=== PATIENT | male | born 1945 | race Caucasian/White ===

== ENCOUNTER 2024-01-26 21:40 | Emergency (ER) | payer MEDICARE, SELFPAY ==
[2024-01-26 22:19] VITALS: BP 151/75; PULSE 53; RESP 16; TEMP 37.1; O2SAT 96; BMI 35.0
--- NOTE | 2024-01-26 22:48 | ED_ITS ---
HPI - General Adult General Time Seen by Provider: 22:48 Date Seen: 01/26/24 Chief complaint: Skin/Abscess/Foreign Body Stated complaint: part of hearing aid stuck in ear Time Seen by Provider: 01/26/24 22:45 Source: patient Mode of arrival: ambulatory Limitations: no limitations History of Present Illness HPI narrative: Sky is a very pleasant 78-year-old [employer] [place] who comes to the emergency room for evaluation of foreign body in his left ear. States he removed his hearing aids tonight and part of the hearing aid remained in his left ear. His significant other tried to use a tweezers to pull it out but only pushed it further in. He has no pain at this time. This is to happen this evening. Related Data Home Medications ?Medication ?Instructions ?Recorded ?Confirmed atorvastatin 20 mg tablet 20 mg PO QDAY 12/04/22 12/04/22 dabigatran etexilate 110 mg 110 mg PO BID 12/04/22 12/04/22 capsule (Pradaxa) levothyroxine 75 mcg capsule 75 mcg PO QDAY 12/04/22 12/04/22 Previous Rx's ?Medication ?Instructions ?Recorded amoxicillin 875 mg-potassium 1 tab PO BID #20 tabs 12/04/22 clavulanate 125 mg tablet Allergies Allergy/AdvReac Type Severity Reaction Status Date / Time No Known Drug Allergies Allergy Verified 12/04/22 13:46 [facility] Medical History Need for prophylactic measure ?Z29.9 - Encounter for prophylactic measures, unspecified (ICD-10) Cat bite ?W55.01XA - Bitten by cat, initial encounter (ICD-10) Social History Smoking Status: Former smoker Non-prescribed substance use: denies use service: Yes Exam Narrative: Exam Narrative: Alert and oriented. Very pleasant gentleman in no acute distress. Examination of the left ear shows obvious metallic and plastic foreign body within the ear canal. A mini alligator forceps is used and foreign body is removed. Examination of the ear canal shows no trauma bleeding or evidence of infection. Const: Vital Signs, click to edit/add: Vital Signs - 24 hr 01/26/24 22:19 Temperature 98.7 F Pulse Rate [Left P ulse Oximeter] 53 L Respiratory Rate 16 Blood Pressure [Ri ght Upper Arm] 151/75 H Pulse Oximetry 96 Oxygen Delivery Me thod Room Air Documenting provider has reviewed patient's vital signs: yes Course Vital Signs Vital signs: Initial Vital Signs Temperature 98.7 F 01/26/24 22:19 Temperature Source Temporal Artery Scan 01/26/24 22:19 Pulse Rate 53 L 01/26/24 22:19 Pulse Rhythm Regular 01/26/24 22:19 Respiratory Rate 16 01/26/24 22:19 Blood Pressure 151/75 H 01/26/24 22:19 Blood Pressure Mean 100 01/26/24 22:19 Blood Pressure Position Sitting 01/26/24 22:19 Pulse Oximetry 96 01/26/24 22:19 Oxygen Delivery Method Room Air 01/26/24 22:19 Vital Signs Temperature 98.7 F 01/26/24 22:19 Pulse Rate 53 L 01/26/24 22:19 Respiratory Rate 16 01/26/24 22:19 Blood Pressure 151/75 H 01/26/24 22:19 Pulse Oximetry 96 01/26/24 22:19 Oxygen Delivery Method Room Air 01/26/24 22:19 Temperature 98.7 F 01/26/24 22:19 Pulse Rate 53 L 01/26/24 22:19 Respiratory Rate 16 01/26/24 22:19 Blood Pressure 151/75 H 01/26/24 22:19 Pulse Oximetry 96 01/26/24 22:19 Oxygen Delivery Method Room Air 01/26/24 22:19 Medical Decision Making MDM Narrative Medical decision making narrative: 1. Foreign body removal-part of the hearing a removed from the left ear. No ev idence of infection or trauma. 2. Disposition-home at this time. Return as needed. Discharge Plan Discharge Clinical Impression: Foreign body in left ear Qualifiers: Encounter type: initial encounter Qualified Code(s): T16.2XXA - Foreign body in left ear, initial encounter Patient Disposition: Home, Self-Care Condition: Improved Additional Instructions: Return as needed Prescriptions: No Action atorvastatin 20 mg tablet 20 mg PO QDAY levothyroxine 75 mcg capsule 75 mcg PO QDAY Pradaxa 110 mg capsule 110 mg PO BID amoxicillin-pot clavulanate 875-125 mg tablet 1 tab PO BID Qty: 20 0RF Stand Alone Forms: [employer] Info Instructions
--- OUTSIDE RECORDS SUMMARY | 2024-01-26 23:09 | XMS_ITS | Continuity of Care Document ---
Author Name [facility] Organization [facility] Care Team Providers Care Workers Compensation Adjuster Name Role Phone [facility] Unavailable Unavailable Problems Combined list of problems from Department of Defense and Veterans Affairs facilities. It does not include entries that were removed or entered in error. Problem Status Onset Date Problem Type Date of Resolution Comments Source Anticoagulation Active Condition [facility] CAD - Coronary Artery Disease (SCT 56922020) Active Condition Aug 16, 2023 Entered By: ELIZ MUNOZ Comment: Mild, nonobstructive CAD on coronary CTA 06/2022 [facility] Cervical Radiculopathy (SCT 12894731) Active Condition Aug 16, 2023 Entered By: ELIZ MUNOZ Comment: S/p JOSH 09/2022 [facility] colonoscopy screening Active Condition Sep 28, 2018 Entered By: DANIKA DE ANDA Comment: normal colonoscopy 09/2018, next 09/2028 [facility] Exposure to potentially hazardous substance Active Condition [facility] Glaucoma Active Condition [facility] Hypothyroid Active Condition [facility] Obstructive sleep apnea of adult (SNOMED CT 2665888247084) Active Condition December 09, 2010 Entered By: VIKTORIYA OCONNOR Comment: ON CPAP [facility] Paroxysmal atrial fibrillation Active Condition Aug 16, 2023 Entered By: ELIZ MUNOZ Comment: s/p PVI x2, most recently 06/2019 [facility] Actinic keratosis Inactive Condition 08/16/2023 [facility] Arthritis of right hip Inactive Condition 08/16/2023 [facility] Basal cell carcinoma of back Inactive Condition 08/16/2023 [facility] Cervical radiculitis Inactive Condition 08/16/2023 [facility] Chronic low back pain Inactive Condition 08/16/2023 [facility] Essential hypertension Inactive Condition 08/17/2023 [facility] Gastroesophageal reflux disease Inactive Condition 08/17/2023 [facility] Hyperlipidemia Inactive Condition 08/16/2023 [facility] Personal History of Colonic Polyps Inactive Condition 08/16/2023 Oct 21 13 Entered By: SALMA MORAN Comment: adenomatous and hyperplastic 08/10/07 [facility] Diagnosis: ICD-10-CM L57.0 Actinic keratosis Active [facility] Diagnosis: ICD-10-CM D48.5 Neoplasm of uncertain behavior of skin Active Diagnosis [facility] Diagnosis: ICD-10-CM M54.12 Radiculopathy, cervical region Active Diagnosis MODESTO FULLER [facility] Diagnosis: ICD-10-CM Z79.01 USP (current) use of anticoagulants [facility] Diagnosis: ICD-10-CM R07.9 Chest pain, unspecified Active Diagnosis [facility] Diagnosis: ICD-10-CM E03.9 Hypothyroidism, unspecified Active Diagnosis [facility] Diagnosis: ICD-10-CM Z77.29 Contact with and exposure to other hazardous substances Active Diagnosis [facility] Diagnosis: ICD-10-CM Z48.89 Encounter for other specified surgical aftercare Active Diagnosis [facility] Diagnosis: ICD-10-CM Z71.89 Other specified counseling Active Diagnosis [facility] Diagnosis: ICD-10-CM Z71.81 Spiritual or caodaism counseling Active Diagnosis [facility] Diagnosis: ICD-10-CM K40.91 Unilateral inguinal hernia, w/o obst or gangrene, recurrent Active Diagnosis [facility] Diagnosis: ICD-10-CM K40.90 Unil inguinal hernia, w/o obst or gangr, not spcf as recur Active Diagnosis [facility] Diagnosis: ICD-10-CM K40.21 Bilateral inguinal hernia, w/o obst or gangrene, recurrent Active Diagnosis [facility] Diagnosis: ICD-10-CM G47.33 Obstructive sleep apnea (adult) (pediatric) Active Diagnosis [facility] Diagnosis: ICD-10-CM Z01.818 Encounter for other preprocedural examination Active Diagnosis [facility] Diagnosis: ICD-10-CM Z13.6 Encounter for screening for cardiovascular disorders Active Diagnosis [facility] Diagnosis: ICD-10-CM Z71.9 Counseling, unspecified Active Diagnosis [facility] Diagnosis: ICD-10-CM K40.31 Unilateral inguinal hernia, w obst, w/o gangrene, recurrent Active Diagnosis [facility] Diagnosis: ICD-10-CM J01.90 Acute sinusitis, unspecified Active Diagnosis [facility] Diagnosis: ICD-10-CM M47.22 Other spondylosis with radiculopathy, cervical region Active Diagnosis MODESTO FULLER [facility] Diagnosis: ICD-10-CM Z51.81 Encounter for therapeutic drug level monitoring Active Diagnosis JACKELIN GIPSON [facility] Medications Combined list of outpatient medications from Department of Defense and Veterans Affairs facilities.Medications provided include 1) outpatient medications from the last 15 months, and 2) patient-reported medications. Medication Details Route Status Patient Instructions Prescription Expires Prescription Number Last Dispense Date Ordering Provider Order Date Order Qty Source ACETAMINOPH EN 325MG TAB TAKE TWO TABLETS BY MOUTH EVERY 4 HOURS NEEDED FOR PAIN ORAL 05/30/2023 [id number] Pham SANTIAGO 2022 100 [facility] ACETAMINOPH EN 500MG TAB TAKE TWO TABLETS BY MOUTH EVERY 8 HOURS NEEDED FOR PAIN ORAL 11/18/2023 [id number] 4 ROBERT BERRY 2023 42 [facility] CHOLECALCIF NII 25MCG (1,000UNIT) TAB TAKE TWO TABLETS BY MOUTH TWICE A DAY ORAL ACTIVE ANDREA COHEN 2018 [facility] DABIGATRAN ETEXILATE 150MG CAP,ORAL,UD TAKE ONE CAPSULE BY MOUTH EVERY 12 HOURS TO PREVENT STROKE DUE TO ATRIAL FIBRILLA TION ORAL ACTIVE 09/29/2024 [id number] ALLYSON ESTRADA 2023 180 [facility] DABIGATRAN ETEXILATE 150MG CAP,ORAL,UD TAKE ONE CAPSULE BY MOUTH EVERY 12 HOURS TO PREVENT STROKE DUE TO ATRIAL FIBRILLA TION ORAL DISCONT INUED 08/19/2023 [id number] JORGITO HENNING 2022 180 [facility] DICLOFENAC NA 1% GEL,TOP APPLY 4 GRAMS TOPICALL Y FOUR TIMES A DAY NEEDED TO AFFECTED AREA FOR PAIN TOPICA L 11/18/2023 [id number] ROBERT BERRY 2023 100 [facility] DOCUSATE NA 50MG/SENNOS IDES 8.6MG TAB TAKE 1 TABLET BY MOUTH TWICE A DAY NEEDED FOR CONSTIPA TION ORAL 05/30/2023 [id number] Pham SANTIAGO 2022 30 [facility] DORZOLAMIDE HCL 2% SOLN,OPH INSTILL 1 DROP IN BOTH EYES TWICE A DAY OPHTHA LMIC ACTIVE 11/17/2024 [id number] JU DURAN 2023 20 [facility] DORZOLAMIDE HCL 2% SOLN,OPH INSTILL 1 DROP IN OPTHALMI FAVIAN THREE TIMES A DAY FOR AFFECTED EYE(S) OPHTHA LMIC DISCONT INUED 09/20/2024 [id number] JU DURAN 2023 10 [facility] DORZOLAMIDE HCL 2% SOLN,OPH INSTILL 1 DROP THREE TIMES A DAY TO AFFECTED EYE(S) DISCONT INUED 01/14/2024 [id number] LINDSAY GAMING OD 2022 10 [facility] FLUOROURACI L 5% CREAM,TOP APPLY DIRECTED TO FACE TOPICALL Y TWICE A DAY FOR PRECANCE RS FOR TWO WEEKS TO SUN DAMAGED AREAS OF FACE TOPICA L ACTIVE 11/17/2024 [id number] GIULIANA HUGO 2023 40 [facility] LATANOPROST 0.005% SOLN,OPH INSTILL 1 DROP IN BOTH EYES AT BEDTIME OPHTHA LMIC ACTIVE 11/17/2024 [id number] 4 JU DURAN 2023 7.5 [facility] LATANOPROST 0.005% SOLN,OPH INSTILL 1 DROP EVERY DAY AT BEDTIME IN AFFECTED EYE(S) DISCONT INUED 07/20/2024 [id number] LINDSAY GAMING OD 2022 7.5 [facility] LATANOPROST 0.005% SOLN,OPH INSTILL 1 DROP IN BOTH EYES AT BEDTIME OPHTHA LMIC 05/13/2023 [id number] MANJEET SMITH JAZMYNE E 2021 7.5 [facility] LEVOTHYROXI NE NA 137MCG TAB (SYNTHROID) TAKE ONE TABLET BY MOUTH EVERY DAY ON AN EMPTY STOMACH ORAL ACTIVE 08/17/2024 [id number] TAMMY,ELIZ B 2023 90 [facility] LEVOTHYROXI NE NA 137MCG TAB (SYNTHROID) TAKE ONE TABLET BY MOUTH EVERY DAY ON AN EMPTY STOMACH ORAL DISCONT INUED 07/02/2023 [id number] 3 TAMMY,ELIZ B 2022 90 [facility] LIDOCAINE 5% PATCH APPLY 1 PATCH TOPICALL Y EVERY DAY NEEDED FOR UP TO 12 HOURS FOR PAIN TOPICA L 11/18/2023 [id number] ROBERT BERRY MY A 2023 30 [facility] OXYCODONE HCL 5MG TAB TAKE ONE TABLET BY MOUTH EVERY 6 HOURS NEEDED FOR PAIN ORAL DISCONT INUED 05/30/2023 [id number] 3 Katherine LOU 2022 10 [facility] ROSUVASTATI N CA 20MG TAB TAKE ONE TABLET BY MOUTH AT BEDTIME FOR CHOLESTE ROL ORAL ACTIVE 08/17/2024 [id number] 4 TAMMY,ELIZ B 2023 90 [facility] ROSUVASTATI N CA 40MG TAB TAKE ONE-HALF TABLET BY MOUTH AT BEDTIME ORAL DISCONT INUED (EDIT) 05/31/2024 [id number] 3 REBECA TAYLOR 2022 45 [facility] ROSUVASTATI N CA 40MG TAB TAKE ONE-HALF TABLET BY MOUTH AT BEDTIME ORAL DISCONT INUED 05/30/2023 [id number] REBECA TAYLOR 2021 45 [facility] ZINC (FROM SULFATE) CAP,ORAL TAKE ACTIVE SRINIVASA LIN 2022 [facility] Immunizations Combined list of available immunizations from the Department of Defense and Veterans Affairs facilities. Immunization Series Date Given Administered By Site Reaction Lot Number CVX Code Drug Ophthalmic Technician Status Comments Source INFLUENZA, HIGH-DOSE, QUADRIVALENT 2022 197 complet ed [facility] TDAP 2022 115 complet ed [facility] INFLUENZA VACCINE, QUADRIVALENT, ADJUVANTED 2021 205 complet ed [facility] TDAP 2021 115 complet ed [id number] 11/01/23 [facility] COVID-19 (Axilica), MRNA, LNP-S, PF, 30 MCG/0.3 ML DOSE 3 2020 208 complet ed PFR; [id number]; 1 [facility] INFLUENZA, INJECTABLE, QUADRIVALENT, PRESERVATIVE FREE 2020 150 complet ed [facility] COVID-19 (PFIZER), MRNA, LNP-S, PF, 30 MCG/0.3 ML DOSE 2 2020 208 complet ed PFR; [id number]; 1 [facility] COVID-19 (Axilica), MRNA, LNP-S, PF, 30 MCG/0.3 ML DOSE 1 2020 208 complet ed PFR; [id number]; 1 [facility] INFLUENZA, INJECTABLE, QUADRIVALENT, PRESERVATIVE FREE 2019 150 complet ed [facility] ZOSTER RECOMBINANT 2 2019 187 complet ed [facility] ZOSTER RECOMBINANT 1 2018 187 complet ed [facility] INFLUENZA, HIGH DOSE SEASONAL 2018 135 complet ed [facility] INFLUENZA, HIGH DOSE SEASONAL 2018 135 complet ed [facility] INFLUENZA, SEASONAL, INJECTABLE, PRESERVATIVE FREE 2017 140 complet ed [facility] INFLUENZA, HIGH DOSE SEASONAL 2016 135 complet ed [facility] TD (ADULT), 2 LF TETANUS TOXOID, PRESERVATIVE FREE, ADSORBED 2016 09 complet ed [facility]; [id number]; 8 [facility] INFLUENZA, HIGH DOSE SEASONAL 2015 135 complet ed [facility] INFLUENZA, HIGH DOSE SEASONAL 2014 135 complet ed per chart [facility] INFLUENZA, HIGH DOSE SEASONAL 2014 135 complet ed [facility] PNEUMOCOCCAL CONJUGATE PCV 13 2014 133 complet ed wyeth [id number] 09/2016 [facility] INFLUENZA, UNSPECIFIED FORMULATION 2013 88 complet ed [facility] INFLUENZA, SEASONAL, INJECTABLE 2012 141 complet ed [facility] INFLUENZA, LIVE, INTRANASAL 2012 111 complet ed [facility] INFLUENZA, HIGH DOSE SEASONAL 2011 135 complet ed [facility] INFLUENZA, UNSPECIFIED FORMULATION 2011 88 complet ed [facility] PNEUMOCOCCAL, UNSPECIFIED FORMULATION 2011 109 complet ed [employer] [id number], 04/09/13 [facility] INFLUENZA, UNSPECIFIED FORMULATION 2010 88 complet ed [facility] INFLUENZA, UNSPECIFIED FORMULATION 2009 88 complet ed [facility] INFLUENZA, SEASONAL, INJECTABLE 2009 141 complet ed [facility] ZOSTER LIVE 2009 121 complet ed [facility] NOVEL INFLUENZA-H1N 1-09, ALL FORMULATIONS 2009 128 complet ed [facility] ZOSTER LIVE 2008 121 complet ed [facility] INFLUENZA, SEASONAL, INJECTABLE, PRESERVATIVE FREE 2008 140 complet ed [facility] INFLUENZA, UNSPECIFIED FORMULATION 2007 88 complet ed [facility] TDAP 2007 115 complet ed [facility] TDAP 2007 115 complet ed [facility] INFLUENZA, UNSPECIFIED FORMULATION 2006 88 complet ed [facility] INFLUENZA, UNSPECIFIED FORMULATION 2005 88 complet ed [facility] TD (ADULT), 2 LF TETANUS TOXOID, PRESERVATIVE FREE, ADSORBED 1997 09 complet ed [facility] Results Combined list of recent chemistry, hematology and other laboratory results from Department of Defense and Veterans Affairs, ranging from 15 months to all on record, depending upon the facility. Order Name Results Value Reference Range Date Interpretation Specimen Comments Source TROPONIN I, HS TROPONIN I.CARDIAC [MASS/VOLU ME] IN SERUM OR PLASMA <3 <35 - 35 10/18 Specimen Type: PLASMA No comment entered. Ordering Provider: FIGUEROA BERRY Report Released Date/Time: Oct 19, 2023 03:51 PM Reporting Lab: [facility] [address] Performing Lab: [facility] [address] [place] [facility] TROPONIN I, HS TROPONIN I.CARDIAC [MASS/VOLU ME] IN SERUM OR PLASMA <3 <35 - 35 10/18 Specimen Type: PLASMA No comment entered. Ordering Provider: FIGUEROA BERRY Report Released Date/Time: Oct 19, 2023 01:29 PM Reporting Lab: [facility] [address] Performing Lab: [facility] [address] [place] [facility] BNP NATRIURETI C PEPTIDE B [MASS/VOLU ME] IN SERUM OR PLASMA 30 pg/mL <99 - 99 10/18 Specimen Type: PLASMA No comment entered. Ordering Provider: FIGUEROA BERRY Report Released Date/Time: Oct 19, 2023 01:29 PM Reporting Lab: [facility] [address] Performing Lab: [facility] [address] [place] [facility] ACT PART THROMBO TIME APTT IN PLATELET POOR PLASMA BY COAGULATIO N ASSAY 35.2 s 25.1 - 36.5 10/18 Specimen Type: PLASMA No comment entered. Ordering Provider: FIGUEROA BERRY Report Released Date/Time: Oct 19, 2023 01:29 PM Reporting Lab: [facility] [address] Performing Lab: [facility] [address] [place] [facility] EXTRA GOLD GEL TUBE EXTRA GOLD GEL TUBE RECEIVED 10/18 Specimen Type: SERUM No comment entered. Ordering Provider: FIGUEROA BERRY Report Released Date/Time: Oct 19, 2023 01:35 PM Reporting Lab: [facility] [address] Performing Lab: [facility] [address] [place] [facility] BASIC METABOLI C PANEL+MG CREATININE [MASS/VOLU ME] IN SERUM OR PLASMA 0.8 mg/dL 0.7 - 1.2 10/18 Specimen Type: PLASMA No comment entered. Ordering Provider: FIGUEROA BERRY Report Released Date/Time: Oct 19, 2023 01:29 PM Reporting Lab: [facility] [address] Performing Lab: [facility] [address] [place] [facility] BASIC METABOLI C PANEL+MG UREA NITROGEN [MASS/VOLU ME] IN SERUM OR PLASMA 18 mg/dL 8 - 26 10/18 Specimen Type: PLASMA No comment entered. Ordering Provider: FIGUEROA BERRY Report Released Date/Time: Oct 19, 2023 01:29 PM Reporting Lab: [facility] [address] Performing Lab: [facility] [address] [place] [facility] BASIC METABOLI C PANEL+MG GLUCOSE [MASS/VOLU ME] IN SERUM OR PLASMA 98 mg/dL 70 - 100 10/18 Specimen Type: PLASMA No comment entered. Ordering Provider: FIGUEROA BERRY Report Released Date/Time: Oct 19, 2023 01:29 PM Reporting Lab: [facility] [address] Performing Lab: [facility] [address] [place] [facility] BASIC METABOLI C PANEL+MG SODIUM [MOLES/VOL UME] IN SERUM OR PLASMA 142 mmol/L 136 - 145 10/18 Specimen Type: PLASMA No comment entered. Ordering Provider: FIGUEROA BERRY Report Released Date/Time: Oct 19, 2023 01:29 PM Reporting Lab: [facility] [address] Performing Lab: [facility] [address] [place] [facility] BASIC METABOLI C PANEL+MG POTASSIUM [MOLES/VOL UME] IN SERUM OR PLASMA 4.2 mmol/L 3.5 - 5.1 10/18 Specimen Type: PLASMA No comment entered. Ordering Provider: FIGUEROA BERRY Report Released Date/Time: Oct 19, 2023 01:29 PM Reporting Lab: [facility] [address] Performing Lab: [facility] [address] [place] [facility] BASIC METABOLI C PANEL+MG CHLORIDE [MOLES/VOL UME] IN SERUM OR PLASMA 107 mmol/L 98 - 107 10/18 Specimen Type: PLASMA No comment entered. Ordering Provider: FIGUEROA BERRY Report Released Date/Time: Oct 19, 2023 01:29 PM Reporting Lab: [facility] [address] Performing Lab: [facility] [address] [place] [facility] BASIC METABOLI C PANEL+MG CARBON DIOXIDE, TOTAL [MOLES/VOL UME] IN SERUM OR PLASMA 25 mmol/L 22 - 29 10/18 Specimen Type: PLASMA No comment entered. Ordering Provider: FIGUEROA BERRY Report Released Date/Time: Oct 19, 2023 01:29 PM Reporting Lab: [facility] [address] Performing Lab: [facility] [address] [place] [facility] BASIC METABOLI C PANEL+MG CALCIUM [MASS/VOLU ME] IN SERUM OR PLASMA 9.5 mg/dL 8.4 - 10.2 10/18 Specimen Type: PLASMA No comment entered. Ordering Provider: FIGUEROA BERRY Report Released Date/Time: Oct 19, 2023 01:29 PM Reporting Lab: [facility] [address] Performing Lab: [facility] [address] [place] [facility] BASIC METABOLI C PANEL+MG MAGNESIUM [MASS/VOLU ME] IN SERUM OR PLASMA 1.9 mg/dL 1.6 - 2.6 10/18 Specimen Type: PLASMA No comment entered. Ordering Provider: FIGUEROA BERRY Report Released Date/Time: Oct 19, 2023 01:29 PM Reporting Lab: [facility] [address] Performing Lab: [facility] [address] [place] [facility] BASIC METABOLI C PANEL+MG ANION GAP IN SERUM OR PLASMA 10 mmol/L 5 - 15 10/18 Specimen Type: PLASMA No comment entered. Ordering Provider: FIGUEROA BERRY Report Released Date/Time: Oct 19, 2023 01:29 PM Reporting Lab: [facility] [address] Performing Lab: [facility] [address] [place] [facility] BASIC METABOLI C PANEL+MG GLOMERULAR FILTRATION RATE/1.73 SQ M.PREDICTE D [VOLUME RATE/AREA] IN SERUM, PLASMA OR BLOOD BY CREATININE -BASED FORMULA (CKD-EPI 2020) >90 60 10/18 Specimen Type: PLASMA No comment entered. Ordering Provider: FIGUEROA BERRY Report Released Date/Time: Oct 19, 2023 01:29 PM Reporting Lab: [facility] [address] Performing Lab: [facility] [address] [place] [facility] CBC & DIFF LEUKOCYTES [#/VOLUME] IN BLOOD BY AUTOMATED COUNT 7.22 10*3/uL 4.0 - 11.0 10/18 Specimen Type: BLOOD Comment: Automated Differentia l Performed Ordering Provider: FIGUEROA BERRY Report Released Date/Time: Oct 19, 2023 01:29 PM Reporting Lab: [facility] [address] Performing Lab: [facility] [address] [place] [facility] CBC & DIFF ERYTHROCYT ES [#/VOLUME] IN BLOOD BY AUTOMATED COUNT 5.12 10*6/uL 4.6 - 6.2 10/18 Specimen Type: BLOOD Comment: Automated Differentia l Performed Ordering Provider: FIGUEROA BERRY Report Released Date/Time: Oct 19, 2023 01:29 PM Reporting Lab: [facility] [address] Performing Lab: [facility] [address] [place] [facility] CBC & DIFF HEMOGLOBIN [MASS/VOLU ME] IN BLOOD 15.4 g/dL 13.5 - 17.9 10/18 Specimen Type: BLOOD Comment: Automated Differentia l Performed Ordering Provider: FIGUEROA BERRY Report Released Date/Time: Oct 19, 2023 01:29 PM Reporting Lab: [facility] [address] Performing Lab: [facility] [address] [place] [facility] CBC & DIFF HEMATOCRIT [VOLUME FRACTION] OF BLOOD BY AUTOMATED COUNT 46.9 41 - 54 10/18 Specimen Type: BLOOD Comment: Automated Differentia l Performed Ordering Provider: FIGUEROA BERRY Report Released Date/Time: Oct 19, 2023 01:29 PM Reporting Lab: [facility] [address] Performing Lab: [facility] [address] [place] [facility] CBC & DIFF MCV [ENTITIC VOLUME] BY AUTOMATED COUNT 91.6 fL 80 - 100 10/18 Specimen Type: BLOOD Comment: Automated Differentia l Performed Ordering Provider: FIGUEROA BERRY Report Released Date/Time: Oct 19, 2023 01:29 PM Reporting Lab: [facility] [address] Performing Lab: [facility] [address] [place] [facility] CBC & DIFF MCH [ENTITIC MASS] BY AUTOMATED COUNT 30.1 pg 27 - 33 10/18 Specimen Type: BLOOD Comment: Automated Differentia l Performed Ordering Provider: FIGUEROA BERRY Report Released Date/Time: Oct 19, 2023 01:29 PM Reporting Lab: [facility] [address] Performing Lab: [facility] [address] [place] [facility] CBC & DIFF MCHC [MASS/VOLU ME] BY AUTOMATED COUNT 32.8 g/dL 32.0 - 37.5 10/18 Specimen Type: BLOOD Comment: Automated Differentia l Performed Ordering Provider: FIGUEROA BERRY Report Released Date/Time: Oct 19, 2023 01:29 PM Reporting Lab: [facility] [address] Performing Lab: [facility] [address] [place] [facility] CBC & DIFF PLATELETS [#/VOLUME] IN BLOOD BY AUTOMATED COUNT 215 10*3/uL 150 - 400 10/18 Specimen Type: BLOOD Comment: Automated Differentia l Performed Ordering Provider: FIGUEROA BERRY Report Released Date/Time: Oct 19, 2023 01:29 PM Reporting Lab: [facility] [address] Performing Lab: [facility] [address] [place] [facility] CBC & DIFF PLATELET MEAN VOLUME [ENTITIC VOLUME] IN BLOOD BY AUTOMATED COUNT 10.2 fL 7.4 - 10.4 10/18 Specimen Type: BLOOD Comment: Automated Differentia l Performed Ordering Provider: FIGUEROA BERRY Report Released Date/Time: Oct 19, 2023 01:29 PM Reporting Lab: [facility] [address] Performing Lab: [facility] [address] [place] [facility] CBC & DIFF NEUTROPHIL S/100 LEUKOCYTES IN BLOOD BY MANUAL COUNT 67.4 40.0 - 80.0 10/18 Specimen Type: BLOOD Comment: Automated Differentia l Performed Ordering Provider: FIGUEROA BERRY Report Released Date/Time: Oct 19, 2023 01:29 PM Reporting Lab: [facility] [address] Performing Lab: [facility] [address] [place] [facility] CBC & DIFF LYMPHOCYTE S/100 LEUKOCYTES IN BLOOD BY MANUAL COUNT 17.0 15.0 - 45.0 10/18 Specimen Type: BLOOD Comment: Automated Differentia l Performed Ordering Provider: FIGUEROA BERRY Report Released Date/Time: Oct 19, 2023 01:29 PM Reporting Lab: [facility] [address] Performing Lab: [facility] [address] [place] [facility] CBC & DIFF MONOCYTES/ 100 LEUKOCYTES IN BLOOD BY AUTOMATED COUNT 11.2 2.0 - 12.0 10/18 Specimen Type: BLOOD Comment: Automated Differentia l Performed Ordering Provider: FIGUEROA BERRY Report Released Date/Time: Oct 19, 2023 01:29 PM Reporting Lab: [facility] [address] Performing Lab: [facility] [address] [place] [facility] CBC & DIFF EOSINOPHIL S/100 LEUKOCYTES IN BLOOD BY AUTOMATED COUNT 3.3 0.0 - 6.0 10/18 Specimen Type: BLOOD Comment: Automated Differentia l Performed Ordering Provider: FIGUEROA BERRY Report Released Date/Time: Oct 19, 2023 01:29 PM Reporting Lab: [facility] [id number] Performing Lab: [facility] [id number] [place] [facility] CBC & DIFF BASOPHILS/ 100 LEUKOCYTES IN BLOOD BY MANUAL COUNT 0.8 0.0 - 2.0 10/18 Specimen Type: BLOOD Comment: Automated Differentia l Performed Ordering Provider: FIGUEROA BERRY Report Released Date/Time: Oct 19, 2023 01:29 PM Reporting Lab: [facility] [id number] Performing Lab: [facility] [id number] [place] [facility] CBC & DIFF ERYTHROCYT E DISTRIBUTI ON WIDTH [RATIO] BY AUTOMATED COUNT 13.0 11.5 - 14.5 10/18 Specimen Type: BLOOD Comment: Automated Differentia l Performed Ordering Provider: FIGUEROA BERRY Report Released Date/Time: Oct 19, 2023 01:29 PM Reporting Lab: [facility] [address] Performing Lab: [facility] [address] [place] [facility] CBC & DIFF LYMPHOCYTE S [#/VOLUME] IN BLOOD BY AUTOMATED COUNT 1.23 10*3/uL 1.0 - 4.0 10/18 Specimen Type: BLOOD Comment: Automated Differentia l Performed Ordering Provider: FIGUEROA BERRY Report Released Date/Time: Oct 19, 2023 01:29 PM Reporting Lab: [facility] [address] Performing Lab: [facility] [address] [place] [facility] CBC & DIFF MONOCYTES [#/VOLUME] IN BLOOD BY AUTOMATED COUNT 0.81 10*3/uL 0.1 - 1.0 10/18 Specimen Type: BLOOD Comment: Automated Differentia l Performed Ordering Provider: FIGUEROA BERRY Report Released Date/Time: Oct 19, 2023 01:29 PM Reporting Lab: [facility] [address] Performing Lab: [facility] [address] [place] [facility] CBC & DIFF NEUTROPHIL S [#/VOLUME] IN BLOOD BY AUTOMATED COUNT 4.86 10*3/uL 2.0 - 7.7 10/18 Specimen Type: BLOOD Comment: Automated Differentia l Performed Ordering Provider: FIGUEROA BERRY Report Released Date/Time: Oct 19, 2023 01:29 PM Reporting Lab: [facility] [address] Performing Lab: [facility] [address] [place] [facility] CBC & DIFF EOSINOPHIL S [#/VOLUME] IN BLOOD BY AUTOMATED COUNT 0.24 10*3/uL 0 - 0.5 10/18 Specimen Type: BLOOD Comment: Automated Differentia l Performed Ordering Provider: FIGUEROA BERRY Report Released Date/Time: Oct 19, 2023 01:29 PM Reporting Lab: [facility] [address] Performing Lab: [facility] [address] [place] [facility] CBC & DIFF BASOPHILS [#/VOLUME] IN BLOOD BY AUTOMATED COUNT 0.06 10*3/uL 0 - 0.2 10/18 Specimen Type: BLOOD Comment: Automated Differentia l Performed Ordering Provider: FIGUEROA BERRY Report Released Date/Time: Oct 19, 2023 01:29 PM Reporting Lab: [facility] [address] Performing Lab: [facility] [address] [place] [facility] CBC & DIFF IG(META,MY SIMI,PRO) 0.3 10/18 Specimen Type: BLOOD Comment: Automated Differentia l Performed Ordering Provider: FIGUEROA BERRY Report Released Date/Time: Oct 19, 2023 01:29 PM Reporting Lab: [facility] [address] Performing Lab: [facility] [address] [place] [facility] CBC & DIFF IMMATURE GRANULOCYT ES [PRESENCE] IN BLOOD BY AUTOMATED COUNT 0.02 10*3/uL 0 - 0.1 10/18 Specimen Type: BLOOD Comment: Automated Differentia l Performed Ordering Provider: FIGUEROA BERRY Report Released Date/Time: Oct 19, 2023 01:29 PM Reporting Lab: [facility] [address] Performing Lab: [facility] [address] [place] [facility] AST/SGOT ASPARTATE AMINOTRANS FERASE [ENZYMATIC ACTIVITY/V OLUME] IN SERUM OR PLASMA 28 U/L <34 - 34 08/17 Specimen Type: PLASMA No comment entered. Ordering Provider: ELIZ MUNOZ Report Released Date/Time: Jul 01, 2022 10:12 AM Reporting Lab: [facility] [address] Performing Lab: [facility] [address] [place] [facility] ALT/SGPT ALANINE AMINOTRANS FERASE [ENZYMATIC ACTIVITY/V OLUME] IN SERUM OR PLASMA 22 U/L <55 - 55 08/17 Specimen Type: PLASMA No comment entered. Ordering Provider: ELIZ MUNOZ Report Released Date/Time: Jul 01, 2022 10:12 AM Reporting Lab: [facility] [address] Performing Lab: [facility] [address] [facility] Vital Signs Combined list of inpatient and outpatient Vital Signs from Department of [facility] and [facility], ranging from 12 months to all on record, depending upon the facility. Vital Sign Value Date Comments Source Encounters Combined list of: 1) Encounters from Department [facility] facilities going back up to thelast 18 months. 2) Encounters from the Department of [facility] facilities going back up to 280 months. Location Location Details Encounter Type Encounter Number Reason For Visit Attending Provider ADM Date DC Date Status Disposition Source [facility] Outpatient Encounter [id number] 08/26 [facility] QNHP OL DIG ASSMT&MGMT 11-20 [id number] Diagnos is: ICD-10- CM Z51.81 Encount er for therape utic drug level monitor ing<br/ > СВЕТЛАНА PHILLIPS 08/27 [facility] Outpatient Encounter [id number] 09/08 [facility] NJX INTERLAMIN AR CRV/THRC [id number] Diagnos is: ICD-10- CM 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
GARCÍA COX SA 09/25 [facility] [place] [facility] Outpatient Encounter [id number] 09/25 [facility] [place] [facility] Outpatient Encounter [id number] 09/30 [facility] [place] [facility] Outpatient Encounter [id number] 10/06 [facility] [place] [facility] Outpatient Encounter [id number] 10/12 [facility] [place] [facility] Outpatient Encounter [id number] 12/04 [facility] [place] [facility] Outpatient Encounter [id number] MAURO ALVAREZ ONDA A 12/04 [facility] Outpatient Encounter [id number] SERINA WATSON 01/07 [facility] OFFICE O/P EST MOD 30-39 MIN [id number] Diagnos is: ICD-10- CM K40.91 Unilate ral inguina l hernia, w/o obst or gangren e, recurre nt
Mary Kate TAI 01/11 [facility] [place] [facility] Outpatient Encounter [id number] ELVIRA CASTELLANOS SA 01/17 [facility] [place] [facility] Outpatient Encounter [id number] 01/29 [facility] PATIENT EDUCATION MATERIALS [id number] Diagnos is: ICD-10- CM Z71.9 [employer] Professional ing, unspeci fied
DORIS RICE 02/18 [facility] OFF/OP CONSLTJ NEW/EST HI 55 [id number] Diagnos is: ICD-10- CM K40.31 Unilate ral inguina l hernia, w obst, w/o gangren e, recurre nt
Katherine FERRER 02/18 [facility] QNHP OL DIG ASSMT&MGMT 06-21 [id number] Diagnos is: ICD-10- CM Z79.01 USP (curren t) use of anticoa gulants
DELON MARTINEZ 02/22 [facility] ELECTROCAR DIOGRAM COMPLETE [id number] Diagnos is: ICD-10- CM Z13.6 Encount er for screeni ng for cardiov ascular disorde rs
Lissett ROACH 04/09 [facility] OFFICE O/P EST MOD 30-39 MIN [id number] Diagnos is: ICD-10- CM Z01.818 Encount er for other preproc edural examina tion
BERNIE LIN 04/09 [facility] OFFICE O/P EST HI 40-54 MIN [id number] Diagnos is: ICD-10- CM G47.33 Obstruc tive sleep apnea (adult) (pediat gerry)
YULIANA BRIGHT 04/09 [facility] Outpatient Encounter [id number] Diagnos is: ICD-10- CM K40.21 Bilater al inguina l hernia, w/o obst or gangren e, recurre nt
SKYLER PATEL RA 04/21 [place] [facility] [place] [facility] Outpatient Encounter [id number] SYSTEM,CIS -ARK 04/30 [place] [facility] [place] [facility] Outpatient Encounter [id number] SYSTEM,CIS -ARK 04/30 [place] [facility] [place] [facility] Outpatient Encounter [id number] MARNI MYERS 04/30 [place] [facility] Outpatient Encounter [id number] 04/30 [facility] OFFICE O/P EST MOD 30-39 MIN [id number] Diagnos is: ICD-10- CM K40.90 Unil inguina l hernia, w/o obst or gangr, not spcf as recur<b r/> GARCÍA MARQUEZ 04/30 [facility] Outpatient Encounter [id number] GARCÍA MARQUEZ FRAN 04/30 [facility] Outpatient Encounter [id number] Diagnos is: ICD-10- CM K40.91 Unilate ral inguina l hernia, w/o obst or gangren e, recurre nt
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 [id number] Diagnos is: ICD-10- CM Z71.81 Spiritu al or religio us patent counsel ing<br/ > Meme LOMAS P 04/30 [facility] Outpatient Encounter [id number] 04/30 [facility] HC PRO PHONE CALL 5-10 MIN [id number] Diagnos is: ICD-10- CM Z71.89 Other specifi ed patent counsel ing<br/ > YANG FITZGERALD 05/03 [facility] Outpatient Encounter [id number] 05/07 [facility] Outpatient Encounter [id number] 05/19 [facility] POSTOP FOLLOW-UP VISIT [id number] Diagnos is: ICD-10- CM Z48.89 Encount er for other specifi ed surgica l afterca re
Katherine FERRER 05/25 [facility] Outpatient Encounter [id number] 05/28 [facility] Outpatient Encounter [id number] Diagnos is: ICD-10- CM Z77.29 Contact with and exposur e to other hazardo us substan marlene<br/ > SENTHIL ROCHE 06/09 [facility] OFFICE O/P EST LOW 20 MIN [id number] Diagnos is: ICD-10- CM E03.9 Hypothy roidism , unspeci fied
ELIZ MUNOZ B 08/17 [facility] Outpatient Encounter [id number] SYSTEM,CIS -ARK 10/18 [facility] EMERGENCY DEPT VISIT MOD MDM [id number] Diagnos is: ICD-10- CM R07.9 Chest pain, unspeci fied
JEFFERSON BERRY A 10/18 [facility] Outpatient Encounter [id number] 10/19 [facility] HC PRO PHONE CALL 5-10 MIN [id number] Diagnos is: ICD-10- CM M54.12 Radicul opathy, cervica l region< br/> Mario ABELOLE M 10/21 [facility] Outpatient Encounter [id number] 10/26 [facility] EMERGENCY DEPT VISIT MOD MDM [id number] Diagnos is: ICD-10- CM R07.9 Chest pain, unspeci fied
MELLY RODRIGUEZ 10/26 [facility] HC PRO PHONE CALL 5-10 MIN [id number] Diagnos is: ICD-10- CM M54.12 Radicul opathy, cervica l region< br/> WILLIAM SOLIZ 10/27 [facility] MTMS BY PHARM EST 15 MIN [id number] Diagnos is: ICD-10- CM Z79.01 USP (curren t) use of anticoa gulants
JOSE JUAN GOTTI 11/02 [facility] Outpatient Encounter [id number] 11/07 [facility] [place] [facility] Outpatient Encounter [id number] 11/14 [facility] NJX INTERLAMIN AR CRV/THRC [id number] Diagnos is: ICD-10- CM M54.12 Radicul opathy, cervica l region< br/> JOSE ARMENTA 11/14 [facility] [place] [facility] UNLISTED SPEC DERM SVC/PX [id number] Diagnos is: ICD-10- CM D48.5 Neoplas m of uncerta in behavio r of skin
KATIUSKA ROSARIO Lilly 11/15 [facility] [place] [facility] Outpatient Encounter [id number] Diagnos is: ICD-10- CM L57.0 Actinic keratos is
FABRICE HUGO 11/16 [facility] Procedures Combined list of: 1) Procedures from [facility] facilities going back up to thelast 18 months, not all [place] non-surgical procedures are included; 2) All procedures from the Department of Defense facilities. Procedure Procedure Type Code Date Perfomer Comments Sourc e Laparoscopic recurrent Left inguinal hernia repair LAP ING HERNIA REPAIR RECUR [id number] 3 CAROLA FERRER LT-LEFT SIDE [facility] Social History Combined list of available smoking, tobacco, and other social history from Department of Defense and Veterans Affairs facilities. Social History Type Response Date Comment Sourc e Tobacco smoking status NHIS NC-TOBACCO QUIT 15 YRS OR MORE 08/17/2023 [facility] History of tobacco use NC-TOBACCO FORMER USER 08/17/2023 [facility] History of tobacco use [facility] CAMPUST[facility]CO QUIT 1 5 YRS OR MORE 07/01/2022 [facility] History of tobacco use [facility] CAMPUSTOB[facility]CO QUIT 1 5 YRS OR MORE 05/22/2021 [facility] History of tobacco use NC-TOBACCO QUIT 1 5 YRS OR MORE 03/29/2020 [facility] History of tobacco use NC-TOBACCO QUIT 1 5 YRS OR MORE 03/06/2019 [facility] History of tobacco use INPT NO TOBACCO U SE IN LAST 30 DAYS 10/23/2018 [facility] History of tobacco use NC-TOBACCO FORMER USER 06/15/2018 [facility] History of tobacco use INPT NO TOBACCO U SE IN LAST 30 DAYS 06/25/2017 [facility] History of tobacco use FORMER TOBACCO US ER 7Y OR GREATER 04/26/2017 [facility] History of tobacco use INPT NO TOBACCO U SE IN LAST 30 DAYS 01/04/2017 [facility] 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 An actual copy of the Directive is not included. Date Advance Directive Provider Source 06/25/2017 CLINICAL WARNING MADHAVI CASTILLO [facility] 01/04/2017 CLINICAL WARNING DIGNA CASTELLANOS [facility] 09/26/2014 CLINICAL WARNING SHEREEN LAUREANO [facility]
--- OUTSIDE RECORDS SUMMARY | 2024-01-26 23:10 | XMS_ITS | Encounter Summary ---
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 of [facility] Organization Department of [facility] Address [address] [place] [id number] Care Team Providers Care Store Standards Associate Name Role Phone ELIZ MUNOZ Primary Care Provider [facility] Insurance Providers: All historical and current Section Date Range: From patient's date of to the date document was created. This section includes the names of all active insurance providers for the patient. Insurance Provider Type of Coverage Plan Name Start of Policy Coverage End of Policy Coverage Group Number Member ID Insurance Provider's Telephone Number Policy Cevallos's Name Patient's Relationship to Policy Cevallos MEDICARE (WNR) MEDICARE (M) PART A Nov 01, 2011 PART A [id number] [phone] ANANTH HUANG PATIENT MEDICARE (WNR) MEDICARE (M) PART B Nov 01, 2011 PART B [id number] [phone] ANANTH HUANG PATIENT Selected Encounter This section includes the information on record at [place] for the Encounter. Date/Time Encounter Type Encounter Description Reason Provider Source Oct 28, 2023 02:51 PM HC PRO PHONE CALL 5-10 MIN TELEPHONE/REHAB AND SUPPORT ICD-10-CM M54.12 Radiculopathy, cervical region DEYSI SOLIZ Kris Encounter Template Text not used by [place] Assessments - Encounter Diagnoses This section includes the primary and secondary diagnoses documented for the Encounter. Date/Time Primary/Secondary Diagnosis Diagnosis Name Provider Source Oct 28, 2023 02:51 PM PRIMARY Radiculopathy, cervical region DEYSI SOLIZ [facility] Plan of Treatment: Future Appointments (+ 6 months) and Future Tests (+/- 45 days) The Plan of Treatment section includes future care activities for the patient from all [facility] treatmentfacilities. This section includes future appointments and future orders which are active, pending or scheduled. Future Appointments This section includes appointments that were scheduled to occur 6 months from the date of the Encounter, up to a maximum of 20 appointments. The data comes from all [facility]. Appointment Date/Time Appointment Type Appointme nt Facility Name Nov 15, 2023 01:40 PM AMBULATORY - REHAB MEDICIN E [facility] Nov 16, 2023 10:30 AM AMBULATORY - MEDICINE [facility] Active, Pending, and Scheduled Orders This section includes a listing of several types of active, pending, and scheduled orders, including clinic medications orders, diagnostic test orders, procedure orders and consult orders; where the start date of the order is 45 days before the date of the Encounter or 45 days after the date of theEncounter. The data comes from all [facility]. Test Date/Time Test Type Test Details Facility Name Oct 19, 2023 03:51 PM Laboratory - Chemi stry Order TROPONIN I, HS PLASMA STAT WC ONCE [facility] Lab Results: +/- 30 days of the encounter This section includes the Chemistry and Hematology Lab Results on record with [facility] for the patient. Radiology Reports and Pathology Reports are provided separately, in subsequent sections. Lab Results This section contains the Chemistry/Hematology Results that were resulted 30 days before or 30 daysafter the date of the Encounter. Date/Time Source Result Type Result - Unit Interpretation Reference Range Comment Oct 19, 2023 04:08 PM [facility] TROPONIN I, HS Specimen Type: PLASMA No comment entered. Ordering Provider: FIGUEROA BERRY Report Released Date/Time: Oct 19, 2023 03:51 PM Reporting Lab: [facility] [id number] Performing Lab: [facility] [phone] TROPONIN I, HS <3 <35 Oct 19, 2023 01:00 PM [facility] TROPONIN I, HS Specimen Type: PLASMA No comment entered. Ordering Provider: FIGUEROA BERRY Report Released Date/Time: Oct 19, 2023 01:29 PM Reporting Lab: [facility] [address] Performing Lab: [facility] [id number] TROPONIN I, HS <3 <35 Oct 19, 2023 01:00 PM [facility] PROTHROMBIN TIME/INR Specimen Type: PLASMA No comment entered. Ordering Provider: FIGUEROA BERRY Report Released Date/Time: Oct 19, 2023 01:29 PM Reporting Lab: [facility] [phone] Performing Lab: [facility] Oct 19, 2023 01:00 PM [facility] BNP Specimen Type: PLASMA No comment entered. Ordering Provider: FIGUEROA BERRY Report Released Date/Time: Oct 19, 2023 01:29 PM Reporting Lab: [facility] [address] Performing Lab: [facility] [phone] BNP 30 pg/mL <99 Oct 19, 2023 01:00 PM [facility] ACT PART THROMBO TIME Specimen Type: PLASMA No comment entered. Ordering Provider: FIGUEROA BERRY Report Released Date/Time: Oct 19, 2023 01:29 PM Reporting Lab: [facility] [address] Performing Lab: [facility] [address] APTT 35.2 s 25.1-36.5 Oct 19, 2023 01:00 PM [facility] EXTRA GOLD GEL TUBE Specimen Type: SERUM No comment entered. Ordering Provider: FIGUEROA BERRY Report Released Date/Time: Oct 19, 2023 01:35 PM Reporting Lab: [facility] [address] Performing Lab: [facility] [address] EXTRA GOLD GEL TUBE RECEIVED Oct 19, 2023 01:00 PM [facility] BASIC METABOLIC PANEL+MG Specimen Type: PLASMA No comment entered. Ordering Provider: FIGUEROA BERRY Report Released Date/Time: Oct 19, 2023 01:29 PM Reporting Lab: [facility] [address] Performing Lab: [facility] [address] CREATININE 0.8 mg/dL 0.7-1.2 UREA NITROGEN 18 mg/dL 8-26 GLUCOSE 98 mg/dL 70-100 SODIUM 142 mmol/L 136-145 POTASSIUM 4.2 mmol/L 3.5-5.1 CHLORIDE 107 mmol/L 98-107 CO2 25 mmol/L 22-29 CALCIUM 9.5 mg/dL 8.4-10.2 MAGNESIUM 1.9 mg/dL 1.6-2.6 ANION GAP 10 mmol/L 5-15 .CREAT EGFR(CKD-EPI) >90 >60 Oct 19, 2023 01:00 PM [facility] CBC & DIFF Specimen Type: BLOOD Comment: Automated Differential Performed Ordering Provider: FIGUEROA BERRY Report Released Date/Time: Oct 19, 2023 01:29 PM Reporting Lab: [facility] [address] Performing Lab: [facility] [address] WBC 7.22 10*3/uL 4.0-11.0 RBC 5.12 10*6/uL 4.6-6.2 HGB 15.4 g/dL 13.5-17.9 HCT 46.9 41-54 MCV 91.6 fL 80-100 MCH 30.1 pg 27-33 MCHC 32.8 g/dL 32.0-37.5 PLT 215 10*3/uL 150-400 MPV 10.2 fL 7.4-10.4 NEUT 67.4 40.0-80.0 LYMPHS 17.0 15.0-45.0 MONO 11.2 2.0-12.0 EOSINO 3.3 0.0-6.0 BASO 0.8 0.0-2.0 RDW 13.0 11.5-14.5 ABS LYMPH 1.23 10*3/uL 1.0-4.0 ABS MONO 0.81 10*3/uL 0.1-1.0 ABS NEUT 4.86 10*3/uL 2.0-7.7 ABS EOS 0.24 10*3/uL 0-0.5 ABS BASO 0.06 10*3/uL 0-0.2 IG(META,MYELO ,PRO) 0.3 ABS IMMATURE GRAN 0.02 10*3/uL 0-0.1 Social History: Smoking Status (Most current) and Tobacco Use (All prior to encounter date) This section includes the most current, and the historical, smoking and tobacco- related health factors from the [place] facility where the Encounter took place. Current Smoking Status This section includes the most current smoking, or tobacco-related health factor, from the [facility] facility where the Encounter took place. Date/Time Current Smoking Status Comment Priya bowers Aug 17, 2023 09:45 AM VA-TOBACCO FORMER USER [facility] Tobacco Use History This section includes a history of the smoking, or tobacco-related health factors, that were collected on or before the date of the Encounter. The data comes from the [place] facility where the Encounter took place. Date/Time Smoking Status/Tobacco Use Comment F acility Aug 17, 2023 09:45 AM VA-TOBACCO QUIT 15 YRS OR MORE [facility] Jul 01, 2022 08:45 AM VA-TOBACCO FORMER USER [facility] Jul 01, 2022 08:45 AM VA-TOBACCO QUIT 15 YRS OR MORE [facility] May 22, 2021 09:00 AM VA-TOBACCO FORMER USER [facility] May 22, 2021 09:00 AM VA-TOBACCO QUIT 15 YRS OR MORE [facility] Mar 29, 2020 07:42 AM VA-TOBACCO FORMER USER [facility] Mar 29, 2020 07:42 AM VA-TOBACCO QUIT 15 YRS OR MORE [facility] Mar 06, 2019 12:00 PM VA-TOBACCO FORMER USER [facility] Mar 06, 2019 12:00 PM VA-TOBACCO QUIT 15 YRS OR MORE [facility] Oct 23, 2018 11:20 AM INPT NO TOBACCO USE IN LAST 30 D [facility] Jun 15, 2018 09:25 AM VA-TOBACCO FORMER USER [facility] Jun 15, 2018 09:25 AM VA-TOBACCO QUIT 15 YRS OR MORE [facility] Jun 25, 2017 04:05 PM INPT NO TOBACCO USE IN LAST 30 D [facility] Apr 26, 2017 08:03 AM FORMER TOBACCO USER 7Y OR GREATE R [facility] Jan 04, 2017 11:27 AM INPT NO TOBACCO USE IN LAST 30 D [facility] May 13, 2016 10:42 AM LIFETIME NON-TOBACCO USER [facility] Jun 04, 2015 06:17 AM INPT NO TOBACCO USE IN LAST 30 D [facility] Apr 23, 2015 09:14 AM FORMER TOBACCO USER 7Y OR GREATE R [facility] Jan 19, 2014 09:40 AM FORMER TOBACCO USER 7Y OR GREATE R [facility] December 09, 2010 12:08 PM FORMER TOBACCO USER 7Y OR GREATE R [facility] Advance Directives: All historical and current Section Date Range: From patient's date of to the date document was created. This section includes ALL of a patient's completed or amended [place] Advance and Rescinded Directives. The entries below indicate that a directive exists for the patient, but an actual copy is not included with this document. The data comes from all [place] facilities. Date Advance Directives Provider Source Jun 25, 2017 CLINICAL WARNING MADHAVI CASTILLOCarolyn BRANDAN [facility] Jan 04, 2017 CLINICAL WARNING DIGNA CASTELLANOS [facility] Sep 26, 2014 CLINICAL WARNING SHEREEN LAUREANO [facility] Radiology Reports: +/- 30 days of the encounter Radiology Reports For cases when an order for radiology services may have been completed prior to the date of the Encounter, the report list includes the Radiology Reports that were completed up to 30 days before dateof the Encounter. For cases when an order for radiology services may have been completed after the date of the Encounter, the report list also includes the Radiology Reports that were completed up to30 days after date of the Encounter. The data comes from all [place] treatment facilities. Date/Time Radiology Report Provider Source Oct 27, 2023 08:10 AM CHEST PAIN PATHWAY (ED ONLY) (P): ANANTH HUANG [id number] -1945 M Ex Date: OCT 27, 2023@08:10 Req Phys: FIGUEROA BERRY Loc: [facility] EMERGENCY DEPT WALK-IN ([facility] Loc: NUC MED Service: Unknown (Case 1049 COMPLETE) MYOCARDIAL PERFUSION (SPECT)-MULT(NM Detailed) CPT:10217 Reason for Study: Chest Pain Pathway (Case 1050 COMPLETE) TC-99M SESTAMIBI (CARDIOLITE), PE(NM Detailed) CPT:A9500 (Case 1051 COMPLETE) CARDIOVASCULAR STRESS TEST (NM Detailed) CPT:50584 Clinical History: Myocardial perfusion stress test for chest pain IS NOT under investigation for COVID-19 or is COVID-19 negative chest pain Responsible provider name and phone number to notify for critical findings if other than user placing the order and pager listed below: User placing orders pager: [phone] ER LAST CREATININE 0.8 (10/19/23) Report Status: Verified Date Reported: OCT 27, 2023 Date Verified: OCT 27, 2023 Signal Helper E-Sig:/ES/GOLD VEGA MD Report: Regadenoson myocardial perfusion study History: Chest pain pathway Dose: 0.4 mg of Regadenoson IV followed by 16.2 mCi Tc-99 m Sestamibi. 5.0 mCi Tc-99 m Sestamibi IV for the resting study. No adverse effects. No diagnostic EKG changes. SPECT images demonstrate no diagnostic abnormality. No significant change compared to prior exam dated 04/15/2021. Impression: 1. No ischemia demonstrated. 2. Left ventricular ejection fraction is 58 %. No focal wall motion abnormality. Primary Diagnostic Code: NO ALERT REQUIRED Primary Interpreting Staff: GOLD VEGA MD, RADIOLOGY STAFF PHYSICIAN (Signal Helper) /GOLD RUIZ [facility] Oct 19, 2023 02:14 PM CTA (CAP) DISSECTI ON (P): ANANTH HUANG [id number] -1945 M Exm Date: OCT 19, 2023@14:14 Req Phys: FIGUEROA BERRY Loc: [facility] EMERGENCY DEPT WALK-IN (Re Img Loc: CT IMAGING Service: Unknown (Case 1149 COMPLETE) CTA (CAP) CHEST W/ & W/O CONTRAST(CT Detailed) CPT:43270 Reason for Study: sharp chest pain (Case 1150 COMPLETE) CTA (CAP) ABDOMEN/PELVIS W/ & W/O(CT Detailed) CPT:51294 Clinical History: sharp chest pain, sudden onset, sharp, radiating to left shoulder and neck LAST 3: Collection DT Specimen Test Name Result Units Ref Range 08/17/2023 08:24 PLASMA CREATININE 0.8 mg/dL 0.7 - 1.2 04/30/2023 07:14 PLASMA CREATININE 0.7 mg/dL 0.7 - 1.2 04/09/2023 11:19 PLASMA CREATININE 0.8 mg/dL 0.7 - 1.2 08/17/2023 08:24 PLASMA .CREAT EGFR(CKD-E >90 Ref: >=60 04/30/2023 07:14 PLASMA .CREAT EGFR(CKD-E >90 Ref: >=60 04/09/2023 11:19 PLASMA .CREAT EGFR(CKD-E >90 Ref: >=60 Allergies: (Lane only) Patient has answered NKA Defer to radiologist for final CT protocol. Contact number for responsible provider who can be reached for any questions or notifications of critical findings: ER Eriberto Per Joint Commission Standards, by signing this diagnostic imaging request the ordering provider confirms they have considered patients age and recent imaging history. Report Status: Verified Date Reported: OCT 19, 2023 Date Verified: OCT 19, 2023 Signal Helper E-Sig:/ES/GURDEEP COBOS MD Report: CHEST/ABDOMEN/PELVIS CTA AND 3-D RECONSTRUCTIONS HISTORY: sharp chest pain Comparisons: CT chest 08/22/2015, cardiac CTA 06/16/2022 TECHNIQUE: Axial images through the chest were obtained prior to and following the injection of IV contrast media in the arterial phase. Multiplanar images were reformatted. Cardiac gating was not used. DLP: 1460.02 mGy*cm Contrast: 120 ml Omnipaque 350 FINDINGS: VASCULAR: Aortic dimensions: Level of the sinuses of Valsalva: 3.5 cm Sinotubular ridge: 2.5 cm Ascending aorta: 3.6 cm Maximum descending thoracic aorta (mid): 3.1 cm There is common origin of the brachiocephalic and left common carotid arteries. The origins of the brachiocephalic artery, left common carotid artery and left subclavian artery show no focal abnormality. The proximal right common carotid artery is patent. The right subclavian artery is patent. The proximal right vertebral artery is patent. The proximal left vertebral artery is patent. The proximal pulmonary vasculature appears normal. VASCULAR: Celiac artery: Patent. SMA: Patent. PRAVEEN: Patent. Right renal artery: Patent. Left renal artery: Patent main renal artery and small accessory renal artery. RCIA: Patent RIIA: Patent REIA: Patent Right proximal femoral arteries: patent LCIA: Patent LIIA: Patent DANI: Patent Left proximal femoral arteries: patent. ABDOMEN/PELVIS: Evaluation of the solid organs is suboptimal because of the arterial phase of contrast enhancement. Hepatobiliary: No intrahepatic biliary dilation. No focal hepatic masses. Subcentimeter hypodensities in the left lobe of the liver are too small to characterize and likely represent hepatic cysts. Gallbladder: Unremarkable. Spleen: The spleen is not enlarged. Pancreas: Moderate fatty atrophy. Adrenal glands: Unremarkable. Kidneys/ureters: There is no hydronephrosis. Several fluid attenuation cystic lesions in both kidneys, largest on the right measuring up to 6.6 cm. Within the lingula with no Bladder/pelvic organs: Unremarkable. GI Tract: No dilated loops of small bowel or colon. The appendix is unremarkable. Peritoneum/retroperitoneum : No extraluminal bowel gas. No free fluid in the abdomen or pelvis. Lymph nodes: No enlarged retroperitoneal or pelvic lymph nodes by short axis criteria. Chest: The thyroid gland is unremarkable. No abnormal hilar, mediastinal or axillary lymphadenopathy is seen. Several sub-6 mm pulmonary nodules bilaterally, for example a 3 mm subpleural nodule in the left lower lobe (series 12 image 228). No suspicious pulmonary nodules. Scattered atherosclerotic plaque in the aortic arch and coronary arteries. The main pulmonary artery measures 3.5 cm. Musculoskeletal: Multilevel degenerative changes in the thoracic spine. Several chronic right-sided rib fractures. Impression: 1. Evaluation is negative for aortic dissection. 2. Atherosclerotic calcification in the LAD. 3. Dilated main pulmonary artery can be seen in pulmonary hypertension. 4. Additional chronic and incidental findings noted in the body of the report. I, Woodrow Cobos, have reviewed the images and report. Primary Interpreting Staff: GURDEEP COBOS MD, RADIOLOGIST (Signal Helper) Primary Interpreting Resident: SULMA BRADY MD, GOVERNMENT AFFAIRS FELLOW /GURDEEP DRAPER [facility] Oct 19, 2023 01:36 PM CHEST 1 VIEW: ANANTH HUANG [id number] -1945 M Exm Date: OCT 19, 2023@13:36 Req Phys: FIGUEROA BERRY Loc: [facility] EMERGENCY DEPT WALK-IN (Re Img Loc: MAIN X-RAY Service: Unknown (Case 1020 COMPLETE) CHEST 1 VIEW (RAD Detailed) CPT:75806 Proc Modifiers : PORTABLE EXAM Reason for Study: chest pain Clinical History: [place] IS NOT under investigation for COVID-19 or is COVID-19 negative chest pain Responsible provider name and phone number to notify for critical findings if other than user placing the order and pager listed below: User placing orders pager: [phone] [facility] LAST CREATININE 0.8 (08/17/23) Report Status: Verified Date Reported: OCT 19, 2023 Date Verified: OCT 19, 2023 Signal Helper E-Sig:/ES/MIRIAM CAIN MD Report: EXAMINATION: CHEST 1 VIEW 10/19/2023 1:36 PM INDICATION: chest pain Impression: Heart size is enlarged or at the upper limits of normal. Pulmonary vascularity within normal limits. No pulmonary infiltrate or pleural effusion. Calcification aorta. Old healed right rib fractures. Old healed clavicular fractures. Degenerative changes thoracic spine. Primary Interpreting Staff: MIRIAM CAIN MD, RADIOLOGIST (Signal Helper) /RTS MIRIAM CAIN [facility] Encounter Notes: All associated encounter notes This section contains the clinical notes associated to the Encounter. Date/Time Encounter Note(s) Provider Source Oct 28, 2023 02:51 PM REPORT OF CONTACT: LOCAL TITLE: PATIENT CONTACT NOTE STANDARD TITLE: REPORT OF CONTACT DATE OF NOTE: OCT 28, 2023@14:51 ENTRY DATE: OCT 28, 2023@14:51:51 AUTHOR: DEYSI SOLIZ COSIGNER: URGENCY: STATUS: COMPLETED Patient contact Name of [place]: ANANTH HUANG Date & Time of Contact: Sep@14:51 Type of Contact: Telephone Reason for Contact: Pre-Procedure Phone Call Contact: [place] PROCEDURE: /surrogate contacted via telephone regarding a scheduled interventional pain procedure appointment. Date & Time: Oct@13:40 Planned Procedure: Cervical interlaminar JOSH Career Counselor: [place]/surrogate informed cannot drive for 12 hours following procedure and they will need a furniture delivery driver for procedure. is aware the procedure will be cancelled if a furniture delivery driver is unavailable. [place] Verbalizes Understanding: Yes MEDICAL STATUS: Past Medical History reviewed for medical contraindications [place] had surgical procedure(s)(including dental) within the last three months: Denies has upcoming planned surgery: Denies [place] had fracture(s) within the last three months: Denies has history of nausea, lightheadedness, excessive sweating, feeling warm, and /or blood pressure/heart rate drop during a procedure or blood draw: Denies has a rash or any open wounds: Denies is /possibly : Not applicable has plans to travel outside of the country or to a place in the [place] where there is not access to medical care within 4 days following the procedure: Denies [place] is currently taking antibiotics: Denies CBC Collection DT Spec WBC HGB HCT PLT MCV NEUT LYMPHS 10/19/2023 13:00 BLOOD 7.22 15.4 46.9 215 91.6 67.4 17.0 08/17/2023 08:24 BLOOD 5.26 15.2 45.1 194 90.2 04/30/2023 07:14 BLOOD 6.08 14.6 43.8 189 91.1 61.1 17.9 Educated [place]/surrogate to call diamond finishing supervisor Phone Line if needing to take antibiotics before having the procedure. Yes Educated /surrogate on need to be free of active infections and off antibiotics that were prescribed for infection for 7 days prior to having the procedure done. Yes Educated [place]/surrogate on prophylactic antibiotics(not being taken for an active infection): Okay to proceed with having planned procedures. Yes [place] is Diabetic: Denies has a pacemaker, defibrillator, nerve stimulator or any implanted electronic device: Not applicable has had steroid injections within the last calendar year within or outside of the [facility]: Denies Allergies reviewed: [place] has allergy concerns related to pain procedure: Denies EDUCATION/INSTRUCTIONS /surrogate indicates readiness to learn. Instructed on the following and verbalized understanding of instructions. NPO status (no food 4 hours prior to procedure, no liquids 2 hours prior to procedure.) Notified to arrive 30 minutes prior to scheduled appointment time for check-in at [facility]. To take medications as prescribed, with the exception of any contraindicated medications as instructed by pain clinic staff and/or anticoagulation clinic (if applicable). To call if any medical changes prior to procedure. Recommended no vaccines within 2 weeks of steroid injection. [place]/surrogate states understanding Yes MEDICATIONS [place] takes blood thinning medications: Yes: takes Dabigatran and will need to stop taking 4 days prior to procedure, per protocol or provider instruction. takes ASA/ASA containing products: Denies instructed to hold ASA/ASA containing products for 6 days prior to procedure. takes Fish Oil or Vitamin E: Denies [place] instructed to hold Fish Oil & Vitamin E for 6 days prior to procedure. [place] takes NSAIDs: Denies [place] instructed to hold NSAIDs for 7 days prior to procedure. takes Phosphodiesterase inhibitors (e.g. Sildenafil, Vardenafil, Tadalafil, Cilostazol): Denies instructed to hold Phosphodiesterase inhibitors for 48 hours prior to procedure. is followed by the [facility] Anticoagulation Clinic. Yes Consult made to Anticoagulation Clinic provided with direct Pain Procedure Nurse Line phone number [phone] and encouraged to call if needs to reschedule appointment or if any questions arise. /phoebe/ DEYSI L WIPPLER, RN REGISTERED NURSE Signed: 10/28/2023 14:56 DEYSI SOLIZ [facility]
--- OUTSIDE RECORDS SUMMARY | 2024-01-26 23:11 | XMS_ITS | Encounter Summary ---
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 Organization [facility] Address [address] [place] [id number] Care Team Providers Care Depilatory Painter Name Role Phone ELIZ MUNOZ Primary Care Provider [facility] Insurance Providers: All historical and current Section [...] PART A Nov 01, 2011 PART A [id number] ANANTH HUANG PATIENT MEDICARE (WNR) MEDICARE (M) PART B Nov 01, 2011 PART B [id number] [phone] ANANTH HUANG PATIENT Selected Encounter This section includes the information on record at [place] for the Encounter. Date/Time Encounter Type Encounter Description Reason Provider Source Nov 15, 2023 01:40 PM [facility]IN [facility] ICD-10-CM M54.12 Radiculopathy, cervical region BRAYAN ARMENTA [facility] Encounter Template Text not used by [place] Assessments - Encounter Diagnoses This section includes the primary and secondary diagnoses documented for the Encounter. Date/Time Primary/Secondary Diagnosis Diagnosis Name Provider Source Nov 15, 2023 08:02 PM PRIMARY Radiculopathy, cervical region JUAN DANIELSON [facility] Plan of Treatment: Future Appointments (+ 6 months) and Future Tests (+/- 45 days) The Plan of Treatment section includes future care activities for the patient from all [place] treatmentfacilities. This section includes future appointments and future orders which are active, pending or scheduled. Future Appointments This section includes appointments that were scheduled to occur 6 months from the date of the Encounter, up to a maximum of 20 appointments. The data comes from all [facility]. Appointment Date/Time Appointment Type Appointme nt Facility Name Nov 16, 2023 10:30 AM AMBULATORY - MEDICINE [facility] Active, Pending, and Scheduled Orders This section includes a listing of several types of active, pending, and scheduled orders, including clinic medications orders, diagnostic test orders, procedure orders and consult orders; where the start date of the order is 45 days before the date of the Encounter or 45 days after the date of theEncounter. The data comes from all [facility]. Test Date/Time Test Type Test Details Facility Name Oct 19, 2023 03:51 PM Laboratory - Chemi stry Order TROPONIN I, HS PLASMA STAT WC ONCE [facility] Lab Results: +/- 30 days of the encounter This section includes the Chemistry and Hematology Lab Results on record with [place] for the patient. Radiology Reports and Pathology Reports are provided separately, in subsequent sections. Lab Results This section contains the Chemistry/Hematology Results that were resulted 30 days before or 30 daysafter the date of the Encounter. Date/Time Source Result Type Result - Unit Interpretation Reference Range Comment Oct 19, 2023 04:08 PM [facility] TROPONIN I, HS Specimen Type: PLASMA No comment entered. Ordering Provider: FIGUEROA RUFF Report Released Date/Time: Oct 19, 2023 03:51 PM Reporting Lab: [facility] [id number] Performing Lab: [facility] [phone] TROPONIN I, HS <3 <35 Oct 19, 2023 01:00 PM [facility] PROTHROMBIN TIME/INR Specimen Type: PLASMA No comment entered. Ordering Provider: FIGUEROA RUFF Report Released Date/Time: Oct 19, 2023 01:29 PM Reporting Lab: [facility] [phone] Performing Lab: [facility] Oct 19, 2023 01:00 PM [facility] TROPONIN I, HS Specimen Type: PLASMA No comment entered. Ordering Provider: FIGUEROA RUFF Report Released Date/Time: Oct 19, 2023 01:29 PM Reporting Lab: [facility] [address] Performing Lab: [facility] [phone] TROPONIN I, HS <3 <35 Oct 19, 2023 01:00 PM [facility] BNP Specimen Type: PLASMA No comment entered. Ordering Provider: FIGUEROA RUFF Report Released Date/Time: Oct 19, 2023 01:29 PM Reporting Lab: [facility] [address] Performing Lab: [facility] [phone] BNP 30 pg/mL <99 Oct 19, 2023 01:00 PM [facility] ACT PART THROMBO TIME Specimen Type: PLASMA No comment entered. Ordering Provider: FIGUEROA RUFF Report Released Date/Time: Oct 19, 2023 01:29 PM Reporting Lab: [facility] [id number] Performing Lab: [facility] [address] APTT 35.2 s 25.1-36.5 Oct 19, 2023 01:00 PM [facility] EXTRA GOLD GEL TUBE Specimen Type: SERUM No comment entered. Ordering Provider: FIGUEROA RUFF Report Released Date/Time: Oct 19, 2023 01:35 PM Reporting Lab: [facility] [phone] Performing Lab: [facility] [address] EXTRA GOLD GEL TUBE RECEIVED Oct 19, 2023 01:00 PM [facility] BASIC METABOLIC PANEL+MG Specimen Type: PLASMA No comment entered. Ordering Provider: FIGUEROA RUFF Report Released Date/Time: Oct 19, 2023 01:29 PM Reporting Lab: [facility] [phone] Performing Lab: [facility] [address] CREATININE 0.8 mg/dL 0.7-1.2 UREA NITROGEN 18 mg/dL 8-26 GLUCOSE 98 mg/dL 70-100 SODIUM 142 mmol/L 136-145 POTASSIUM 4.2 mmol/L 3.5-5.1 CHLORIDE 107 mmol/L 98-107 CO2 25 mmol/L 22-29 CALCIUM 9.5 mg/dL 8.4-10.2 MAGNESIUM 1.9 mg/dL 1.6-2.6 ANION GAP 10 mmol/L 5-15 .CREAT EGFR(CKD-EPI) >90 >60 Oct 19, 2023 01:00 PM [facility] CBC & DIFF Specimen Type: BLOOD Comment: Automated Differential Performed Ordering Provider: FIGUEROA RUFF Report Released Date/Time: Oct 19, 2023 01:29 PM Reporting Lab: [facility] [phone] Performing Lab: [facility] [address] WBC 7.22 10*3/uL 4.0-11.0 RBC 5.12 10*6/uL [...] 0.3 ABS IMMATURE GRAN 0.02 10*3/uL 0-0.1 Vital Signs: All taken on the encounter date This section contains inpatient and outpatient Vital Signs collected on the date of the Encounter. Date/Time Temperature Pulse Blood Pressure Respiratory Rate SP02 Pain Height Weight Body Mass Index Source Nov 15, 2023 01:52 PM 51 152/[address] [facility] Nov 15, 2023 01:17 PM 98.1 48 150/[address] [facility] Social History: Smoking Status (Most current) and Tobacco Use (All prior to encounter date) This section includes the most current, and the historical, smoking and tobacco- related health factors from the [place] facility where the Encounter took place. Current Smoking Status This section includes the most current smoking, or tobacco-related health factor, from the [place] facility where the Encounter took place. Date/Time Current Smoking Status Comment Facil ity Aug 17, 2023 09:45 AM VA-TOBACCO FORMER USER [facility] Tobacco Use History This section includes a history of the smoking, or tobacco-related health factors, that were collected on or before the date of the Encounter. The data comes from the [place] facility where the Encounter took place. Date/Time Smoking Status/Tobacco Use Comment F acility Aug 17, 2023 09:45 AM VA-TOBACCO QUIT 15 YRS OR MORE [facility] Jul 01, 2022 08:45 AM VA-TOBACCO FORMER USER [facility] Jul 01, 2022 08:45 AM VA-TOBACCO QUIT 15 YRS OR MORE [facility] May 22, 2021 09:00 AM VA-TOBACCO FORMER USER [facility] May 22, 2021 09:00 AM VA-TOBACCO QUIT 15 YRS OR MORE [facility] Mar 29, 2020 07:42 AM VA-TOBACCO FORMER USER [facility] Mar 29, 2020 07:42 AM VA-TOBACCO QUIT 15 YRS OR MORE [facility] Mar 06, 2019 12:00 PM VA-TOBACCO FORMER USER [facility] Mar 06, 2019 12:00 PM VA-TOBACCO QUIT 15 YRS OR MORE [facility] Oct 23, 2018 11:20 AM INPT NO TOBACCO USE IN LAST 30 D [facility] Jun 15, 2018 09:25 AM VA-TOBACCO FORMER USER [facility] Jun 15, 2018 09:25 AM VA-TOBACCO QUIT 15 YRS OR MORE [facility] Jun 25, 2017 04:05 PM INPT NO TOBACCO USE IN LAST 30 D [facility] Apr 26, 2017 08:03 AM FORMER TOBACCO USER 7Y OR GREATE R [facility] Jan 04, 2017 11:27 AM INPT NO TOBACCO USE IN LAST 30 D [facility] May 13, 2016 10:42 AM LIFETIME NON-TOBACCO USER [facility] Jun 04, 2015 06:17 AM INPT NO TOBACCO USE IN LAST 30 D [facility] Apr 23, 2015 09:14 AM FORMER TOBACCO USER 7Y OR GREATE R [facility] Jan 19, 2014 09:40 AM FORMER TOBACCO USER 7Y OR GREATE R [facility] December 09, 2010 12:08 PM FORMER TOBACCO USER 7Y OR GREATE R [facility] Advance Directives: All historical and current Section Date Range: From patient's date of to the date document was created. This section includes ALL of a patient's completed or amended [place] Advance and Rescinded Directives. The entries below indicate that a directive exists for the patient, but an actual copy is not included with this document. The data comes from all [place] facilities. Date Advance Directives Provider Source Jun 25, 2017 CLINICAL WARNING MADHAVI CASTILLO JACKELIN GIPSON [facility] Jan 04, 2017 CLINICAL WARNING DIGNA CASTELLANOS Nelson SHANIQUE JORDANJONNY [facility] Sep 26, 2014 CLINICAL WARNING ELLA SHEREEN MILLAN [facility] Radiology Reports: +/- 30 days of the [...] the Encounter. The data comes from all [place] treatment facilities. Date/Time Radiology Report Provider Source Oct 27, 2023 08:10 AM CHEST PAIN PATHWAY (ED ONLY) (P): ANANTH HUANG [id number] -1945 M Ex Date: OCT 27, 2023@08:10 Req Phys: FIGUEROA RUFF Loc: [facility] EMERGENCY DEPT WALK-IN (Re Img Loc: [facility] Service: Unknown (Case [id number] COMPLETE) MYOCARDIAL PERFUSION (SPECT)-MULT(NM Detailed) CPT:05202 Reason for Study: Chest Pain Pathway (Case 1050 COMPLETE) TC-99M SESTAMIBI (CARDIOLITE), PE(NM Detailed) CPT:A9500 (Case 1051 COMPLETE) CARDIOVASCULAR STRESS TEST (NM Detailed) CPT:52407 Clinical History: Myocardial perfusion stress test for chest pain [place] IS NOT under investigation for COVID-19 or is COVID-19 negative chest pain Responsible provider name and phone number to notify for critical findings if other than user placing the order and pager listed below: User placing orders pager: [phone] ER LAST CREATININE 0.8 (10/19/23) Report Status: Verified Date Reported: OCT 27, 2023 Date Verified: OCT 27, 2023 Professor Of Education E-Sig:/ES/GOLD VEGA MD Report: Regadenoson myocardial perfusion [...] Staff: GOLD VEGA MD, RADIOLOGY STAFF PHYSICIAN (Professor Of Education) /GOLD RUIZ [facility] Oct 19, 2023 02:14 PM CTA (CAP) DISSECTI ON (P): ANANTH HUANG [id number] -1945 M Exm Date: OCT 19, 2023@14:14 Req Phys: FIGUEROA RUFF Loc: [facility] EMERGENCY DEPT WALK-IN (Re g Loc: CT IMAGING Service: Unknown (Case [id number] COMPLETE) CTA (CAP) CHEST W/ & W/O CONTRAST(CT Detailed) CPT:11136 Reason for Study: sharp chest pain (Case 1150 COMPLETE) CTA (CAP) ABDOMEN/PELVIS W/ & W/O(CT Detailed) CPT:42261 Clinical History: sharp chest pain, sudden onset, [...] PLASMA .CREAT EGFR(CKD-E >90 Ref: >=60 Allergies: ([place] only) Patient has answered NKA Defer to radiologist for final CT protocol. Contact number for responsible provider who can be reached for any questions or notifications of critical findings: SINDI Ruff Per Joint Commission Standards, by signing this diagnostic imaging request the ordering provider confirms they have considered patients age and recent imaging history. Report Status: Verified Date Reported: OCT 19, 2023 Date Verified: OCT 19, 2023 Professor Of Education E-Sig:/ES/GURDEEP MORFIN MD Report: CHEST/ABDOMEN/PELVIS CTA AND 3-D RECONSTRUCTIONS [...] the body of the report. I, Woodrow Morfin, have reviewed the images and report. Primary Interpreting Staff: GURDEEP MORFIN MD, RADIOLOGIST (Professor Of Education) Primary Interpreting Resident: SULMA BRADY MD, IN HOME NANNY /GURDEEP DRAPER [facility] Oct 19, 2023 01:36 PM CHEST 1 VIEW: ANANTH HUANG [id number] -1945 M Exm Date: OCT 19, 2023@13:36 Req Phys: FIGUEROA RUFF Loc: [facility] EMERGENCY DEPT WALK-IN (Re Img Loc: MAIN X-RAY Service: Unknown (Case 1020 COMPLETE) CHEST 1 VIEW (RAD Detailed) CPT:59776 Proc Modifiers : PORTABLE EXAM Reason for Study: chest pain Clinical History: IS NOT under investigation for COVID-19 or is COVID-19 negative chest pain Responsible provider name and phone number to notify for critical findings if other than user placing the order and pager listed below: User placing orders pager: [phone] sindi ruff LAST CREATININE 0.8 (08/17/23) Report Status: Verified Date Reported: OCT 19, 2023 Date Verified: OCT 19, 2023 Professor Of Education E-Sig:/ES/MIRIAM CAIN MD Report: EXAMINATION: CHEST 1 VIEW 10/19/2023 1:36 PM INDICATION: chest pain Impression: Heart size is enlarged or at the upper limits of normal. Pulmonary vascularity within normal limits. No pulmonary infiltrate or pleural effusion. Calcification aorta. Old healed right rib fractures. Old healed clavicular fractures. Degenerative changes thoracic spine. Primary Interpreting Staff: MIRIAM CAIN MD, RADIOLOGIST (Professor Of Education) /MIRIAM YATES [facility] Encounter Notes: All associated encounter notes This section contains the clinical notes associated to the Encounter. Date/Time Encounter Note(s) Provider Source Nov 15, 2023 01:43 PM PAIN CONSULT: LOCAL TITLE: IMAGING REQUEST CONSULT STANDARD TITLE: PAIN CONSULT DATE OF NOTE: NOV 15, 2023@13:43 ENTRY DATE: NOV 15, 2023@13:43:15 AUTHOR: BRITTA RODRIGUEZ EXP COSIGNER: URGENCY: STATUS: COMPLETED Images were taken to facilitate procedure carried out by medical provider. <5mL of Omnipaque 180 was used for this procedure. /phoebe/ BRITTA RODRIGUEZ HADOOP ANALYST Signed: 11/15/2023 13:46 BRITTA RODRIGUEZ [facility] Nov 15, 2023 01:40 PM PAIN PROCEDURE NOT E: LOCAL TITLE: PAIN INTERVENTIONAL PROCEDURE NOTE STANDARD TITLE: PAIN PROCEDURE NOTE DATE OF NOTE: NOV 15, 2023@13:40 ENTRY DATE: NOV 15, 2023@20:01:03 AUTHOR: JEYSON DANIELSON EXP COSIGNER: URGENCY: STATUS: COMPLETED PAIN INTERVENTIONAL PROCEDURE NOTE Has ADDENDA PM&R PAIN INTERVENTIONAL PROCEDURE NOTE Level: C7-T1 Procedure: Interlaminar Epidural Steroid Injection Procedural diagnosis: Cervical Radiculopathy Needle Type: Tuohy 22g 9cm Contrast Dye: Omni 180 1.5mL Injected Solution: Dexamethasone PF 10 mg Preservative Free Normal Saline 1 mL Complications: None Outcome: Good Preprocedure pain level 5/10 Postprocedure pain level 5/10 The heart rate and pulse oximetry were continuously monitored throughout the procedure. Time Out: A procedural pause verifying correct patient, medical record number, allergies, and surgical site was performed immediately prior to beginning the procedure. The skin and subcutaneous tissue overlying the target site of injection was anesthetized using 2mL of 1% lidocaine MPF with a 25-gauge, 1.5 -inch needle. The above noted Tuohy needle was advanced under fluoroscopic guidance towards the epidural space. Lateral fluoroscopic imaging (and/or Contralateral Oblique imaging in the Cervico-thoracic spine) was used to confirm depth. The epidural space was identified using a loss of resistance to AIR technique. (See above for loss of resistance depth). After negative aspiration for heme or CSF, the above noted contrast dye was injected to verify spread within the dorsal epidural space without vascular uptake. After repeat negative aspiration for heme or CSF, the above noted steroid solution was slowly injected in increments. The needle was then retracted approximately usp and the needle track was flushed with 0.5 ml of PF Normal Saline to clear the needle prior to removal. The Tuohy needle was then removed. A sterile bandage was placed over the injection site. The patient tolerated the procedure well. The patient was carefully escorted to the recovery room in stable condition. After meeting discharge criteria, the patient was discharged home. Discussion: Conditions of the spine that result in spinal nerve root irritation such as disc protrusions, spinal stenosis, or post surgical radiculitis often respond favorably to epidural steroid injections. The goal in performing epidural steroid injections is to provide relief from pain and permit greater function. The patient was advised to relax and avoid any heavy lifting or excessive bending for the rest of the day. The patient was advised that they may return to their usual activities tomorrow if otherwise feeling well. The patient was advised not to bathe or soak in water for 24 hours but that showering would be acceptable. The patient was instructed that if they experienced fever or chills, new weakness, new sensory changes, any changes in bowel or bladder habits, worsening back pain, new headache, neck stiffness, or other new symptoms, that they should contact the pain clinic immediately or dial 911 if unable to reach the pain clinic. The patient has agreed not to travel out of the area for the next 4 days following the procedure in order to be reevaluated if necessary. Recommendations: 1. Patient is instructed to follow up with PCP. Patient may contact the [facility] palletiser operator call line to schedule a repeat injection in 3+ months should today's procedure provide prolonged benefit/improvement in function 2. The patient has agreed not to travel out of the area for the next 4 days following the procedure so that they can be reevaluated if necessary. 3. No medications were prescribed at today's visit. 4. Additional recommendations: None Patient was seen with Dr. Armenta who was present for the ruggiero portions of the procedure. /phoebe/ JONNATHAN DANIELSON MD PAIN FELLOW Signed: 11/15/2023 20:02 Receipt Acknowledged By: 11/17/2023 08:23 /allen ARMENTA MD STAFF PHYSICIAN 11/17/2023 ADDENDUM STATUS: COMPLETED The procedure was performed with Dr. Danielson (Pain Medicine Fellow). I was present for all critical portions of the procedure including the time out, site marking, final needle positioning, image interpretation, and injection. Note, loss of resistance was to SALINE AND AIR technique /allen ARMENTA MD STAFF PHYSICIAN Signed: 11/17/2023 08:24 JEYSON DANIELSON [facility] Nov 15, 2023 01:19 PM PHYSICAL MEDICINE REHAB NURSING NOTE: LOCAL TITLE: REHAB MEDICINE CLINIC NURSING NOTE STANDARD TITLE: PHYSICAL MEDICINE REHAB NURSING NOTE DATE OF NOTE: NOV 15, 2023@13:19 ENTRY DATE: NOV 15, 2023@13:19:20 AUTHOR: WILLARD PENN EXP COSIGNER: URGENCY: STATUS: COMPLETED PM&R Interventional Pain Procedure Pre-procedure Patient escorted to clinic via Ambulatory Patient is scheduled for: Cervicothoracic spine Patient was identified by using full name and social security number and/or date of : Yes Procedure(s) to be performed was(were) discussed with patient and verified to be correct: Yes Patient/Family/Caregiver indicated readiness to learn Yes Barriers to learning: hearing aids Patient and/or family provided with appropriate education and patient and/or family acknowledged understanding: Yes 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 is: Jane Medications reviewed: Yes Active Outpatient Medications (including Supplies): Outpatient Medications Status 1) ACETAMINOPHEN 500MG TAB TAKE TWO TABLETS BY MOUTH ACTIVE EVERY 8 HOURS NEEDED FOR PAIN 2) DABIGATRAN ETEXILATE 150MG ORAL CAP UD TAKE ONE ACTIVE CAPSULE BY MOUTH EVERY 12 HOURS TO PREVENT STROKE DUE TO ATRIAL FIBRILLATION 3) DICLOFENAC NA 1% TOP GEL APPLY 4 GRAMS TOPICALLY FOUR ACTIVE TIMES A DAY NEEDED TO AFFECTED AREA FOR PAIN 4) DORZOLAMIDE HCL 2% OPH SOLN INSTILL 1 DROP IN ACTIVE OPTHALMICALLY THREE TIMES A DAY FOR AFFECTED EYE(S) 5) LATANOPROST 0.005% OPH SOLN INSTILL 1 DROP EVERY DAY ACTIVE AT BEDTIME IN AFFECTED EYE(S) 6) LEVOTHYROXINE NA (SYNTHROID) 137MCG TAB TAKE ONE ACTIVE TABLET BY MOUTH EVERY DAY ON AN EMPTY STOMACH 7) LIDOCAINE 5% PATCH APPLY 1 PATCH TOPICALLY EVERY DAY ACTIVE NEEDED FOR UP TO 12 HOURS FOR PAIN 8) ROSUVASTATIN CA 20MG TAB TAKE ONE TABLET BY MOUTH AT ACTIVE BEDTIME FOR CHOLESTEROL Non-VA Medications Status 1) Non-VA CHOLECALCIF 25MCG (D3-1,000UNIT) TAB 2000UNIT ACTIVE MOUTH TWICE A DAY 2) Non-VA ZINC (FROM SULFATE) CAP,ORAL ACTIVE 10 Total Medications Above medication list reviewed by patient and no additional medications noted; Medications held per protocol Allergies: has allergy concerns related to pain procedure: No Allergy to: Temperature: 98.1 F [36.7 C] (11/15/2023 13:17) Pulse: 48 (11/15/2023 13:17) Pulse Oximetry: 95% (11/15/2023 13:17) Respirations: 17 (11/15/2023 13:17) Blood Pressure: 150/77 (11/15/2023 13:17) Pain: 5 (11/15/2023 13:17) PT 11.6 (10/19/23) INR 1.0 PLASMA (10/19/23 13:00) No data available No data available [place] takes blood thinning medications: yes, and held medication per protocol ASA/ASA containing products have been held per protocol: Denies Fish Oil or Vitamin E in the last 6 days: Denies NSAIDS in the last 7 days: Denies Phosphodiesterase Inhibitors (e.g. Sildenafil, Vardenafil, Tadalafil, Cilostazol) in the last 48 hours: Denies Diabetic: Denies HEMOGLOBIN A1C____ Antibiotics in the last week: Denies Sick or had any fever/chills in the last week: Denies Fractures in the past 12 weeks: Denies Surgical procedures (including dental) within the last 3 months: Denies Upcoming planned surgeries: Denies Rash or any open wounds: Denies Steroid injections within the last 3 months: Denies Recent or scheduled vaccines within 2 weeks of this procedure: Denies Plans to travel outside of the country or to a place in the [place] where there is not access to medical care within 4 days following the procedure: Denies Patient is : Not applicable Patient ate solid food, broth, Jell-O or candy in the last 4 hours: Denies Patient had clear liquids in the last 2 hours: Denies Patient has pacemaker, defibrillator, nerve stimulator or any implantable devices: Not applicable Patient has a history of dizziness/balance problems: Denies Patient has a history of nausea, lightheadedness, excessive sweating, feeling warm, blood pressure/heart rate drop during a procedure or blood draw: Denies If patient answered YES to any of the above questions: MD/DO WAS verbally informed of the patient's above answers PRIOR to having patient consent to procedure. Provider notified of LST orders: Not applicable Patient was offered a unsigned copy of the informed consent to preview prior to procedure. Procedure explained by: Erum Written informed consent obtained by Erum, using IMed consent. Informed Consent Progress Note containing risks, benefits and alternatives documented. Correct site marked by attending physician. Peripheral IV Placed: 24 gauge Site: L AC Site clean, dry and intact. Flushed with Normal Saline, positive blood return. PM&R Interventional Pain Procedure Procedure: Site Marking: Site marked, then verified by attending physician. ---Time out checklist---- Confirm correct patient identity: Yes Confirm Procedure To Be Performed: Yes Confirm Site of the Procedure, Including Laterality: Yes Confirm Valid i-MED Consent: Yes Confirm Patient Position: Yes Confirm Procedure Site has been Marked Appropriately and that the Site of the Sixt[place] is Visible After Prep and Draping: Yes Pertinent Medical Images Have Been Confirmed, if applicable: Yes Confirm allergies: Yes Fire risk assessment completed: Not Applicable Checklist Comment: Procedure started: 1342 Procedure ended: 1349 Staff Physician: Jarett Medical Fellow: Erum RN: Raj Precipitator Operator: Aleksey Nursing observations: Patient assisted to position Prone to facilitate procedure. Patient is prepped and draped in sterile fashion, per Erum. Patient is continually assessed for comfort and safety (See MD procedure note for procedure and medication specifics) pulse oximeter and heart rate continually monitored throughout procedure. Post injection, puncture wound was cleaned and dressed with tegaderm. Patient assisted into a sitting position and assessed for dizziness, nausea, weakness or any additional complaints. Dressing clean, dry and intact; site free of hematoma/swelling. Complications noted: None Post-procedure: Patient transferred via Stretcher to post procedure area. Pulse: 51 Pulse Oximetry: 95 Blood Pressure: 152/83 Pain: 5 No Procedure-related weakness, balance or gait alteration noted. Observed by RN for 10 minutes. Peripheral IV discontinued. Site: clean, dry and intact. The patient was instructed to follow up with: PCP for any new concerns Post procedure instructions were reviewed with patient including: activity restrictions, safety precautions, post procedure pain management, dressing instructions, infection signs/symptoms, and medication side effects. Patient also educated about the expected onset and duration of this procedure. A copy of the instructions was given to the patient, including the contact phone numbers for the [facility] and the [facility] Procedure Nurse Coordinator for questions and concerns was provided. [place] advised to resume anticoagulation medications as directed by anticoagulation consult. Patient verbalized understanding. Patient discharged via Ambulatory at 1359. Wristband Removal: Patient wristband was removed and destroyed by being placed in the shred bin. /phoebe/ WILLARD PENN STAFF NURSE Signed: 11/15/2023 13:57 WILLARD PENN [facility]
--- OUTSIDE RECORDS SUMMARY | 2024-01-26 23:11 | XMS_ITS | Encounter Summary ---
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 of [facility] Organization Department of [facility] Address [address] [place] [address] Care Team Providers Care Teacher Drama Name Role Phone ELIZ MUNOZ Primary Care Provider [facility] jef Insurance Providers: All historical and current Section [...] PART A Nov 01, 2011 PART A [id number] [id number] [phone] ANANTH HUANG PATIENT MEDICARE (WNR) MEDICARE (M) PART B Nov 01, 2011 PART B [id number] [id number] [phone] ANANTH HUANG PATIENT Selected Encounter This section includes the information on record at [place] for the Encounter. Date/Time Encounter Type Encounter Description Reason Pro vider Source IHE Encounter Template Text not used by ME Advance Directives: All historical and current Section Date Range: From patient's date of to the date document was created. This section includes ALL of a patient's completed or amended [place] Advance and Rescinded Directives. The entries below indicate that a directive exists for the patient, but an actual copy is not included with this document. The data comes from all [place] facilities. Date Advance Directives Provider Source Jun 25, 2017 CLINICAL WARNING MADHAVI CASTILLO [facility] Jan 04, 2017 CLINICAL WARNING DIGNA CASTELLANOS [facility] Sep 26, 2014 CLINICAL WARNING SHEREEN LAUREANO [facility]
--- OUTSIDE RECORDS SUMMARY | 2024-01-26 23:11 | XMS_ITS | Encounter Summary ---
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 of [facility] Organization Department of [facility] Address [address] [place] [id number] Care Team Providers Care Diesel Dragline Operator Name Role Phone ELIZ MUNOZ Primary Care Provider [facility] e Insurance Providers: All historical and current [...] PART A Nov 01, 2011 PART A [id number] [phone] ANANTH HUANG PATIENT MEDICARE (WNR) MEDICARE (M) PART B Nov 01, 2011 PART B [id number] [id number] [phone] ANANTH HUANG PATIENT Selected Encounter This section includes the information on record at [place] for the Encounter. Date/Time Encounter Type Encounter Description Reason Pro vider Source Nov 08, 2023 11:46 AM Outpatient Encounter TELEPHONE TRIAGE IHE Encounter Template Text not used by [place] Plan of Treatment: Future Appointments (+ 6 months) and Future Tests (+/- 45 days) The Plan of Treatment section includes future care activities for the patient from all [place] treatmentfacilities. This section includes future appointments and future orders which are active, pending or scheduled. Future Appointments This section includes appointments that were scheduled to occur 6 months from the date of the Encounter, up to a maximum of 20 appointments. The data comes from all [place] treatment facilities. Appointment Date/Time Appointment Type Appointme nt Facility Name Nov 15, 2023 01:40 PM AMBULATORY - REHAB MEDICIN E [facility] Nov 16, 2023 10:30 AM [facility]ATORY - MEDICINE [facility] Active, Pending, and Scheduled Orders This section includes a listing of several types of active, pending, and scheduled orders, including clinic medications orders, diagnostic test orders, procedure orders and consult orders; where the start date of the order is 45 days before the date of the Encounter or 45 days after the date of theEncounter. The data comes from all [place] treatment facilities. Test Date/Time Test Type Test Details Facility Name Oct 19, 2023 03:51 PM Laboratory - Chemi stry Order TROPONIN I, HS PLASMA STAT WC ONCE [facility] Lab Results: +/- 30 days of the encounter This section includes the Chemistry and Hematology Lab Results on record with [place] for the patient. Radiology Reports and Pathology Reports are provided separately, in subsequent sections. Lab Results This section contains the Chemistry/Hematology Results that were resulted 30 days before or 30 daysafter the date of the Encounter. Date/Time Source Result Type Result - Unit Interpretation Reference Range Comment Oct 19, 2023 04:08 PM [facility] TROPONIN I, HS Specimen Type: PLASMA No comment entered. Ordering Provider: FIGUEROA BERRY Report Released Date/Time: Oct 19, 2023 03:51 PM Reporting Lab: [facility] [place] [address] Performing Lab: [facility] [place] [address] TROPONIN I, HS <3 <35 Oct 19, 2023 01:00 PM [facility] PROTHROMBIN TIME/INR Specimen Type: PLASMA No comment entered. Ordering Provider: FIGUEROA BERRY Report Released Date/Time: Oct 19, 2023 01:29 PM Reporting Lab: [facility] [place] [address] Performing Lab: [facility] Oct 19, 2023 01:00 PM [facility] TROPONIN I, HS Specimen Type: PLASMA No comment entered. Ordering Provider: FIGUEROA BERRY Report Released Date/Time: Oct 19, 2023 01:29 PM Reporting Lab: [facility] [place] [address] Performing Lab: [facility] [place] [address] TROPONIN I, HS <3 <35 Oct 19, 2023 01:00 PM [facility] BNP Specimen Type: PLASMA No comment entered. Ordering Provider: FIGUEROA BERRY Report Released Date/Time: Oct 19, 2023 01:29 PM Reporting Lab: [facility] [place] [address] Performing Lab: [facility] [place] [address] BNP 30 pg/mL <99 Oct 19, 2023 01:00 PM [facility] ACT PART THROMBO TIME Specimen Type: PLASMA No comment entered. Ordering Provider: FIGUEROA BERRY Report Released Date/Time: Oct 19, 2023 01:29 PM Reporting Lab: [facility] [place] [address] Performing Lab: [facility] [place] [address] APTT 35.2 s 25.1-36.5 Oct 19, 2023 01:00 PM [facility] EXTRA GOLD GEL TUBE Specimen Type: SERUM No comment entered. Ordering Provider: FIGUEROA BERRY Report Released Date/Time: Oct 19, 2023 01:35 PM Reporting Lab: [facility] [place] [address] Performing Lab: [facility] [place] [address] EXTRA GOLD GEL TUBE RECEIVED Oct 19, 2023 01:00 PM [facility] BASIC METABOLIC PANEL+MG Specimen Type: PLASMA No comment entered. Ordering Provider: FIGUEROA BERRY Report Released Date/Time: Oct 19, 2023 01:29 PM Reporting Lab: [facility] [place] [address] Performing Lab: [facility] [place] [address] CREATININE 0.8 mg/dL 0.7-1.2 UREA NITROGEN 18 mg/dL 8-26 GLUCOSE 98 mg/dL 70-100 SODIUM 142 mmol/L 136-145 POTASSIUM 4.2 mmol/L 3.5-5.1 CHLORIDE 107 mmol/L 98-107 CO2 25 mmol/L 22-29 CALCIUM 9.5 mg/dL 8.4-10.2 MAGNESIUM 1.9 mg/dL 1.6-2.6 ANION GAP 10 mmol/L 5-15 .CREAT EGFR(CKD-EPI) >90 >60 Oct 19, 2023 01:00 PM [facility] CBC & DIFF Specimen Type: BLOOD Comment: Automated Differential Performed Ordering Provider: FIGUEROA BERRY Report Released Date/Time: Oct 19, 2023 01:29 PM Reporting Lab: [facility] [place] [address] Performing Lab: [facility] [place] [address] WBC 7.22 10*3/uL 4.0-11.0 RBC 5.12 10*6/uL [...] and tobacco- related health factors from the [place] facility where the Encounter took place. Current Smoking Status This section includes the most current smoking, or tobacco-related health factor, from the [place] facility where the Encounter took place. Date/Time Current Smoking Status Comment Priya bowers Aug 17, 2023 09:45 AM VA-TOBACCO FORMER USER [facility] Tobacco Use History This section includes a history of the smoking, or tobacco-related health factors, that were collected on or before the date of the Encounter. The data comes from the [place] facility where the Encounter took place. Date/Time Smoking Status/Tobacco Use Comment Angelito florian Aug 17, 2023 09:45 AM VA-TOBACCO QUIT 15 YRS OR MORE [facility] Jul 01, 2022 08:45 AM VA-TOBACCO FORMER USER [facility] Jul 01, 2022 08:45 AM VA-TOBACCO QUIT 15 YRS OR MORE [facility] May 22, 2021 09:00 AM VA-TOBACCO FORMER USER [facility] May 22, 2021 09:00 AM VA-TOBACCO QUIT 15 YRS OR MORE [facility] Mar 29, 2020 07:42 AM VA-TOBACCO FORMER USER [facility] Mar 29, 2020 07:42 AM VA-TOBACCO QUIT 15 YRS OR MORE [facility] Mar 06, 2019 12:00 PM VA-TOBACCO FORMER USER [facility] Mar 06, 2019 12:00 PM VA-TOBACCO QUIT 15 YRS OR MORE [facility] Oct 23, 2018 11:20 AM INPT NO TOBACCO USE IN LAST 30 D [facility] Jun 15, 2018 09:25 AM VA-TOBACCO FORMER USER [facility] Jun 15, 2018 09:25 AM VA-TOBACCO QUIT 15 YRS OR MORE [facility] Jun 25, 2017 04:05 PM INPT NO TOBACCO USE IN LAST 30 D [facility] Apr 26, 2017 08:03 AM FORMER TOBACCO USER 7Y OR GREATE R [facility] Jan 04, 2017 11:27 AM INPT NO TOBACCO USE IN LAST 30 D [facility] May 13, 2016 10:42 AM LIFETIME NON-TOBACCO USER [facility] Jun 04, 2015 06:17 AM INPT NO TOBACCO USE IN LAST 30 D [facility] Apr 23, 2015 09:14 AM FORMER TOBACCO USER 7Y OR GREATE R [facility] Jan 19, 2014 09:40 AM FORMER TOBACCO USER 7Y OR GREATE R [facility] December 09, 2010 12:08 PM FORMER TOBACCO USER 7Y OR GREATE R [facility] Advance Directives: All historical and current Section Date Range: From patient's date of to the date document was created. This section includes ALL of a patient's completed or amended [place] Advance and Rescinded Directives. The entries below indicate that a directive exists for the patient, but an actual copy is not included with this document. The data comes from all [place] facilities. Date Advance Directives Provider Source Jun 25, 2017 CLINICAL WARNING MADHAVI CASTILLO [facility] Jan 04, 2017 CLINICAL WARNING DIGNA CASTELLANOS [facility] Sep 26, 2014 CLINICAL WARNING SHEREEN LAUREANO [facility] Radiology Reports: +/- 30 days of the [...] the Encounter. The data comes from all [place] treatment facilities. Date/Time Radiology Report Provider Source Oct 27, 2023 08:10 AM CHEST PAIN PATHWAY (ED ONLY) (P): ANANTH HUANG [id number] -1945 M Ex Date: OCT 27, 2023@08:10 Req Phys: FIGUEROA BERRY Loc: [facility] EMERGENCY DEPT WALK-IN (Re Img Loc: [facility] Service: Unknown (Case [id number] COMPLETE) MYOCARDIAL PERFUSION (SPECT)-MULT(NM Detailed) CPT:87897 Reason for Study: Chest Pain Pathway (Case 1050 COMPLETE) TC-99M SESTAMIBI (CARDIOLITE), PE(NM Detailed) CPT:A9500 (Case 1051 COMPLETE) CARDIOVASCULAR STRESS TEST (NM Detailed) CPT:28656 Clinical History: Myocardial perfusion stress test for chest pain IS NOT under investigation for COVID-19 or is COVID-19 negative chest pain Responsible provider name and phone number to notify for critical findings if other than user placing the order and pager listed below: User placing orders pager: [phone] ER LAST CREATININE 0.8 (10/19/23) Report Status: Verified Date Reported: OCT 27, 2023 Date Verified: OCT 27, 2023 Filter Helper E-Sig:/ES/GOLD VEGA MD Report: Regadenoson myocardial [...] Staff: GOLD VEGA MD, RADIOLOGY STAFF PHYSICIAN (Filter Helper) /LAMAR VEGATAMARALEFTY [facility] Oct 19, 2023 02:14 PM CTA (CAP) DISSECTI ON (P): ANANTH HUANG [id number] -1945 M Exm Date: OCT 19, 2023@14:14 Req Phys: JEFFERSON BERRYY Harish [place] Loc: [facility] EMERGENCY DEPT WALK-IN ([facility] Loc: CT IMAGING Service: Unknown (Case [id number] COMPLETE) CTA (CAP) CHEST W/ & W/O CONTRAST(CT Detailed) CPT:42245 Reason for Study: sharp chest pain (Case 1150 COMPLETE) CTA (CAP) ABDOMEN/PELVIS W/ & W/O(CT Detailed) CPT:62766 Clinical History: sharp chest pain, sudden onset, [...] PLASMA .CREAT EGFR(CKD-E >90 Ref: >=60 Allergies: (Bluejacket only) Patient has answered NKA Defer to [...] 19, 2023 Date Verified: OCT 19, 2023 Filter Helper E-Sig:/ES/GURDEEP MORFIN MD Report: CHEST/ABDOMEN/PELVIS CTA AND [...] Primary Interpreting Staff: GURDEEP MORFIN MD, RADIOLOGIST (Filter Helper) Primary Interpreting Resident: SULMA BRADY MD, DANCE HALL HOSTESS /GURDEEP DRAPER [facility] Oct 19, 2023 01:36 PM CHEST 1 VIEW: ANANTH HUANG [id number] -1945 M Exm Date: OCT 19, 2023@13:36 Req Phys: FIGUEROA BERRY Loc: [facility] EMERGENCY DEPT WALK-IN (Re Img Loc: MAIN X-RAY Service: Unknown (Case [id number] COMPLETE) CHEST 1 VIEW (RAD Detailed) CPT:72433 Proc Modifiers : PORTABLE EXAM Reason for Study: chest pain Clinical History: [place] IS NOT under investigation for COVID-19 or is COVID-19 negative chest pain Responsible provider name and phone number to notify for critical findings if other than user placing the order and pager listed below: User placing orders pager: [phone] [facility] LAST CREATININE 0.8 (08/17/23) Report Status: Verified Date Reported: OCT 19, 2023 Date Verified: OCT 19, 2023 Filter Helper E-Sig:/ES/MIRIAM CAIN MD Report: EXAMINATION: CHEST 1 VIEW 10/19/2023 1:36 PM INDICATION: chest pain Impression: Heart size is enlarged or at the upper limits of normal. Pulmonary vascularity within normal limits. No pulmonary infiltrate or pleural effusion. Calcification aorta. Old healed right rib fractures. Old healed clavicular fractures. Degenerative changes thoracic spine. Primary Interpreting Staff: MIRIAM CAIN MD, RADIOLOGIST (Filter Helper) /MIRIAM YATES [facility] Encounter Notes: All associated encounter notes This section contains the clinical notes associated to the Encounter. Date/Time Encounter Note(s) Provider Source Nov 08, 2023 11:46 AM ADMINISTRATIVE NOT E: LOCAL TITLE: CCC: SCHEDULING ADMINISTRATION STANDARD TITLE: ADMINISTRATIVE NOTE DATE OF NOTE: NOV 08, 2023@11:46 ENTRY DATE: NOV 08, 2023@11:46:25 AUTHOR: ZEESHAN SIMENTAL COSIGNER: URGENCY: STATUS: COMPLETED CCC: SCHEDULING ADMINISTRATION Has ADDENDA Primary Care Call Center Primary Care Provider Call. This note was created by a V23 [facility] RAY/RIVERA. Please do not alert this pattern chart writer by adding as a signer for future communications. Alerts are not monitored by this user, please reach out to [facility] instead if indicated. Phone number verified as correct. [phone] [place] is calling to ask if he can either have a teledermatology imaging consult placed or dermatology consult placed. He has a few dark spots that need to be looked at on the face and a fewon his leg. PCP does not have any openings until December 22. Please call and advise. Thank you /phoebe/ [facility] Signed: 11/08/2023 11:49 Receipt Acknowledged By: 11/09/2023 13:32 /phoebe/ DIGNA DAVIDSON RN REGISTERED NURSE 11/09/2023 ADDENDUM STATUS: COMPLETED Spoke with patient about details of the skin complaint. Telederm consult placed. Informed patient that he will be contacted for scheduling of photos. He is agreeable. /phoebe/ DIGNA DAVIDSON RN REGISTERED NURSE Signed: 11/09/2023 13:33 ZEESHAN SIMENTAL [facility]
--- OUTSIDE RECORDS SUMMARY | 2024-01-26 23:11 | XMS_ITS | Encounter Summary ---
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 of [facility] Organization [facility] Address [address] [place] [id number] Care Team Providers Care A R Specialist Name Role Phone ELIZ MUNOZ Primary Care Provider [facility] Insurance Providers: All historical and current Section [...] PART A Nov 01, 2011 PART A [id number] ANANTH HUANG PATIENT MEDICARE (WNR) MEDICARE (M) PART B Nov 01, 2011 PART B [id number] ANANTH HUANG PATIENT Selected Encounter This section includes the information on record at AL for the Encounter. Date/Time Encounter Type Encounter Description Reason Provider Source Nov 03, 2023 10:52 AM MTMS BY CHUCK PARMAR 15 MIN TELEPHONE/CHAO ROSARIO ICD-10-CM Z79.01 jail (current) use of anticoagulants RANDOLPH GOTTI IN [facility] Encounter Template Text not used by AL Assessments - Encounter Diagnoses This section includes the primary and secondary diagnoses documented for the Encounter. Date/Time Primary/Secondary Diagnosis Diagnosis Name Provider Source Nov 03, 2023 10:52 AM PRIMARY termination clerk (current) use of anticoagulants RANDOLPH GOTTI IN [facility] Nov 03, 2023 10:52 AM SECONDARY Encounter for therapeutic drug level monitoring RANDOLPH GOTTI IN [facility] Nov 03, 2023 10:52 AM SECONDARY Unspecified atrial fibrillation RANDOLPH GOTTI IN [facility] Plan of Treatment: Future Appointments (+ 6 months) and Future Tests (+/- 45 days) The Plan of Treatment section includes future care activities [facility] the [facility] This section includes future appointments and future orders which are active, pending or scheduled. Future Appointments This section includes appointments that were scheduled to occur 6 months from the date of the Encounter, up to a maximum of 20 appointments. The data comes from all [facility]. Appointment Date/Time Appointment Type Appointme nt Facility Name Nov 15, 2023 01:40 PM AMBULATORY - REHAB MEDICIN E [facility] Nov 16, 2023 10:30 AM AMBULATORY - MEDICINE [facility] Active, Pending, and Scheduled Orders This section includes a listing of several types of active, pending, and scheduled orders, including clinic medications orders, diagnostic test orders, procedure orders and consult orders; where the start date of the order is 45 days before the date of the Encounter or 45 days after the date of theEncounter. The data comes from all [facility]. Test Date/Time Test Type Test Details Facility Name Oct 19, 2023 03:51 PM Laboratory - Chemi stry Order TROPONIN I, HS PLASMA STAT WC ONCE [facility] Lab Results: +/- 30 days of the encounter This section includes the Chemistry and Hematology Lab Results on record with AL for the patient. Radiology Reports and Pathology Reports are provided separately, in subsequent sections. Lab Results This section contains the Chemistry/Hematology Results that were resulted 30 days before or 30 daysafter the date of the Encounter. Date/Time Source Result Type Result - Unit Interpretation Reference Range Comment Oct 19, 2023 04:08 PM [facility] TROPONIN I, HS Specimen Type: PLASMA No comment entered. Ordering Provider: FIGUEROA RUFF Report Released Date/Time: Oct 19, 2023 03:51 PM Reporting Lab: [facility] [id number] Performing Lab: [facility] [address] TROPONIN I, HS <3 <35 Oct 19, 2023 01:00 PM [facility] TROPONIN I, HS Specimen Type: PLASMA No comment entered. Ordering Provider: FIGUEROA RUFF Report Released Date/Time: Oct 19, 2023 01:29 PM Reporting Lab: [facility] [id number] Performing Lab: [facility] [address] TROPONIN I, HS <3 <35 Oct 19, 2023 01:00 PM [facility] PROTHROMBIN TIME/INR Specimen Type: PLASMA No comment entered. Ordering Provider: FIGUEROA RUFF Report Released Date/Time: Oct 19, 2023 01:29 PM Reporting Lab: [facility] [address] Performing Lab: [facility] Oct 19, 2023 01:00 PM [facility] BNP Specimen Type: PLASMA No comment entered. Ordering Provider: FIGUEROA RUFF Report Released Date/Time: Oct 19, 2023 01:29 PM Reporting Lab: [facility] [address] Performing Lab: [facility] [address] BNP 30 pg/mL <99 Oct 19, 2023 01:00 PM [facility] EXTRA GOLD GEL TUBE Specimen Type: SERUM No comment entered. Ordering Provider: FIGUEROA RUFF Report Released Date/Time: Oct 19, 2023 01:35 PM Reporting Lab: [facility] [address] Performing Lab: [facility] [address] EXTRA GOLD GEL TUBE RECEIVED Oct 19, 2023 01:00 PM [facility] ACT PART THROMBO TIME Specimen Type: PLASMA No comment entered. Ordering Provider: FIGUEROA RUFF Report Released Date/Time: Oct 19, 2023 01:29 PM Reporting Lab: [facility] [id number] Performing Lab: [facility] [address] APTT 35.2 s 25.1-36.5 Oct 19, 2023 01:00 PM [facility] BASIC METABOLIC PANEL+MG Specimen Type: PLASMA No comment entered. Ordering Provider: FIGUEROA RUFF Report Released Date/Time: Oct 19, 2023 01:29 PM Reporting Lab: [facility] [id number] Performing Lab: [facility] [address] CREATININE 0.8 mg/dL 0.7-1.2 UREA NITROGEN 18 mg/dL 8-26 GLUCOSE 98 mg/dL 70-100 SODIUM 142 mmol/L 136-145 POTASSIUM 4.2 mmol/L 3.5-5.1 CHLORIDE 107 mmol/L 98-107 CO2 25 mmol/L 22-29 CALCIUM 9.5 mg/dL 8.4-10.2 MAGNESIUM 1.9 mg/dL 1.6-2.6 ANION GAP 10 mmol/L 5-15 .CREAT EGFR(CKD-EPI) >90 >60 Oct 19, 2023 01:00 PM [facility] CBC & DIFF Specimen Type: BLOOD Comment: Automated Differential Performed Ordering Provider: FIGUEROA RUFF Report Released Date/Time: Oct 19, 2023 01:29 PM Reporting Lab: [facility] [phone] Performing Lab: [facility] [address] WBC 7.22 10*3/uL 4.0-11.0 RBC 5.12 10*6/uL [...] and tobacco- related health factors from the [facility] where the Encounter took place. Current Smoking Status This section includes the most current smoking, or tobacco-related health factor, from the AL facility where the Encounter took place. Date/Time Current Smoking Status Comment Priya ity Aug 17, 2023 09:45 AM VA-TOBACCO FORMER USER [facility] Tobacco Use History This section includes a history of the smoking, or tobacco-related health factors, that were collected on or before the date of the Encounter. The data comes from the AL facility where the Encounter took place. Date/Time Smoking Status/Tobacco Use Comment F acility Aug 17, 2023 09:45 AM VA-TOBACCO QUIT 15 YRS OR MORE [facility] Jul 01, 2022 08:45 AM VA-TOBACCO FORMER USER [facility] Jul 01, 2022 08:45 AM VA-TOBACCO QUIT 15 YRS OR MORE [facility] May 22, 2021 09:00 AM VA-TOBACCO FORMER USER [facility] May 22, 2021 09:00 AM VA-TOBACCO QUIT 15 YRS OR MORE [facility] Mar 29, 2020 07:42 AM VA-TOBACCO FORMER USER [facility] Mar 29, 2020 07:42 AM VA-TOBACCO QUIT 15 YRS OR MORE [facility] Mar 06, 2019 12:00 PM VA-TOBACCO FORMER USER [facility] Mar 06, 2019 12:00 PM VA-TOBACCO QUIT 15 YRS OR MORE [facility] Oct 23, 2018 11:20 AM INPT NO TOBACCO USE IN LAST 30 D [facility] Jun 15, 2018 09:25 AM VA-TOBACCO FORMER USER [facility] Jun 15, 2018 09:25 AM VA-TOBACCO QUIT 15 YRS OR MORE [facility] Jun 25, 2017 04:05 PM INPT NO TOBACCO USE IN LAST 30 D [facility] Apr 26, 2017 08:03 AM FORMER TOBACCO USER 7Y OR GREATE R [facility] Jan 04, 2017 11:27 AM INPT NO TOBACCO USE IN LAST 30 D [facility] May 13, 2016 10:42 AM LIFETIME NON-TOBACCO USER [facility] Jun 04, 2015 06:17 AM INPT NO TOBACCO USE IN LAST 30 D [facility] Apr 23, 2015 09:14 AM FORMER TOBACCO USER 7Y OR GREATE R [facility] Jan 19, 2014 09:40 AM FORMER TOBACCO USER 7Y OR GREATE R [facility] December 09, 2010 12:08 PM FORMER TOBACCO USER 7Y OR GREATE R [facility] Advance Directives: All historical and current Section Date Range: From patient's date of to the date document was created. This section includes ALL of a patient's completed or amended [place] Advance and Rescinded Directives. The entries below indicate that a directive exists for the patient, but an actual copy is not included with this document. The data comes from all [place] facilities. Date Advance Directives Provider Source Jun 25, 2017 CLINICAL WARNING MADHAVI CASTILLO [facility] Jan 04, 2017 CLINICAL WARNING DIGNA CASTELLANOS [facility] Sep 26, 2014 CLINICAL WARNING JARAMILLO SHEREEN MILLAN [facility] Radiology Reports: +/- 30 days of [...] the Encounter. The data comes from all [place] treatment facilities. Date/Time Radiology Report Provider Source Oct 27, 2023 08:10 AM CHEST PAIN PATHWAY (ED ONLY) (P): ANANTH HUANG [id number] -1945 M Ex Date: OCT 27, 2023@08:10 Req Phys: FIGUEROA RUFF Loc: [facility] EMERGENCY DEPT WALK-IN (Re Img Loc: [facility] Service: Unknown (Case [id number] COMPLETE) MYOCARDIAL PERFUSION (SPECT)-MULT(NM Detailed) CPT:77248 Reason for Study: Chest Pain Pathway (Case 1050 COMPLETE) TC-99M SESTAMIBI (CARDIOLITE), PE(NM Detailed) CPT:A9500 (Case 1051 COMPLETE) CARDIOVASCULAR STRESS TEST (NM Detailed) CPT:42768 Clinical History: Myocardial perfusion stress test for chest pain IS NOT under investigation for COVID-19 or is COVID-19 negative chest pain Responsible provider name and phone number to notify for critical findings if other than user placing the order and pager listed below: User placing orders pager: [phone] ER LAST CREATININE 0.8 (10/19/23) Report Status: Verified Date Reported: OCT 27, 2023 Date Verified: OCT 27, 2023 Cut Out And Marking Machine Operator E-Sig:/ES/GOLD VEGA MD Report: Regadenoson myocardial perfusion [...] Staff: GOLD VEGA MD, RADIOLOGY STAFF PHYSICIAN (Cut Out And Marking Machine Operator) /GOLD RUIZ [facility] Oct 19, 2023 02:14 PM CTA (CAP) DISSECTI ON (P): ANANTH HUANG [id number] -1945 M Exm Date: OCT 19, 2023@14:14 Req Phys: FIGUEROA RUFF Loc: [facility] EMERGENCY DEPT WALK-IN (Re [facility] Loc: CT IMAGING Service: Unknown (Case [id number] COMPLETE) CTA (CAP) CHEST W/ & W/O CONTRAST(CT Detailed) CPT:25015 Reason for Study: sharp chest pain (Case 1150 COMPLETE) CTA (CAP) ABDOMEN/PELVIS W/ & W/O(CT Detailed) CPT:47451 Clinical History: sharp chest pain, sudden onset, [...] PLASMA .CREAT EGFR(CKD-E >90 Ref: >=60 Allergies: ([place] only) Patient has answered NKA Defer to [...] 19, 2023 Date Verified: OCT 19, 2023 Cut Out And Marking Machine Operator E-Sig:/ES/GURDEEP COBOS MD Report: CHEST/ABDOMEN/PELVIS CTA AND [...] noted in the body of the report. IWoodrow, have reviewed the images and report. Primary Interpreting Staff: GURDEEP COBOS MD, RADIOLOGIST (Cut Out And Marking Machine Operator) Primary Interpreting Resident: SULMA BRADY MD, MEDICAL BILLER CODER /GURDEEP DRAPER [facility] Oct 19, 2023 01:36 PM CHEST 1 VIEW: ANANTH HUANG [id number] -1945 M Exm Date: OCT 19, 2023@13:36 Req Phys: FIGUEROA RUFF Loc: [facility] EMERGENCY DEPT WALK-IN (Re Img Loc: MAIN X-RAY Service: Unknown (Case [id number] COMPLETE) CHEST 1 VIEW (RAD Detailed) CPT:69965 Proc Modifiers : PORTABLE EXAM Reason for Study: chest pain Clinical History: [place] IS NOT under investigation for COVID-19 or is COVID-19 negative chest pain Responsible provider name and phone number to notify for critical findings if other than user placing the order and pager listed below: User placing orders pager: [phone] sindi ruff LAST CREATININE 0.8 (08/17/23) Report Status: Verified Date Reported: OCT 19, 2023 Date Verified: OCT 19, 2023 Cut Out And Marking Machine Operator E-Sig:/ES/MIRIAM CAIN MD Report: EXAMINATION: CHEST 1 VIEW 10/19/2023 1:36 PM INDICATION: chest pain Impression: Heart size is enlarged or at the upper limits of normal. Pulmonary vascularity within normal limits. No pulmonary infiltrate or pleural effusion. Calcification aorta. Old healed right rib fractures. Old healed clavicular fractures. Degenerative changes thoracic spine. Primary Interpreting Staff: MIRIAM CAIN MD, RADIOLOGIST (Cut Out And Marking Machine Operator) /RTS MIRIAM CAIN [facility] Encounter Notes: All associated encounter notes This section contains the clinical notes associated to the Encounter. Date/Time Encounter Note(s) Provider Source Nov 03, 2023 10:54 AM LETTERS: LOCAL TITLE: FOLLOW UP RESULTS LETTER STANDARD TITLE: LETTERS DATE OF NOTE: NOV 03, 2023@10:54 ENTRY DATE: NOV 03, 2023@10:54:56 AUTHOR: BRITTA GOTTI COSIGNER: URGENCY: STATUS: COMPLETED SUBJECT: anticoag [facility] [address] [place] [address] Oct ANANTH HUANG [address] [facility] [id number] Dear [place]: We are following up on your anticoagulant (blood thinner) medication, Dabigatran (Pradaxa). We are sending you written instructions for interruption of your blood thinner for an upcoming procedure on Oct: - Do not take dabigatran for 4 days before procedure OR the day of procedure. The last dose taken preoperatively is 5 days before the procedure. - If there are no major bleeding complications, resume 24 hours later (the day after the procedure) at the usual dose unless otherwise instructed by the surgeon/proceduralist. - No dabigatran 11/11/23 - 11/15/23. Resume 11/16/23 unless otherwise directed. If this procedure is rescheduled and new instructions are needed OR changes in your health (ie: clotting complications, stroke) occur between now and the time of the procedure, please contact us at [phone], option 3. Your anticoagulant should not be held if the procedure is cancelled. As a reminder, you may be at a slightly higher clotting risk any time your blood thinner is stopped. However, the surgeon has determined it is unsafe to perform this surgery without stopping your blood thinner due to bleeding concerns. Although unlikely, monitor for any signs or symptoms of clotting and get checked out right away if you experience any of these. We hope you are doing well. Thank you for your service. Sincerely, [place] [facility] Team --- Phone number: [phone] -option 1 to schedule or reschedule an appointment -option 2 to refill medications or call the phone number on the bottle -option 3 for all other communication Fax number: [phone] Clinic Hours: Wednesday-Wednesday, 8:00am to 4:00pm (excluding Federal holidays) BRITTA GOTTI PHARMACIST BRITTA GOTTI [facility] Nov 03, 2023 10:52 AM MEDICATION MGT CON SULT: LOCAL TITLE: ANTICOAGULATION CLINIC CONSULT STANDARD TITLE: MEDICATION MGT CONSULT DATE OF NOTE: NOV 03, 2023@10:52 ENTRY DATE: NOV 03, 2023@10:52:30 AUTHOR: BRITTA GOTTI EXP COSIGNER: URGENCY: STATUS: COMPLETED DOAC PERIOP Anticoag regimen: dabigatran 150mg every 12 hours Anticoag indication: paroxysmal atrial fibrillation - Relevant PMH: Pt is on dabigatran rather than other DOACs as he engages in horseback riding, mountain biking and other high impact activities and desires availability of a reversal agent. Update: has tolerated, so will continue dabigatran (other DOACs now have reversal agents too) - Date started: 11/2016 - Prior bleeding complications: none mentioned - Prior anticoagulant trials: none mentioned - Anticipated duration of therapy: long-term --- CHADSVASCC = 3-4 (age x2, htn, +/- CAD)= LOW HAS-BLED = 1 (age)= MODERATE -------- S/O: ---- Obtained by chart review. Procedure: Cervical ILESI Date: 11/15/23 Surgical bleed risk: Special Precautions (interventional radiology, interventional pain, neuraxial anesthesia) Thromboembolic/Bleed Risk: see above Dashboard flags: none LABS ---- Age: 77 Weight: 240.5 lb [109.09 kg] (08/17/2023 09:38) Height: 68 in [172.7 cm] (08/17/2023 09:38) CREATININE 0.8 PLASMA (10/19/23 13:00) 0.8 PLASMA (08/17/23 08:24) 0.7 PLASMA (04/30/23 07:14) Cockcroft & Gault (Actual body weight) = 121 mL/min Collection DT Spec WBC HGB HCT PLT MCV NEUT LYMPHS 10/19/2023 13:00 BLOOD 7.22 15.4 46.9 215 91.6 67.4 17.0 08/17/2023 08:24 BLOOD 5.26 15.2 45.1 194 90.2 04/30/2023 07:14 BLOOD 6.08 14.6 43.8 189 91.1 61.1 17.9 Collection DT Specimen Test Name Result Units Ref Range 08/06/2020 14:11 PLASMA BILIRUBIN, TOTAL 0.4 mg/dL 0.2 - 1.2 08/06/2020 14:11 PLASMA ALKALINE PHOSPHAT 76 U/L 40 - 150 08/17/2023 08:24 PLASMA AST/SGOT 28 U/L Ref: <=34 08/17/2023 08:24 PLASMA ALT/SGPT 22 U/L Ref: <=55 A/P: ---- No enoxaparin bridging warranted with DOACs. If this procedure is rescheduled and new instructions are needed OR changes in health (ie: clotting complications, stroke) occur between now and the time of the procedure, anticoagulation clinic should be contacted. If procedure is rescheduled, these recommendations can be applied to new procedure date ONLY IF there are no changes to renal function or health (new thromboembolic event/CVA, recent clotting complications) since consult completion. A new consult should be submitted for reschedules if recent thromboembolic event/CVA occurred or there are renal function changes. Dabigatran should not be held if procedure is cancelled. INTERVENTIONAL PAIN - LIZETH - No renal disease: Date of procedure: 11/15/23 - Do not take dabigatran for 4 days before procedure OR the day of procedure. The last dose taken preoperatively is 5 days before the procedure. - If there are no major bleeding complications, resume 24 hours later (the day after the procedure) at the usual dose unless otherwise instructed by the surgeon/proceduralist. - No dabigatran 11/11/23 - 11/15/23. Resume 11/16/23 unless otherwise directed. -Educated pt on plan. -Letter sent and pt wrote down plan Time:15min Patient education of treatment plan: Patient indicates readiness to learn, verbalizes understanding, agreement and satisfaction with the treatment plan. Denies further questions. /phoebe/ BRITTA GOTTI PHARMACIST Signed: 11/03/2023 10:54 RBITTA GOTTI [facility]
--- OUTSIDE RECORDS SUMMARY | 2024-01-26 23:12 | XMS_ITS | Encounter Summary ---
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 Organization Department of [facility] Address [address] [place] [id number] Care Team Providers Care Lube Attendant Name Role Phone ELIZ MUNOZ Primary Care Provider [facility] e Insurance Providers: All historical and current [...] PART A Nov 01, 2011 PART A [id number] [id number] [phone] ANANTH HUANG PATIENT MEDICARE (WNR) MEDICARE (M) PART B Nov 01, 2011 PART B [id number] [id number] [phone] ANANTH HUANG PATIENT Selected Encounter This section includes the information on record at [place] for the Encounter. Date/Time Encounter Type Encounter Description Reason Pro vider Source Nov 15, 2023 01:35 PM Outpatient Encounter EVENT (HISTORICAL) IHE Encounter Template Text not used by [place] Plan of Treatment: Future Appointments (+ 6 months) and Future Tests (+/- 45 days) The Plan of Treatment section includes future care activities for the patient from all [place] treatmentfacilities. This section includes future appointments and future orders which are active, pending or scheduled. Future Appointments This section includes appointments that were scheduled to occur 6 months from the date of the Encounter, up to a maximum of 20 appointments. The data comes from all [place] treatment facilities. Appointment Date/Time Appointment Type Appointme nt Facility Name Nov 16, 2023 10:30 AM [facility] Active, Pending, and Scheduled Orders This section includes a listing of several types of active, pending, and scheduled orders, including clinic medications orders, diagnostic test orders, procedure orders and consult orders; where the start date of the order is 45 days before the date of the Encounter or 45 days after the date of theEncounter. The data comes from all [place] treatment facilities. Test Date/Time Test Type Test Details Facility Name Oct 19, 2023 03:51 PM Laboratory - Chemi stry Order TROPONIN I, HS PLASMA STAT WC ONCE [facility] Lab Results: +/- 30 days of the encounter This section includes the Chemistry and Hematology Lab Results on record with [place] for the patient. Radiology Reports and Pathology [...] PLASMA No comment entered. Ordering Provider: FIGUEROA WEI Report Released Date/Time: Oct 19, 2023 03:51 PM Reporting Lab: [facility] [address] Performing Lab: [facility] [phone] TROPONIN I, HS <3 <35 Oct 19, 2023 01:00 PM [facility] TROPONIN I, HS Specimen Type: PLASMA No comment entered. Ordering Provider: FIGUEROA WEI Report Released Date/Time: Oct 19, 2023 01:29 PM Reporting Lab: [facility] [phone] Performing Lab: [facility] [address] TROPONIN I, HS <3 <35 Oct 19, 2023 01:00 PM [facility] BNP Specimen Type: PLASMA No comment entered. Ordering Provider: FIGUEROA WEI Report Released Date/Time: Oct 19, 2023 01:29 PM Reporting Lab: [facility] [address] Performing Lab: [facility] [address] BNP 30 pg/mL <99 Oct 19, 2023 01:00 PM [facility] ACT PART THROMBO TIME Specimen Type: PLASMA No comment entered. Ordering Provider: FIGUEROA WEI Report Released Date/Time: Oct 19, 2023 01:29 PM Reporting Lab: [facility] [address] Performing Lab: [facility] [address] APTT 35.2 s 25.1-36.5 Oct 19, 2023 01:00 PM [facility] PROTHROMBIN TIME/INR Specimen Type: PLASMA No comment entered. Ordering Provider: FIGUEROA WEI Report Released Date/Time: Oct 19, 2023 01:29 PM Reporting Lab: [facility] [address] Performing Lab: [facility] Oct 19, 2023 01:00 PM [facility] EXTRA GOLD GEL TUBE Specimen Type: SERUM No comment entered. Ordering Provider: FIGUEROA WEI Report Released Date/Time: Oct 19, 2023 01:35 PM Reporting Lab: [facility] [address] Performing Lab: [facility] [address] EXTRA GOLD GEL TUBE RECEIVED Oct 19, 2023 01:00 PM [facility] CBC & DIFF Specimen Type: BLOOD Comment: Automated Differential Performed Ordering Provider: FIGUEROA WEI Report Released Date/Time: Oct 19, 2023 01:29 PM Reporting Lab: [facility] [phone] Performing Lab: [facility] [address] WBC 7.22 10*3/uL 4.0-11.0 RBC 5.12 10*6/uL [...] 0.3 ABS IMMATURE GRAN 0.02 10*3/uL 0-0.1 Oct 19, 2023 01:00 PM [facility] BASIC METABOLIC PANEL+MG Specimen Type: PLASMA No comment entered. Ordering Provider: FIGUEROA WEI Report Released Date/Time: Oct 19, 2023 01:29 PM Reporting Lab: [facility] [address] Performing Lab: [facility] [address] CREATININE 0.8 mg/dL 0.7-1.2 UREA NITROGEN 18 mg/dL 8-26 GLUCOSE 98 mg/dL 70-100 SODIUM 142 mmol/L 136-145 POTASSIUM 4.2 mmol/L 3.5-5.1 CHLORIDE 107 mmol/L 98-107 CO2 25 mmol/L 22-29 CALCIUM 9.5 mg/dL 8.4-10.2 MAGNESIUM 1.9 mg/dL 1.6-2.6 ANION GAP 10 mmol/L 5-15 .CREAT EGFR(CKD-EPI) >90 >60 Vital Signs: All taken on the encounter date This section contains inpatient and outpatient Vital Signs collected on the date of the Encounter. Date/Time Temperature Pulse Blood Pressure Respiratory Rate SP02 Pain Height Weight Body Mass Index Source Nov 15, 2023 01:52 PM 51 152/83 95 5 [facility] Nov 15, 2023 01:17 PM 98.1 48 150/77 17 95 5 [facility] Social History: Smoking Status (Most current) and Tobacco Use (All prior to encounter date) This section includes the most current, and the historical, smoking and tobacco- related health factors from the [place] facility where the Encounter took place. Current Smoking Status This section includes the most current smoking, or tobacco-related health factor, from the [place] facility where the Encounter took place. Date/Time Current Smoking Status Comment Priya bowers Aug 17, 2023 09:45 AM VA-TOBACCO QUIT 15 YRS OR MORE [facility] Tobacco Use History This section includes a history of the smoking, or tobacco-related health factors, that were collected on or before the date of the Encounter. The data comes from the [place] facility where the Encounter took place. Date/Time [...] ALL of a patient's completed or amended [place] Advance and Rescinded Directives. The entries below indicate that a directive exists for the patient, but an actual copy is not included with this document. The data comes from all [place] facilities. Date Advance Directives Provider Source Jun 25, 2017 CLINICAL WARNING MADHAVI [facility] Jan 04, [...] the Encounter. The data comes from all [place] treatment facilities. Date/Time Radiology Report Provider Source Oct 27, 2023 08:10 AM CHEST PAIN PATHWAY (ED ONLY) (P): HUANGANANTH COLTON [id number] -1945 M Ex Date: OCT 27, 2023@08:10 Req Phys: FIGUEROA WEI Loc: [facility] EMERGENCY DEPT WALK-IN (Re Img Loc: [facility] Service: Unknown (Case 1049 COMPLETE) MYOCARDIAL PERFUSION (SPECT)-MULT(NM Detailed) CPT:68306 Reason for Study: Chest Pain Pathway (Case 1050 COMPLETE) TC-99M SESTAMIBI (CARDIOLITE), PE(NM Detailed) CPT:A9500 (Case 1051 COMPLETE) CARDIOVASCULAR STRESS TEST (NM Detailed) CPT:44866 Clinical History: Myocardial perfusion stress test for chest pain IS NOT under investigation for COVID-19 or is COVID-19 negative chest pain Responsible provider name and phone number to notify for critical findings if other than user placing the order and pager listed below: User placing orders pager: [phone] ER LAST CREATININE 0.8 (10/19/23) Report Status: Verified Date Reported: OCT 27, 2023 Date Verified: OCT 27, 2023 Procedures Analyst E-Sig:/ES/GOLD VEGA MD Report: Regadenoson myocardial perfusion [...] Staff: GOLD VEGA MD, RADIOLOGY STAFF PHYSICIAN (Procedures Analyst) /GOLD RUIZ [facility] Oct 19, 2023 02:14 PM CTA (CAP) DISSECTI ON (P): ANANTH HUANG [id number] -1945 M Exm Date: OCT 19, 2023@14:14 Req Phys: FIGUEROA WEI Loc: [facility] EMERGENCY DEPT WALK-IN (Re Im Loc: CT IMAGING Service: Unknown (Case 1149 COMPLETE) CTA (CAP) CHEST W/ & W/O CONTRAST(CT Detailed) CPT:75863 Reason for Study: sharp chest pain (Case 1150 COMPLETE) CTA (CAP) ABDOMEN/PELVIS W/ & W/O(CT Detailed) CPT:05289 Clinical History: sharp chest pain, sudden onset, [...] PLASMA .CREAT EGFR(CKD-E >90 Ref: >=60 Allergies: ([place] only) Patient has answered NKA Defer to radiologist for final CT protocol. Contact number for responsible provider who can be reached for any questions or notifications of critical findings: SINDI Wei Per Joint Commission Standards, by signing this diagnostic imaging request the ordering provider confirms they have considered patients age and recent imaging history. Report Status: Verified Date Reported: OCT 19, 2023 Date Verified: OCT 19, 2023 Procedures Analyst E-Sig:/ES/GURDEEP MORFIN MD Report: CHEST/ABDOMEN/PELVIS CTA AND [...] Primary Interpreting Staff: GURDEEP MORFIN MD, RADIOLOGIST (Procedures Analyst) Primary Interpreting Resident: SULMA BRADY MD, MATERIAL CARRIER /GURDEEP DRAPER [facility] Oct 19, 2023 01:36 PM CHEST 1 VIEW: ANANTH HUANG [id number] -1945 M Ex Date: OCT 19, 2023@13:36 Req Phys: FIGUEROA WEI Loc: [facility] EMERGENCY DEPT WALK-IN (Re Img Loc: MAIN X-RAY Service: Unknown (Case 1020 COMPLETE) CHEST 1 VIEW (RAD Detailed) CPT:31860 Proc Modifiers : PORTABLE EXAM Reason for Study: chest pain Clinical History: Damar IS NOT under investigation for COVID-19 or is COVID-19 negative chest pain Responsible provider name and phone number to notify for critical findings if other than user placing the order and pager listed below: User placing orders pager: [phone] speedy LAST CREATININE 0.8 (08/17/23) Report Status: Verified Date Reported: OCT 19, 2023 Date Verified: OCT 19, 2023 Procedures Analyst E-Sig:/ES/MIRIAM CAIN MD Report: EXAMINATION: CHEST 1 VIEW 10/19/2023 1:36 PM INDICATION: chest pain Impression: Heart size is enlarged or at the upper limits of normal. Pulmonary vascularity within normal limits. No pulmonary infiltrate or pleural effusion. Calcification aorta. Old healed right rib fractures. Old healed clavicular fractures. Degenerative changes thoracic spine. Primary Interpreting Staff: MIRIAM CAIN MD, RADIOLOGIST (Procedures Analyst) /MIRIAM YATES [facility]
--- OUTSIDE RECORDS SUMMARY | 2024-01-26 23:12 | XMS_ITS | Encounter Summary ---
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 of [facility] Organization [facility] of [facility] Address [address] [place] [address] Care Team Providers Care News Correspondent Name Role Phone ELIZ MUNOZ Primary Care Provider [facility] e Insurance Providers: All historical and [...] PART A Nov 01, 2011 PART A [id number] [phone] ANANTH HUANG PATIENT MEDICARE (WNR) MEDICARE (M) PART B Nov 01, 2011 PART B [id number] [id number] [phone] ANANTH HUANG PATIENT Selected Encounter This section includes the information on record at [place] for the Encounter. Date/Time Encounter Type Encounter Description Reason Provider Source Nov 16, 2023 10:30 AM UNLISTED SPEC DERM SVC/PX DERMATOLOGY ICD-10-CM D48.5 Neoplasm of uncertain behavior of skin KENN ROSARIO [facility] Encounter Template Text not used by [place] Assessments - Encounter Diagnoses This section includes the primary and secondary diagnoses documented for the Encounter. Date/Time Primary/Secondary Diagnosis Diagnosis Name Provider Source Nov 16, 2023 11:36 AM PRIMARY Neoplasm of uncertain behavior of skin KENN ROSARIO [facility] Plan of Treatment: Future Appointments (+ 6 months) and Future Tests (+/- 45 days) The Plan of Treatment section includes future care activities for the patient from all [place] treatmentfacilities. This section includes future appointments and future orders which are active, pending or scheduled. Active, Pending, and Scheduled Orders This section includes a listing of several types of active, pending, and scheduled orders, including clinic medications orders, diagnostic test orders, procedure orders and consult orders; where the start date of the order is 45 days before the date of the Encounter or 45 days after the date of theEncounter. The data comes from all [place] treatment facilities. Test Date/Time Test Type Test Details Facility Name Oct 19, 2023 03:51 PM Laboratory - Chemi stry Order TROPONIN I, HS PLASMA STAT WC ONCE [facility] Lab Results: +/- 30 days of the encounter This section includes the Chemistry and Hematology Lab Results on record with [place] for the patient. Radiology Reports and Pathology Reports are provided separately, in subsequent sections. Lab Results This section contains the Chemistry/Hematology Results that were resulted 30 days before or 30 daysafter the date of the Encounter. Date/Time Source Result Type Result - Unit Interpretation Reference Range Comment Oct 19, 2023 04:08 PM [facility] TROPONIN I, HS Specimen Type: PLASMA No comment entered. Ordering Provider: FIGUEROA RUFF Report Released Date/Time: Oct 19, 2023 03:51 PM Reporting Lab: [facility] [address] Performing Lab: [facility] [address] TROPONIN I, HS <3 <35 Oct 19, 2023 01:00 PM [facility] TROPONIN I, HS Specimen Type: PLASMA No comment entered. Ordering Provider: FIGUEROA RUFF Report Released Date/Time: Oct 19, 2023 01:29 PM Reporting Lab: [facility] [address] Performing Lab: [facility] [address] TROPONIN I, HS <3 <35 Oct 19, 2023 01:00 PM [facility] PROTHROMBIN TIME/INR Specimen Type: PLASMA No comment entered. Ordering Provider: FIGUEROA RUFF Report Released Date/Time: Oct 19, 2023 01:29 PM Reporting Lab: [facility] [address] Performing Lab: [facility] Oct 19, 2023 01:00 PM [facility] BNP Specimen Type: PLASMA No comment entered. Ordering Provider: FIGUEROA RUFF Report Released Date/Time: Oct 19, 2023 01:29 PM Reporting Lab: [facility] [address] Performing Lab: [facility] [address] BNP 30 pg/mL <99 Oct 19, 2023 01:00 PM [facility] ACT PART THROMBO TIME Specimen Type: PLASMA No comment entered. Ordering Provider: FIGUEROA RUFF Report Released Date/Time: Oct 19, 2023 01:29 PM Reporting Lab: [facility] [address] Performing Lab: [facility] [address] APTT 35.2 s 25.1-36.5 Oct 19, 2023 01:00 PM [facility] EXTRA GOLD GEL TUBE Specimen Type: SERUM No comment entered. Ordering Provider: FIGUEROA RUFF Report Released Date/Time: Oct 19, 2023 01:35 PM Reporting Lab: [facility] [address] Performing Lab: [facility] [address] EXTRA GOLD GEL TUBE RECEIVED Oct 19, 2023 01:00 PM [facility] BASIC METABOLIC PANEL+MG Specimen Type: PLASMA No comment entered. Ordering Provider: FIGUEROA RUFF Report Released Date/Time: Oct 19, 2023 01:29 PM Reporting Lab: [facility] [address] Performing Lab: [facility] [address] CREATININE 0.8 mg/dL 0.7-1.2 UREA NITROGEN 18 mg/dL 8-26 GLUCOSE 98 mg/dL 70-100 SODIUM 142 mmol/L 136-145 POTASSIUM 4.2 mmol/L 3.5-5.1 CHLORIDE 107 mmol/L 98-107 CO2 25 mmol/L 22-29 CALCIUM 9.5 mg/dL 8.4-10.2 MAGNESIUM 1.9 mg/dL 1.6-2.6 ANION GAP 10 mmol/L 5-15 .CREAT EGFR(CKD-EPI) >90 >60 Oct 19, 2023 01:00 PM [facility] CBC & DIFF Specimen Type: BLOOD Comment: Automated Differential Performed Ordering Provider: FIGUEROA RUFF Report Released Date/Time: Oct 19, 2023 01:29 PM Reporting Lab: [facility] [phone] Performing Lab: [facility] [address] WBC 7.22 10*3/uL 4.0-11.0 RBC 5.12 10*6/uL [...] and tobacco- related health factors from the [place] facility where the Encounter took place. Current Smoking Status This section includes the most current smoking, or tobacco-related health factor, from the [place] facility where the Encounter took place. Date/Time Current Smoking Status Comment Priya bowers Aug 17, 2023 09:45 AM VA-TOBACCO FORMER USER [facility] Tobacco Use History This section includes a history of the smoking, or tobacco-related health factors, that were collected on or before the date of the Encounter. The data comes from the [place] facility where the Encounter took place. Date/Time Smoking Status/Tobacco Use Comment Angelito florian Aug 17, 2023 09:45 AM VA-TOBACCO QUIT 15 YRS OR MORE [facility] Jul 01, 2022 08:45 AM VA-TOBACCO FORMER USER [facility] Jul 01, 2022 08:45 AM VA-TOBACCO QUIT 15 YRS OR MORE [facility] May 22, 2021 09:00 AM VA-TOBACCO FORMER USER [facility] May 22, 2021 09:00 AM VA-TOBACCO QUIT 15 YRS OR MORE [facility] Mar 29, 2020 07:42 AM VA-TOBACCO FORMER USER [facility] Mar 29, 2020 07:42 AM VA-TOBACCO QUIT 15 YRS OR MORE [facility] Mar 06, 2019 12:00 PM VA-TOBACCO FORMER USER [facility] Mar 06, 2019 12:00 PM VA-TOBACCO QUIT 15 YRS OR MORE [facility] Oct 23, 2018 11:20 AM INPT NO TOBACCO USE IN LAST [address] [facility] Jun 15, 2018 09:25 AM VA-TOBACCO FORMER USER [facility] Jun 15, 2018 09:25 AM VA-TOBACCO QUIT 15 YRS OR MORE [facility] Jun 25, 2017 04:05 PM INPT NO TOBACCO USE IN LAST [address] [facility] Apr 26, 2017 08:03 AM FORMER TOBACCO USER 7Y OR GREATE R [facility] Jan 04, 2017 11:27 AM INPT NO TOBACCO USE IN LAST [address] [facility] May 13, 2016 10:42 AM LIFETIME NON-TOBACCO USER [facility] Jun 04, 2015 06:17 AM INPT NO TOBACCO USE IN LAST [address] [facility] Apr 23, 2015 09:14 AM FORMER TOBACCO USER 7Y OR GREATE R [facility] Jan 19, 2014 09:40 AM FORMER TOBACCO USER 7Y OR GREATE R [facility] December 09, 2010 12:08 PM FORMER TOBACCO USER 7Y OR GREATE R [facility] Advance Directives: All historical and current Section Date Range: From patient's date of to the date document was created. This section includes ALL of a patient's completed or amended [place] Advance and Rescinded Directives. The entries below indicate that a directive exists for the patient, but an actual copy is not included with this document. The data comes from all [place] facilities. Date Advance Directives Provider Source Jun 25, 2017 CLINICAL WARNING AMDHAVI CASTILLO [facility] Jan 04, 2017 CLINICAL WARNING DIGNA CASTELLANOS [facility] Sep 26, 2014 CLINICAL WARNING SHEREEN LAUREANO [facility] Radiology Reports: +/- 30 days of the [...] the Encounter. The data comes from all [place] treatment facilities. Date/Time Radiology Report Provider Source Oct 27, 2023 08:10 AM CHEST PAIN PATHWAY (ED ONLY) (P): ANANTH HUANG [id number] -1945 M Exm Date: OCT 27, 2023@08:10 Req Phys: FIGUEROA RUFF Loc: [facility] EMERGENCY DEPT WALK-IN (Re Img Loc: [facility] Service: Unknown (Case 1049 COMPLETE) MYOCARDIAL PERFUSION (SPECT)-MULT(NM Detailed) CPT:30540 Reason for Study: Chest Pain Pathway (Case 1050 COMPLETE) TC-99M SESTAMIBI (CARDIOLITE), PE(NM Detailed) CPT:A9500 (Case 1051 COMPLETE) CARDIOVASCULAR STRESS TEST (NM Detailed) CPT:00172 Clinical History: Myocardial perfusion stress test for chest pain [place] IS NOT under investigation for COVID-19 or is COVID-19 negative chest pain Responsible provider name and phone number to notify for critical findings if other than user placing the order and pager listed below: User placing orders pager: [phone] ER LAST CREATININE 0.8 (10/19/23) Report Status: Verified Date Reported: OCT 27, 2023 Date Verified: OCT 27, 2023 Mold Sheet Cleaner E-Sig:/PHOEBE/GOLD VEGA MD Report: Regadenoson myocardial perfusion study [...] Staff: GOLD VEGA MD, RADIOLOGY STAFF PHYSICIAN (Mold Sheet Cleaner) /GOLD RUIZ [facility] Oct 19, 2023 02:14 PM CTA (CAP) DISSECTI ON (P): ANANTH HUANG [id number] -1945 M Exm Date: OCT 19, 2023@14:14 Req Phys: JEFFERSON RUFFLissett Tran Loc: [facility] EMERGENCY DEPT WALK-IN (Re Im Loc: CT IMAGING Service: Unknown (Case 1149 COMPLETE) CTA (CAP) CHEST W/ & W/O CONTRAST(CT Detailed) CPT:01524 Reason for Study: sharp chest pain (Case 1150 COMPLETE) CTA (CAP) ABDOMEN/PELVIS W/ & W/O(CT Detailed) CPT:30236 Clinical History: sharp chest pain, sudden onset, [...] PLASMA .CREAT EGFR(CKD-E >90 Ref: >=60 Allergies: ([place] only) Patient has answered NKA Defer to [...] 19, 2023 Date Verified: OCT 19, 2023 Mold Sheet Cleaner E-Sig:/ES/GURDEEP MORFIN MD Report: CHEST/ABDOMEN/PELVIS CTA AND [...] Primary Interpreting Staff: GURDEEP MORFIN MD, RADIOLOGIST (Mold Sheet Cleaner) Primary Interpreting Resident: SULMA BRADY MD, BREAKER TABLE WORKER /GURDEEP DRAPER [facility] Oct 19, 2023 01:36 PM CHEST 1 VIEW: ANANTH HUANG [id number] -1945 M Exm Date: OCT 19, 2023@13:36 Req Phys: FIGUEROA RUFF Loc: [facility] EMERGENCY DEPT WALK-IN (Re Img Loc: MAIN X-RAY Service: Unknown (Case 1020 COMPLETE) CHEST 1 VIEW (RAD Detailed) CPT:97512 Proc Modifiers : PORTABLE EXAM Reason for Study: chest pain Clinical History: [place] IS NOT under investigation for COVID-19 or is COVID-19 negative chest pain Responsible provider name and phone number to notify for critical findings if other than user placing the order and pager listed below: User placing orders pager: [phone] sindi ruff LAST CREATININE 0.8 (08/17/23) Report Status: Verified Date Reported: OCT 19, 2023 Date Verified: OCT 19, 2023 Mold Sheet Cleaner E-Sig:/ES/MIRIAM CAIN MD Report: EXAMINATION: CHEST 1 VIEW 10/19/2023 1:36 PM INDICATION: chest pain Impression: Heart size is enlarged or at the upper limits of normal. Pulmonary vascularity within normal limits. No pulmonary infiltrate or pleural effusion. Calcification aorta. Old healed right rib fractures. Old healed clavicular fractures. Degenerative changes thoracic spine. Primary Interpreting Staff: MIRIAM CAIN MD, RADIOLOGIST (Mold Sheet Cleaner) /MIRIAM YATES [facility] Encounter Notes: All associated encounter notes This section contains the clinical notes associated to the Encounter. Date/Time Encounter Note(s) Provider Source Nov 16, 2023 11:30 AM TELEIMAGING NOTE: LOCAL TITLE: TELEDERMATOLOGY IMAGING REQUEST CONSULT STANDARD TITLE: TELEIMAGING NOTE DATE OF NOTE: NOV 16, 2023@11:30 ENTRY DATE: NOV 16, 2023@11:31:01 AUTHOR: YULIET ROSARIO EXP COSIGNER: URGENCY: STATUS: COMPLETED Teledermatology Consult Request The patient was educated regarding the Teledermatology process at this encounter. Patient DOES consent to have images taken, viewed, and interpreted using the Teledermatology process. This consult addresses: A new condition Images were acquired: In clinic HISTORY: Prior skin history: Yes Have you had a skin cancer before? Basal Cell Carcinoma (BCC) Patient reports no family history of melanoma. Taking new med/supplements: None reported Immunosuppression history: None reported Other significant history: None reported Chief Complaint: left side of nose 1 area and then another area below left eye, left legabove ankle PROBLEM A LOCATION(S): Corner of R eye/nose-difficult to get good dermoscopy photo d/t location DURATION: a few months SYMPTOMS: No Symptoms CHANGES: None TREATMENT: No BIOPSY: No PROBLEM B: LOCATION(S): L cheek DURATION: a few weeks SYMPTOMS: No Symptoms CHANGES: None TREATMENT: No BIOPSY: No PROBLEM C: LOCATION(S): L calf DURATION: 6 months SYMPTOMS: Pain, Redness CHANGES: has lightened in color and is not as irritated as it once was TREATMENT: No BIOPSY: No Drier Take Off Tender's comments: /phoebe/ YULIET ROSARIO RN REGISTERED NURSE Signed: 11/16/2023 11:36 YULIET ROSARIO [facility]
--- OUTSIDE RECORDS SUMMARY | 2024-01-26 23:13 | XMS_ITS | Encounter Summary ---
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 Organization [facility] of [facility] Address [address] [place] [id number] Care Team Providers Care Fire Support Specialist Name Role Phone ELIZ MUNOZ Primary Care Provider [facility] Insurance Providers: All historical and current Section [...] PART A Nov 01, 2011 PART A [id number] [phone] ANANTH HUANG PATIENT MEDICARE (WNR) MEDICARE (M) PART B Nov 01, 2011 PART B [id number] 33a [phone] ANANTH HUANG PATIENT Selected Encounter This section includes the information on record at [place] for the Encounter. Date/Time Encounter Type Encounter Description Reason Provider Source Nov 17, 2023 09:24 AM Outpatient Encounter DERMATOLOGY ICD-10-CM L57.0 Actinic keratosis SAURAV ARECHIGA [facility] Encounter Template Text not used by [place] Assessments - Encounter Diagnoses This section includes the primary and secondary diagnoses documented for the Encounter. Date/Time Primary/Secondary Diagnosis Diagnosis Name Provider Source Nov 17, 2023 09:44 AM PRIMARY Actinic keratosis SAURAV ARECHIGA [facility] Nov 17, 2023 09:44 AM SECONDARY Other benign neoplasm of skin, unspecified SAURAV ARECHIGA [facility] Plan of Treatment: Future Appointments (+ 6 months) and Future Tests (+/- 45 days) The Plan of Treatment section includes future care activities for the patient from all [place] treatmentfacilities. This section includes future appointments and [...] of theEncounter. The data comes from all [place] treatment facilities. Test Date/Time Test Type Test Details Facility Name Oct 19, 2023 03:51 PM Laboratory - Chemi stry Order TROPONIN I, HS PLASMA STAT WC ONCE [facility] Lab Results: +/- 30 days of the encounter This section includes the Chemistry and Hematology Lab Results on record with [place] for the patient. Radiology Reports and Pathology Reports are provided separately, in subsequent sections. Lab Results This section contains the Chemistry/Hematology Results that were resulted 30 days before or 30 daysafter the date of the Encounter. Date/Time Source Result Type Result - Unit Interpretation Reference Range Comment Oct 19, 2023 04:08 PM [facility] TROPONIN I, HS Specimen Type: PLASMA No comment entered. Ordering Provider: FIGUEROA BERRY Report Released Date/Time: Oct 19, 2023 03:51 PM Reporting Lab: [facility] [id number] Performing Lab: [facility] [id number] TROPONIN I, HS <3 <35 Oct 19, 2023 01:00 PM [facility] PROTHROMBIN TIME/INR Specimen Type: PLASMA No comment entered. Ordering Provider: FIGUEROA BERRY Report Released Date/Time: Oct 19, 2023 01:29 PM Reporting Lab: [facility] [address] Performing Lab: [facility] Oct 19, 2023 01:00 PM [facility] TROPONIN I, HS Specimen Type: PLASMA No comment entered. Ordering Provider: FIGUEROA BERRY Report Released Date/Time: Oct 19, 2023 01:29 PM Reporting Lab: [facility] [address] Performing Lab: [facility] [address] TROPONIN I, HS <3 <35 Oct 19, 2023 01:00 PM [facility] BNP Specimen Type: PLASMA No comment entered. Ordering Provider: FIGUEROA BERRY Report Released Date/Time: Oct 19, 2023 01:29 PM Reporting Lab: [facility] [id number] Performing Lab: [facility] [id number] BNP 30 pg/mL <99 Oct 19, 2023 01:00 PM [facility] ACT PART THROMBO TIME Specimen Type: PLASMA No comment entered. Ordering Provider: FIGUEROA BERRY Report Released Date/Time: Oct 19, 2023 01:29 PM Reporting Lab: [facility] [address] Performing Lab: [facility] [address] APTT 35.2 s 25.1-36.5 Oct 19, 2023 01:00 PM [facility] EXTRA GOLD GEL TUBE Specimen Type: SERUM No comment entered. Ordering Provider: FIGUEROA BERRY Report Released Date/Time: Oct 19, 2023 01:35 PM Reporting Lab: [facility] [id number] Performing Lab: [facility] [address] EXTRA GOLD GEL TUBE RECEIVED Oct 19, 2023 01:00 PM [facility] BASIC METABOLIC PANEL+MG Specimen Type: PLASMA No comment entered. Ordering Provider: FIGUEROA BERRY Report Released Date/Time: Oct 19, 2023 01:29 PM Reporting Lab: [facility] [address] Performing Lab: [facility] [address] CREATININE 0.8 mg/dL 0.7-1.2 UREA NITROGEN 18 mg/dL 8-26 GLUCOSE 98 mg/dL 70-100 SODIUM 142 mmol/L 136-145 POTASSIUM 4.2 mmol/L 3.5-5.1 CHLORIDE 107 mmol/L 98-107 CO2 25 mmol/L 22-29 CALCIUM 9.5 mg/dL 8.4-10.2 MAGNESIUM 1.9 mg/dL 1.6-2.6 ANION GAP 10 mmol/L 5-15 .CREAT EGFR(CKD-EPI) >90 >60 Oct 19, 2023 01:00 PM [facility] CBC & DIFF Specimen Type: BLOOD Comment: Automated Differential Performed Ordering Provider: FIGUEROA BERRY Report Released Date/Time: Oct 19, 2023 01:29 PM Reporting Lab: [facility] [address] Performing Lab: [facility] [address] [place] [address] WBC 7.22 10*3/uL 4.0-11.0 RBC 5.12 10*6/uL [...] and tobacco- related health factors from the [place] facility where the Encounter took place. Current Smoking Status This section includes the most current smoking, or tobacco-related health factor, from the [place] facility where the Encounter took place. Date/Time Current Smoking Status Comment Priya bowers Aug 17, 2023 09:45 AM VA-TOBACCO FORMER USER [facility] Tobacco Use History This section includes a history of the smoking, or tobacco-related health factors, that were collected on or before the date of the Encounter. The data comes from the [place] facility where the Encounter took place. Date/Time Smoking Status/Tobacco Use Comment Angelito florian Aug 17, 2023 09:45 AM VA-TOBACCO QUIT 15 YRS OR MORE [facility] Jul 01, 2022 08:45 AM VA-TOBACCO FORMER USER [facility] Jul 01, 2022 08:45 AM VA-TOBACCO QUIT 15 YRS OR MORE [facility] May 22, 2021 09:00 AM VA-TOBACCO FORMER USER [facility] May 22, 2021 09:00 AM VA-TOBACCO QUIT 15 YRS OR MORE [facility] Mar 29, 2020 07:42 AM VA-TOBACCO FORMER USER [facility] Mar 29, 2020 07:42 AM VA-TOBACCO QUIT 15 YRS OR MORE [facility] Mar 06, 2019 12:00 PM VA-TOBACCO FORMER USER [facility] Mar 06, 2019 12:00 PM VA-TOBACCO QUIT 15 YRS OR MORE [facility] Oct 23, 2018 11:20 AM INPT NO TOBACCO USE IN LAST 30 D [facility] Jun 15, 2018 09:25 AM VA-TOBACCO FORMER USER [facility] Jun 15, 2018 09:25 AM VA-TOBACCO QUIT 15 YRS OR MORE [facility] Jun 25, 2017 04:05 PM INPT NO TOBACCO USE IN LAST 30 D [facility] Apr 26, 2017 08:03 AM FORMER TOBACCO USER 7Y OR GREATE R [facility] Jan 04, 2017 11:27 AM INPT NO TOBACCO USE IN LAST 30 D [facility] May 13, 2016 10:42 AM LIFETIME NON-TOBACCO USER [facility] Jun 04, 2015 06:17 AM INPT NO TOBACCO USE IN LAST 30 D [facility] Apr 23, 2015 09:14 AM FORMER TOBACCO USER 7Y OR GREATE R [facility] Jan 19, 2014 09:40 AM FORMER TOBACCO USER 7Y OR GREATE R [facility] December 09, 2010 12:08 PM FORMER TOBACCO USER 7Y OR GREATE R [facility] Advance Directives: All historical and current Section Date Range: From patient's date of to the date document was created. This section includes ALL of a patient's completed or amended [place] Advance and Rescinded Directives. The entries below indicate that a directive exists for the patient, but an actual copy is not included with this document. The data comes from all [place] facilities. Date Advance Directives Provider Source Jun 25, 2017 CLINICAL WARNING MADHAVI CASTILLO [facility] Jan 04, 2017 CLINICAL WARNING DIGNA CASTELLANOS [facility] Sep 26, 2014 CLINICAL WARNING SHEREEN LAUREANO [facility] Radiology Reports: +/- 30 days of [...] the Encounter. The data comes from all [place] treatment facilities. Date/Time Radiology Report Provider Source Oct 27, 2023 08:10 AM CHEST PAIN PATHWAY (ED ONLY) (P): ANANTH HUANG [id number] -1945 M Ex Date: OCT 27, 2023@08:10 Req Phys: FIGUEROA BERRY Loc: [facility] EMERGENCY DEPT WALK-IN (Re Img Loc: [facility] [place] Service: Unknown (Case [id number] COMPLETE) MYOCARDIAL PERFUSION (SPECT)-MULT(NM Detailed) CPT:44263 Reason for Study: Chest Pain Pathway (Case 1050 COMPLETE) TC-99M SESTAMIBI (CARDIOLITE), PE(NM Detailed) CPT:A9500 (Case 1051 COMPLETE) CARDIOVASCULAR STRESS TEST (NM Detailed) CPT:99003 Clinical History: Myocardial perfusion stress test for chest pain IS NOT under investigation for COVID-19 or is COVID-19 negative chest pain Responsible provider name and phone number to notify for critical findings if other than user placing the order and pager listed below: User placing orders pager: [phone] ER LAST CREATININE 0.8 (10/19/23) Report Status: Verified Date Reported: OCT 27, 2023 Date Verified: OCT 27, 2023 Swedish Masseuse E-Sig:/ES/GOLD VEGA MD Report: Regadenoson myocardial perfusion [...] Staff: GOLD VEGA MD, RADIOLOGY STAFF PHYSICIAN (Swedish Masseuse) /GOLD RUIZ [facility] Oct 19, 2023 02:14 PM CTA (CAP) DISSECTI ON (P): ANANTH HUANG [id number] -1945 M Exm Date: OCT 19, 2023@14:14 Req Phys: BERRYFIGUEROALissett Tran Loc: [facility] EMERGENCY DEPT WALK-IN ([facility] Loc: CT IMAGING Service: Unknown (Case [id number] COMPLETE) CTA (CAP) CHEST W/ & W/O CONTRAST(CT Detailed) CPT:98779 Reason for Study: sharp chest pain (Case 1150 COMPLETE) CTA (CAP) ABDOMEN/PELVIS W/ & W/O(CT Detailed) CPT:09788 Clinical History: sharp chest pain, sudden onset, [...] PLASMA .CREAT EGFR(CKD-E >90 Ref: >=60 Allergies: ([place] only) Patient has answered NKA Defer to [...] 19, 2023 Date Verified: OCT 19, 2023 Swedish Masseuse E-Sig:/ES/GURDEEP COBOS MD Report: CHEST/ABDOMEN/PELVIS CTA AND [...] the body of the report. I, Woodrow Shelbie, have reviewed the images and report. Primary Interpreting Staff: GURDEEP COBOS MD, RADIOLOGIST (Swedish Masseuse) Primary Interpreting Resident: SULMA BRADY MD, OPERATIONAL RISK ANALYST /GURDEEP DRAPER [facility] Oct 19, 2023 01:36 PM CHEST 1 VIEW: ANANTH HUANG [id number] -1945 M Exm Date: OCT 19, 2023@13:36 Req Phys: FIGUEROA BERRY Loc: [facility] EMERGENCY DEPT WALK-IN (Re Img Loc: MAIN X-RAY Service: Unknown (Case [id number] COMPLETE) CHEST 1 VIEW (RAD Detailed) CPT:08464 Proc Modifiers : PORTABLE EXAM Reason for Study: chest pain Clinical History: [place] IS NOT under investigation for COVID-19 or is COVID-19 negative chest pain Responsible provider name and phone number to notify for critical findings if other than user placing the order and pager listed below: User placing orders pager: [phone] [facility] LAST CREATININE 0.8 (08/17/23) Report Status: Verified Date Reported: OCT 19, 2023 Date Verified: OCT 19, 2023 Swedish Masseuse E-Sig:/ES/MIRIAM CAIN MD Report: EXAMINATION: CHEST 1 VIEW 10/19/2023 1:36 PM INDICATION: chest pain Impression: Heart size is enlarged or at the upper limits of normal. Pulmonary vascularity within normal limits. No pulmonary infiltrate or pleural effusion. Calcification aorta. Old healed right rib fractures. Old healed clavicular fractures. Degenerative changes thoracic spine. Primary Interpreting Staff: MIRIAM CAIN MD, RADIOLOGIST (Swedish Masseuse) /MIRIAM YATES [facility] Encounter Notes: All associated encounter notes This section contains the clinical notes associated to the Encounter. Date/Time Encounter Note(s) Provider Source Nov 17, 2023 09:25 AM TELEIMAGING REPORT : LOCAL TITLE: TELEDERMATOLOGY IMAGING REPORT CONSULT STANDARD TITLE: TELEIMAGING REPORT DATE OF NOTE: NOV 17, 2023@09:25 ENTRY DATE: NOV 17, 2023@09:29:34 AUTHOR: SAURAV ARECHIGA COSIGNER: URGENCY: STATUS: COMPLETED TELEDERMATOLOGY IMAGING REPORT CONSULT Has ADDENDA HISTORY: patietn c/o scaley growths on face and on leg x months OVERALL CONSULT/IMAGE QUALITY: Fully satisfactory EXAM: on the lateral aspect of the nose as well as on the left cheek , there is actinic damage with focal erytmatous papules with scale c/w AKs. 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 Can also use 5FU to lesion on leg BID x 3 weeks RECOMMENDED FOLLOW-UP: Primary Care follow up Nature/Type of Follow-up: routine NAKUL: Cumulative time of review and management: 5 minutes or more # # # # # # # # # # # # # # # # # # # # # # # # # # # # # # # # # # # # Diagnosis: actinic keratoses on face (precancerous sun damage) and a porokeratosis on the leg Treatment: fluorouracil cream as directed by the dermatology nurse Follow up: routine with primary care /phoebe/ Saurav Arechiga MD, PhD [address] Heavy Media Operator Signed: 11/17/2023 09:44 Receipt Acknowledged By: 11/17/2023 15:35 /phoebe/ SAMREEN HUBBARDRN REGISTERED NURSE 11/17/2023 ADDENDUM STATUS: COMPLETED Per Dr. Arechiga real estate underwriter informed patient teledermatology imaging showed: PROBLEM A: Diagnosis: Actinic Keratosis on face, and porokeratosis on leg Recommendation is to apply topical fluorouracil twice daily to the rough areas on face for 2 weeks, and twice daily for 3 weeks for the spot on the leg. Radio Broadcaster discussed application, side effects, including irritation, gentle skin care, and sun protection. Patient reports understanding and denies additional questions at this time. Radio Broadcaster provided phone extension if questions do arise. /phoebe/ SAMREEN HUBBARD RN REGISTERED NURSE Signed: 11/17/2023 15:34 12/07/2023 ADDENDUM STATUS: COMPLETED Radio Broadcaster contacted patient to discuss use of topical Fluorouracil cream. He states, I have been using the cream for roughly 2 weeks now. Everything is red and my face looks like it is on fire, but I am using the cream as directed. Patient reports no concerns regarding treatment and denies additional questions at this time. /phoebe/ SAMREEN HUBBARD RN REGISTERED NURSE Signed: 12/07/2023 12:27 SAURAV ARECHIGA [facility]
--- OUTSIDE RECORDS SUMMARY | 2024-01-26 23:14 | XMS_ITS | Encounter Summary ---
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 Organization Department of [facility] Address [address] [place] [address] Care Team Providers Care Keg Raiser Name Role Phone ELIZ MUNOZ Primary Care Provider [facility] Insurance Providers: All historical and current [...] PART A Nov 01, 2011 PART A [id number] [id number] [phone] ANANTH HUANG PATIENT MEDICARE (WNR) MEDICARE (M) PART B Nov 01, 2011 PART B [id number] 33a [phone] REINAANANTH PATIENT Selected Encounter This section includes the information on record at [place] for the Encounter. Date/Time Encounter Type Encounter Description Reason Provider Source Apr 30, 2023 05:02 AM Outpatient Encounter ADMIN [employer] [facility] E Encounter Template Text not used by [place] Plan of Treatment: Future Appointments (+ 6 months) and Future Tests (+/- 45 days) The Plan of Treatment section includes future care activities for the patient from all [place] treatmentfacilities. This section includes future appointments and future orders which are active, pending or scheduled. Future Appointments This section includes appointments that were scheduled to occur 6 months from the date of the Encounter, up to a maximum of 20 appointments. The data comes from all [place] treatment facilities. Appointment Date/Time Appointment Type Appointme nt Facility Name May 19, 2023 03:15 PM AMBULATORY - NONE [facility] May 25, 2023 01:00 PM AMBULATORY - SURGERY [facility] Aug 17, 2023 08:45 AM AMBULATORY - NONE [place] [facility] Aug 17, 2023 09:45 AM AMBULATORY - MEDICINE [facility] Oct 19, 2023 12:23 PM AMBULATORY - MEDICINE [facility] Oct 19, 2023 02:18 PM AMBULATORY - NONE [place] [facility] Oct 27, 2023 08:30 AM AMBULATORY - NONE [place] [facility] Oct 27, 2023 11:29 AM AMBULATORY - MEDICINE [facility] Lab Results: +/- 30 days of the encounter This section includes the Chemistry and Hematology Lab Results on record with [place] for the patient. Radiology Reports and Pathology Reports are provided separately, in subsequent sections. Lab Results This section contains the Chemistry/Hematology Results that were resulted 30 days before or 30 daysafter the date of the Encounter. Date/Time Source Result Type Result - Unit Interpretation Reference Range Comment Apr 30, 2023 07:14 AM [facility] CREATININE(INCLUDES EGFR) Specimen Type: PLASMA No comment entered. Ordering Provider: KAMLA FERRER Report Released Date/Time: Apr 30, 2023 07:19 AM Reporting Lab: [facility] [address] Performing Lab: [facility] [address] CREATININE 0.7 mg/dL 0.7-1.2 .CREAT EGFR(CKD-EPI ) >90 >60 Apr 30, 2023 07:14 AM [facility] UREA NITROGEN Specimen Type: PLASMA No comment entered. Ordering Provider: KAMLA FERRER Report Released Date/Time: Apr 30, 2023 07:19 AM Reporting Lab: [facility] [address] Performing Lab: [facility] [address] UREA NITROGEN 15 mg/dL 8-Apr 30, 2023 07:14 AM [facility] ELECTROLYTES/ANION GAP Specimen Type: PLASMA No comment entered. Ordering Provider: KAMLA FERRER Report Released Date/Time: Apr 30, 2023 07:19 AM Reporting Lab: [facility] [address] Performing Lab: [facility] [address] SODIUM 140 mmol/L 136-145 POTASSIUM 4.1 mmol/L 3.5-5.1 CHLORIDE 107 mmol/L 98-107 CO2 25 mmol/L 22-29 ANION GAP 8 mmol/L 5-15 Apr 30, 2023 07:14 AM [facility] CBC & DIFF Specimen Type: BLOOD Comment: Automated Differential Performed Ordering Provider: KAMLA FERRER Report Released Date/Time: Apr 30, 2023 07:19 AM Reporting Lab: [facility] [address] Performing Lab: [facility] [address] WBC 6.08 10*3/uL 4.0-11.0 RBC 4.81 10*6/uL 4.6-6.2 HGB 14.6 g/dL 13.5-17.9 HCT 43.8 41-54 MCV 91.1 fL 80-100 MCH 30.4 pg 27-33 MCHC 33.3 g/dL 32.0-37.5 PLT 189 10*3/uL 150-400 MPV 10.0 fL 7.4-10.4 NEUT 61.1 40.0-80.0 LYMPHS 17.9 15.0-45.0 MONO 13.2 H 2.0-12.0 EOSINO 6.1 H 0.0-6.0 BASO 1.5 0.0-2.0 RDW 13.5 11.5-14.5 ABS LYMPH 1.09 10*3/uL 1.0-4.0 ABS MONO 0.80 10*3/uL 0.1-1.0 ABS NEUT 3.72 10*3/uL 2.0-7.7 ABS EOS 0.37 10*3/uL 0-0.5 ABS BASO 0.09 10*3/uL 0-0.2 IG(META,MYEL O,PRO) 0.2 ABS IMMATURE GRAN 0.01 10*3/uL 0-0.1 Apr 09, 2023 11:19 AM [facility] BASIC METABOLIC PANEL+MG Specimen Type: PLASMA No comment entered. Ordering Provider: BERNIE LIN Report Released Date/Time: Apr 09, 2023 11:00 AM Reporting Lab: [facility] [phone] Performing Lab: [facility] [address] CREATININE 0.8 mg/dL 0.7-1.2 UREA NITROGEN 14 mg/dL 8-26 GLUCOSE 96 mg/dL 70-100 SODIUM 140 mmol/L 136-145 POTASSIUM 4.3 mmol/L 3.5-5.1 CHLORIDE 109 mmol/L H 98-107 CO2 27 mmol/L 22-29 CALCIUM 9.0 mg/dL 8.4-10.2 MAGNESIUM 2.0 mg/dL 1.6-2.6 ANION GAP 4 mmol/L L 5-15 .CREAT EGFR(CKD-EPI ) >90 >60 Apr 09, 2023 11:19 AM [facility] CBC Specimen Type: BLOOD No comment entered. Ordering Provider: BERNIE LIN Report Released Date/Time: Apr 09, 2023 11:00 AM Reporting Lab: [facility] [address] Performing Lab: [facility] [address] WBC 6.71 10*3/uL 4.0-11.0 RBC 4.82 10*6/uL 4.6-6.2 HGB 14.7 g/dL 13.5-17.9 HCT 43.4 41-54 MCV 90.0 fL 80-100 MCH 30.5 pg 27-33 MCHC 33.9 g/dL 32.0-37.5 PLT 219 10*3/uL 150-400 MPV 9.5 fL 7.4-10.4 RDW 13.4 11.5-14.5 Social History: Smoking Status (Most current) and Tobacco Use (All prior to encounter date) This section includes the most current, and the historical, smoking and tobacco- related health factors from the [place] facility where the Encounter took place. Current Smoking Status This section includes the most current smoking, or tobacco-related health factor, from the [place] facility where the Encounter took place. Date/Time Current Smoking Status Comment Priya ity Jul 01, 2022 08:45 AM VA-TOBACCO FORMER USER [facility] Tobacco Use History This section includes a history of the smoking, or tobacco-related health factors, that were collected on or before the date of the Encounter. The data comes from the [place] facility where the Encounter took place. Date/Time Smoking Status/Tobacco Use Comment F acility Jul 01, 2022 08:45 AM VA-TOBACCO QUIT 15 YRS OR MORE [facility] May 22, 2021 09:00 AM VA-TOBACCO FORMER USER [facility] May 22, 2021 09:00 AM VA-TOBACCO QUIT 15 YRS OR MORE [facility] Mar 29, 2020 07:42 AM VA-TOBACCO FORMER USER [facility] Mar 29, 2020 07:42 AM VA-TOBACCO QUIT 15 YRS OR MORE [facility] Mar 06, 2019 12:00 PM VA-TOBACCO FORMER USER [facility] Mar 06, 2019 12:00 PM VA-TOBACCO QUIT 15 YRS OR MORE [facility] Oct 23, 2018 11:20 AM INPT NO TOBACCO USE IN LAST 30 D [facility] Jun 15, 2018 09:25 AM VA-TOBACCO FORMER USER [facility] Jun 15, 2018 09:25 AM VA-TOBACCO QUIT 15 YRS OR MORE [facility] Jun 25, 2017 04:05 PM INPT NO TOBACCO USE IN LAST 30 D [facility] Apr 26, 2017 08:03 AM FORMER TOBACCO USER 7Y OR GREATE R [facility] Jan 04, 2017 11:27 AM INPT NO TOBACCO USE IN LAST 30 D [facility] May 13, 2016 10:42 AM LIFETIME NON-TOBACCO USER [facility] Jun 04, 2015 06:17 AM INPT NO TOBACCO USE IN LAST 30 D [facility] Apr 23, 2015 09:14 AM FORMER TOBACCO USER 7Y OR GREATE R [facility] Jan 19, 2014 09:40 AM FORMER TOBACCO USER 7Y OR GREATE R [facility] December 09, 2010 12:08 PM FORMER TOBACCO USER 7Y OR GREATE R [facility] Advance Directives: All historical and current [...] Jun 25, 2017 CLINICAL WARNING MADHAVI CASTILLO [facility] Jan 04, 2017 CLINICAL WARNING DIGNA CASTELLANOS [facility] Sep 26, 2014 CLINICAL WARNING SHEREEN LAUREANO [facility] Encounter Notes: All associated encounter notes This section contains the clinical notes associated to the Encounter. Date/Time Encounter Note(s) Provider Source Apr 30, 2023 05:02 AM CRITICAL CARE UNIT NOTE: LOCAL TITLE: ICCA PACU FLOWSHEET STANDARD TITLE: CRITICAL CARE UNIT NOTE DATE OF NOTE: APR 30, 2023@05:02 ENTRY DATE: APR 30, 2023@11:01:33 AUTHOR: ZACHARIAH MASON EXP COSIGNER: URGENCY: STATUS: COMPLETED This is a place cevallos only. Please see [facility] to view document. /es/ ZACHARIAH SYSTEM ICU DOCUMENT IMPORT Signed: 04/30/2023 11:01 ZACHARIAH MASON [facility]
--- OUTSIDE RECORDS SUMMARY | 2024-01-26 23:14 | XMS_ITS | Encounter Summary ---
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 Organization [facility] Address [address] [place] [address] Care Team Providers Care Keno Writer Name Role Phone ELIZ MUNOZ [facility] Insurance Providers: All historical and [...] PART A Nov 01, 2011 PART A [id number] ANANTH HUANG PATIENT MEDICARE (WNR) MEDICARE (M) PART B Nov 01, 2011 PART B [id number] [phone] REINAANANTH PATIENT Selected Encounter This section includes the information on record at NH for the Encounter. Date/Time Encounter Type Encounter Description Reason Provider Source Feb 18, 2023 12:30 PM OFF/OP CONSLTJ NEW/EST RI 55 GENERAL SURGERY ICD-10-CM K40.31 Unilateral inguinal hernia, w obst, w/o gangrene, recurrent KAMLA HART Encounter Template Text not used by NH Assessments - Encounter Diagnoses This section includes the primary and secondary diagnoses documented for the Encounter. Date/Time Primary/Secondary Diagnosis Diagnosis Name Provider Source Feb 18, 2023 12:55 PM PRIMARY Unilateral inguinal hernia, w obst, w/o gangrene, recurrent [facility] Feb 18, 2023 12:55 PM SECONDARY Unspecified atrial fibrillation [facility] Plan of Treatment: Future Appointments (+ 6 months) and Future Tests (+/- 45 days) The Plan of Treatment section includes future care activities for the patient [facility] This section includes future appointments and future orders which are active, pending or scheduled. Future Appointments This section includes appointments that were scheduled to occur 6 months from the date of the Encounter, up to a maximum of 20 appointments. The data comes from all [facility] facilities. Appointment Date/Time Appointment Type Appointme nt Facility Name Apr 09, 2023 10:30 AM AMBULATORY - MEDICINE [facility] Apr 09, 2023 11:00 AM AMBULATORY - MEDICINE [facility] Apr 09, 2023 11:15 AM AMBULATORY - MEDICINE [facility] Apr 09, 2023 11:45 AM AMBULATORY - SURGERY [facility] Apr 30, 2023 06:00 AM AMBULATORY - SURGERY [facility] May 19, 2023 03:15 PM AMBULATORY - NONE [facility] May 25, 2023 01:00 PM AMBULATORY - SURGERY [facility] Aug 17, 2023 08:45 AM [facility] Aug 17, 2023 09:45 AM AMBULATORY - MEDICINE [facility] Lab Results: +/- 30 days of the encounter This section includes the Chemistry and Hematology Lab Results on record with NH for the patient. Radiology Reports and Pathology Reports are provided separately, in subsequent sections. Lab Results This section contains the Chemistry/Hematology Results that were resulted 30 days before or 30 daysafter the date of the Encounter. Date/Time Source Result Type Result - Unit Interpretation Reference Range Comment Feb 11, 2023 10:53 AM [facility] CREATININE(INCLUDES EGFR) Specimen Type: PLASMA No comment entered. Ordering Provider: JOVON YE Report Released Date/Time: Jan 29, 2023 09:57 AM Reporting Lab: [facility] [id number] Performing Lab: [facility] [id number] CREATININE 0.8 mg/dL 0.7-1.2 .CREAT EGFR(CKD-EPI ) >90 See_Comment Feb 11, 2023 10:53 AM [facility] AST/SGOT Specimen Type: PLASMA No comment entered. Ordering Provider: JOVON YE Report Released Date/Time: Jan 29, 2023 09:57 AM Reporting Lab: [facility] [id number] Performing Lab: [facility] [phone] AST/SGOT 30 U/L See_Comment Feb 11, 2023 10:53 AM [facility] CBC Specimen Type: BLOOD No comment entered. Ordering Provider: JOVON YE S Report Released Date/Time: Jan 29, 2023 09:57 AM Reporting Lab: [facility] [id number] Performing Lab: [facility] [id number] WBC 6.51 10*3/uL 4.0-11.0 RBC 4.93 10*6/uL 4.6-6.2 HGB 14.7 g/dL 13.5-17.9 HCT 45.2 41-54 MCV 91.7 fL 80-100 MCH 29.8 pg 27-33 MCHC 32.5 g/dL 32.0-37.5 PLT 210 10*3/uL 150-400 MPV 10.1 fL 7.4-10.4 RDW 13.6 11.5-14.5 Feb 11, 2023 10:53 AM [facility] ALT/SGPT Specimen Type: PLASMA No comment entered. Ordering Provider: JOVON YE S Report Released Date/Time: Jan 29, 2023 09:57 AM Reporting Lab: [facility] [phone] Performing Lab: [facility] [phone] ALT/SGPT 22 U/L See_Comment Vital Signs: All taken on the encounter date This section contains inpatient and outpatient Vital Signs collected on the date of the Encounter. Date/Time Temperature Pulse Blood Pressure Respiratory Rate SP02 Pain Height Weight Body Mass Index Source Feb 18, 2023 12:37 PM 98 F 47 /min 136/76 mm[Hg] 97 % 6 68 in 229.2 lb 35 [facility] Social History: Smoking Status (Most current) and Tobacco Use (All prior to encounter date) This section includes the most current, and the historical, smoking and tobacco- related health factors from the NH facility where the Encounter took place. Current Smoking Status This section includes the most current smoking, or tobacco-related health factor, from the NH facility where the Encounter took place. Date/Time Current Smoking Status Comment Priya ity Jul 01, 2022 08:45 AM VA-TOBACCO FORMER USER [facility] Tobacco Use History This section includes a history of the smoking, or tobacco-related health factors, that were collected on or before the date of the Encounter. The data comes from the NH facility where the Encounter took place. Date/Time Smoking Status/Tobacco Use Comment F acility Jul 01, 2022 08:45 AM VA-TOBACCO QUIT 15 YRS OR MORE [facility] May 22, 2021 09:00 AM VA-TOBACCO FORMER USER [facility] May 22, 2021 09:00 AM VA-TOBACCO QUIT 15 YRS OR MORE [facility] Mar 29, 2020 07:42 AM VA-TOBACCO FORMER USER [facility] Mar 29, 2020 07:42 AM VA-TOBACCO QUIT 15 YRS OR MORE [facility] Mar 06, 2019 12:00 PM VA-TOBACCO FORMER USER [facility] Mar 06, 2019 12:00 PM VA-TOBACCO QUIT 15 YRS OR MORE [facility] Oct 23, 2018 11:20 AM INPT NO TOBACCO USE IN LAST 30 D [facility] Jun 15, 2018 09:25 AM VA-TOBACCO FORMER USER [facility] Jun 15, 2018 09:25 AM VA-TOBACCO QUIT 15 YRS OR MORE [facility] Jun 25, 2017 04:05 PM INPT NO TOBACCO USE IN LAST 30 D [facility] Apr 26, 2017 08:03 AM FORMER TOBACCO USER 7Y OR GREATE R [facility] Jan 04, 2017 11:27 AM INPT NO TOBACCO USE IN LAST 30 D [facility] May 13, 2016 10:42 AM LIFETIME NON-TOBACCO USER [facility] Jun 04, 2015 06:17 AM INPT NO TOBACCO USE IN LAST 30 D [facility] Apr 23, 2015 09:14 AM FORMER TOBACCO USER 7Y OR GREATE R [facility] Jan 19, 2014 09:40 AM FORMER TOBACCO USER 7Y OR GREATE R [facility] December 09, 2010 12:08 PM FORMER TOBACCO USER 7Y OR GREATE R [facility] Advance Directives: All historical and current Section Date Range: From patient's date of to the date document was created. This section includes ALL of a patient's completed or amended NH Advance and Rescinded Directives. The entries below indicate that a directive exists for the patient, but an actual copy is not included with this document. The data comes from all NH facilities. Date Advance Directives Provider Source Jun 25, 2017 CLINICAL WARNING MADHAVI CASTILLO [facility] Jan 04, 2017 CLINICAL WARNING DIGNA CASTELLANOS [facility] Sep 26, 2014 CLINICAL WARNING SHEREEN LAUREANO [facility] Radiology Reports: +/- 30 days of [...] the Encounter. The data comes from all NH treatment facilities. Date/Time Radiology Report Provider Source Jan 22, 2023 08:57 AM US INGUINAL HERNIA (P): ANANTH HUANG [id number] -[id number] M Exm Date: JAN 22, 2023@08:57 Req Phys: YURY FERRER Loc: [facility] PACT CACHORRO MUNIZ 4E (Req'g Img Loc: Ultrasound Imaging Service: Unknown (Case [id number] COMPLETE) US PELVIC (NON OB) LIMITED (US Detailed) CPT:03916 Proc Modifiers : LEFT Reason for Study: left groin pain Clinical History: [facility] IS NOT under investigation for COVID-19 or is COVID-19 negative S: Ananth is a 77 year-old MALE who presents to [facility] for an acute evaluation of left groin pain. Confirms above history. Additionally, has had 2 left inguinal hernia surgeries. Pain not restricting his activity. Is very active. Rides bike and rides horses. Describes as constant dull ache that sometimes becomes sharp, specifically sneezing, cough, or lifting something. Appetite intact, N/V, BMs regular, urinating okay. Responsible provider name and phone number to notify for critical findings if other than user placing the order and pager listed below: User placing orders pager: LAST CREATININE [phone] (07/01/22) Report Status: Verified Date Reported: JAN 22, 2023 Date Verified: JAN 22, 2023 Senior Abap Developer E-Sig:/ES/GURDEEP MONTGOMERY MD Report: EXAM: Ultrasound pelvic limited HISTORY: 68-year-old male who presents for acute evaluation of left groin pain. Has had two left inguinal hernia surgeries. TECHNIQUE: Focused sonographic evaluation of the left inguinal canal with and without Valsalva. COMPARISON: None FINDINGS: There is herniation of pelvic fat into the left inguinal canal with Valsalva. This does not reduce spontaneously after Valsalva. There is no herniation of bowel. Impression: Nonreducible fat-containing left inguinal hernia. I, Gurdeep Montgomery, have reviewed the images and report. Primary Interpreting Staff: GURDEEP MONTGOMERY MD, NEURORADIOLOGIST (Senior Abap Developer) Primary Interpreting Resident: JESUS WELLINGTON MD, CHOPPER GUN OPERATOR /[facility] Encounter Notes: All associated encounter notes This section contains the clinical notes associated to the Encounter. Date/Time Encounter Note(s) Provider Source Feb 18, 2023 12:21 PM SURGERY CONSULT: [facility] TITLE: GENERAL SURGERY CONSULT STANDARD TITLE: SURGERY CONSULT DATE OF NOTE: FEB 18, 2023@12:21 ENTRY DATE: FEB 18, 2023@12:21:56 AUTHOR: MATT HART EXP COSIGNER: URGENCY: STATUS: COMPLETED GENERAL SURGERY CONSULT Has ADDENDA Surgery Consultation Patient is a 77 MALE who I was asked to see in consultation by [facility] ([id number]) PACT: [facility] PACT YUMI (Focus: Primary Care Only) Primary Care Provider: ELIZ MUNOZ PHONE:[phone] PAGER:[phone] Schedule Hanger: DIGNA DAVIDSON PHONE:[phone] Clinical Associate: CHEYANNE PISANO PHONE:[phone] Mat Maker: NEERU BOWDEN PHONE:[phone] PACT Clinical Pharmacist: GAMALIEL SOLER PHONE:[phone] Clinical POC: Administrative POC: for evaluation of Please see this 77 year old MALE for: recurrent left inguinal hernia. Thank you!. Hx was obtained from the patient, and reviewing the medical record. The patient is a good medical device. The patient first had an open left inguinal hernia repair at an outside hospital with mesh aboiut 25 years. The patient reports he has had this hernia for about a month. . He says it causes more discomfort/pain when he lifts, coughs or sneezes. He does not feel a bulge. He denies any signs or symptoms of bowel obstruction. He has been eating well with normal bowel movements. He had an ultrasound: Report Status: Verified Date Reported: JAN 22, 2023 Date Verified: JAN 22, 2023 Senior Abap Developer E-Sig:/ES/GURDEEP MONTGOMERY MD Report: EXAM: Ultrasound pelvic limited HISTORY: 68-year-old male who presents for acute evaluation of left groin pain. Has had two left inguinal hernia surgeries. TECHNIQUE: Focused sonographic evaluation of the left inguinal canal with and without Valsalva. COMPARISON: None FINDINGS: There is herniation of pelvic fat into the left inguinal canal with Valsalva. This does not reduce spontaneously after Valsalva. There is no herniation of bowel. Impression: Nonreducible fat-containing left inguinal hernia. I, Gurdeep Montgomery, have reviewed the images and report. Primary Interpreting Staff: GURDEEP MONTGOMERY MD, NEURORADIOLOGIST (Senior Abap Developer) Primary Interpreting Resident: JESUS WELLINGTON MD, CHOPPER GUN OPERATOR /AOO Because of the slowly steadily worsening symptoms, surgical evaluation was requested. Computerized Problem List is the source for the followin. Obstructive sleep apnea of adult (SNOMED CT 855113 ACTIVE ON CPAP 2. Personal History of Colonic Polyps ACTIVE adenomatous and hyperplastic 08/10/07 3. Basal Cell Carcinoma of Skin, site unspecified (IC ACTIVE 4. Sensorneural Asymetrical ACTIVE 5. Anticoagulation ACTIVE 6. Cervical radiculitis ACTIVE 7. Hyperlipidemia ACTIVE 8. Gastroesophageal reflux disease ACTIVE 9. Essential hypertension ACTIVE 10. Hypothyroid ACTIVE 11. Arthritis of right hip ACTIVE 12. Chronic low back pain ACTIVE 13. Actinic keratosis ACTIVE 14. Basal cell carcinoma of back ACTIVE 15. Paroxysmal atrial fibrillation ACTIVE 16. colonoscopy screening ACTIVE normal colonoscopy 09/2018, next 09/2028 17. 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 The patient denies, latex allergies or MRSA The patient notes the ability to walk many blocks and over two flights of stairs. uses cpap, rides bike 50 miles Active Outpatient Medications (including Supplies): Active Outpatient Medications Status 1) DABIGATRAN ETEXILATE 150MG ORAL CAP UD TAKE ONE ACTIVE CAPSULE BY MOUTH EVERY 12 HOURS TO PREVENT STROKE DUE TO ATRIAL FIBRILLATION 2) DORZOLAMIDE HCL 2% OPH SOLN INSTILL 1 DROP THREE ACTIVE TIMES A DAY TO AFFECTED EYE(S) 3) LATANOPROST 0.005% OPH SOLN INSTILL 1 DROP IN BOTH ACTIVE EYES AT BEDTIME 4) LEVOTHYROXINE NA (SYNTHROID) 137MCG TAB TAKE ONE ACTIVE TABLET BY MOUTH EVERY DAY ON AN EMPTY STOMACH 5) ROSUVASTATIN CA 40MG TAB TAKE ONE-HALF TABLET BY ACTIVE MOUTH AT BEDTIME Active Non-VA Medications Status 1) Non-VA CHOLECALCIF 25MCG (D3-1,000UNIT) TAB 2000UNIT ACTIVE MOUTH TWICE A DAY 2) Non-VA NON VA MED NOT LISTED MISCELLANEOUS APPLE ACTIVE CIDERR VINGAR 1 CAPSULE TWICE A DAY 7 Total Medications OUTPT MEDICATIONS: DRUG STATUS SIG LATANOPROST 0.005% OPH SOLN ACTIVE SIG: INSTILL 1 DROP IN BOTH EYES AT BEDTIME ROSUVASTATIN CA 40MG TAB ACTIVE SIG: TAKE ONE-HALF TABLET BY MOUTH AT BEDTIME LEVOTHYROXINE NA (SYNTHROID) 137MCG TAB ACTIVE SIG: TAKE ONE TABLET BY MOUTH EVERY DAY ON AN EMPTY STOMACH DABIGATRAN ETEXILATE 150MG ORAL CAP UD ACTIVE SIG: TAKE ONE CAPSULE BY MOUTH EVERY 12 HOURS TO PREVENT STROKE DUE TO ATRIAL FIBRILLATION DORZOLAMIDE HCL 2% OPH SOLN ACTIVE SIG: INSTILL 1 DROP THREE TIMES A DAY TO AFFECTED EYE(S) Allergies: Patient has answered NKA OBJECTIVE: VS - Vital Signs No data available Height: 68 in [172.7 cm] (07/01/2022 08:35) Weight: 228 lb [103.42 kg] (01/11/2023 10:50) GENERAL: Generally appears well. Eyes: sclera clear, PERRLA ENT, MOUTH: Throat non injected, no cervical, supra/infraclavciular lymphadenopathy, no thyroid masses Respiratory: Lungs clear to ausculation bilaterally with good air excursion Cardiovascular: Regular Rate and Rhythm with no murmurs Normal peripheral pulses, no carotid bruits GI: abdomen non distended, soft, no masses, no tenderness, no tympany, negative hager's sign. he has a fairly large pannus I examined the patient in both the standing and supine positions examining for hernias: Right Inguinal area: No henria palpated Left Inguinal area: No hernia palpated. i did not see the scar from the prev ious surgery. recutus diastasis. Umbilical Area: No henria palpated Testes: Descended and normal Lymphatic/Hematologic/Immun : No femoral or cervical lyphadenopathy. Integumentary: No rashes MusculoSkeletal: no perispinous tenderness Neurological: grossly intact Psych: Alert and Pleasant. Normal affect I reviewed the most recent labs from : No significant abnormalities. IMPRESSION: The patient has a small recurrent left inguinal hernia . Ican't feel it on exam but it showed up on imaging. It is is reducible. He does not have evidence of bowel obstruction. It is causing significant symptoms, however. I agree with his primary care team that this should be repaired. We did discuss watchful waiting vs repair he would much prefer to have it fixed. He is not at particjularly low risk becuase of his afib, but his exercise tolerance is excellent. He has had an intentional weight loss of 20 lbs. he does have a fairly large pannus making the surgery a bit more challenging. He does not appear to be in afib ast this time. It does appear to be amenable to laparosocpic rather than open repair. This should lead to a faster recovery and will particulalry helpful because this is a recurrence. The risks of the procedure including persistence of pain, recurrence, bleeding, infection, scarring, and the possible need for further surgery were discussed. General and specific risks were discussed. Prep, recovery and anesthesia were discussed. The patient asked appropriate questions and provided consent. The patient has my contact information. PLAN: 1) Medical Clearance 2) Surgery Type: laparosocpic repair of recurrent left inguinal hernia 3) Surgeon: Matt Hart M.D., Ph.D. 4) Laterality: left 5) Position in OR: Supine 6) Anesthesia Type: General 7) Post op: OPS 8) Surgery Consent: Completed today 9) Desired Pre-op labs, EKG and radiographs (if any) have been ordered by me 10) Palliative: NO 11) Blood needed in OR: NO 12) Other tests needed: NO 13) Equipment/Reps Needed: None 14) OR Priority Level: 3 15) We discussed the code status. The patient is a full code. 16) I spoke with the patient: The mutually agreed upon clinically indicated date for the operation is Wednesdayapr 30 . 17) anticoagulation clinic consult The patient has my contact number to call for any questions or concerns. The patient will have the preop teaching by our nurse coordinators. We will need to obtain consent on the day of surgery Matt Hart M.D., Ph.D. Staff Surgeon Direct Office In Lieu of pager: NH Cell email: [email or web address] MATT HART MD, PHD STAFF SURGEON, GENERAL SURGERY Signed: 02/18/2023 12:57 04/29/2023 ADDENDUM STATUS: COMPLETED I reviewed the patient's chart again today. The ultrasound shows the hernia to be incarcerated. I, however, was unable to even feel the hernia. This was probably due to his fairly large pannus. We will still approach this laparoscoically. I do feel this will be safe because there is only fat in the hernia sac, as seen on the ultrasound. However, if I am unable to reduce the hernia using the minimally invasive techniques, we will need to convert to open. /phoebe/ MATT HART MD, PHD STAFF SURGEON, GENERAL SURGERY Signed: 04/29/2023 11:00 MATT HART [facility]
--- OUTSIDE RECORDS SUMMARY | 2024-01-26 23:14 | XMS_ITS | Encounter Summary ---
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 of [facility] Organization Department of [facility] Address [address] [place] [id number] Care Team Providers Care Planning Intern Name Role Phone ELIZ MUNOZ [facility] Insurance Providers: All historical and [...] PART A Nov 01, 2011 PART A [id number] ANANTH HUANG PATIENT MEDICARE (WNR) MEDICARE (M) PART B Nov 01, 2011 PART B [id number] [phone] REINAANANTH PATIENT Selected Encounter This section includes the information on record at [place] for the Encounter. Date/Time Encounter Type Encounter Description Reason Provider Source Apr 09, 2023 11:45 AM OFFICE O/P EST HI 40-54 MIN ANESTHESIA PRE/POST-OP CONSULT ICD-10-CM G47.33 Obstructive sleep apnea (adult) (pediatric) TREVA HARRISON Kris Encounter Template Text not used by [place] Assessments - Encounter Diagnoses This section includes the primary and secondary diagnoses documented for the Encounter. Date/Time Primary/Secondary Diagnosis Diagnosis Name Provider Source Apr 09, 2023 12:03 PM PRIMARY Obstructive sleep apnea (adult) (pediatric) Mary Kate HARRISON [facility] Apr 09, 2023 12:03 PM SECONDARY Actinic keratosis Mary Kate HARRISON [facility] Apr 09, 2023 12:03 PM SECONDARY Basal cell carcinoma of skin of other part of trunk EDDIEEVANMary Kate [facility] Apr 09, 2023 12:03 PM SECONDARY Essential (primary) hypertension ANDRIYMary Kate [facility] Apr 09, 2023 12:03 PM SECONDARY Hyperlipidemia, unspecified ANDRIYMARILEEMary Kate [facility] Apr 09, 2023 12:03 PM SECONDARY Hypothyroidism, unspecified EDDIEDORAMary Kate [facility] Apr 09, 2023 12:03 PM SECONDARY Osteoarthritis of hip, unspecified ANDRIYMary Kate [facility] Apr 09, 2023 12:03 PM SECONDARY Radiculopathy, cervicothoracic region ANDRIYMary Kate [facility] Apr 09, 2023 12:03 PM SECONDARY Unspecified atrial fibrillation ANDRIYMary Kate [facility] Apr 09, 2023 12:03 PM SECONDARY Unspecified glaucoma ANDRIYMary Kate [facility] Plan of Treatment: Future Appointments (+ 6 months) and Future Tests (+/- 45 days) The Plan of Treatment section includes future care activities for the patient from all [place] [facility]. This section includes future appointments and future orders which are active, pending or scheduled. Future Appointments This section includes appointments that were scheduled to occur 6 months from the date of the Encounter, up to a maximum of 20 appointments. The data comes from all [place] treatment facilities. Appointment Date/Time Appointment Type Appointme nt Facility Name Apr 30, 2023 06:00 AM AMBULATORY - SURGERY [facility] May 19, 2023 03:15 PM AMBULATORY - NONE [facility] May 25, 2023 01:00 PM AMBULATORY - SURGERY [facility] Aug 17, 2023 08:45 AM AMBULATORY - NONE [facility] Aug 17, 2023 09:45 AM AMBULATORY - MEDICINE [facility] Lab Results: +/- 30 days of the encounter This section includes the Chemistry and Hematology Lab Results on record with [facility] for the patient. Radiology Reports and Pathology Reports are provided separately, in subsequent sections. Lab Results This section contains the Chemistry/Hematology Results that were resulted 30 days before or 30 daysafter the date of the Encounter. Date/Time Source Result Type Result - Unit Interpretation Reference Range Comment Apr 30, 2023 07:[address] [facility] CREATININE(INCLUDES EGFR) Specimen Type: PLASMA No comment entered. Ordering Provider: KAMLA FERRER Report Released Date/Time: Apr 30, 2023 07:19 AM Reporting Lab: [facility] [id number] Performing Lab: [facility] [id number] CREATININE 0.7 mg/dL 0.7-1.2 .CREAT EGFR(CKD-EPI ) >90 >60 Apr 30, 2023 07:[address] [facility] UREA NITROGEN Specimen Type: PLASMA No comment entered. Ordering Provider: KAMLA FERRER Report Released Date/Time: Apr 30, 2023 07:19 AM Reporting Lab: [facility] [id number] Performing Lab: [facility] [id number] UREA NITROGEN 15 mg/dL 8-26 Apr 30, 2023 07:[address] [facility] ELECTROLYTES/ANION GAP Specimen Type: PLASMA No comment entered. Ordering Provider: KAMLA FERRER Report Released Date/Time: Apr 30, 2023 07:19 AM Reporting Lab: [facility] [id number] Performing Lab: [facility] [phone] SODIUM 140 mmol/L 136-145 POTASSIUM 4.1 mmol/L 3.5-5.1 CHLORIDE 107 mmol/L 98-107 CO2 25 mmol/L 22-29 ANION GAP 8 mmol/L 5-15 Apr 30, 2023 07:[address] [facility] CBC & DIFF Specimen Type: BLOOD Comment: Automated Differential Performed Ordering Provider: KAMLA FERRER Report Released Date/Time: Apr 30, 2023 07:19 AM Reporting Lab: [facility] [id number] Performing Lab: [facility] [id number] WBC 6.08 10*3/uL 4.0-11.0 RBC 4.81 10*6/uL [...] 10*3/uL 0-0.1 Apr 09, 2023 11:[address] [facility] BASIC METABOLIC PANEL+MG Specimen Type: PLASMA No comment entered. Ordering Provider: BERNIE LIN Report Released Date/Time: Apr 09, 2023 11:00 AM Reporting Lab: [facility] [id number] Performing Lab: [facility] [phone] CREATININE 0.8 mg/dL 0.7-1.2 UREA NITROGEN 14 mg/dL 8-26 GLUCOSE 96 mg/dL 70-100 SODIUM 140 mmol/L 136-145 POTASSIUM 4.3 mmol/L 3.5-5.1 CHLORIDE 109 mmol/L H 98-107 CO2 27 mmol/L 22-29 CALCIUM 9.0 mg/dL 8.4-10.2 MAGNESIUM 2.0 mg/dL 1.6-2.6 ANION GAP 4 mmol/L L 5-15 .CREAT EGFR(CKD-EPI ) >90 >60 Apr 09, 2023 11:[address] [facility] CBC Specimen Type: BLOOD No comment entered. Ordering Provider: BERNIE LIN Report Released Date/Time: Apr 09, 2023 11:00 AM Reporting Lab: [facility] [id number] Performing Lab: [facility] [phone] WBC 6.71 10*3/uL 4.0-11.0 RBC 4.82 10*6/uL 4.6-6.2 HGB 14.7 g/dL 13.5-17.9 HCT 43.4 41-54 MCV 90.0 fL 80-100 MCH 30.5 pg 27-33 MCHC 33.9 g/dL 32.0-37.5 PLT 219 10*3/uL 150-400 MPV 9.5 fL 7.4-10.4 RDW 13.4 11.5-14.5 Vital Signs: All taken on the encounter date This section contains inpatient and outpatient Vital Signs collected on the date of the Encounter. Date/Time Temperature Pulse Blood Pressure Respiratory Rate SP02 Pain Height Weight Body Mass Index Source Apr 09, 2023 10:30 AM 97.3 F 48 /min 135/71 mm[Hg] 16 /min 94 % 68 in 232.3 lb 35 [facility] Social History: Smoking Status (Most current) and Tobacco Use (All prior to encounter date) This section includes the most current, and the historical, smoking and tobacco- related health factors from the [place] facility where the Encounter took place. Current Smoking Status This section includes the most current smoking, or tobacco-related health factor, from the [place] facility where the Encounter took place. Date/Time Current Smoking Status Comment Facil ity Jul 01, 2022 08:45 AM [facility]-TOBACCO QUIT [address] [facility] Tobacco Use History This section includes a history of the smoking, or tobacco-related health factors, that were collected on or before the date of the Encounter. The data comes from the [place] facility where the Encounter took place. Date/Time Smoking Status/Tobacco Use Comment F acility Jul 01, 2022 08:45 AM VA-TOBACCO QUIT [address] [facility] May 22, 2021 09:00 AM VA-TOBACCO FORMER USER [facility] May 22, 2021 09:00 AM VA-TOBACCO QUIT [address] [facility] Mar 29, 2020 07:42 AM VA-TOBACCO FORMER USER [facility] Mar 29, 2020 07:42 AM VA-TOBACCO QUIT [address] [facility] Mar 06, 2019 12:00 PM VA-TOBACCO FORMER USER [facility] Mar 06, 2019 12:00 PM VA-TOBACCO QUIT [address] [facility] Oct 23, 2018 11:20 AM INPT NO TOBACCO USE IN LAST 30 D [facility] Jun 15, 2018 09:25 AM VA-TOBACCO FORMER USER [facility] Jun 15, 2018 09:25 AM [place]-TO[place] [address] [facility] Jun 25, 2017 04:05 PM INPT NO TOBACCO USE IN LAST 30 D [facility] Apr 26, 2017 08:03 AM FORMER TOBACCO USER 7Y OR GREATE R [facility] Jan 04, 2017 11:27 AM INPT NO TOBACCO USE IN LAST 30 D [facility] May 13, 2016 10:42 AM LIFETIME NON-TOBACCO USER [facility] Jun 04, 2015 06:17 AM INPT NO TOBACCO USE IN LAST 30 D [facility] Apr 23, 2015 09:14 AM FORMER TOBACCO USER 7Y OR GREATE R [facility] Jan 19, 2014 09:40 AM FORMER TOBACCO USER 7Y OR GREATE R [facility] December 09, 2010 12:08 PM FORMER TOBACCO USER 7Y OR GRE[facility] R [facility] Advance Directives: All historical and current Section Date Range: From patient's date of to the date document was created. This section includes ALL of a patient's completed or amended [place] Advance and Rescinded Directives. The entries below indicate that a directive exists for the patient, but an actual copy is not included with this document. The data comes from all [place] facilities. Date Advance Directives Provider Source Jun 25, 2017 CLINICAL WARNING MADHAVI CASTILLO [facility] Jan 04, 2017 CLINICAL WARNING DIGNA CASTELLANOS [facility] Sep 26, 2014 CLINICAL WARNING SHEREEN LAUREANO [facility] Encounter Notes: All associated encounter notes This section contains the clinical notes associated to the Encounter. Date/Time Encounter Note(s) Provider Source Apr 09, 2023 11:35 AM ANESTHESIOLOGY CONSULT: LOCAL TITLE: ANESTHESIA PREOPERATIVE ASSESSMENT CONSULT STANDARD TITLE: ANESTHESIOLOGY CONSULT DATE OF NOTE: APR 09, 2023@11:35 ENTRY DATE: APR 09, 2023@11:35:34 AUTHOR: YULIANA HARRISON COSIGNER: URGENCY: STATUS: COMPLETED Preoperative Anesthesia Assessment Chief Complaint: 77 year old with BMI 35.4 for preoperative anesthesia visit. This is a face to face visit. ----History of present illness Mr Huang is a pleasant 77 y.o. undergoing LEFT LIHR (Recurrent). ----Allergies Patient has answered NKA ----VITAL SIGNS ------- HR: 48 (04/09/2023 10:30) BP: 135/71 (04/09/2023 10:30) RR: 16 (04/09/2023 10:30) O2: 94% (04/09/2023 10:30) Temp: 97.3 F [36.3 C] (04/09/2023 10:30) HT: 68 in [172.7 cm] (04/09/2023 10:30) WT: 232.3 lb [105.37 kg] (04/09/2023 10:30) BMI: 35.4 ----Past Surgical History Remote hx of waking during surgery (2nd IHR), easily resedated 04/30/2023 Laparoscopic recurrent Left REQUESTED inguinal hernia repair 06/14/2019 PVI UNKNOWN Easy mask w/ aid Dl by VALARIE Urbina 2 Grade 2 06/25/2017 PVI ablation UNKNOWN DL by RAYO Urbina 2 Grade 2 06/04/2015 right tka (COMPLETED) Other: LIHR repeat LIHR Appendectomy Left Shoulder Right elbow tendon 2003 ----SOCIAL HISTORY ------ Tobacco: No Quit 1968 Alcohol: Occasional Substance use: No ----PAST MEDICAL HISTORY - Active problems - Computerized Problem List is the source for the followin. Obstructive sleep apnea of adult - ON CPAP 2. Personal History of Colonic Polyps - adenomatous and hyperplastic 08/10/07 3. Basal Cell Carcinoma of Skin, site unspecified 4. Sensorneural Asymetrical 5. Anticoagulation 6. Cervical radiculitis 7. Hyperlipidemia 8. Gastroesophageal reflux disease 9. Essential Hypertension: 130-170s/60-90s 10. Hypothyroid 11. Arthritis of right hip 12. Chronic low back pain 13. Actinic keratosis 14. Basal cell carcinoma of back 15. Paroxysmal atrial fibrillation Anticoag regimen: dabigatran 150 mg every 12 hours Anticoag indication: paroxysmal atrial fibrillation - Relevant PMH: Pt is on dabigatran rather than other DOACs as he engages in horseback riding, mountain biking and other high impact activities and desires availability of a reversal agent. Update: has tolerated, so will continue dabigatran (other DOACs now have reversal agents too) - Date started: 11/2016 - Anticipated duration of therapy: long-term - Prior bleeding complications: none mentioned - Prior anticoagulant trials: none mentioned 16. colonoscopy screening - normal colonoscopy 09/2018, next 09/2028 17. Glaucoma Other: Amenable to blood transfusions as required Denies recent cold/cough/fever/flu Denies COVID+ test last 90 days 15-point review of systems completed and negative other than stated above. ----FUNCTIONAL CAPACITY IN MEASURE OF EXERCISE TOLERANCE BEFORE SURGERY (METS) METS: >4 biking 50 miles tomorrow. Has biked 1,200 miles since November 2022. ----MEDICATIONS Active/Pending/ Outpatient Medications Active and Recently Outpatient Medications (excluding Supplies): Active Outpatient Medications Status 1) DABIGATRAN [...] 2) Non-VA ZINC (FROM SULFATE) CAP,ORAL ACTIVE 7 Total Medications Naltrexone: No Buprenorphine: No ---LABORATORY STUDIES -- HGB- HGB 14.7 (04/09/23) HCT- HCT 43.4 (04/09/23) WBC- WBC 6.71 (04/09/23) PLT- PLT 219 (04/09/23) INR- INR 1.1 PLASMA (04/27/22 18:29) APTT- APTT 49.6 H (04/27/22) GLUCOSE- GLUCOSE 86 (07/01/22) NA- SODIUM 142 (07/01/22) K- POTASSIUM 4.2 (07/01/22) CL- CHLORIDE 110 H (07/01/22) CREATINE- CREATININE 0.8 (02/11/23) 02/11/2023 10:53 PLASMA AST/SGOT 30 U/L Ref: <=34 02/11/2023 10:53 PLASMA ALT/SGPT 22 U/L Ref: <=55 EGFR (03/05) 05/22/21 @ 0733 94 CREATININE EGFR (CKD-EPI) 02/11/23 @ 1053 >90 A1C- HEMOGLOBIN A1C 5.6 (07/01/22) ----DIAGNOSTIC STUDIES -- EK04/09/2023 Sinus Bradycardia 47 BPM (Unchanged, prior EKG 2021 50 BPM) PFT 04/28/2022 Ref LLN Pre % Ref FVC L 3.30 2.45 3.22 97.7 FEV 1 L 2.52 1.77 2.13 84.6 FEV1/FVC % 77 63 66 PEF L/s 7.30 5.31 6.41 87.8 Parameter FVC FEV1 FEV1/FVC TLC RV DLCO_SB 11/09/2017 3.60 2.41 67 27.52 04/28/2022 3.22 2.13 66 CARDIAC MRI 07/30/2022 1. No abnormal delayed gadolinium enhancement within either the right or the left ventricle. 2. Moderate right ventricular and right atrial enlargement. 3. Normal rest perfusion. 4. T1 and T2 mapping values within normal limits. 5. Ejection fraction of 67 percent, with uniform concentric contraction. 6. Enlarged pulmonary arteries, which can be seen in elevated pulmonary arterial pressures. 7. Asymmetric LVH. 8. Probable hepatic cysts. CT HEART 06/16/2022 1. Enlarged pulmonary artery, consistent with pulmonary arterial hypertension. 2. Enlarged right ventricle, which may also be related to elevated pulmonary arterial pressures. 3. Asymmetric LVH. 4. Small hiatal hernia with mild circumferential thickening of distal esophagus, which may reflect esophagitis. 5. A few very small (less than 4 mm) solid pulmonary nodules. If desired, options include follow-up per 2017 Fleischner Society criteria. 6. No left atrial appendage thrombus. Please see Cardiology report in [facility] for cardiac findings of this examination. ECHO TTE 01/21/2022 Left Ventricle The left ventricle is normal in size. Mild concentric left ventricular hypertrophy. The left ventricular systolic function is normal. The visually estimated ejection fraction is 60-65%. No regional wall motion abnormalities were noted. Right Ventricle The right ventricle size is moderately enlarged. The right ventricular systolic function is normal. Left Atrium/Right Atrium/Atrial Septum The left atrium is mildly dilated. Right atrial size is normal. Tricuspid Valve There is trivial tricuspid regurgitation. Aortic Valve No aortic valvular regurgitation. Inferior Vena Cava/Hepatic Veins Severely dilated inferior vena cava. STRESS 04/15/2021 1. No ischemia demonstrated. 2. Left ventricular ejection fraction is 51 %. No focal wall motion abnormality. ECHO FRITZ 06/13/2019 1. No diagnostic evidence for left atrial (LA) or LA appendage thrombus. Velocities within the appendage are normal at 80cm/s. Prominent pectinate muscles are seen. 2. Normal left ventricular size and systolic function with an estimated ejection fraction between 55%-65% and no regional wall motion abnormalities. 3. Normal right ventricular size and systolic function. 4. Saline contrast bubble study was negative, with no evidence of any intracardiac shunt. 5. Compared to the previous study dated 06/25/2017, there has been no significant change. 6. FRITZ was performed and interpreted with Jose Luis Subramanian MD (Junior Underwriter). ----Risk Stratification -------- (RCRI): CAPRINI score: CHADSVASCC = 3 (age x2, htn)= LOW HAS-BLED = 1 (age)= MODERATE ---Physical Exam ------ Airway Exam: Mallampati Class: II Mouth opening: full Neck: full range of motion Thyromental distance: >6cm Dentition: normal Cardiac System: Cardiovascular exam normal: regular rhythm and rate, no murmur Respiratory: Clear to auscultation, normal respiratory rate and effort Mental/Neuro exam: Alert, oriented, calm, cooperative ---EDUCATION Additional anesthetic preparation and risk discussed: Discussed NPO, Med Mgmt, Transportation, Flash Drier Operator Guidelines, anesthesia team, IV Access, monitoring, pre/post op expectations & GETA vs MAC ----ASSESSMENT/PLAN-------- This is a 77Y.O. undergoing evaluation for LIHR. The final anesthesia plan will be determined by the providers on the day of surgery. [facility] 02/23/2023 - Do not take for 1 day before procedure OR the day of procedure (04/29 and 04/30).The last dose taken preoperatively is 2 days before the procedure. - If there are no major bleeding complications, resume 24 hours later (the day after the procedure on 05/01) at the usual dose unless otherwise instructed by the surgeon/proceduralist. HEME: K 4.2 HGB 14.7 PLT 219 PT 12.6 INR 1.1 /phoebe/ YULIANA HARRISON DNP, [employer]PER[employer]-C NURSE PRACTITIONER Signed: 04/09/2023 12:[address] [facility]
--- OUTSIDE RECORDS SUMMARY | 2024-01-26 23:14 | XMS_ITS | Encounter Summary ---
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 Date/Time Encounter Type Encounter Description Reason Provider Source Feb 22, 2023 07:37 PM QNHP OL DIG ASSMT&MGMT [facility] ICD-10-CM Z79.01 intermediate manager (current) use of anticoagulants JESS MARTINEZ Kris Encounter Template Text not used by [facility] Assessments - Encounter Diagnoses This section includes the primary and secondary diagnoses documented for the Encounter. Date/Time Primary/Secondary Diagnosis Diagnosis Name Provider Source Feb 23, 2023 10:06 AM PRIMARY intermediate manager (current) use of anticoagulants JESS MARTINEZ [facility] Feb 23, 2023 10:06 AM SECONDARY Encounter for therapeutic drug level monitoring JESS MARTINEZ [facility] Feb 23, 2023 10:06 AM SECONDARY Unspecified atrial fibrillation JESS MARTINEZ [facility] Plan of Treatment: Future Appointments (+ 6 months) and Future Tests (+/- 45 days) The Plan of Treatment section includes future care activities for the patient from all [facility]. This section includes future appointments and future orders which are active, pending or scheduled. Future Appointments This section includes appointments that were scheduled to occur 6 months from the date of the Encounter, up to a maximum of 20 appointments. The data comes from all [facility] facilities. Appointment Date/Time Appointment Type Appointme nt Facility Name Apr 09, 2023 10:30 AM AMBULATORY - MEDICINE [facility] Apr 09, 2023 11:00 AM AMBULATORY - MEDICINE [facility] Apr 09, 2023 11:15 AM AMBULATORY MEDICINE [facility] Apr 09, 2023 11:45 AM AMBULATORY - SURGERY [facility] Apr 30, 2023 06:00 AM AMBULATORY - SURGERY [facility] May 19, 2023 03:15 PM AMBULATORY - NONE [facility] May 25, 2023 01:00 PM AMBULATORY - SURGERY [facility] Aug 17, 2023 08:45 AM [facility] Aug 17, 2023 09:45 AM AMBULATORY - MEDICINE [facility] Lab Results: +/- 30 days of [...] Range Comment Feb 11, 2023 10:53 AM [facility] CREATININE(INCLUDES EGFR) Specimen Type: PLASMA No comment entered. Ordering Provider: JOVON YE Report Released Date/Time: Jan 29, 2023 09:57 AM Reporting Lab: [facility] [id number] Performing Lab: [facility] [id number] CREATININE 0.8 mg/dL 0.7-1.2 .CREAT EGFR(CKD-EPI ) >90 See_Comment Feb 11, 2023 10:53 AM [facility] AST/SGOT Specimen Type: PLASMA No comment entered. Ordering Provider: WIEMANN,MATTH EW S Report Released Date/Time: Jan 29, 2023 09:57 AM Reporting Lab: [facility] [id number] Performing Lab: [facility] [id number] AST/SGOT 30 U/L See_Comment Feb 11, 2023 10:53 AM [facility] CBC Specimen Type: BLOOD No comment entered. Ordering Provider: JOVON YE S Report Released Date/Time: Jan 29, 2023 09:57 AM Reporting Lab: [facility] [id number] Performing Lab: [facility] [id number] WBC 6.51 10*3/uL 4.0-11.0 RBC 4.93 10*6/uL 4.6-6.2 HGB 14.7 g/dL 13.5-17.9 HCT 45.2 41-54 MCV 91.7 fL 80-100 MCH 29.8 pg 27-33 MCHC 32.5 g/dL 32.0-37.5 PLT 210 10*3/uL 150-400 MPV 10.1 fL 7.4-10.4 RDW 13.6 11.5-14.5 Feb 11, 2023 10:53 AM [facility] ALT/SGPT Specimen Type: PLASMA No comment entered. Ordering Provider: JOVON YE Report Released Date/Time: Jan 29, 2023 09:57 AM Reporting Lab: [facility] [id number] Performing Lab: [facility] [id number] ALT/SGPT 22 U/L See_Comment Social History: Smoking Status (Most current) and Tobacco Use (All prior to encounter date) This section includes the most current, and the historical, smoking and tobacco- related health factors from the [facility] where the Encounter took place. Current Smoking Status This section includes the most current smoking, or tobacco-related health factor, from the [place] facility where the Encounter took place. Date/Time Current Smoking Status Comment Priya bowers Jul 01, 2022 08:45 AM VA-TOBACCO FORMER USER [facility] Tobacco Use History This section includes a history of the smoking, or tobacco-related health factors, that were collected on or before the date of the Encounter. The data comes from the [place] facility where the Encounter took place. Date/Time Smoking Status/Tobacco Use Comment F acility Jul 01, 2022 08:45 AM VA-TOBACCO QUIT 15 YRS OR MORE [facility] May 22, 2021 09:00 AM VA-TOBACCO FORMER USER [facility] May 22, 2021 09:00 AM VA-TOBACCO QUIT 15 YRS OR MORE [facility] Mar 29, 2020 07:42 AM VA-TOBACCO FORMER USER [facility] Mar 29, 2020 07:42 AM VA-TOBACCO QUIT 15 YRS OR MORE [facility] Mar 06, 2019 12:00 PM VA-TOBACCO FORMER USER [facility] Mar 06, 2019 12:00 PM VA-TOBACCO QUIT 15 YRS OR MORE [facility] Oct 23, 2018 11:20 AM INPT NO TOBACCO USE IN LAST 30 D [facility] Jun 15, 2018 09:25 AM VA-TOBACCO FORMER USER [facility] Jun 15, 2018 09:25 AM VA-TOBACCO QUIT 15 YRS OR MORE [facility] Jun 25, 2017 04:05 PM INPT NO TOBACCO USE IN LAST 30 D [facility] Apr 26, 2017 08:03 AM FORMER TOBACCO USER 7Y OR GREATE R [facility] Jan 04, 2017 11:27 AM INPT NO TOBACCO USE IN LAST 30 D [facility] May 13, 2016 10:42 AM LIFETIME NON-TOBACCO USER [facility] Jun 04, 2015 06:17 AM INPT NO TOBACCO USE IN LAST 30 D [facility] Apr 23, 2015 09:14 AM FORMER TOBACCO USER 7Y OR GREATE R [facility] Jan 19, 2014 09:40 AM FORMER TOBACCO USER 7Y OR GREATE R [facility] December 09, 2010 12:08 PM FORMER TOBACCO USER 7Y OR GREATE R [facility] Advance Directives: All historical and current Section [...] Jun 25, 2017 CLINICAL WARNING MADHAVI CASTILLO [facility] Jan 04, 2017 CLINICAL WARNING DIGNA CASTELLANOS [facility] Sep 26, 2014 CLINICAL WARNING SHEREEN LAUREANO [facility] Encounter Notes: All associated encounter notes This section contains the clinical notes associated to the Encounter. Date/Time Encounter Note(s) Provider Source Feb 23, 2023 10:07 AM LETTERS: LOCAL TITLE: FOLLOW UP RESULTS LETTER STANDARD TITLE: LETTERS DATE OF NOTE: FEB 23, 2023@10:07 ENTRY DATE: FEB 23, 2023@10:07:30 AUTHOR: KRYSTINA MARTINEZ COSIGNER: URGENCY: STATUS: COMPLETED SUBJECT: anticoag [facility] [address] [place] [address] Jan ANANTH HUANG [address] [facility] [id number] Dear [place]: We are following up on your anticoagulant (blood thinner) medication, Dabigatran. We are sending you written instructions for interruption of your blood thinner for an upcoming procedure on Apr: - Do not take for 1 day before procedure OR the day of procedure (04/29 and 04/30).The last dose taken preoperatively is 2 days before the procedure. - If there are no major bleeding complications, resume 24 hours later (the day after the procedure on 05/01) at the usual dose unless otherwise instructed by the surgeon/proceduralist. If this procedure is rescheduled and new instructions are needed OR changes in your health (ie: clotting complications, stroke) occur between now and the time of the procedure, please contact us at [phone], option 3. Your anticoagulant should not be [...] well. Thank you for your service. Sincerely, [facility] Team ----- Phone number: [phone] -option 1 to schedule or reschedule an appointment -option 2 to refill medications or call the phone number on the bottle -option 3 for all other communication Fax number: [phone] Clinic Hours: Wednesday-Wednesday, 8:00am to 4:00pm (excluding Federal holidays) DELON MARTINEZ Pharmacist KRYSTINA MARTINEZ [facility] Feb 23, 2023 10:05 AM MEDICATION MGT CON SULT: LOCAL TITLE: ANTICOAGULATION CLINIC CONSULT STANDARD TITLE: MEDICATION MGT CONSULT DATE OF NOTE: FEB 23, 2023@10:05 ENTRY DATE: FEB 22, 2023@19:37:48 AUTHOR: KRYSTINA MARTINEZ EXP COSIGNER: URGENCY: STATUS: COMPLETED DOAC PERIOP DOAC PERIOP Anticoag regimen: dabigatran 150 mg every 12 [...] mentioned - Prior anticoagulant trials: none mentioned ----- CHADSVASCC = 3 (age x2, htn)= LOW HAS-BLED = 1 (age)= MODERATE S/O: ---- Obtained by chart review. Type of procedure: lap hernia repair Date of procedure: Apr@06:00 Bleed risk for procedure: Standard/Low (requires interruption) Thromboembolic/Bleed Risk: see above Dashboard flags: none LABS ---- Age: 77 Weight: 229.2 lb [103.96 kg] (02/18/2023 12:37) Height: 68 in [172.7 cm] (02/18/2023 12:37) CREATININE 0.8 PLASMA (02/11/23 10:53) 0.8 PLASMA (07/01/22 08:00) 0.8 PLASMA (07/01/22 07:59) Cockcroft & Gault (Actual body weight) = 115.5 mL/min Collection DT Spec WBC HGB HCT PLT MCV NEUT LYMPHS 02/11/2023 10:53 BLOOD 6.51 14.7 45.2 210 91.7 07/01/2022 07:59 BLOOD 6.44 15.6 45.3 200 91.9 04/27/2022 18:29 BLOOD 6.82 15.5 47.0 214 92.0 58.3 21.1 Collection DT Specimen Test Name Result Units Ref Range 08/06/2020 14:11 PLASMA BILIRUBIN, TOTAL 0.4 mg/dL 0.2 - 1.2 08/06/2020 14:11 PLASMA ALKALINE PHOSPHAT 76 U/L 40 - 150 02/11/2023 10:53 PLASMA AST/SGOT 30 U/L Ref: <=34 02/11/2023 10:53 PLASMA ALT/SGPT 22 U/L Ref: <=55 A/P: [...] occurred or there are renal function changes. DOAC should not be held if procedure is cancelled. - Do not take for 1 day before procedure OR the day of procedure (04/29 and 04/30).The last dose taken preoperatively is 2 days before the procedure. - If there are no major bleeding complications, resume 24 hours later (the day after the procedure on 05/01) at the usual dose unless otherwise instructed by the surgeon/proceduralist. -Educated pt on plan. -Letter requested -Pt also wrote it on the calendar Time: 15min Patient education of treatment plan: Patient indicates readiness to learn, verbalizes understanding, agreement and satisfaction with the treatment plan. Denies further questions. /phoebe/ DELON MARTINEZ Pharmacist Signed: 02/23/2023 10:06 KRYSTINA MARTINEZ [facility]
--- OUTSIDE RECORDS SUMMARY | 2024-01-26 23:14 | XMS_ITS | Encounter Summary ---
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 Date/Time Encounter Type Encounter Description Reason Provider Source Apr 09, 2023 11:00 AM OFFICE O/P EST MOD 30-39 MIN GENERAL INTERNAL MEDICINE ICD-10-CM Z01.818 Encounter for other preprocedural examination BERNIE LIN [facility] Encounter Template Text not used by CT Assessments - Encounter Diagnoses This section includes the primary and secondary diagnoses documented for the Encounter. Date/Time Primary/Secondary Diagnosis Diagnosis Name Provider Source Apr 09, 2023 12:05 PM PRIMARY Encounter for other preprocedural examination BERNIE LIN [facility] Apr 09, 2023 12:05 PM SECONDARY Obstructive sleep apnea (adult) (pediatric) BERNIE LIN [facility] Apr 09, 2023 12:05 PM SECONDARY Unil inguinal hernia, w/o obst or gangr, not spcf as recur BERNIE LIN [facility] Apr 09, 2023 12:05 PM SECONDARY Unspecified atrial fibrillation BERNIE LIN [facility] Plan of Treatment: Future Appointments (+ 6 months) and Future Tests (+/- 45 days) The Plan of Treatment section includes future care activities for the patient from all CT treatmentfacilities. This section includes future appointments and future orders which are active, pending or scheduled. Future Appointments This section includes appointments that were scheduled to occur 6 months from the date of the Encounter, up to a maximum of 20 appointments. The data comes from all CT treatment facilities. Appointment Date/Time Appointment Type Appointme nt Facility Name Apr 30, 2023 06:00 AM AMBULATORY - SURGERY [facility] May 19, 2023 03:15 PM AMBULATORY - NONE [facility] May 25, 2023 01:00 PM AMBULATORY - SURGERY [facility] Aug 17, 2023 08:45 AM AMBULATORY - NONE [facility] Aug 17, 2023 09:45 AM AMBULATORY - MEDICINE [facility] Lab Results: +/- 30 days of the encounter This section includes the Chemistry and Hematology Lab Results on record with CT for the patient. Radiology Reports and Pathology Reports are provided separately, in subsequent sections. Lab Results This section contains the Chemistry/Hematology Results that were resulted 30 days before or 30 daysafter the date of the Encounter. Date/Time Source Result Type Result - Unit Interpretation Reference Range Comment Apr 30, 2023 07:14 AM [facility] CREATININE(INCLUDES EGFR) Specimen Type: PLASMA No comment entered. Ordering Provider: KAMLA FERRER Report Released Date/Time: Apr 30, 2023 07:19 AM Reporting Lab: [facility] [id number] Performing Lab: [facility] [id number] CREATININE 0.7 mg/dL 0.7-1.2 .CREAT EGFR(CKD-EPI ) >90 >60 Apr 30, 2023 07:14 AM [facility] UREA NITROGEN Specimen Type: PLASMA No comment entered. Ordering Provider: KAMLA FERRER Report Released Date/Time: Apr 30, 2023 07:19 AM Reporting Lab: [facility] [id number] Performing Lab: [facility] [phone] UREA NITROGEN 15 mg/dL 8-26 Apr 30, 2023 07:14 AM [facility] ELECTROLYTES/ANION GAP Specimen Type: PLASMA No comment entered. Ordering Provider: KAMLA FERRER Report Released Date/Time: Apr 30, 2023 07:19 AM Reporting Lab: [facility] [id number] Performing Lab: [facility] [phone] SODIUM 140 mmol/L 136-145 POTASSIUM 4.1 mmol/L 3.5-5.1 CHLORIDE 107 mmol/L 98-107 CO2 25 mmol/L 22-29 ANION GAP 8 mmol/L 5-15 Apr 30, 2023 07:14 AM [facility] CBC & DIFF Specimen Type: BLOOD Comment: Automated Differential Performed Ordering Provider: KAMLA FERRER Report Released Date/Time: Apr 30, 2023 07:19 AM Reporting Lab: [facility] [id number] Performing Lab: [facility] [id number] WBC 6.08 10*3/uL 4.0-11.0 RBC 4.81 10*6/uL [...] 10*3/uL 0-0.1 Apr 09, 2023 11:19 AM [facility] CBC Specimen Type: BLOOD No comment entered. Ordering Provider: BERNIE LIN Report Released Date/Time: Apr 09, 2023 11:00 AM Reporting Lab: [facility] [id number] Performing Lab: [facility] [id number] WBC 6.71 10*3/uL 4.0-11.0 RBC 4.82 10*6/uL 4.6-6.2 HGB 14.7 g/dL 13.5-17.9 HCT 43.4 41-54 MCV 90.0 fL 80-100 MCH 30.5 pg 27-33 MCHC 33.9 g/dL 32.0-37.5 PLT 219 10*3/uL 150-400 MPV 9.5 fL 7.4-10.4 RDW 13.4 11.5-14.5 Apr 09, 2023 11:19 AM [facility] BASIC METABOLIC PANEL+MG Specimen Type: PLASMA No comment entered. Ordering Provider: BERNIE LIN Report Released Date/Time: Apr 09, 2023 11:00 AM Reporting Lab: [facility] [phone] Performing Lab: [facility] [phone] CREATININE 0.8 mg/dL 0.7-1.2 UREA NITROGEN 14 mg/dL 8-26 GLUCOSE 96 mg/dL 70-100 SODIUM 140 mmol/L 136-145 POTASSIUM 4.3 mmol/L 3.5-5.1 CHLORIDE 109 mmol/L H 98-107 CO2 27 mmol/L 22-29 CALCIUM 9.0 mg/dL 8.4-10.2 MAGNESIUM 2.0 mg/dL 1.6-2.6 ANION GAP 4 mmol/L L 5-15 .CREAT EGFR(CKD-EPI ) >90 >60 Vital Signs: All taken on the encounter date This section contains inpatient and outpatient Vital Signs collected on the date of the Encounter. Date/Time Temperature Pulse Blood Pressure Respiratory Rate SP02 Pain Height Weight Body Mass Index Source Apr 09, 2023 10:30 AM 97.3 F 48 /min 135/71 mm[Hg] 16 /min 94 % 68 in 232.3 lb 35 [place] [facility] Social History: Smoking Status (Most current) and Tobacco Use (All prior to encounter date) This section includes the most current, and the historical, smoking and tobacco- related health factors from the CT facility where the Encounter took place. Current Smoking Status This section includes the most current smoking, or tobacco-related health factor, from the CT facility where the Encounter took place. Date/Time Current Smoking Status Comment Facil ity Jul 01, 2022 08:45 AM VA-TOBACCO QUIT 15 YRS OR MORE [facility] Tobacco Use History This section includes a history of the smoking, or tobacco-related health factors, that were collected on or before the date of the Encounter. The data comes from the CT facility where the Encounter took place. Date/Time Smoking Status/Tobacco Use Comment F acility Jul 01, 2022 08:45 AM VA-TOBACCO QUIT 15 YRS OR MORE [facility] May 22, 2021 09:00 AM VA-TOBACCO FORMER USER [facility] May 22, 2021 09:00 AM VA-TOBACCO QUIT 15 YRS OR MORE [facility] Mar 29, 2020 07:42 AM VA-TOBACCO FORMER USER [facility] Mar 29, 2020 07:42 AM VA-TOBACCO QUIT 15 YRS OR MORE [facility] Mar 06, 2019 12:00 PM VA-TOBACCO FORMER USER [facility] Mar 06, 2019 12:00 PM VA-TOBACCO QUIT 15 YRS OR MORE [facility] Oct 23, 2018 11:20 AM INPT NO TOBACCO USE IN LAST 30 D [facility] Jun 15, 2018 09:25 AM VA-TOBACCO FORMER USER [facility] Jun 15, 2018 09:25 AM VA-TOBACCO QUIT 15 YRS OR MORE [facility] Jun 25, 2017 04:05 PM INPT NO TOBACCO USE IN LAST 30 D [facility] Apr 26, 2017 08:03 AM FORMER TOBACCO USER 7Y OR GREATE R [facility] Jan 04, 2017 11:27 AM INPT NO TOBACCO USE IN LAST 30 D [facility] May 13, 2016 10:42 AM LIFETIME NON-TOBACCO USER [facility] Jun 04, 2015 06:17 AM INPT NO TOBACCO USE IN LAST 30 D [facility] Apr 23, 2015 09:14 AM FORMER TOBACCO USER 7Y OR GREATE R [facility] Jan 19, 2014 09:40 AM FORMER TOBACCO USER 7Y OR GREATE R [facility] December 09, 2010 12:08 PM FORMER TOBACCO USER 7Y OR GREATE R [facility] Advance Directives: All historical and current Section Date Range: From patient's date of to the date document was created. This section includes ALL of a patient's completed or amended CT Advance and Rescinded Directives. The entries below indicate that a directive exists for the patient, but an actual copy is not included with this document. The data comes from all CT facilities. Date Advance Directives Provider Source Jun 25, 2017 CLINICAL WARNING MADHAVI CASTILLO [facility] Jan 04, 2017 CLINICAL WARNING DIGNA CASTELLANOS [facility] Sep 26, 2014 CLINICAL WARNING SHEREEN LAUREANO [facility] Encounter Notes: All associated encounter notes This section contains the clinical notes associated to the Encounter. Date/Time Encounter Note(s) Provider Source Apr 09, 2023 08:06 AM PRE OPERATIVE E & M NOTE: LOCAL TITLE: MEDICINE PRE-OP EVALUATION NOTE STANDARD TITLE: PRE OPERATIVE E & M NOTE DATE OF NOTE: APR 09, 2023@08:06 ENTRY DATE: APR 08, 2023@15:01:57 AUTHOR: BERNIE LIN EXP COSIGNER: URGENCY: STATUS: COMPLETED PRE-OP MEDICAL EVALUATION Name: HUANGANANTH SEGURA Age: 77 PLANNED SURGERY: Laparoscopic recurrent left inguinal hernia repair, 04/30/23 ALLERGY: NKDA C-MEDS: DRUG RECONCILIATION Active Medications, as listed below, has been reviewed & Discussed with Pt and discrepancies has been reconciled & resolved today. 1) * DABIGATRAN ETEXILATE 150MG ORAL CAP UD TAKE ONE CAP BID 2) DORZOLAMIDE HCL 2% OPH SOLN INSTILL 1 DROP TTID 3) LATANOPROST 0.005% OPH SOLN INSTILL 1 DROP IN BOTH EYES AT BEDTIME 4) LEVOTHYROXINE NA (SYNTHROID) 137MCG TAB TAKE ONE TAB DAILY 5) ROSUVASTATIN CA 40MG TAB TAKE ONE-HALF TAB AT BEDTIME 1) Non-VA CHOLECALCIF 25MCG (D3-1,000UNIT) TAB 2000UNITS BID 2) Non-VA ZINC (FROM SULFATE) CAP Active problems: A-fib -CHADS2: 2 -on AC -PVR x2, 2016 and 2018 HTN HLP EDGAR -CPAP wears nightly GERD -Resolved/not on medication Obesity Glaucoma Hypothyroid -07/01/22, TSH 1.6 BCC of BACK Cervical radiculitis Chronic low back pain Personal History of Colonic Polyps PAST SURGICAL HISTORY 06/14/2019 PVI 06/25/2017 PVI ablation 06/04/2015 right tka ROS: Relevant Details In Active Med. List Above Functional Status: Best in last 6 months: Bikes frequently, has gone on 30-60 mile rides over the summer, active on [place] farm, no chest pain/pressure, SOB, dizziness/syncope WC/Bed:[No] METs:[8] Frail-BMI:34.9[No] Falls:[No] CVD : [place]:[No] CABG:[No] PTCA/Stent:[No] Angina/Unstable:[No] CHF:[No] LYNCH:[No] Orthopnea/PND:[No] :[No] Sxs:[No] A-F/SVT/VT:[YES], DCCV/Ablation:[YES] AICD Or PM:[No] ABx Prophylaxis Need: SBE:[No] Cardiac Devices:[No] PAD:[No] CVD:[No] DVT/PE):[No] unprovoked:[No] HEM: Bleeding Diathesis:[No] ASA/PLAVIX/NSAID:[No] AC:[YES] GI: [id number]:[No] Agree to blood products:[Yes] Hepatitis:[No] Cirrhosis/Stage:[No] PULM: COPD/Asthma:[No] Home O2:[No] Oral Steroid<12ths:[No] EDGAR:[YES} C-PAP Compliant:[YES] Aspiration Risk: Dysphagia[no] Hiatal Hernia[no] GERD[YES] RENAL: CKD/Stage:[No] BITA:[No] HD-Schedule:[No] BPH/SANTILLAN[No] ENDOC: Adreno-Suppression:[No] DM[No] Obesity:34.9:[YES] NEURO: Seizure:[No] Neuropathy:[YES] Myopathy:[No] GADGET: Brain/Spinal/Vagal stimulators, Pumps, Prosthesis:[R TKA] ANESTH: FHx/Personal Complic.:[No] Post-Op Delirium/Confusion:[No] CHEM.DEP: ETOH:[Rare, 1 drink week or less] Smoking:[No] Illicit Subs:[No] Naltrexone (PO/IM):[No] Buprenorphine:[No] Opioid:[No] BRAIN HEALTH: Dementia/Delirium:[No] PTSD:[No] TBI:[No] CAPRINI: VTE RISK ASSESSMENT SCORE -- VTE RISK [%] SCORE -- VTE RISK [%] (0-2) -- Low -- 0.5-1.5% (5-8) -- High -- 6.0% (3-4) -- Moderate-- 3.0% (> 8) -- Highest -- 6-18% Age: 77 (41-60= 1) (61-74= 2) (>75= 3) (3) BMI:34.9 BMI>25= 1 (1) Surgery: Minor=1, Major=2. Major (within a month) Major:1 (2) Mobility: Central-line, Bed-Rest+/- Cast<72H=1 Confined +/- Cast>72H=2 (0) Women: Estrogen//Postpart um/Spontaneous /Still =1 (0) PMHx:UT/CHF/IBD/Malignancy/ (COPD/Asthma/Abnl PFT), LE edema/Varicosity=1(0) Recent Med Hx (< month): Sepsis, Pneumonia/Serious lung disease = 1 (0) CVA, Elective TKA/SILVERIO/Spinal injury/Bone Fx(Hip/pelvis/Leg) =5 (0) VTE: VTE Hx, FHx of VTE, Congenital or Acquired thrombophilia =3 (0) TOTAL SCORE ==>[6] EXAM: General: NAD, ambulates to room w/out assistance Ht:68 in [172.7 cm], BMI/Wt:35.4/232.3 lb [105.37 kg], RR:16, Temp:97.3 F [36.3 C], HR:48, BP:135/71 (04/09/2023 10:30) Mental Status: Normal: [Yes] Neck ROM: Normal:[Yes] Limited:[No] Trachea Midline:[Yes] Mouth Opening(Fingers): 3 Mallampati: 3 Teeth: WNL:[Yes] Loose:[No] Edentulous:[No] Lungs: CTA Heart: Rhythm: RRR. No Murmur. Extremity: LE edema: No LABS: SODIUM 140 (04/09/23) POTASSIUM 4.3 (04/09/23) UREA NITROGEN 14 (04/09/23) CREATININE 0.8 (04/09/23) GLUCOSE 96 (04/09/23) ALBUMIN____ WBC 6.71 (04/09/23) HGB 14.7 (04/09/23) PLT 219 (04/09/23) INR 1.1 (04/27/22) 04/27/2022 BNP 31 pg/mL Ref: <=99 07/01/2022 HEMOGLOBIN A1C 5.6 % 4.0 - 6.0 HR: 47 Rhythm: Sinus Bradycardia, Date: 04/09/23 Impression for CHEST 1 VIEW, 04/27/22, case [id number] No significant change. Specifically, negative for pleural effusion. 04/15/2021 CARDIOVASCULAR STRESS TEST 1. No ischemia demonstrated. 2. Left ventricular ejection fraction is 51 %. No focal wall motion abnormality. RISK ASSESSMENT: ANANTH HUANG is a 77 Y-O, Vet, With Med Hx as outlined above. Has known hx of A-fib. Denies Cardio-Pulmonary disease symptoms despite been relatively active as noted above, METS (8). Labs, EKG, and Exam are as outlined & sign. for: N/A. Risk for the planned surgery relate to: Age, A. fib, anticoagulation use, obesity, and EDGAR. RCRI SCORE/RISK: Zero LOW RISK FOR THE PLANNED SURGERY FOR CARDIO-PULMONARY COMPLICATION I HAVE DISCUSSED WITH PATENT TODAY ALL THE ABOVE LISTED LABS:(CBC, SMA-7, INR)& EKG DONE TODAY. ALSO DISCUSSED ARE OTHER PERTINENT TESTS OUTLINED ABOVE. RECOMMENDATIONS: OPTIMIZATION FOR SURGERY ========= CARDIAC: Known A-fib At risk for RVR Hold DABIGATRAN 1 day Pre-OP, per AC consult, restart when safe to do so per-surgery Stop Vitamins/Minerals/Supplemen ts 7 days Pre-op Monitor Vitals & for Angina & Arrhythmia suad-op PULMONARY: Known Obesity and EDGAR. Non Smoker. Albuterol nebs PRN suad-OP Incentive spirometry -Encourage use post-OP Keep head of bed elevated suad-OP when possible C-PAP to use PRN Suad-OP DVT PROPHYLAXIS: No Hx of DVT or Hypercoagulable state. CAPRINI SCORE:[6] == DVT/PE RISK: HIGH [6%] DVT PROPHYLAXIS RECOMMENDATION: Per surgical service ANESTHESIA: Oral Opening Fingers: 3 Mallampati: 3. GERD. At risk for aspiration BRAIN HEALTH: No Dementia/Delirium Thanks, call Q's. /phoebe/ BERNIE LIN APRN NURSE PRACTITIONER Signed: 04/09/2023 12:05 BERNIE LIN [facility]
--- OUTSIDE RECORDS SUMMARY | 2024-01-26 23:15 | XMS_ITS | Encounter Summary ---
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 of [facility] Organization Department of [facility] Address [address] [place] [id number] Care Team Providers Care Recruiting Associate Name Role Phone SILVESTRE MUNOZ Primary Care Provider [facility] e [...] PART A Nov 01, 2011 PART A [id number] [phone] ANANTH HUANG PATIENT MEDICARE (WNR) MEDICARE (M) PART B Nov 01, 2011 PART B [id number] [phone] ANANTH HUANG PATIENT Selected Encounter This section includes the information on record at [place] for the Encounter. Date/Time Encounter Type Encounter Description Reason Provider Source Aug 17, 2023 09:45 AM OFFICE O/P EST LOW 20 MIN PRIMARY CARE/MEDICINE ICD-10-CM E03.9 Hypothyroidism, unspecified TAMMY,SILVESTRE B IHE Encounter Template Text not used by [place] Assessments - Encounter Diagnoses This section includes the primary and secondary diagnoses documented for the Encounter. Date/Time Primary/Secondary Diagnosis Diagnosis Name Provider Source Aug 17, 2023 01:01 PM PRIMARY Hypothyroidism, unspecified TAMMY,SILVESTRE B [facility] Aug 17, 2023 01:01 PM SECONDARY Athscl heart disease of [place] coronary artery w/o ang pctrs TAMMY,SILVESTRE B [facility] Aug 17, 2023 01:01 PM SECONDARY Radiculopathy, cervical region TAMMY,SILVESTRE B [facility] Aug 17, 2023 01:01 PM SECONDARY Unspecified atrial fibrillation SILVESTRE MUNOZ [facility] Plan of Treatment: Future Appointments (+ 6 months) and Future Tests (+/- 45 days) The Plan of Treatment section includes future care activities for the patient from all [facility]. This section includes future appointments and future orders which are active, pending or scheduled. Future Appointments This section includes appointments that were scheduled to occur 6 months from the date of the Encounter, up to a maximum of 20 appointments. The data comes from all [facility]. Appointment Date/Time Appointment Type Appointme nt Facility Name Oct 19, 2023 12:23 PM AMBULATORY - MEDICINE [facility] Oct 19, 2023 02:18 PM AMBULATORY - NONE [facility] Oct 27, 2023 08:30 AM AMBULATORY NONE [facility] Oct 27, 2023 11:29 AM AMBULATORY - MEDICINE [facility] Nov 15, 2023 01:40 PM AMBULATORY - REHAB MEDICIN E [facility] Nov 16, 2023 10:30 AM AMBULATORY - MEDICINE [facility] Lab Results: +/- 30 days of the encounter This section includes the Chemistry and Hematology Lab Results on record with [place] for the patient. Radiology Reports and Pathology Reports are provided separately, in subsequent sections. Lab Results This section contains the Chemistry/Hematology Results that were resulted 30 days before or 30 daysafter the date of the Encounter. Date/Time Source Result Type Result - Unit Interpretation Reference Range Comment Aug 17, 2023 08:24 AM [facility] AST/SGOT Specimen Type: PLASMA No comment entered. Ordering Provider: SILVESTRE MUNOZ Report Released Date/Time: Jul 01, 2022 10:12 AM Reporting Lab: [facility] [id number] Performing Lab: [facility] [id number] AST/SGOT 28 U/L <34 Aug 17, 2023 08:24 AM [facility] ALT/SGPT Specimen Type: PLASMA No comment entered. Ordering Provider: SILVESTRE MUNOZ Report Released Date/Time: Jul 01, 2022 10:12 AM Reporting Lab: [facility] [id number] Performing Lab: [facility] [id number] ALT/SGPT 22 U/L <55 Aug 17, 2023 08:24 AM [facility] CBC Specimen Type: BLOOD No comment entered. Ordering Provider: SILVESTRE MUNOZ Report Released Date/Time: Jul 01, 2022 10:12 AM Reporting Lab: [facility] [id number] Performing Lab: [facility] [id number] WBC 5.26 10*3/uL 4.0-11.0 RBC 5.00 10*6/uL 4.6-6.2 HGB 15.2 g/dL 13.5-17.9 HCT 45.1 41-54 MCV 90.2 fL 80-100 MCH 30.4 pg 27-33 MCHC 33.7 g/dL 32.0-37.5 PLT 194 10*3/uL 150-400 MPV 10.1 fL 7.4-10.4 RDW 12.8 11.5-14.5 Aug 17, 2023 08:24 AM [facility] BASIC METABOLIC PANEL+MG Specimen Type: PLASMA No comment entered. Ordering Provider: SILVESTRE MUNOZ Report Released Date/Time: Jul 01, 2022 10:12 AM Reporting Lab: [facility] [id number] Performing Lab: [facility] [id number] CREATININE 0.8 mg/dL 0.7-1.2 UREA NITROGEN 16 mg/dL 8-26 GLUCOSE 95 mg/dL 70-100 SODIUM 143 mmol/L 136-145 POTASSIUM 4.2 mmol/L 3.5-5.1 CHLORIDE 109 mmol/L H 98-107 CO2 27 mmol/L 22-29 CALCIUM 9.3 mg/dL 8.4-10.2 MAGNESIUM 1.9 mg/dL 1.6-2.6 ANION GAP 7 mmol/L 5-15 .CREAT EGFR(CKD-EPI ) >90 >60 Aug 17, 2023 08:24 AM [facility] TSH W/REFLEX TO FREE T4 Specimen Type: PLASMA No comment entered. Ordering Provider: SILVESTRE MUNOZ Report Released Date/Time: Jul 01, 2022 10:12 AM Reporting Lab: [facility] [id number] Performing Lab: [facility] [id number] TSH 0.83 u[IU]/mL 0.35-4.94 Vital Signs: All taken on the encounter date This section contains inpatient and outpatient Vital Signs collected on the date of the Encounter. Date/Time Temperature Pulse Blood Pressure Respiratory Rate SP02 Pain Height Weight Body Mass Index Source Aug 17, 2023 09:38 AM 97.7 F 50 /min 138/74 mm[Hg] 18 /min 96 % 0 68 in 240.5 lb 37 [facility] Social History: Smoking Status (Most current) and Tobacco Use (All prior to encounter date) This section includes the most current, and the historical, smoking and tobacco- related health factors from the [facility] where the Encounter took place. Current Smoking Status This section includes the most current smoking, or tobacco-related health factor, from the [place] facility where the Encounter took place. Date/Time Current Smoking Status Comment Facil ity Aug 17, 2023 09:45 AM VA-TOBACCO FORMER USER [facility] Tobacco Use History This section includes a history of the smoking, or tobacco-related health factors, that were collected on or before the date of the Encounter. The data comes from the [place] facility where the Encounter took place. Date/Time Smoking Status/Tobacco Use Comment F acility Aug 17, 2023 09:45 AM VA-TOBACCO QUIT 15 YRS OR MORE [facility] Jul 01, 2022 08:45 AM VA-TOBACCO FORMER USER [facility] Jul 01, 2022 08:45 AM VA-TOBACCO QUIT 15 YRS OR MORE [facility] May 22, 2021 09:00 AM VA-TOBACCO FORMER USER [facility] May 22, 2021 09:00 AM VA-TOBACCO QUIT 15 YRS OR MORE [facility] Mar 29, 2020 07:42 AM VA-TOBACCO FORMER USER [facility] Mar 29, 2020 07:42 AM VA-TOBACCO QUIT 15 YRS OR MORE [facility] Mar 06, 2019 12:00 PM VA-TOBACCO FORMER USER [facility] Mar 06, 2019 12:00 PM VA-TOBACCO QUIT 15 YRS OR MORE [facility] Oct 23, 2018 11:20 AM INPT NO TOBACCO USE IN LAST [address] [facility] Jun 15, 2018 09:25 AM VA-TOBACCO FORMER USER [facility] Jun 15, 2018 09:25 AM VA-TOBACCO QUIT 15 YRS OR MORE [facility] Jun 25, 2017 04:05 PM INPT NO TOBACCO USE IN LAST [address] [facility] Apr 26, 2017 08:03 AM FORMER TOBACCO USER 7Y OR GREATE R [facility] Jan 04, 2017 11:27 AM INPT NO TOBACCO USE IN LAST [address] [facility] May 13, 2016 10:42 AM LIFETIME NON-TOBACCO USER [facility] Jun 04, 2015 06:17 AM INPT NO TOBACCO USE IN LAST [address] [facility] Apr 23, 2015 09:14 AM FORMER TOBACCO USER 7Y OR GREATE R [facility] Jan 19, 2014 09:40 AM FORMER TOBACCO USER 7Y OR GREATE R [facility] December 09, 2010 12:08 PM FORMER TOBACCO USER 7Y OR GREATE R [facility] Advance Directives: All historical and current Section Date Range: From patient's date of to the date document was created. This section includes ALL of a patient's completed or amended [place] Advance and Rescinded Directives. The entries below indicate that a directive exists for the patient, but an actual copy is not included with this document. The data comes from all [place] facilities. Date Advance Directives Provider Source Jun 25, 2017 CLINICAL WARNING MADHAVI CASTILLO [facility] Jan 04, 2017 CLINICAL WARNING DIGNA CASTELLANOS [facility] Sep 26, 2014 CLINICAL WARNING SHEREEN LAUREANO [facility] Encounter Notes: All associated encounter notes This section contains the clinical notes associated to the Encounter. Date/Time Encounter Note(s) Provider Source Aug 17, 2023 10:22 AM ADMINISTRATIVE NOTE: LOCAL TITLE: AFTER VISIT SUMMARY NOTE STANDARD TITLE: ADMINISTRATIVE NOTE DICT DATE: AUG 17, 2023@10:22:02 ENTRY DATE: AUG 17, 2023@10:22:03 DICTATED BY: SILVESTRE MUNOZ EXP COSIGNER: URGENCY: STATUS: COMPLETED The patient was provided with a copy of an after-visit summary at the conclusion of the visit. A copy of the after-visit summary provided to the patient is available in [id number]. SCANNED DOCUMENT SIGNATURE NOT REQUIRED Electronically Filed: 08/17/2023 by: SILVESTRE MUNOZ MD PHYSICIAN, [facility] SILVESTRE MUNOZ [facility] Aug 17, 2023 09:45 AM INTERNAL MEDICINE NOTE: LOCAL TITLE: MEDICINE CLINIC NOTE STANDARD TITLE: INTERNAL MEDICINE NOTE DATE OF NOTE: AUG 17, 2023@09:45 ENTRY DATE: AUG 17, 2023@12:52:42 AUTHOR: SILVESTRE MUNOZ EXP COSIGNER: URGENCY: STATUS: COMPLETED MEDICINE CLINIC NOTE ASSESSMENT AND PLAN #Suspected [place] left cheek: s/p 2 freeze-thaw cycles of LN2, will reach back out to me if recurs at which point would place telederm consult #Cervical spine pain and radiculopathy S/p JOSH 09/2022 w/ significant improvement. 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 CC: Annual HPI The patient reports that he is doing well since her last visit. He reports intermittent aches and pains that he attributes to arthritis and aging, but continues to exercise on a regular basis, though he has had to hold off on his biking recently due to the cold weather and snow. He says that there is a scaly lesion on the left side of his cheek that he would like looked at. It has not seem to be changing much but if he picks at it a lot it will bleed a little bit. His cervical spine pain has been well controlled ever since the epidural steroid injection back in September 2022. He has some medication refills needed but otherwise no needs from me. UPDATED PROBLEM LIST Active problems - Computerized Problem List is the source for the followin. Obstructive sleep apnea of adult (SNOMED CT [id number]) - ON CPAP 2. Anticoagulation 3. Gastroesophageal reflux disease 4. Essential hypertension 5. Hypothyroid 6. Paroxysmal atrial fibrillation - s/p PVI x2, most recently 06/2019 7. colonoscopy screening - normal colonoscopy 09/2018, next 09/2028 8. Glaucoma 9. Exposure to potentially hazardous substance 10. 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 Cervical Radiculopathy ([facility] [id number]) - S/p JOSH 09/2022 MEDICATION RECONCILATION Education Evaluations *Was medication education provided for NEW medications or CHANGES to medications? (including medication name, dose, route, reason for use, and potential side effects). No new medications or medication changes during this encounter. TERATOGENIC MED & CONTRACEPTION REVIEW (Optional)... ===== MEDICATION RECONCILIATION ===== List Given: An updated medication list was provided to the patient/caregiver. Review Done: The medication list shown below was verified for accuracy and it includes all pending medications/active medications/all medications or discontinued within the last 90 days/all remote medications and non-VA medications. If a given category (i.e. remote meds) is not shown, that means that a patient doesn't have a medication(s) in that category. Allergies listed below were also reviewed/updated for accuracy. Allergies/ADR from [employer] may not display in CPRS. Use JLV MRT5 - Allergies/ADRs FACILITY ALLERGY/ADR -------- No Remote Allergy/ADR Data available for this patient [facility] No Known Allergies Active and Recently Outpatient Medications (including Supplies): Issue Date Status Last Fill Active Outpatient Medications Refills Expiration 1) DABIGATRAN ETEXILATE 150MG ORAL CAP UD ACTIVE Issu:08-18-22 Qty: 180 for 90 days Sig: TAKE ONE Refills: 0 Last:07-05-23 CAPSULE BY MOUTH EVERY 12 HOURS TO Expr:08-19-23 PREVENT STROKE DUE TO ATRIAL FIBRILLATION 2) DORZOLAMIDE HCL 2% OPH SOLN Qty: 10 for ACTIVE Issu:01-13-23 30 days Sig: INSTILL 1 DROP THREE Refills: 1 Last:05-31-23 TIMES A DAY TO AFFECTED EYE(S) Expr:01-14-24 3) LATANOPROST 0.005% OPH SOLN Qty: 7.5 ACTIVE Issu:07-20-23 for 75 days Sig: INSTILL 1 DROP EVERY Refills: 3 Last:07-20-23 DAY AT BEDTIME IN AFFECTED EYE(S) Expr:07-20-24 Issue Date Status Last Fill Pending Outpatient Medications Refills Expiration 1) LEVOTHYROXINE NA (SYNTHROID) 137MCG TAB PENDING Qty: 90 Sig: TAKE ONE TABLET BY MOUTH Refills: 0 EVERY DAY ON AN EMPTY STOMACH 2) ROSUVASTATIN CA 20MG TAB Qty: 90 Sig: PENDING TAKE ONE TABLET BY MOUTH AT BEDTIME Refills: 0 Issue Date Status Last Fill Inactive Outpatient Medications Refills Expiration 1) ACETAMINOPHEN 325MG TAB Qty: 100 for 13 Issu:04-30-23 days Sig: TAKE TWO TABLETS BY MOUTH Refills: 0 Last:04-30-23 EVERY 4 HOURS NEEDED FOR PAIN Expr:05-30-23 2) DOCUSATE NA 50MG/SENNOSIDES 8.6MG TAB Issu:04-30-23 Qty: 30 for 30 days Sig: TAKE 1 Refills: 0 Last:04-30-23 TABLET BY MOUTH TWICE A DAY NEEDED Expr:05-30-23 FOR CONSTIPATION 3) LATANOPROST 0.005% OPH SOLN Qty: 7.5 Issu:05-12-22 for 75 days Sig: INSTILL 1 DROP IN Refills: 2 Last:02-25-23 BOTH EYES AT BEDTIME Expr:05-13-23 4) LEVOTHYROXINE NA (SYNTHROID) 137MCG TAB Issu:07-01-22 Qty: 90 for 90 days Sig: TAKE ONE Refills: 0 Last:05-31-23 TABLET BY MOUTH EVERY DAY ON AN EMPTY Expr:07-02-23 STOMACH 5) OXYCODONE 5MG TAB Qty: 10 for 3 days DISCONTINUED Issu:04-30-23 Sig: TAKE ONE TABLET BY MOUTH EVERY 6 Refills: 0 Last:04-30-23 HOURS NEEDED FOR PAIN Expr:05-30-23 6) ROSUVASTATIN CA 40MG TAB Qty: 45 for 90 DISCONTINUED Issu:05-31-23 days Sig: TAKE ONE-HALF TABLET BY (EDIT) Last:06-01-23 MOUTH AT BEDTIME Refills: 3 Expr:05-31-24 7) ROSUVASTATIN CA 40MG TAB Qty: 45 for 90 DISCONTINUED Issu:05-29-22 days Sig: TAKE ONE-HALF TABLET BY Refills: 0 Last:02-25-23 MOUTH AT BEDTIME Expr:05-30-23 Start Date Active Non-VA Medications Refills Expiration 1) Non-VA CHOLECALCIF 25MCG (D3-1,000UNIT) ACTIVE TAB SiUNIT MOUTH TWICE A DAY 2) Non-VA ZINC (FROM SULFATE) CAP,ORAL ACTIVE Si Total Medications PHYSICAL EXAM VS: Temp: 97.7 F [36.5 C] (08/17/2023 09:38) BP: 138/74 (08/17/2023 09:38) Pulse:50 (08/17/2023 09:38) Resp: 18 (08/17/2023 09:38) Pain: 0 (08/17/2023 09:38) Weight: WEIGHTS IN LAST 6 MONTHS - NONE FOUND General: Sitting in exam room, no acute distress Pulmonary: Clear to auscultation bilaterally, nonlabored breathing Cardiovascular: Regular rate and rhythm, no extra sounds Extremities: No lower extremity edema Skin: 4 mm rough area of skin suspicious for [place] left cheek LABS and STUDIES GLUCOSE: 95 UREA NITROGEN: 16 CREATININE: 0.8 SODIUM: 143 POTASSIUM: 4.2 CHLORIDE: 109 H CO2: 27 CALCIUM: 9.3 MAGNESIUM: 1.9 TSH: 0.83 ANION GAP: 7 SGOT(37C): 28 SGPT(37C): 22 CREATININE EGFR (CKD-EPI): >90 WBC: 5.26 RBC: 5.00 HGB: 15.2 HCT: 45.1 MCV: 90.2 MCH: 30.4 MCHC: 33.7 RDW: 12.8 PLT: 194 MPV: 10.1 /phoebe/ SILVESTRE MUNOZ MD PHYSICIAN, [facility] Signed: 08/17/2023 13:01 SILVESTRE MUNOZ [facility] Aug 17, 2023 09:41 AM INTERNAL MEDICINE OUTPATIENT NOTE: LOCAL TITLE: MEDICINE CLINIC NURSING NOTE STANDARD TITLE: INTERNAL MEDICINE OUTPATIENT NOTE DATE OF NOTE: AUG 17, 2023@09:41 ENTRY DATE: AUG 17, 2023@09:41:19 AUTHOR: RAVI,INGA L EXP COSIGNER: URGENCY: STATUS: COMPLETED TYPE OF VISIT: Appointment Check In Type of appointment: In-person appointment REASON FOR VISIT: annual check up ALLERGIES: Patient has answered NKA VITAL SIGNS: Blood Pressure: 138/74 (08/17/2023 09:38) Pulse: 50 (08/17/2023 09:38) Respiration: 18 (08/17/2023 09:38) Temperature: 97.7 F [36.5 C] (08/17/2023 09:38) Weight: 240.5 lb [109.09 kg] (08/17/2023 09:38) Height: 68 in [172.7 cm] (08/17/2023 09:38) BMI: 36.6 O2 Sat: 96% (08/17/2023 09:38) Pain: 0 (08/17/2023 09:38) PAIN SCREEN: Patient is not having significant pain that they wish to discuss with their provider today. MEDICATION Over the Counter/Herbal Medications: The patient states that they take some outside medications and/or herbals. COVID-19 Immunization: Refused Pfizer Monovalent COVID-19 vaccine Immunization: COVID-19 (PFIZER), MRNA, LNP-S, PF, LONNIE-SUCROSE, 30 MCG/0.3 ML (AGES 12+ YEARS) Refusal Reason: PATIENT DECISION Patient refuses all immunization(s) in the COVID-19 group Date Documented: 08/17/23 09:43 Suicide Screen: C-SSRS Screening [place] Suicide Severity Rating Scale (C-SSRS) screener 1. Over the past month, have you wished you were or wished you could go to sleep and not wake up? No 2. Over the past month, have you had any actual thoughts of killing yourself? No 3. Over the past month, have you been thinking about how you might do this? Response not required due to responses to other questions. 4. Over the past month, have you had these thoughts and had some intention of acting on them? Response not required due to responses to other questions. 5. Over the past month, have you started to work out or worked out the details of how to kill yourself? Response not required due to responses to other questions. 6. If yes, at any time in the past month did you intend to carry out this plan? Response not required due to responses to other questions. 7. In your lifetime, have you ever done anything, started to do anything, or prepared to do anything to end your life (for example, collected pills, obtained a gun, gave away valuables, went to the roof but didn't jump)? No 8. If YES, was this within the past 3 months? Response not required due to responses to other questions. Depression Screening: Perform PHQ-2 A PHQ-2 screen was performed. The score was 0 which is a negative screen for depression. Over the past two weeks, how often have you been bothered by the following problems? 1. Little interest or pleasure in doing things Not at all 2. Feeling down, depressed, or hopeless Not at all Alcohol Use Screen (AUDIT-C): Alcohol Screen: SCREEN FOR ALCOHOL (AUDIT-C) An alcohol screening test (AUDIT-C) was negative (score=2). 1. How often did you have a drink containing alcohol in the past year? Consider a drink to be a 12 ounce can or bottle of regular beer, 8 ounces of malt liquor, a 5 ounce glass of table wine, or a 1.5 ounce shot of liquor (like scotch, gin, or vodka). Two to four times a month 2. How many drinks containing alcohol did you have on a typical day when you were drinking in the past year? One or two drinks 3. How often did you have six or more drinks on one occasion in the past year? Never Nursing Annual Screening: Fall History Screen During the past 12 months, have you had any falls? Patient does not report any falls in the past 12 months. MEDICATIONS: Patient does not have an active prescription for one of the following medications: Antihypertensives, Antidepressants, Antipsychotics, Diuretics, or Opioid Analgesics (Contolled Substance medications used for pain). FALL RISK ADVICE: Fall Risk Advice provided. Handout entitled Fall Prevention At Home reviewed and given to patient and/or significant other. Script Talk Screen Are you able to read your prescription bottles with your glasses, magnifiers or other aids? Yes or patient not taking any prescriptions. Skin Screen Patient reports any current pressure ulcers, a history of pressure ulcers, or a wound from a medical chemist or Patient is bed-confined or a wheelchair-user or Patient requires assistance to transfer/change position No, Skin Screen is Negative Home Abuse/Violence Screen Is your home free of abuse and violence? Yes MOVE! Program Screen Body Mass Index (BMI)= 36.6 [place]: Collection DT Specimen Test Name Result Units Ref Range 07/01/2022 07:59 BLOOD !! HEMOGLOBIN A1C 5.6 % 4.0 - 6.0 !! Indicates COMMENTS AVAILABLE...Refer to Interim Lab Report. [place] Bernardo Hgb A1C: No data available [place] Hgb A1C: No data available Point of Care Hgb A1C: POC HGB A1C____ Outpatient Nutrition Screen Body Mass Index (BMI)= 36.6 [place]: Collection DT Specimen Test Name Result Units Ref Range 07/01/2022 07:59 BLOOD !! HEMOGLOBIN A1C 5.6 % 4.0 - 6.0 !! Indicates COMMENTS AVAILABLE...Refer to Interim Lab Report. [place] Hgb A1C: No data available [place] Hgb A1C: No data available Point of Care Hgb A1C: POC HGB A1C____ Is patient's BMI less than 18.5? No Does patient have swallowing, coughing, or chewing problems affecting oral intake? No Has patient experienced unplanned weight loss or gain greater than 10 pounds over the last 2 months? No Is patient's Hgb A1C (Glycosylated Hemoglobin) greater than 9.5? Information not available Is patient receiving Total Parenteral Nutrition (TPN) or Tube Feedings? No Patient Health Education Screen BARRIERS/SPECIAL NEEDS: Hearing limitations PREFERRED STYLE OF LEARNING: No preference stated Client Assistive Service (MARIA ISABEL) Screen Does the patient require assistance with outpatient visit? No Tobacco Use Screening: The patient is a former tobacco user. The patient quit fifteen or more years ago. Homelessness/Food Insecurity Screen: In the past 2 months, have you been living in stable housing that you own, rent, or stay in as part of a household? Yes - Living in stable housing. Are you worried or concerned that in the next 2 months you may NOT have stable housing that you own, rent, or stay in as part of a household? No - Not worried about housing near future [employer] reports the following: Within the past 12 months, you worried whether your food would run out before you got money to buy more. Never true Within the past 12 months, the food you bought just didn't last and you didn't have money to get more. Never true Food Insecurity Resources /es/ PAGE RODRIGUES LPN LICENSED PRACTICAL NURSE Signed: 08/17/2023 09:47 PAGE RODRIGUES [facility]
--- OUTSIDE RECORDS SUMMARY | 2024-01-26 23:15 | XMS_ITS | Encounter Summary ---
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 Organization [facility] Address [address] [place] [id number] Care Team Providers Care Sql Application Developer Name Role Phone ELIZ MUNOZ Primary Care Provider [facility] Insurance Providers: All historical and current [...] PART A Nov 01, 2011 PART A [id number] [phone] HUANGANANTH PATIENT MEDICARE (WNR) MEDICARE (M) PART B Nov 01, 2011 PART B [id number] [phone] REINAANANTH PATIENT Selected Encounter This section includes the information on record at [facility] for the Encounter. Date/Time Encounter Type Encounter Description Reason Provider Source Apr 30, 2023 07:26 AM Outpatient Encounter AMBULATORY LY MARQUEZ Kris Encounter Template Text not used by AL Plan of Treatment: Future Appointments (+ 6 months) and Future Tests (+/- 45 days) The Plan of Treatment section includes future care activities for the patient from all [facility] treatmentfacilities. This section includes future appointments and future orders which are active, pending or scheduled. Future Appointments This section includes appointments that were scheduled to occur 6 months from the date of the Encounter, up to a maximum of 20 appointments. The data comes from all [place] treatment facilities. Appointment Date/Time Appointment Type Appointme nt Facility Name May 19, 2023 03:15 PM [facility] May 25, 2023 01:00 PM [facility] [place] [facility] Aug 17, 2023 08:45 AM [facility] - NONE [place] [facility] Aug 17, 2023 09:45 AM [facility] Oct 19, 2023 12:23 PM [facility] Oct 19, 2023 02:18 PM [facility] - NONE [place] [facility] Oct 27, 2023 08:30 AM [facility] Oct 27, 2023 11:29 [facility] Lab Results: +/- 30 days of the [...] Range Comment Apr 30, 2023 07:14 AM [facility] CREATININE(INCLUDES EGFR) Specimen Type: PLASMA No comment entered. Ordering Provider: KAMLA FERRER Report Released Date/Time: Apr 30, 2023 07:19 AM Reporting Lab: [facility] [id number] Performing Lab: [facility] [id number] CREATININE 0.7 mg/dL 0.7-1.2 .CREAT EGFR(CKD-EPI ) >90 >60 Apr 30, 2023 07:14 AM [facility] UREA NITROGEN Specimen Type: PLASMA No comment entered. Ordering Provider: KAMLA FERRER Report Released Date/Time: Apr 30, 2023 07:19 AM Reporting Lab: [facility] [id number] Performing Lab: [facility] [id number] UREA NITROGEN 15 mg/dL 8-26 Apr 30, 2023 07:14 AM [facility] ELECTROLYTES/ANION GAP Specimen Type: PLASMA No comment entered. Ordering Provider: KAMLA FERRER Report Released Date/Time: Apr 30, 2023 07:19 AM Reporting Lab: [facility] [id number] Performing Lab: [facility] [id number] SODIUM 140 mmol/L 136-145 POTASSIUM 4.1 mmol/L 3.5-5.1 CHLORIDE 107 mmol/L 98-107 CO2 25 mmol/L 22-29 ANION GAP 8 mmol/L 5-15 Apr 30, 2023 07:14 AM [facility] CBC & DIFF Specimen Type: BLOOD Comment: Automated Differential Performed Ordering Provider: KAMLA FERRER Report Released Date/Time: Apr 30, 2023 07:19 AM Reporting Lab: [facility] [id number] Performing Lab: [facility] [id number] WBC 6.08 10*3/uL 4.0-11.0 RBC 4.81 10*6/uL [...] 10*3/uL 0-0.1 Apr 09, 2023 11:19 AM [facility] BASIC METABOLIC PANEL+MG Specimen Type: PLASMA No comment entered. Ordering Provider: BERNIE LIN Report Released Date/Time: Apr 09, 2023 11:00 AM Reporting Lab: [facility] [id number] Performing Lab: [facility] [id number] CREATININE 0.8 mg/dL 0.7-1.2 UREA NITROGEN 14 mg/dL 8-26 GLUCOSE 96 mg/dL 70-100 SODIUM 140 mmol/L 136-145 POTASSIUM 4.3 mmol/L 3.5-5.1 CHLORIDE 109 mmol/L H 98-107 CO2 27 mmol/L 22-29 CALCIUM 9.0 mg/dL 8.4-10.2 MAGNESIUM 2.0 mg/dL 1.6-2.6 ANION GAP 4 mmol/L L 5-15 .CREAT EGFR(CKD-EPI ) >90 >60 Apr 09, 2023 11:19 AM [facility] CBC Specimen Type: BLOOD No comment entered. Ordering Provider: BERNIE LIN Report Released Date/Time: Apr 09, 2023 11:00 AM Reporting Lab: [facility] [id number] Performing Lab: [facility] [id number] WBC 6.71 10*3/uL 4.0-11.0 RBC 4.82 10*6/uL [...] and tobacco- related health factors from the AL facility where the Encounter took place. Current Smoking Status This section includes the most current smoking, or tobacco-related health factor, from the [facility] facility where the Encounter took place. Date/Time Current Smoking Status Comment Priya ity Jul 01, 2022 08:45 AM VA-TOBACCO FORMER USER [facility] Tobacco Use History This section includes a history of the smoking, or tobacco-related health factors, that were collected on or before the date of the Encounter. The data comes from the [place] facility where the Encounter took place. Date/Time Smoking Status/Tobacco Use Comment F acility Jul 01, 2022 08:45 AM VA-TOBACCO QUIT 15 YRS OR MORE [facility] May 22, 2021 09:00 AM VA-TOBACCO FORMER USER [facility] May 22, 2021 09:00 AM VA-TOBACCO QUIT 15 YRS OR MORE [facility] Mar 29, 2020 07:42 AM VA-TOBACCO FORMER USER [facility] Mar 29, 2020 07:42 AM VA-TOBACCO QUIT 15 YRS OR MORE [facility] Mar 06, 2019 12:00 PM VA-TOBACCO FORMER USER [facility] Mar 06, 2019 12:00 PM VA-TOBACCO QUIT 15 YRS OR MORE [facility] Oct 23, 2018 11:20 AM INPT NO TOBACCO USE IN LAST 30 D [facility] Jun 15, 2018 09:25 AM VA-TOBACCO FORMER USER [facility] Jun 15, 2018 09:25 AM VA-TOBACCO QUIT 15 YRS OR MORE [facility] Jun 25, 2017 04:05 PM INPT NO TOBACCO USE IN LAST 30 D [facility] Apr 26, 2017 08:03 AM FORMER TOBACCO USER 7Y OR GREATE R [facility] Jan 04, 2017 11:27 AM INPT NO TOBACCO USE IN LAST 30 D [facility] May 13, 2016 10:42 AM LIFETIME NON-TOBACCO USER [facility] Jun 04, 2015 06:17 AM INPT NO TOBACCO USE IN LAST 30 D [facility] Apr 23, 2015 09:14 AM FORMER TOBACCO USER 7Y OR GREATE R [facility] Jan 19, 2014 09:40 AM FORMER TOBACCO USER 7Y OR GREATE R [facility] December 09, 2010 12:08 PM FORMER TOBACCO USER 7Y OR GREATE R [facility] Advance Directives: All historical and current [...] Jun 25, 2017 CLINICAL WARNING MADHAVI CASTILLO [facility] Jan 04, 2017 CLINICAL WARNING DIGNA CASTELLANOS [facility] Sep 26, 2014 CLINICAL WARNING SHEREEN LAUREANO [facility]
--- OUTSIDE RECORDS SUMMARY | 2024-01-26 23:15 | XMS_ITS | Encounter Summary ---
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 Organization [facility] Address [address] [place] [id number] Care Team Providers Care Senior Mechanical Engineer Name Role Phone ELIZ MUNOZ Primary Care Provider [facility] e Insurance Providers: All historical [...] PART A Nov 01, 2011 PART A [id number] [phone] ANANTH HUANG PATIENT MEDICARE (WNR) MEDICARE (M) PART B Nov 01, 2011 PART B [id number] [phone] ANANTH HUANG PATIENT Selected Encounter This section includes the information on record at [place] for the Encounter. Date/Time Encounter Type Encounter Description Reason Provider Source Oct 19, 2023 12:23 PM EMERGENCY DEPT VISIT [facility] EMERGENCY DEPT ICD-10-CM R07.9 Chest pain, unspecified FIGUEROA RUFF Kris Encounter Template Text not used by [place] Assessments - Encounter Diagnoses This section includes the primary and secondary diagnoses documented for the Encounter. 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 This section includes future appointments and future orders which are active, pending or scheduled. Future Appointments This section includes appointments that were scheduled to occur 6 months from the date of the Encounter, up to a maximum of 20 appointments. The data comes from all [facility]. Appointment Date/Time Appointment Type Appointme nt Facility Name Oct 27, 2023 08:30 AM AMBULATORY - NONE [facility] Oct 27, 2023 11:29 AM AMBULATORY - MEDICINE [facility] Nov 15, 2023 01:40 PM AMBULATORY - REHAB MEDICIN E [facility] Nov 16, 2023 10:30 AM AMBULATORY - MEDICINE [facility] Active, Pending, and Scheduled Orders This section includes a listing of several types of active, pending, and scheduled orders, including clinic medications orders, diagnostic test orders, procedure orders and consult orders; where the start date of the order is 45 days before the date of the Encounter or 45 days after the date of theEncounter. The data comes from all [facility]. Test Date/Time Test Type Test Details Facility Name Oct 19, 2023 03:51 PM Laboratory - Chemi stry Order TROPONIN I, HS PLASMA STAT WC ONCE [facility] Lab Results: +/- 30 days of the encounter This section includes the Chemistry and Hematology Lab Results on record with MA for the patient. Radiology Reports and Pathology Reports are provided separately, in subsequent sections. Lab Results This section contains the Chemistry/Hematology Results that were resulted 30 days before or 30 daysafter the date of the Encounter. Date/Time Source Result Type Result - Unit Interpretation Reference Range Comment Oct 19, 2023 04:08 PM [facility] TROPONIN I, HS Specimen Type: PLASMA No comment entered. Ordering Provider: FIGUEROA RUFF Report Released Date/Time: Oct 19, 2023 03:51 PM Reporting Lab: [facility] [id number] Performing Lab: [facility] [id number] TROPONIN I, HS <3 <35 Oct 19, 2023 01:00 PM [facility] TROPONIN I, HS Specimen Type: PLASMA No comment entered. Ordering Provider: FIGUEROA RUFF Report Released Date/Time: Oct 19, 2023 01:29 PM Reporting Lab: [facility] [id number] Performing Lab: [facility] [id number] TROPONIN I, HS <3 <35 Oct 19, 2023 01:00 PM [facility] PROTHROMBIN TIME/INR Specimen Type: PLASMA No comment entered. Ordering Provider: FIGUEROA RUFF Report Released Date/Time: Oct 19, 2023 01:29 PM Reporting Lab: [facility] [id number] Performing Lab: [facility] Oct 19, 2023 01:00 PM [facility] BNP Specimen Type: PLASMA No comment entered. Ordering Provider: FIGUEROA RUFF Report Released Date/Time: Oct 19, 2023 01:29 PM Reporting Lab: [facility] [phone] Performing Lab: [facility] [id number] BNP 30 pg/mL <99 Oct 19, 2023 01:00 PM [facility] EXTRA GOLD GEL TUBE Specimen Type: SERUM No comment entered. Ordering Provider: FIGUEROA RUFF Report Released Date/Time: Oct 19, 2023 01:35 PM Reporting Lab: [facility] [id number] Performing Lab: [facility] [phone] EXTRA GOLD GEL TUBE RECEIVED Oct 19, 2023 01:00 PM [facility] ACT PART THROMBO TIME Specimen Type: PLASMA No comment entered. Ordering Provider: FIGUEROA RUFF Report Released Date/Time: Oct 19, 2023 01:29 PM Reporting Lab: [facility] [phone] Performing Lab: [facility] [address] APTT 35.2 s 25.1-36.5 Oct 19, 2023 01:00 PM [facility] BASIC METABOLIC PANEL+MG Specimen Type: PLASMA No comment entered. Ordering Provider: FIGUEROA RUFF Report Released Date/Time: Oct 19, 2023 01:29 PM Reporting Lab: [facility] [id number] Performing Lab: [facility] [address] CREATININE 0.8 mg/dL 0.7-1.2 UREA NITROGEN 18 mg/dL 8-26 GLUCOSE 98 mg/dL 70-100 SODIUM 142 mmol/L 136-145 POTASSIUM 4.2 mmol/L 3.5-5.1 CHLORIDE 107 mmol/L 98-107 CO2 25 mmol/L 22-29 CALCIUM 9.5 mg/dL 8.4-10.2 MAGNESIUM 1.9 mg/dL 1.6-2.6 ANION GAP 10 mmol/L 5-15 .CREAT EGFR(CKD-EPI) >90 >60 Oct 19, 2023 01:00 PM [facility] CBC & DIFF Specimen Type: BLOOD Comment: Automated Differential Performed Ordering Provider: FIGUEROA RUFF Report Released Date/Time: Oct 19, 2023 01:29 PM Reporting Lab: [facility] [phone] Performing Lab: [facility] [address] WBC 7.22 10*3/uL 4.0-11.0 RBC 5.12 10*6/uL [...] Pain Height Weight Body Mass Index Source Oct 19, 2023 12:32 PM 97.6 53 166/82 94 [facility] Social History: Smoking Status (Most current) and Tobacco Use (All prior to encounter date) This section includes the most current, and the historical, smoking and tobacco- related health factors from the [place] facility where the Encounter took place. Current Smoking Status This section includes the most current smoking, or tobacco-related health factor, from the [place] facility where the Encounter took place. Date/Time Current Smoking Status Comment Facil ity Aug 17, 2023 09:45 AM VA-TOBACCO QUIT 15 YRS OR MORE [facility] Tobacco Use History This section includes a history of the smoking, or tobacco-related health factors, that were collected on or before the date of the Encounter. The data comes from the [place] facility where the Encounter took place. Date/Time Smoking Status/Tobacco Use Comment F acility Aug 17, 2023 09:45 AM VA-TOBACCO QUIT 15 YRS OR MORE [facility] Jul 01, 2022 08:45 AM VA-TOBACCO FORMER USER [facility] Jul 01, 2022 08:45 AM VA-TOBACCO QUIT 15 YRS OR MORE [facility] May 22, 2021 09:00 AM VA-TOBACCO FORMER USER [facility] May 22, 2021 09:00 AM VA-TOBACCO QUIT 15 YRS OR MORE [facility] Mar 29, 2020 07:42 AM VA-TOBACCO FORMER USER [facility] Mar 29, 2020 07:42 AM VA-TOBACCO QUIT 15 YRS OR MORE [facility] Mar 06, 2019 12:00 PM VA-TOBACCO FORMER USER [facility] Mar 06, 2019 12:00 PM VA-TOBACCO QUIT 15 YRS OR MORE [facility] Oct 23, 2018 11:20 AM INPT NO TOBACCO USE IN LAST 30 D [facility] Jun 15, 2018 09:25 AM VA-TOBACCO FORMER USER [facility] Jun 15, 2018 09:25 AM VA-TOBACCO QUIT 15 YRS OR MORE [facility] Jun 25, 2017 04:05 PM INPT NO TOBACCO USE IN LAST 30 D [facility] Apr 26, 2017 08:03 AM FORMER TOBACCO USER 7Y OR GREATE R [facility] Jan 04, 2017 11:27 AM INPT NO TOBACCO USE IN LAST 30 D [facility] May 13, 2016 10:42 AM LIFETIME NON-TOBACCO USER [facility] Jun 04, 2015 06:17 AM INPT NO TOBACCO USE IN LAST 30 D [facility] Apr 23, 2015 09:14 AM FORMER TOBACCO USER 7Y OR GREATE R [facility] Jan 19, 2014 09:40 AM FORMER TOBACCO USER 7Y OR DELROYE R [facility] December 09, 2010 12:08 PM FORMER TOBACCO USER 7Y OR DANTE R [facility] Advance Directives: All historical and current Section Date Range: From patient's date of to the date document was created. This section includes ALL of a patient's completed or amended [place] Advance and Rescinded Directives. The entries below indicate that a directive exists for the patient, but an actual copy is not included with this document. The data comes from all [place] facilities. Date Advance Directives Provider Source Jun 25, 2017 CLINICAL WARNING MADHAVI CASTILLO [facility] Jan 04, 2017 CLINICAL WARNING DIGNA CASTELLANOS [facility] Sep 26, 2014 CLINICAL WARNING SHEREEN LAUREANO [facility] Radiology Reports: +/- 30 days of the [...] the Encounter. The data comes from all [place] treatment facilities. Date/Time Radiology Report Provider Source Oct 27, 2023 08:10 AM CHEST PAIN PATHWAY (ED ONLY) (P): ANANTH HUANG [id number] -1945 [facility] Date: OCT 27, 2023@08:10 Req Phys: FIGUEROA RUFF Loc: [facility] [place]GENC[facility] [facility] [place] [facility] [place] MED Service: Unknown (Case [id number] COMPLETE) MYOCARDIAL PERFUSION (SPECT)-MULT(NM Detailed) CPT:54560 Reason for Study: Chest Pain Pathway (Case 1050 COMPLETE) TC-99M SESTAMIBI (CARDIOLITE), PE(NM Detailed) CPT:A9500 (Case 1051 COMPLETE) CARDIOVASCULAR STRESS TEST (NM Detailed) CPT:86141 Clinical History: Myocardial perfusion stress test for chest pain [place] IS NOT under investigation for COVID-19 or is COVID-19 negative chest pain Responsible provider name and phone number to notify for critical findings if other than user placing the order and pager listed below: User placing orders pager: [phone] ER LAST CREATININE 0.8 (10/19/23) Report Status: Verified Date Reported: OCT 27, 2023 Date Verified: OCT 27, 2023 Lecturer In Computer Science E-Sig:/ES/GOLD VEGA MD Report: Regadenoson myocardial perfusion [...] Staff: GOLD VEGA MD, RADIOLOGY STAFF PHYSICIAN (Maxine) /GOLD RUIZ [facility] Oct 19, 2023 02:14 PM CTA (CAP) DISSECTI ON (P): ANANTH HUANG [id number] -1945 M Ex Date: OCT 19, 2023@14:14 Req Phys: FIGUEROA RUFF Loc: [facility]GENCY [facility] [place] [facility] [place] Service: Unknown (Case [id number] COMPLETE) CTA (CAP) CHEST W/ & W/O CONTRAST(CT Detailed) CPT:30478 Reason for Study: sharp chest pain (Case 1150 COMPLETE) CTA (CAP) ABDOMEN/PELVIS W/ & W/O(CT Detailed) CPT:53747 Clinical History: sharp chest pain, sudden onset, [...] PLASMA .CREAT EGFR(CKD-E >90 Ref: >=60 Allergies: ([place] only) Patient has answered NKA Defer to radiologist for final CT protocol. Contact number for responsible provider who can be reached for any questions or notifications of critical findings: ER Ruff Per Joint Commission Standards, by signing this diagnostic imaging request the ordering provider confirms they have considered patients age and recent imaging history. Report Status: Verified Date Reported: OCT 19, 2023 Date Verified: OCT 19, 2023 Lecturer In Computer Science E-Sig:/ES/GURDEEP MORFIN MD Report: CHEST/ABDOMEN/PELVIS CTA AND [...] Primary Interpreting Staff: GURDEEP MORFIN MD, RADIOLOGIST (Lecturer In Computer Science) Primary Interpreting Resident: SULMA BRADY MD, PIPE PROCESSOR /GURDEEP DRAPER [facility] Oct 19, 2023 01:36 PM CHEST 1 VIEW: ANANTH HUANG [id number] -1945 M Ex Date: OCT 19, 2023@13:36 Req Phys: FIGUEROA RUFF Loc: [facility] EMERGENCY DEPT WALK-IN (Re Img Loc: MAIN X-RAY Service: Unknown (Case [id number] COMPLETE) CHEST 1 VIEW (RAD Detailed) CPT:46358 Proc Modifiers : PORTABLE EXAM Reason for Study: chest pain Clinical History: IS NOT under investigation for COVID-19 or is COVID-19 negative chest pain Responsible provider name and phone number to notify for critical findings if other than user placing the order and pager listed below: User placing orders pager: [phone] jeronimo ruff LAST CREATININE 0.8 (08/17/23) Report Status: Verified Date Reported: OCT 19, 2023 Date Verified: OCT 19, 2023 Lecturer In Computer Science E-Sig:/ES/MIRIAM CAIN MD Report: EXAMINATION: CHEST 1 VIEW 10/19/2023 1:36 PM INDICATION: chest pain Impression: Heart size is enlarged or at the upper limits of normal. Pulmonary vascularity within normal limits. No pulmonary infiltrate or pleural effusion. Calcification aorta. Old healed right rib fractures. Old healed clavicular fractures. Degenerative changes thoracic spine. Primary Interpreting Staff: MIRIAM CAIN MD, RADIOLOGIST (Maxine) /RTS MIRIAM CAIN [facility] Encounter Notes: All associated encounter notes This section contains the clinical notes associated to the Encounter. Date/Time Encounter Note(s) Provider Source Oct 19, 2023 05:22 PM EMERGENCY DEPT EDUCATION NOTE: LOCAL TITLE: EMERGENCY DEPT DISCHARGE INSTRUCTIONS STANDARD TITLE: EMERGENCY DEPT EDUCATION NOTE DATE OF NOTE: OCT 19, 2023@17:22:29 ENTRY DATE: OCT 19, 2023@17:22:29 AUTHOR: FIGUEROA RUFF COSIGNER: URGENCY: STATUS: COMPLETED DISCHARGE INSTRUCTIONS IMPORTANT: We examined and treated you today on an emergency basis only. This was not a substitute for, or an effort to provide, comprehensive medical care. In most cases, you must let your healthcare provider check you again. Tell your healthcare provider about any new or lasting problems. We cannot recognize and treat all injuries or illnesses in one Emergency Department visit. After you leave, you should follow the instructions below. You were treated today by Figueroa Ruff MD. Special Information You may take acetaminophen, apply Diclofenac topical and lidocaine patches as directed for pain. Scheduling will contact you for outpatient stress test scheduling Return to the ER if you develop worsening pain, any numbness, weakness, difficulty breathing, new/concerning symptoms or other issues arise This Information Is About Your Follow Up Care We recommend that you follow up with your Primary Care Team to have an appointment within the next 1 - 2 weeks. Call to arrange this appointment. If you are not feeling better and improving as discussed or if you have any questions please contact your Primary Care Provider. Future Appointments [none] This Information Is About Your Illness and Diagnosis NECK PAIN Neck pain can be short-lasting (acute) or long-lasting (chronic). When disc and joint damage aren't the obvious causes of neck problems, other sources of neck pain involve the ligaments, nerves and muscles in the neck, back and shoulders. Neck pain may be due to injury, repetitive movements, or prolonged wear and tear. Treatment for neck pain depends on the cause. Most general neck pain is relieved with rest, immobilization (holding the neck still with a neck collar), reduced activities, physical therapy and medicine. At home, please follow these instructions: -Rest your neck more than usual for the next few days. -Reduce inflammation by applying an ice pack for up to 20 minutes several times a day. Alternate ice with heat. Take a warm shower or use a heating pad on the low setting. Heat can help relax sore muscles, but doesn't reduce inflammation. If you've had a neck injury, wait to use heat for several days until the inflammation has decreased. -Take the pain and/or anti-inflammatory medicine as prescribed by the doctor. -Once the pain has lessened, slowly resume your normal activities. -Do not lift heavy objects until the pain is gone. -Avoid any activity that causes pain. -Consider your posture when walking, sitting and resting. Keep your head in a neutral position. Try not to slouch, hunch over or lean into your work. -Try some gentle stretching exercises for your neck: -Gently move your neck to one side and hold it for 30 seconds. -Stretch your neck in as many directions. Stop when you start to feel pain. -At work, take frequent breaks to stretch your neck. Call your doctor if you: -have pain along with a headache, numbness, weakness or tingling. -have pain that is worse or severe. -have pain that radiates down your arms or legs. -have any new symptoms or concerns. CHEST PAIN PATHWAY DISCHARGE INSTRUCTIONS You have been evaluated in the emergency department for chest pain considered to be low risk for cardiac (heart) etiology and placed on an expedited testing pathway. During your stay in the emergency department, you have had a negative cardiac heart evaluation with laboratory testing and electrocardiogram(s)/EKG(s). The next step in this evaluation is a stress test in nuclear medicine radiology to be completed within 3-4 days. Please call Nuclear Medicine at [phone] to schedule the appointment to be completed within 3-4 days of the emergency department visit. For a nuclear medicine stress test, please follow these instructions regarding caffeine and medications: -24 hours prior to study - No caffeine including: -Coffee (regular and decaf) -Tea (regular and decaf) -Pop/soda (regular and decaf) -Chocolate -48 hours prior to study - No methylxanthine or dipyridamole (Aggrenox) If you do not hear from the testing location during the next business day, please call [phone] to inquire about the appointment. On the day of the stress test, after the stress test is completed, you should return to the emergency department quick look desk for triage and registration of a walk in appointment to review the results of the stress test with an emergency department provider. If you have recurrent chest pain symptoms that are worsening or evolving then please seek immediate medical emergency care. This is Information About Your New Medications - Start taking as prescribed. LIDOCAINE TOPICAL (DermaFlex, Solarcaine, Lidocaine 5%) Take this medicine as directed. WARNING: An overdose of this medicine can cause fatal side effects () if too much of the medicine is absorbed through your skin and into your blood. In addition, do not use this medicine in your eyes. Lidocaine gel or ointment is used on the skin and mucus membranes (inner surfaces of the nose and mouth) to relieve pain and itching, or to numb an area. This medicine may be used for scrapes, sunburn, blisters, insect bites, minor cuts or [place]. This medicine may be used for other reasons, as prescribed by your doctor. Side effects may include redness or irritation. At home, please follow these instructions: -Use this medicine exactly as prescribed. Do not cover the treated skin areas with a bandage or plastic wrap without talking with your doctor. -If you use this medicine on your tongue or on the surface of your mouth: -Do not eat or drink anything for an hour after applying the medicine. You will have an increased risk of choking. -Do not chew gum when your tongue or mouth are numb. You will have an increased risk of biting your tongue. -Do not apply this medication to swollen skin areas or deep puncture wounds. Avoid using the medicine on skin that is raw or blistered, such as a severe burn or abrasion. -To apply the medicine to your skin: -Before applying the lidocaine to your skin, dry the affected area of skin with a clean cloth. -Then apply the medicine. The medicine should dry, forming a clear film, after about 1 minute. -Store this medicine away from heat, moisture or direct light. -Keep this medicine out of reach of children and pets. This medicine can be very dangerous if swallowed. -If it is time for your next scheduled dose and you are not having pain or discomfort, do not use the medicine. Do not apply double doses. -Talk with your doctor before applying any other lotions or medicines (including herbals). Call your doctor if you have: -develop a rash or have increased pain or itching around the affected area. -no improvement within 1 week. -any new or bothersome symptoms. DICLOFENAC TOPICAL GEL (Voltaren Topical Gel, Pennsaid, Solaraze) Take this medicine as directed. This medicine is a nonsteroidal anti-inflammatory drug (NSAIDs). It works by reducing hormones that cause pain and inflammation in the body. It is used to treat joint pain in the knees, ankles, feet, hands, wrists, and elbows. This medicine may not relieve pain due to osteoarthritis in other joints in the body. This medicine may be used for other reasons, as prescribed by your health care provider. Side effects may include: -upset stomach -nausea -diarrhea -itching, dryness, redness, scaling on the skin where the gel was applied Other side effects may occur, but are not as common. Allergy would show up as rash or itching, swelling of your tongue or throat, wheezing or shortness of breath. At home, please follow these instructions: -Avoid drinking alcohol during treatment with this medicine. It can increase your chance of stomach bleeding. -Do not use make-up, perfume, sunscreen, lotions, insect repellant, or other medicated skin products on the same area you treat with the gel. -Do not get this medicine in your mouth, nose, or eyes. If this does happen, rinse with water right away. -Protect your treated area of skin from the sun and tanning beds. -Do not use this medicine on an open skin wound or on areas of eczema, infection, skin rash, or a burn injury. -Do not cover the treated skin with a bandage. -Do not apply heat to the treated area. Examples of heat may include a hot tub, heating pad, or sauna. Heat or bandaging can increase the amount of drug you absorb through your skin. This may cause harmful effects. -Wash your hands after applying the gel, unless you are treating the skin on your hands. -After you apply the gel, wait at least 10 minutes before dressing and at least 1 hour before bathing or showering. -If you are applying the gel to your hands, spread the gel out onto all areas of the hand including the fingers and palms. Do not wear gloves for at least 10 minutes after applying it. -To treat arthritis pain in the foot, spread the gel onto all areas of your foot including the toes and soles. -Do not take aspirin, ibuprofen, or any other NSAIDs by mouth during treatment with this medicine. -Store this medicine at room temperature away from moisture and heat. Do not freeze it. -If you miss a dose, apply the missed dose as soon as you remember it. Skip the missed dose if it is almost time for your next scheduled dose. Do not use extra medicine to make up for the missed dose. -Talk with your health care provider before taking any lhbg-nzf-mnowyxl medicines (including vitamins and herbal supplements) as you may require additional monitoring. Contact your health care provider immediately or go to the Emergency Department if you have: -any signs of allergy. -slurred speech. -weakness or numbness on one side of your body. -chest pain or shortness of breath. -sudden, severe stomach pain. -skin rash or blisters with a fever. -blood in your vomit or bowel movements (bright red, black or tar-like). Contact your health care provider as soon as possible if you have: -changes in your vision or headache. -swelling in your legs or feet. -any signs of infection: fever, throat pain, unusual weakness, or general aches. -any new or bothersome symptoms. ACETAMINOPHEN (Tylenol, others) Take this medicine as directed. Do not take more than 3000 mg of acetaminophen in 24 hours. Acetaminophen is used to reduce fevers and relieve pain. Unlike aspirin and ibuprofen, acetaminophen does not reduce inflammation (redness and swelling). Acetaminophen may be used for other reasons, as prescribed by the doctor. Side effects are rare, but may include an upset stomach or skin rash. Allergy would show up as: facial or throat swelling, wheezing or shortness or breath. At home, please follow these instructions: -Be aware that the dosage recommendation for extra-strength acetamimophen (500 mg tablet/capsule) has changed. It now recommends taking extra-strength acetaminophen every 6 hours (used to be every 4 to 6 hours). -Read the labels on non-prescription cough and cold medicines. Many contain acetaminophen. Do not take any medicines that contain additional acetaminophen when you are already taking acetaminophen. -Take this medicine exactly as prescribed. Do not take more of this medicine or use it more frequently than prescribed. Too much acetaminophen in your body can cause liver damage. -If you use rectal suppositories, keep them in a cool place. Take off the cheese wrapper just before putting the medicine in your rectum. -Talk with your health care provider before taking any new medicines (including vitamins and herbals) while you are being treated with this medicine. You may require additional monitoring. -Never give adult medicines to children. -In case of an accidental overdose of acetaminophen, go to the Emergency Department right away. A large overdose of acetaminophen can cause liver damage and . -If you are diabetic, know that acetaminophen can cause false blood sugar results. Talk with your health care provider if you notice any changes in blood sugar tests. -Store this medicine at room temperature, away from heat, moisture, and direct light. Keep it out of reach of children. Contact your health care provider immediately if you have: -any sign of allergy. -signs of an acetaminophen overdose: -diarrhea -loss of appetite, nausea and vomiting -severe stomach pain -increased sweating Contact your health care provider as soon as possible if you have any new or bothersome symptoms. IMPORTANT MEDICATION INFORMATION -Your medication list includes any medications that were recently prescribed but not filled by the Pharmacy (PENDING Medicines). -Included are any known ACTIVE Medicines. Please review this list to make sure it is accurate, if this list does not match the current medications you are taking please follow-up with your Primary Care Team to have your Medication List reviewed. Pending Medications ACETAMINOPHEN 500MG TAB \ Sig: TAKE TWO TABLETS BY MOUTH EVERY 8 HOURS NEEDED\Indication: FOR PAIN DICLOFENAC NA 1% TOP GEL \ Sig: APPLY 4 GRAMS TOPICALLY FOUR TIMES A DAY NEEDED\Indication: TO AFFECTED AREA FOR PAIN LIDOCAINE 5% PATCH \ Sig: APPLY 1 PATCH TOPICALLY EVERY DAY NEEDED\Indication: FOR UP TO 12 HOURS FOR PAIN Active Medications CHOLECALCIFEROL TAB 2000UNIT MOUTH TWICE A DAY (Non-VA Medication) DABIGATRAN ETEXILATE 150MG ORAL CAP UD TAKE ONE CAPSULE BY MOUTH EVERY 12 HOURS TO PREVENT STROKE DUE TO ATRIAL FIBRILLATION DORZOLAMIDE HCL 2% OPH SOLN INSTILL 1 DROP IN OPTHALMICALLY THREE TIMES A DAYFOR AFFECTED EYE(S) LATANOPROST 0.005% OPH SOLN INSTILL 1 DROP EVERY DAY AT BEDTIME IN AFFECTED EYE(S) LEVOTHYROXINE NA (SYNTHROID) 137MCG TAB TAKE ONE TABLET BY MOUTH EVERY DAY ON AN EMPTY STOMACH ROSUVASTATIN CA 20MG TAB TAKE ONE TABLET BY MOUTH AT BEDTIME FOR CHOLESTEROL ZINC (FROM SULFATE) CAP,ORAL (Non-VA Medication) Medications Medications in the last 90 days [none] YOU ARE THE MOST IMPORTANT FACTOR IN YOUR RECOVERY. Follow the above instructions carefully. Take your medicines as prescribed. If you do not understand any of your medicines, please ask questions. If you have any outstanding tests from the emergency department, please contact your provider to review them in the next 3-5 days. If you have new symptoms, feel worse, or are not getting better as discussed, call to discuss your health questions and arrange for follow-up care, or return to the Emergency Room IF YOU ARE EXPERIENCING A MEDICAL EMERGENCY CALL 911 OR GO TO THE NEAREST EMERGENCY ROOM // FIGUEROA RUFF MD, FACE EMERGENCY MEDICINE STAFF PHYSICIAN Signed: 10/19/2023 17:22 FIGUEROA RUFF [facility] Oct 19, 2023 02:46 PM RADIOLOGY NOTE: LOCAL TITLE: RADIOLOGY CONTRAST NOTE STANDARD TITLE: RADIOLOGY NOTE DATE OF NOTE: OCT 19, 2023@14:46 ENTRY DATE: OCT 19, 2023@14:46:04 AUTHOR: CATHI SALGUERO EXP COSIGNER: URGENCY: STATUS: COMPLETED Medical History: Previous reaction to IV contrast or Iodine(excluding topical): No Labs: Collection DT Specimen Test Name Result Units Ref Range 10/19/2023 13:00 PLASMA CREATININE 0.8 mg/dL 0.7 - 1.2 10/19/2023 13:00 PLASMA .CREAT EGFR(CKD-E >90 Ref: >=60 Exam Preparation: Consent obtained: Verbal informed consent Yes Contrast Administration: Adminstered IV contrast per CT protocol/MRI protocol IV non-ionic iodinated contrast media with saline flush Omnipaque 350 120 ml /es/ TAI JOSE M RT(R)(CT) DIAGNOSTIC ASSOCIATE PROFESSOR OF LIBRARY SCIENCE Signed: 10/19/2023 14:46 CATHI SALGUERO [facility] Oct 19, 2023 01:29 PM PHYSICIAN EMERGENCY DEPT NOTE: LOCAL TITLE: EMERGENCY DEPT NOTE STANDARD TITLE: PHYSICIAN EMERGENCY DEPT NOTE DATE OF NOTE: OCT 19, 2023@13:29 ENTRY DATE: OCT 19, 2023@13:30:03 AUTHOR: FIGUEROA RUFF EXP COSIGNER: URGENCY: STATUS: COMPLETED EMERGENCY DEPT NOTE Has ADDENDA Nurse's note reviewed as available. PT reports episode of left sided chest pain ten minutes prior to arrival that radiated into left neck and arm. Denies LING or blurred vision. Denies CP on exam. (PPE): MD used PPE during every encounter with the patient CC: Intermittent chest pain HPI: ANANTH HUANG is a 77 yo MALE with H/O A. fib status post ablation, on chronic anticoagulation, EDGAR, CAD, as below presents w c/o abrupt onset sharp retrosternal chest pain radiating to left shoulder and anterior neck yesterday evening while sitting in his recliner chair watching television. Episode lasted 30 minutes. Denies associated symptoms. The pain seem worse with palpation of his left anterior chest wall. He denies other known factors that provoke or relieve the pain. Today while he was exerting himself completing chores, he had a similar episode of chest pain with radiation as above that lasted 30 minutes. Patient also had third episode of similar chest pain with onset 10 minutes prior to arrival that resolved shortly after rooming in the ER. Patient's heart rate is noted to be in 40s and 50s in the ED. Patient states this is his baseline heart rate. ROS: in addition, denies FCS, dyspnea, n/v/d, bleeding, cough, paresthesia, numbness, weakness or recent injury. No pleuritic pain, no calf pain Comprehensive ROS o/w negative for pertinent acute symptoms. PMH: Active problems - Computerized Problem List is the source for the followin. Obstructive sleep apnea of adult (SNOMED CT [id number]) - ON CPAP 2. Anticoagulation 3. Hypothyroid 4. Paroxysmal atrial fibrillation - s/p PVI x2, most recently 06/2019 5. colonoscopy screening - normal colonoscopy 09/2018, next 09/2028 6. Glaucoma 7. Exposure to potentially hazardous substance 8. CAD - Coronary Artery Disease ([facility] [id number]) - Mild, nonobstructive CAD on coronary CTA 06/2022 9. Cervical Radiculopathy ([facility] [id number]) - S/p JOSH 09/2022 Allergies: Patient has answered NKA Allergies, SH, medications reviewed in CPRS Active Outpatient Medications (excluding Supplies): Outpatient Medications Status 1) DABIGATRAN ETEXILATE 150MG ORAL CAP UD TAKE ONE ACTIVE CAPSULE BY MOUTH EVERY 12 HOURS TO PREVENT STROKE DUE TO ATRIAL FIBRILLATION 2) DORZOLAMIDE HCL 2% OPH SOLN INSTILL 1 DROP IN ACTIVE OPTHALMICALLY THREE TIMES A DAY FOR AFFECTED EYE(S) 3) LATANOPROST 0.005% OPH SOLN INSTILL 1 DROP EVERY DAY ACTIVE AT BEDTIME IN AFFECTED EYE(S) 4) LEVOTHYROXINE NA (SYNTHROID) 137MCG TAB TAKE ONE ACTIVE TABLET BY MOUTH EVERY DAY ON AN EMPTY STOMACH 5) ROSUVASTATIN CA 20MG TAB TAKE ONE TABLET BY MOUTH AT ACTIVE BEDTIME FOR CHOLESTEROL Non-VA Medications Status 1) Non-VA CHOLECALCIF 25MCG (D3-1,000UNIT) TAB 2000UNIT ACTIVE MOUTH TWICE A DAY 2) Non-VA ZINC (FROM SULFATE) CAP,ORAL ACTIVE 7 Total Medications SH: FH: Exam Temp : 97.6 F [36.4 C] (10/19/2023 12:32) P : 53 (10/19/2023 12:32) RR : 18 (08/17/2023 09:38) B/P : 166/82 (10/19/2023 12:32) Wt : 240.5 lb [109.09 kg] (08/17/2023 09:38) Pain : 0 (08/17/2023 09:38) Pulse Ox: 94% (10/19/2023 12:32) Gen: alert, conversant, NAD Head: NC/AT Eyes: PERRL, EOMI. ENT: MMM. Op clear. Neck: Supple, nontender, no JVD. Patient does report pain to neck and left shoulder when rotating head to 90 degrees to the right or 9 degrees to the left. No midline spine tenderness. Normal Spurling's maneuver. CV: RRR, no M/R/G. DPIS Pulm: CTAB. Good symmetric air exchange. Chest nontender GI: NABS. S/NT/ND Neuro: A&O appropriate, no gross acute focal deficit Extremities: no edema, negative Homans Skin: WDWP, no concerning rash or lesions Beh: Appropriate, reasonable insight/judgement Relevant diagnostic studies reviewed in CPRS. EKG: Sinus bradycardia ventricular rate 47. No acute SD or pericarditis. ED Course/MDM/ASSESSMENT/PLAN: 77 yo MALE with H/O A. fib status post ablation, on chronic anticoagulation, EDGAR, CAD, as above, p/w c/o abrupt onset sharp retrosternal chest pain radiating to left shoulder and anterior neck over the past 3 days. DDX includes but is not limited to: Myofascial, arterial dissection, atypical ACS, myofascial pain, musculoskeletal pain, cervical radiculopathy, GERD versus other Chest pain orders, CTA dissection protocoldiscussed with histotechnologist supervisor regarding radiation to neck and formatting. /es/ FIGUEROA RUFF MD, FACEP EMERGENCY MEDICINE STAFF PHYSICIAN Signed: 10/19/2023 13:48 Receipt Acknowledged By: 10/19/2023 15:58 /es/ ELIZ MUNOZ MD PHYSICIAN, [facility] 10/19/2023 ADDENDUM STATUS: COMPLETED NEW APTT: 35.2 INR 1999: 1.0 PROTHROMBIN TIME (04/05): 11.6 B-TYPE NATRIURETIC PEPTIDE: 30 WBC: 7.22 HGB: 15.4 PLT: 215 NEUTROPHIL, ABSOLUTE: 4.86 IG,ABSOLUTE: 0.02 TROPONIN, HIGH SENSITIVITY: <3 GLUCOSE: 98 UREA NITROGEN: 18 CREATININE: 0.8 SODIUM: 142 POTASSIUM: 4.2 CHLORIDE: 107 CO2: 25 CALCIUM: 9.5 MAGNESIUM: 1.9 ANION GAP: 10 CREATININE EGFR (CKD-EPI): >90 PCXR: Heart size is enlarged or at the upper limits of normal. Pulmonary vascularity within normal limits. No pulmonary infiltrate or pleural effusion. Calcification aorta. Old healed right rib fractures. Old healed clavicular fractures. Degenerative changes thoracic spine. CTPA: CHEST/ABDOMEN/PELVIS CTA AND 3-D RECONSTRUCTIONS HISTORY: sharp [...] bowel or colon. The appendix is unremarkable. Peritoneum/retroperitoneum: No extraluminal bowel gas. No free fluid [...] noted in the body of the report. No dissection. No evidence of acute SD. We will repeat high-sensitivity troponin and EKG to confirm no ischemia, and if no delta or ischemia, plan for discharge with Chest pain evaluation pathway, treatment for musculoskeletal etiology with diclofenac topical, lidocaine patches, acetaminophen, physical therapy, follow-up with PCP /phoebe/ FIGUEROA RUFF MD, [facility] EMERGENCY MEDICINE STAFF PHYSICIAN Signed: 10/19/2023 15:56 10/19/2023 ADDENDUM STATUS: COMPLETED No delta repeat Trop, patient's appropriate for discharge, CPEP CTA 1. Evaluation is negative for aortic dissection. 2. Atherosclerotic calcification in the LAD. 3. Dilated main pulmonary artery can be seen in pulmonary hypertension. 4. Additional chronic and incidental findings noted in the body of the report. --> f/u with pcp including regarding findings suggestive of pulmonary htn no emergent medical condition is evident. Return to ED if worsening in condition or other concerns. Follow up with PCP. See [employer] instructions. Education: findings, impression, expected course, return precautions, plan and need for follow up reviewed. Pt verbalized understanding and agreement. Dispo: Home/Self-care Condition: Improved/Stable /phoebe/ FIGUEROA RUFF MD, [facility] EMERGENCY MEDICINE STAFF PHYSICIAN Signed: 10/19/2023 17:29 FIGUEROA RUFF [facility] Oct 19, 2023 12:42 PM NURSING EMERGENCY DEPT TRIAGE NOTE: LOCAL TITLE: EMERGENCY DEPARTMENT NURSING TRIAGE NOTE STANDARD TITLE: NURSING EMERGENCY DEPT TRIAGE NOTE DATE OF NOTE: OCT 19, 2023@12:42 ENTRY DATE: OCT 19, 2023@12:42:49 AUTHOR: MADYSON MOORE COSIGNER: URGENCY: STATUS: COMPLETED Emergency Department/Urgent Care Center Triage Patient age:77 Sex: MALE On arrival patient was: AMBULATORY Patient phone number: Allergies: Patient has answered NKA Subjective/Chief Complaint: chest pain Objective: PT reports episode of left sided chest pain ten minutes prior to arrival that radiated into left neck and arm. Denies LING or blurred vision. Denies CP on exam. The patient is not a fall risk. Vital Signs * Blood Pressure: 166/82 (10/19/2023 12:32) Heart Rate: 53 (10/19/2023 12:32) Respirations: 18 (08/17/2023 09:38) Temperature: 97.6 F [36.4 C] (10/19/2023 12:32) Pain: 0 (08/17/2023 09:38) Weight: 240.5 lb [109.09 kg] (08/17/2023 09:38) O2 Sats: 94% (10/19/2023 12:32) Emergency Severity Index (JOSH) level Level 2 Current Medications: Active Outpatient Medications (including Supplies): Active Outpatient Medications Status 1) DABIGATRAN ETEXILATE 150MG ORAL CAP UD TAKE ONE ACTIVE CAPSULE BY MOUTH EVERY 12 HOURS TO PREVENT STROKE DUE TO ATRIAL FIBRILLATION 2) DORZOLAMIDE HCL 2% OPH SOLN INSTILL 1 DROP IN ACTIVE OPTHALMICALLY THREE TIMES A DAY FOR AFFECTED EYE(S) 3) LATANOPROST 0.005% OPH SOLN INSTILL 1 DROP EVERY DAY ACTIVE AT BEDTIME IN AFFECTED EYE(S) 4) LEVOTHYROXINE NA (SYNTHROID) 137MCG TAB TAKE ONE ACTIVE TABLET BY MOUTH EVERY DAY ON AN EMPTY STOMACH 5) ROSUVASTATIN CA 20MG TAB TAKE ONE TABLET BY MOUTH AT ACTIVE BEDTIME FOR CHOLESTEROL Active Non-VA Medications Status 1) Non-VA CHOLECALCIF 25MCG (D3-1,000UNIT) TAB 2000UNIT ACTIVE MOUTH TWICE A DAY 2) Non-VA ZINC (FROM SULFATE) CAP,ORAL ACTIVE 7 Total Medications Current Problems: Obstructive sleep apnea of adult (SCT 11Anticoagulation (ICD-9-CM V58.61) Hypothyroid (SCT 27907014) Paroxysmal atrial fibrillation (SCT 793756482) colonoscopy screening (ICD-10-CM R69.) Glaucoma (SCT 25288550) Exposure to potentially hazardous substaCAD - Coronary Artery Disease ([facility] [id number]) Cervical Radiculopathy ([facility] [id number]) Identification of Seniors at Risk (ISAR):* Perform Screen Yes-ISAR More than 3 different medications daily Total Score: 1 Suicide Screen: [place] Suicide Severity Rating Scale (C-SSRS) screener 1. [...] required due to responses to other questions. /phoebe/ MADYSON MOORE RN REGISTERED NURSE Signed: 10/19/2023 12:44 MADYSON MOORE [facility]
--- OUTSIDE RECORDS SUMMARY | 2024-01-26 23:16 | XMS_ITS | Encounter Summary ---
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 Organization Department of [facility] Address [address] [place] [id number] Care Team Providers Care Benefits Consultant Name Role Phone ELIZ MUNOZ [facility] Insurance Providers: All historical and current Section Date Range: From patient's date of to the date document was created. This section includes the names of all active insurance providers for the patient. Insurance Provider Type of Coverage Plan Name Start of Policy Coverage End of Policy Coverage Group Number Member ID Insurance Provider's Telephone Number Policy Yanes's Name Patient's Relationship to Policy Yanes MEDICARE (WNR) MEDICARE (M) PART B Nov 01, 2011 PART B [id number] [phone] ANANTH HUANG PATIENT MEDICARE (WNR) MEDICARE (M) PART A Nov 01, 2011 PART A [id number] [phone] REINAANANTH PATIENT Selected Encounter This section includes the information on record at [place] for the Encounter. Date/Time Encounter Type Encounter Description Reason Provider Source Oct 19, 2023 01:00 AM Outpatient Encounter ADMIN [employer] SYSTEM,[facility] Encounter Template Text not used by [place] Plan of Treatment: Future Appointments (+ 6 months) and Future Tests (+/- 45 days) The Plan of Treatment section includes future care activities for the patient from all [place] treatmentfacilities. This section includes future appointments and future orders which are active, pending or scheduled. Future Appointments This section includes appointments that were scheduled to occur 6 months from the date of the Encounter, up to a maximum of 20 appointments. The data comes from all [place] treatment facilities. Appointment Date/Time Appointment Type Appointme nt Facility Name Oct 27, 2023 08:30 AM [facility] Oct 27, 2023 11:29 AM AMBULATORY - MEDICINE [facility] Nov 15, 2023 01:40 PM AMBULATORY - REHAB MEDICIN E [facility] Nov 16, 2023 10:30 AM AMBULATORY - MEDICINE [facility] Active, Pending, and Scheduled Orders This section includes a listing of several types of active, pending, and scheduled orders, including clinic medications orders, diagnostic test orders, procedure orders and consult orders; where the start date of the order is 45 days before the date of the Encounter or 45 days after the date of theEncounter. The data comes from all [facility] facilities. Test Date/Time Test Type Test Details Facility Name Oct 19, 2023 03:51 PM Laboratory - Chemi stry Order TROPONIN I, HS PLASMA STAT WC ONCE [facility] Lab Results: +/- 30 days [...] Range Comment Oct 19, 2023 04:08 PM [facility] TROPONIN I, HS Specimen Type: PLASMA No comment entered. Ordering Provider: FIGUEROA RUFF Report Released Date/Time: Oct 19, 2023 03:51 PM Reporting Lab: [facility] [phone] Performing Lab: [facility] [phone] TROPONIN I, HS <3 <35 Oct 19, 2023 01:00 PM [facility] TROPONIN I, HS Specimen Type: PLASMA No comment entered. Ordering Provider: FIGUEROA RUFF Report Released Date/Time: Oct 19, 2023 01:29 PM Reporting Lab: [facility] [address] Performing Lab: [facility] [address] TROPONIN I, HS <3 <35 Oct 19, 2023 01:00 PM [facility] PROTHROMBIN TIME/INR Specimen Type: PLASMA No comment entered. Ordering Provider: FIGUEROA RUFF Report Released Date/Time: Oct 19, 2023 01:29 PM Reporting Lab: [facility] [address] Performing Lab: [facility] Oct 19, 2023 01:00 PM [facility] BNP Specimen Type: PLASMA No comment entered. Ordering Provider: FIGUEROA RUFF Report Released Date/Time: Oct 19, 2023 01:29 PM Reporting Lab: [facility] [address] Performing Lab: [facility] [address] BNP 30 pg/mL <99 Oct 19, 2023 01:00 PM [facility] ACT PART THROMBO TIME Specimen Type: PLASMA No comment entered. Ordering Provider: FIGUEROA RUFF Report Released Date/Time: Oct 19, 2023 01:29 PM Reporting Lab: [facility] [address] Performing Lab: [facility] [address] APTT 35.2 s 25.1-36.5 Oct 19, 2023 01:00 PM [facility] EXTRA GOLD GEL TUBE Specimen Type: SERUM No comment entered. Ordering Provider: FIGUEROA RUFF Report Released Date/Time: Oct 19, 2023 01:35 PM Reporting Lab: [facility] [address] Performing Lab: [facility] [address] EXTRA GOLD GEL TUBE RECEIVED Oct 19, 2023 01:00 PM [facility] BASIC METABOLIC PANEL+MG Specimen Type: PLASMA No comment entered. Ordering Provider: FIGUEROA RUFF Report Released Date/Time: Oct 19, 2023 01:29 PM Reporting Lab: [facility] [address] Performing Lab: [facility] [address] CREATININE 0.8 mg/dL 0.7-1.2 UREA NITROGEN 18 mg/dL 8-26 GLUCOSE 98 mg/dL 70-100 SODIUM 142 mmol/L 136-145 POTASSIUM 4.2 mmol/L 3.5-5.1 CHLORIDE 107 mmol/L 98-107 CO2 25 mmol/L 22-29 CALCIUM 9.5 mg/dL 8.4-10.2 MAGNESIUM 1.9 mg/dL 1.6-2.6 ANION GAP 10 mmol/L 5-15 .CREAT EGFR(CKD-EPI) >90 >60 Oct 19, 2023 01:00 PM [facility] CBC & DIFF Specimen Type: BLOOD Comment: Automated Differential Performed Ordering Provider: FIGUEORA RUFF Report Released Date/Time: Oct 19, 2023 01:29 PM Reporting Lab: [facility] [address] Performing Lab: [facility] [address] WBC 7.22 10*3/uL 4.0-11.0 RBC 5.12 10*6/uL [...] 2023 12:32 PM 97.6 53 166/82 94 [place] [facility] Social History: Smoking Status (Most current) and Tobacco Use (All prior to encounter date) This section includes the most current, and the historical, smoking and tobacco- related health factors from the [place] facility where the Encounter took place. Current Smoking Status This section includes the most current smoking, or tobacco-related health factor, from the [place] facility where the Encounter took place. Date/Time Current Smoking Status Comment Priya bowers Aug 17, 2023 09:45 AM VA-TOBACCO FORMER USER [facility] Tobacco Use History This section includes a history of the smoking, or tobacco-related health factors, that were collected on or before the date of the Encounter. The data comes from the [place] facility where the Encounter took place. Date/Time Smoking Status/Tobacco Use Comment F acility Aug 17, 2023 09:45 AM VA-TOBACCO QUIT 15 YRS OR MORE [facility] Jul 01, 2022 08:45 AM VA-TOBACCO FORMER USER [facility] Jul 01, 2022 08:45 AM VA-TOBACCO QUIT 15 YRS OR MORE [facility] May 22, 2021 09:00 AM VA-TOBACCO FORMER USER [facility] May 22, 2021 09:00 AM VA-TOBACCO QUIT 15 YRS OR MORE [facility] Mar 29, 2020 07:42 AM VA-TOBACCO FORMER USER [facility] Mar 29, 2020 07:42 AM VA-TOBACCO QUIT 15 YRS OR MORE [facility] Mar 06, 2019 12:00 PM VA-TOBACCO FORMER USER [facility] Mar 06, 2019 12:00 PM VA-TOBACCO QUIT 15 YRS OR MORE [facility] Oct 23, 2018 11:20 AM INPT NO TOBACCO USE IN LAST 30 D [facility] Jun 15, 2018 09:25 AM VA-TOBACCO FORMER USER [facility] Jun 15, 2018 09:25 AM VA-TOBACCO QUIT 15 YRS OR MORE [facility] Jun 25, 2017 04:05 PM INPT NO TOBACCO USE IN LAST 30 D [facility] Apr 26, 2017 08:03 AM FORMER TOBACCO USER 7Y OR GREATE R [facility] Jan 04, 2017 11:27 AM INPT NO TOBACCO USE IN LAST 30 D [facility] May 13, 2016 10:42 AM LIFETIME NON-TOBACCO USER [facility] Jun 04, 2015 06:17 AM INPT NO TOBACCO USE IN LAST 30 D [facility] Apr 23, 2015 09:14 AM FORMER TOBACCO USER 7Y OR GREATE R [facility] Jan 19, 2014 09:40 AM FORMER TOBACCO USER 7Y OR GREATE R [facility] December 09, 2010 12:08 PM FORMER TOBACCO USER 7Y OR GREATE R [facility] Advance Directives: All historical and current Section Date Range: From patient's date of to the date document was created. This section includes ALL of a patient's completed or amended [place] Advance and Rescinded Directives. The entries below indicate that a directive exists for the patient, but an actual copy is not included with this document. The data comes from all [place] facilities. Date Advance Directives Provider Source Jun 25, 2017 CLINICAL WARNING MADHAVI CASTILLO [facility] Jan 04, 2017 CLINICAL WARNING DIGNA CASTELLANOS [facility] Sep 26, 2014 CLINICAL WARNING SHEREEN LAUREANO [facility] Radiology Reports: +/- 30 days [...] the Encounter. The data comes from all [place] treatment facilities. Date/Time Radiology Report Provider Source Oct 27, 2023 08:10 AM CHEST PAIN PATHWAY (ED ONLY) (P): ANANTH HUANG [id number] -1945 M Ex Date: OCT 27, 2023@08:10 Req Phys: FIGUEROA RUFF Loc: [facility] EMERGENCY DEPT WALK-IN (Re Img Loc: NUC MED Service: Unknown (Case [id number] COMPLETE) MYOCARDIAL PERFUSION (SPECT)-MULT(NM Detailed) CPT:24713 Reason for Study: Chest Pain Pathway (Case 1050 COMPLETE) TC-99M SESTAMIBI (CARDIOLITE), PE(NM Detailed) CPT:A9500 (Case 1051 COMPLETE) CARDIOVASCULAR STRESS TEST (NM Detailed) CPT:62988 Clinical History: Myocardial perfusion stress test for chest pain IS NOT under investigation for COVID-19 or is COVID-19 negative chest pain Responsible provider name and phone number to notify for critical findings if other than user placing the order and pager listed below: User placing orders pager: [phone] ER LAST CREATININE 0.8 (10/19/23) Report Status: Verified Date Reported: OCT 27, 2023 Date Verified: OCT 27, 2023 Aircraft Manager E-Sig:/ES/GOLD VEGA MD Report: Regadenoson myocardial perfusion [...] Staff: GOLD VEGA MD, RADIOLOGY STAFF PHYSICIAN (Aircraft Manager) /GOLD RUIZ [facility] Oct 19, 2023 02:14 PM CTA (CAP) DISSECTI ON (P): ANANTH HUANG [id number] -1945 M Exm Date: OCT 19, 2023@14:14 Req Phys: FIGUEROA RUFF Loc: [facility] EMERGENCY DEPT WALK-IN (Re Img Loc: CT IMAGING Service: Unknown (Case [id number] COMPLETE) CTA (CAP) CHEST W/ & W/O CONTRAST(CT Detailed) CPT:41364 Reason for Study: sharp chest pain (Case 1150 COMPLETE) CTA (CAP) ABDOMEN/PELVIS W/ & W/O(CT Detailed) CPT:96985 Clinical History: sharp chest pain, sudden onset, [...] PLASMA .CREAT EGFR(CKD-E >90 Ref: >=60 Allergies: ([place] only) Patient has answered NKA Defer to [...] 19, 2023 Date Verified: OCT 19, 2023 Aircraft Manager E-Sig:/ES/GURDEEP MORFIN MD Report: CHEST/ABDOMEN/PELVIS CTA AND [...] Primary Interpreting Staff: GURDEEP MORFIN MD, RADIOLOGIST (Aircraft Manager) Primary Interpreting Resident: SULMA BRADY MD, TABULATING SUPERVISOR /GURDEEP DRAPER [facility] Oct 19, 2023 01:36 PM CHEST 1 VIEW: ANANTH HUANG [id number] -1945 M Exm Date: OCT 19, 2023@13:36 Req Phys: FIGUEROA RUFF Loc: [facility] EMERGENCY DEPT WALK-IN (Re Img Loc: MAIN X-RAY Service: Unknown (Case [id number] COMPLETE) CHEST 1 VIEW (RAD Detailed) CPT:44688 Proc Modifiers : PORTABLE EXAM Reason for Study: chest pain Clinical History: [place] IS NOT under investigation for COVID-19 or is COVID-19 negative chest pain Responsible provider name and phone number to notify for critical findings if other than user placing the order and pager listed below: User placing orders pager: [phone] sindi ruff LAST CREATININE 0.8 (08/17/23) Report Status: Verified Date Reported: OCT 19, 2023 Date Verified: OCT 19, 2023 Aircraft Manager E-Sig:/ES/MIRIAM CAIN MD Report: EXAMINATION: CHEST 1 VIEW 10/19/2023 1:36 PM INDICATION: chest pain Impression: Heart size is enlarged or at the upper limits of normal. Pulmonary vascularity within normal limits. No pulmonary infiltrate or pleural effusion. Calcification aorta. Old healed right rib fractures. Old healed clavicular fractures. Degenerative changes thoracic spine. Primary Interpreting Staff: MIRIAM CAIN MD, RADIOLOGIST (Aircraft Manager) /MIRIAM YATES [facility] Encounter Notes: All associated encounter notes This section contains the clinical notes associated to the Encounter. Date/Time Encounter Note(s) Provider Source Oct 19, 2023 01:00 AM CRITICAL CARE UNIT NOTE: LOCAL TITLE: [facility] EMERGENCY DEPT FLOWSHEET STANDARD TITLE: CRITICAL CARE UNIT NOTE DATE OF NOTE: OCT 19, 2023@01:00 ENTRY DATE: OCT 20, 2023@01:32:35 AUTHOR: SYSTEM,howsimple-ARK EXP COSIGNER: URGENCY: STATUS: COMPLETED This is a place yanes only. Please see ShareMeme to view document. /es/ [email or web address] SYSTEM ICU DOCUMENT IMPORT Signed: 10/20/2023 01:32 [employer] [facility] Oct 19, 2023 01:00 AM CRITICAL CARE UNIT NOTE: LOCAL TITLE: [facility] RESPIRATORY THERAPY FLOWSHEET STANDARD TITLE: CRITICAL CARE UNIT NOTE DATE OF NOTE: OCT 19, 2023@01:00 ENTRY DATE: OCT 20, 2023@15:12:16 AUTHOR: SYSTEM,howsimple-ARK EXP COSIGNER: URGENCY: STATUS: COMPLETED This is a place yanes only. Please see [employer] to view document. /es/ [email or web address] SYSTEM ICU DOCUMENT IMPORT Signed: 10/20/2023 15:12 [employer] [facility]
--- OUTSIDE RECORDS SUMMARY | 2024-01-26 23:17 | XMS_ITS | Encounter Summary ---
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 Organization [facility] Address [address] [place] [id number] Care Team Providers Care Tire Man Name Role Phone ELIZ MUNOZ Primary Care Provider Emil fuchs Insurance Providers: All historical and current Section [...] Policy [place] MEDICARE (WNR) MEDICARE (M) PART B Nov 01, 2011 PART B [id number] ANANTH HUANG PATIENT MEDICARE (WNR) MEDICARE (M) PART A Nov 01, 2011 PART A [id number] ANANTH HUANG PATIENT Selected Encounter This section includes the information on record at [place] for the Encounter. Date/Time Encounter Type Encounter Description Reason Provider Source Oct 22, 2023 11:14 AM HC PRO PHONE CALL 5-10 MIN TELEPHONE/REHAB AND SUPPORT ICD-10-CM M54.12 Radiculopathy, cervical region REYES ABEL IHKris Encounter Template Text not used by [place] Assessments - Encounter Diagnoses This section includes the primary and secondary diagnoses documented for the Encounter. Date/Time Primary/Secondary Diagnosis Diagnosis Name Provider Source Oct 22, 2023 11:14 AM PRIMARY Radiculopathy, cervical region REYES ABEL [facility] Plan of Treatment: Future Appointments (+ 6 months) and Future Tests (+/- 45 days) The Plan of Treatment section includes future care activities for the patient from all [place] treatmentfacilities. This section includes future appointments and future orders which are active, pending or scheduled. Future Appointments This section includes appointments that were scheduled to occur 6 months from the date of the Encounter, up to a maximum of 20 appointments. The data comes from all [facility]. Appointment Date/Time Appointment Type Appointme nt Facility Name Oct 27, 2023 08:30 AM AMBULATORY - NONE [facility] Oct 27, 2023 11:29 AM AMBULATORY - MEDICINE [facility] Nov 15, 2023 01:40 PM AMBULATORY - REHAB MEDICIN E [facility] Nov 16, 2023 10:30 AM AMBULATORY - MEDICINE [facility] Active, Pending, and Scheduled Orders This section includes a listing of several types of active, pending, and scheduled orders, including clinic medications orders, diagnostic test orders, procedure orders and consult orders; where the start date of the order is 45 days before the date of the Encounter or 45 days after the date of theEncounter. The data comes from all [facility]. Test Date/Time Test Type Test Details Facility Name Oct 19, 2023 03:51 PM Laboratory - Chemi julieny Order TROPONIN I, HS PLASMA STAT WC ONCE [facility] Lab Results: +/- 30 days of the encounter This section includes the Chemistry and Hematology Lab Results on record with [place] for the patient. Radiology Reports and Pathology Reports are provided separately, in subsequent sections. Lab Results This section contains the Chemistry/Hematology Results that were resulted 30 days before or 30 daysafter the date of the Encounter. Date/Time Source Result Type Result - Unit Interpretation Reference Range Comment Oct 19, 2023 04:08 PM [facility] TROPONIN I, HS Specimen Type: PLASMA No comment entered. Ordering Provider: FIGUEROA RUFF Report Released Date/Time: Oct 19, 2023 03:51 PM Reporting Lab: [facility] [id number] Performing Lab: [facility] [id number] TROPONIN I, HS <3 <35 Oct 19, 2023 01:00 PM [facility] TROPONIN I, HS Specimen Type: PLASMA No comment entered. Ordering Provider: FIGUEROA RUFF Report Released Date/Time: Oct 19, 2023 01:29 PM Reporting Lab: [facility] [id number] Performing Lab: [facility] [id number] TROPONIN I, HS <3 <35 Oct 19, 2023 01:00 PM [facility] PROTHROMBIN TIME/INR Specimen Type: PLASMA No comment entered. Ordering Provider: FIGUEROA RUFF Report Released Date/Time: Oct 19, 2023 01:29 PM Reporting Lab: [facility] [id number] Performing Lab: [facility] Oct 19, 2023 01:00 PM [facility] BNP Specimen Type: PLASMA No comment entered. Ordering Provider: FIGUEROA RUFF Report Released Date/Time: Oct 19, 2023 01:29 PM Reporting Lab: [facility] [phone] Performing Lab: [facility] [id number] BNP 30 pg/mL <99 Oct 19, 2023 01:00 PM [facility] ACT PART THROMBO TIME Specimen Type: PLASMA No comment entered. Ordering Provider: FIGUEROA RUFF Report Released Date/Time: Oct 19, 2023 01:29 PM Reporting Lab: [facility] [address] Performing Lab: [facility] [address] APTT 35.2 s 25.1-36.5 Oct 19, 2023 01:00 PM [facility] EXTRA GOLD GEL TUBE Specimen Type: SERUM No comment entered. Ordering Provider: FIGUEROA RUFF Report Released Date/Time: Oct 19, 2023 01:35 PM Reporting Lab: [facility] [id number] Performing Lab: [facility] [address] EXTRA GOLD GEL TUBE RECEIVED Oct 19, 2023 01:00 PM [facility] BASIC METABOLIC PANEL+MG Specimen Type: PLASMA No comment entered. Ordering Provider: FIGUEROA RUFF Report Released Date/Time: Oct 19, 2023 01:29 PM Reporting Lab: [facility] [address] Performing Lab: [facility] [address] CREATININE 0.8 mg/dL 0.7-1.2 UREA NITROGEN 18 mg/dL 8-26 GLUCOSE 98 mg/dL 70-100 SODIUM 142 mmol/L 136-145 POTASSIUM 4.2 mmol/L 3.5-5.1 CHLORIDE 107 mmol/L 98-107 CO2 25 mmol/L 22-29 CALCIUM 9.5 mg/dL 8.4-10.2 MAGNESIUM 1.9 mg/dL 1.6-2.6 ANION GAP 10 mmol/L 5-15 .CREAT EGFR(CKD-EPI) >90 >60 Oct 19, 2023 01:00 PM [facility] CBC & DIFF Specimen Type: BLOOD Comment: Automated Differential Performed Ordering Provider: FIGUEROA RUFF Report Released Date/Time: Oct 19, 2023 01:29 PM Reporting Lab: [facility] [address] Performing Lab: [facility] [phone] WBC 7.22 10*3/uL 4.0-11.0 RBC 5.12 10*6/uL [...] and tobacco- related health factors from the [place] facility where the Encounter took place. Current Smoking Status This section includes the most current smoking, or tobacco-related health factor, from the [place] facility where the Encounter took place. Date/Time Current Smoking Status Comment Facil ity Aug 17, 2023 09:45 AM VA-TOBACCO QUIT 15 YRS OR MORE [facility] Tobacco Use History This section includes a history of the smoking, or tobacco-related health factors, that were collected on or before the date of the Encounter. The data comes from the [place] facility where the Encounter took place. Date/Time Smoking Status/Tobacco Use Comment Angelito acuzair Aug 17, 2023 09:45 AM VA-TOBACCO QUIT 15 YRS OR MORE [facility] Jul 01, 2022 08:45 AM VA-TOBACCO FORMER USER [facility] Jul 01, 2022 08:45 AM VA-TOBACCO QUIT 15 YRS OR MORE [facility] May 22, 2021 09:00 AM VA-TOBACCO FORMER USER [facility] May 22, 2021 09:00 AM VA-TOBACCO QUIT 15 YRS OR MORE [facility] Mar 29, 2020 07:42 AM VA-TOBACCO FORMER USER [facility] Mar 29, 2020 07:42 AM VA-TOBACCO QUIT 15 YRS OR MORE [facility] Mar 06, 2019 12:00 PM VA-TOBACCO FORMER USER [facility] Mar 06, 2019 12:00 PM VA-TOBACCO QUIT 15 YRS OR MORE [facility] Oct 23, 2018 11:20 AM INPT NO TOBACCO USE IN LAST 30 D [facility] Jun 15, 2018 09:25 AM VA-TOBACCO FORMER USER [facility] Jun 15, 2018 09:25 AM VA-TOBACCO QUIT 15 YRS OR MORE [facility] Jun 25, 2017 04:05 PM INPT NO TOBACCO USE IN LAST 30 D [facility] Apr 26, 2017 08:03 AM FORMER TOBACCO USER 7Y OR GREATE R [facility] Jan 04, 2017 11:27 AM INPT NO TOBACCO USE IN LAST 30 D [facility] May 13, 2016 10:42 AM LIFETIME NON-TOBACCO USER [facility] Jun 04, 2015 06:17 AM INPT NO TOBACCO USE IN LAST 30 D [facility] Apr 23, 2015 09:14 AM FORMER TOBACCO USER 7Y OR GREATE R [facility] Jan 19, 2014 09:40 AM FORMER TOBACCO USER 7Y OR GREATE R [facility] December 09, 2010 12:08 PM FORMER TOBACCO USER 7Y OR GREATE R [facility] Advance Directives: All historical and current Section Date Range: From patient's date of to the date document was created. This section includes ALL of a patient's completed or amended [place] Advance and Rescinded Directives. The entries below indicate that a directive exists for the patient, but an actual copy is not included with this document. The data comes from all [place] facilities. Date Advance Directives Provider Source Jun 25, 2017 CLINICAL WARNING MADHAVI CASTILLO [facility] Jan 04, 2017 CLINICAL WARNING DIGNA CASTELLANOS [facility] Sep 26, 2014 CLINICAL WARNING JARAMILLO SHEREEN MILLAN [facility] Radiology Reports: +/- 30 days of the [...] the Encounter. The data comes from all [place] treatment facilities. Date/Time Radiology Report Provider Source Oct 27, 2023 08:10 AM CHEST PAIN PATHWAY (ED ONLY) (P): ANANTH HUANG [id number] -1945 M Ex Date: OCT 27, 2023@08:10 Req Phys: FIGUEROA RUFF Loc: [facility]ALK-IN ( Img Loc: [facility] Service: Unknown (Case [id number] COMPLETE) MYOCARDIAL PERFUSION (SPECT)-MULT(NM Detailed) CPT:29499 Reason for Study: Chest Pain Pathway (Case 1050 COMPLETE) TC-99M SESTAMIBI (CARDIOLITE), PE(NM Detailed) CPT:A9500 (Case 1051 COMPLETE) CARDIOVASCULAR STRESS TEST (NM Detailed) CPT:51849 Clinical History: Myocardial perfusion stress test for chest pain [facility] IS NOT under investigation for COVID-19 or is COVID-19 negative chest pain Responsible provider name and phone number to notify for critical findings if other than user placing the order and pager listed below: User placing orders pager: [phone] ER LAST CREATININE 0.8 (10/19/23) Report Status: Verified Date Reported: OCT 27, 2023 Date Verified: OCT 27, 2023 Boil Off Worker E-Sig:/ES/GOLD VEGA MD Report: Regadenoson myocardial perfusion [...] Staff: GOLD VEGA MD, RADIOLOGY STAFF PHYSICIAN (Boil Off Worker) /GOLD RUIZ [facility] Oct 19, 2023 02:14 PM CTA (CAP) DISSECTI ON (P): ANANTH HUANG [id number] -1945 M Exm Date: OCT 19, 2023@14:14 Req Phys: FIGUEROA RUFF Loc: [facility] WALK-IN (Re [facility] Loc: CT IMAGING Service: Unknown (Case [id number] COMPLETE) CTA (CAP) CHEST W/ & W/O CONTRAST(CT Detailed) CPT:34876 Reason for Study: sharp chest pain (Case 1150 COMPLETE) CTA (CAP) ABDOMEN/PELVIS W/ & W/O(CT Detailed) CPT:96041 Clinical History: sharp chest pain, sudden onset, [...] PLASMA .CREAT EGFR(CKD-E >90 Ref: >=60 Allergies: ([place] only) Patient has answered NKA Defer to [...] 19, 2023 Date Verified: OCT 19, 2023 Boil Off Worker E-Sig:/ES/GURDEEP MORFIN MD Report: CHEST/ABDOMEN/PELVIS CTA AND [...] Primary Interpreting Staff: GURDEEP MORFIN MD, RADIOLOGIST (Boil Off Worker) Primary Interpreting Resident: SULMA BRADY MD, LOAN OPERATIONS SPECIALIST /GURDEEP DRAPER [facility] Oct 19, 2023 01:36 PM CHEST 1 VIEW: ANANTH HUANG [id number] -1945 M Ex Date: OCT 19, 2023@13:36 Req Phys: FIGUEROA RUFF Loc: [facility] EM[facility] WALK-IN (Re Img Loc: MAIN X-RAY Service: Unknown (Case 1020 COMPLETE) CHEST 1 VIEW (RAD Detailed) CPT:37915 Proc Modifiers : PORTABLE EXAM Reason for Study: chest pain Clinical History: IS NOT under investigation for COVID-19 or is COVID-19 negative chest pain Responsible provider name and phone number to notify for critical findings if other than user placing the order and pager listed below: User placing orders pager: [phone] sindi ruff LAST CREATININE 0.8 (08/17/23) Report Status: Verified Date Reported: OCT 19, 2023 Date Verified: OCT 19, 2023 Boil Off Worker E-Sig:/ES/MIRIAM CAIN MD Report: EXAMINATION: CHEST 1 VIEW 10/19/2023 1:36 PM INDICATION: chest pain Impression: Heart size is enlarged or at the upper limits of normal. Pulmonary vascularity within normal limits. No pulmonary infiltrate or pleural effusion. Calcification aorta. Old healed right rib fractures. Old healed clavicular fractures. Degenerative changes thoracic spine. Primary Interpreting Staff: MIRIAM CAIN MD, RADIOLOGIST (Boil Off Worker) /RTS MIRIAM CAIN [facility] Encounter Notes: All associated encounter notes This section contains the clinical notes associated to the Encounter. Date/Time Encounter Note(s) Provider Source Oct 22, 2023 11:19 AM REPORT OF CONTACT: LOCAL TITLE: PATIENT CONTACT NOTE STANDARD TITLE: REPORT OF CONTACT DATE OF NOTE: OCT 22, 2023@11:19 ENTRY DATE: OCT 22, 2023@11:19:37 AUTHOR: MARIAELENA ABEL EXP COSIGNER: URGENCY: STATUS: COMPLETED Patient contact Name of : ANANTH HUANG Date & Time of Contact: Sep@11:19 Type of Contact: Telephone Reason for Contact: Request Repeat Interventional Procedure called Pain head start teacher line requesting repeat cervical ILESI procedures. Last done on 09/08/22 and provided about 1 year of relief. RTC orders placed for pain interventional procedure clinic with [facility]: 11/10/23 as there were no contraindications and meets Procedure Algorithm Guidelines for this procedure. [facility] notified that pain procedure nurse will call 2 weeks prior to their procedure to review pre-procedure instructions. [facility] scheduled for Cervical ILESI on 11/15/23 at 13:40. Steroid within the last year: 09/08/22 40mg Stress test scheduled for 10/27/23. [facility] understands this needs to be completed and any further work up that may be required. /phoebe/ MARIAELENA ABEL REGISTERED NURSE Signed: 10/22/2023 11:27 MARIAELENA ABEL [facility]
--- OUTSIDE RECORDS SUMMARY | 2024-01-26 23:17 | XMS_ITS | Encounter Summary ---
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 Organization Department of [facility] Address [address] [place] [id number] Care Team Providers Care Fine Arts Chair Name Role Phone ELIZ MUNOZ Primary Care Provider [facility] e Insurance Providers: All historical and [...] PART A Nov 01, 2011 PART A [id number] ANANTH HUANG PATIENT MEDICARE (WNR) MEDICARE (M) PART B Nov 01, 2011 PART B [id number] [phone] ANANTH HUANG PATIENT Selected Encounter This section includes the information on record at [place] for the Encounter. Date/Time Encounter Type Encounter Description Reason Pro vider Source Oct 20, 2023 04:18 PM Outpatient Encounter TELEPHONE TRIAGE IHE Encounter Template Text not used by [place] Plan of Treatment: Future Appointments (+ 6 months) and Future Tests (+/- 45 days) The Plan of Treatment section includes future care activities for the patient from all [place] treatmentfacilities. This section includes future appointments and future orders which are active, pending or scheduled. Future Appointments This section includes appointments that were scheduled to occur 6 months from the date of the Encounter, up to a maximum of 20 appointments. The data comes from all [place] treatment facilities. Appointment Date/Time Appointment Type Appointme nt Facility Name Oct 27, 2023 08:30 AM AMBULATORY - NONE [facility]NEEL[facility]IO BRANDAN [facility] Oct 27, 2023 11:29 AM AMBULATORY - MEDICINE [facility] Nov 15, 2023 01:40 PM AMBULATORY - REHAB MEDICIN E [facility] Nov 16, 2023 10:30 AM AMBULATORY - MEDICINE [facility] Active, Pending, and Scheduled Orders This section includes a listing of several types of active, pending, and scheduled orders, including clinic medications orders, diagnostic test orders, procedure orders and consult orders; where the start date of the order is 45 days before the date of the Encounter or 45 days after the date of theEncounter. The data comes from all [place] treatment facilities. Test Date/Time Test Type Test Details Facility Name Oct 19, 2023 03:51 PM Laboratory - Chemi stry Order TROPONIN I, HS PLASMA STAT WC ONCE [facility] Lab Results: +/- 30 days of the encounter This section includes the Chemistry and Hematology Lab Results on record with [place] for the patient. Radiology Reports and Pathology Reports are provided separately, in subsequent sections. Lab Results This section contains the Chemistry/Hematology Results that were resulted 30 days before or 30 daysafter the date of the Encounter. Date/Time Source Result Type Result - Unit Interpretation Reference Range Comment Oct 19, 2023 04:08 PM [facility] TROPONIN I, HS Specimen Type: PLASMA No comment entered. Ordering Provider: FIGUEROA WEI Report Released Date/Time: Oct 19, 2023 03:51 PM Reporting Lab: [facility] [id number] Performing Lab: [facility] [phone] TROPONIN I, HS <3 <35 Oct 19, 2023 01:00 PM [facility] TROPONIN I, HS Specimen Type: PLASMA No comment entered. Ordering Provider: FIGUEROA WEI Report Released Date/Time: Oct 19, 2023 01:29 PM Reporting Lab: [facility] [phone] Performing Lab: [facility] [phone] TROPONIN I, HS <3 <35 Oct 19, 2023 01:00 PM [facility] PROTHROMBIN TIME/INR Specimen Type: PLASMA No comment entered. Ordering Provider: FIGUEROA WEI Report Released Date/Time: Oct 19, 2023 01:29 PM Reporting Lab: [facility] [phone] Performing Lab: [facility] Oct 19, 2023 01:00 PM [facility] ACT PART THROMBO TIME Specimen Type: PLASMA No comment entered. Ordering Provider: FIGUEROA WEI Report Released Date/Time: Oct 19, 2023 01:29 PM Reporting Lab: [facility] [phone] Performing Lab: [facility] [address] APTT 35.2 s 25.1-36.5 Oct 19, 2023 01:00 PM [facility] EXTRA GOLD GEL TUBE Specimen Type: SERUM No comment entered. Ordering Provider: FIGUEROA WEI Report Released Date/Time: Oct 19, 2023 01:35 PM Reporting Lab: [facility] [phone] Performing Lab: [facility] [address] EXTRA GOLD GEL TUBE RECEIVED Oct 19, 2023 01:00 PM [facility] BNP Specimen Type: PLASMA No comment entered. Ordering Provider: FIGUEROA WEI Report Released Date/Time: Oct 19, 2023 01:29 PM Reporting Lab: [facility] [phone] Performing Lab: [facility] [phone] BNP 30 pg/mL <99 Oct 19, 2023 01:00 PM [facility] BASIC METABOLIC PANEL+MG Specimen Type: PLASMA No comment entered. Ordering Provider: FIGUEROA WEI Report Released Date/Time: Oct 19, 2023 01:29 PM Reporting Lab: [facility] [address] Performing Lab: [facility] [address] CREATININE 0.8 mg/dL 0.7-1.2 UREA NITROGEN 18 mg/dL 8-26 GLUCOSE 98 mg/dL 70-100 SODIUM 142 mmol/L 136-145 POTASSIUM 4.2 mmol/L 3.5-5.1 CHLORIDE 107 mmol/L 98-107 CO2 25 mmol/L 22-29 CALCIUM 9.5 mg/dL 8.4-10.2 MAGNESIUM 1.9 mg/dL 1.6-2.6 ANION GAP 10 mmol/L 5-15 .CREAT EGFR(CKD-EPI) >90 >60 Oct 19, 2023 01:00 PM [facility] CBC & DIFF Specimen Type: BLOOD Comment: Automated Differential Performed Ordering Provider: FIGUEROA WEI Report Released Date/Time: Oct 19, 2023 01:29 PM Reporting Lab: [facility] [address] Performing Lab: [facility] [address] WBC 7.22 10*3/uL 4.0-11.0 RBC 5.12 10*6/uL [...] and tobacco- related health factors from the [place] facility where the Encounter took place. Current Smoking Status This section includes the most current smoking, or tobacco-related health factor, from the [place] facility where the Encounter took place. Date/Time Current Smoking Status Comment Priya reynoldsy Aug 17, 2023 09:45 AM [place]-TOBACCO QUIT 15 YRS OR MORE [facility] Tobacco Use History This section includes a history of the smoking, or tobacco-related health factors, that were collected on or before the date of the Encounter. The data comes from the [place] facility where the Encounter took place. Date/Time Smoking Status/Tobacco Use Comment F chiqui Aug 17, 2023 09:45 AM [place]-TOBACCO QUIT 15 YRS OR MORE [facility] Jul 01, 2022 08:45 AM VA-TOBACCO FORMER USER [facility] Jul 01, 2022 08:45 AM VA-TOBACCO QUIT 15 YRS OR MORE [facility] May 22, 2021 09:00 AM VA-TOBACCO FORMER USER [facility] May 22, 2021 09:00 AM VA-TOBACCO QUIT 15 YRS OR MORE [facility] Mar 29, 2020 07:42 AM VA-TOBACCO FORMER USER [facility] Mar 29, 2020 07:42 AM VA-TOBACCO QUIT 15 YRS OR MORE [facility] Mar 06, 2019 12:00 PM VA-TOBACCO FORMER USER [facility] Mar 06, 2019 12:00 PM VA-TOBACCO QUIT 15 YRS OR MORE [facility] Oct 23, 2018 11:20 AM INPT NO TOBACCO USE IN LAST 30 D [facility] Jun 15, 2018 09:25 AM VA-TOBACCO FORMER USER [facility] Jun 15, 2018 09:25 AM VA-TOBACCO QUIT 15 YRS OR MORE [facility] Jun 25, 2017 04:05 PM INPT NO TOBACCO USE IN LAST 30 D [facility] Apr 26, 2017 08:03 AM FORMER TOBACCO USER 7Y OR GREATE R [facility] Jan 04, 2017 11:27 AM INPT NO TOBACCO USE IN LAST 30 D [facility] May 13, 2016 10:42 AM LIFETIME NON-TOBACCO USER [facility] Jun 04, 2015 06:17 AM INPT NO TOBACCO USE IN LAST 30 D [facility] Apr 23, 2015 09:14 AM FORMER TOBACCO USER 7Y OR GREATE R [facility] Jan 19, 2014 09:40 AM FORMER TOBACCO USER 7Y OR GREATE R [facility] December 09, 2010 12:08 PM FORMER TOBACCO USER 7Y OR GREATE R [facility] Advance Directives: All historical and current Section Date Range: From patient's date of to the date document was created. This section includes ALL of a patient's completed or amended [place] Advance and Rescinded Directives. The entries below indicate that a directive exists for the patient, but an actual copy is not included with this document. The data comes from all [place] facilities. Date Advance Directives Provider Source Jun 25, 2017 CLINICAL WARNING MADHAVI CASTILLO [facility] Jan 04, 2017 CLINICAL WARNING DIGNA CASTELLANOS [facility] Sep 26, 2014 CLINICAL WARNING SHEREEN LAUREANO [facility] Radiology Reports: +/- 30 days [...] the Encounter. The data comes from all [place] treatment facilities. Date/Time Radiology Report Provider Source Oct 27, 2023 08:10 AM CHEST PAIN PATHWAY (ED ONLY) (P): ANANTH HUANG [id number] -1945 M Ex Date: OCT 27, 2023@08:10 Req Phys: FIGUEROA WEI Loc: [facility] EMERGENCY DEPT WALK-IN (Re Img Loc: [facility] Service: Unknown (Case [id number] COMPLETE) MYOCARDIAL PERFUSION (SPECT)-MULT(NM Detailed) CPT:54703 Reason for Study: Chest Pain Pathway (Case 1050 COMPLETE) TC-99M SESTAMIBI (CARDIOLITE), PE(NM Detailed) CPT:A9500 (Case 1051 COMPLETE) CARDIOVASCULAR STRESS TEST (NM Detailed) CPT:02612 Clinical History: Myocardial perfusion stress test for chest pain IS NOT under investigation for COVID-19 or is COVID-19 negative chest pain Responsible provider name and phone number to notify for critical findings if other than user placing the order and pager listed below: User placing orders pager: [phone] ER LAST CREATININE 0.8 (10/19/23) Report Status: Verified Date Reported: OCT 27, 2023 Date Verified: OCT 27, 2023 Customer Service Technician E-Sig:/ES/GOLD VEGA MD Report: Regadenoson myocardial perfusion [...] Staff: GOLD VEGA MD, RADIOLOGY STAFF PHYSICIAN (Customer Service Technician) /GOLD RUZI [facility] Oct 19, 2023 02:14 PM CTA (CAP) DISSECTI ON (P): ANANTH HUANG [id number] -1945 M Exm Date: OCT 19, 2023@14:14 Req Phys: FIGUEROA WEI Loc: [facility] EMERGENCY DEPT WALK-IN (Re Img Loc: CT IMAGING Service: Unknown (Case [id number] COMPLETE) CTA (CAP) CHEST W/ & W/O CONTRAST(CT Detailed) CPT:60014 Reason for Study: sharp chest pain (Case 1150 COMPLETE) CTA (CAP) ABDOMEN/PELVIS W/ & W/O(CT Detailed) CPT:29914 Clinical History: sharp chest pain, sudden onset, [...] PLASMA .CREAT EGFR(CKD-E >90 Ref: >=60 Allergies: ([place] only) Patient has answered NKA Defer to [...] 19, 2023 Date Verified: OCT 19, 2023 Customer Service Technician E-Sig:/ES/GURDEEP MORFIN MD Report: CHEST/ABDOMEN/PELVIS CTA AND [...] Primary Interpreting Staff: GURDEEP MORFIN MD, RADIOLOGIST (Customer Service Technician) Primary Interpreting Resident: SULMA BRADY MD, OUT OF TOWN COLLECTION CLERK /GURDEEP DRAPER [facility] Oct 19, 2023 01:36 PM CHEST 1 VIEW: ANANTH HUANG [id number] -1945 M Exm Date: OCT 19, 2023@13:36 Req Phys: FIGUEROA WEI Loc: [facility] EMERGENCY DEPT WALK-IN (Re Img Loc: MAIN X-RAY Service: Unknown (Case [id number] COMPLETE) CHEST 1 VIEW (RAD Detailed) CPT:01557 Proc Modifiers : PORTABLE EXAM Reason for Study: chest pain Clinical History: [place] IS NOT under investigation for COVID-19 or is COVID-19 negative chest pain Responsible provider name and phone number to notify for critical findings if other than user placing the order and pager listed below: User placing orders pager: [phone] [facility] LAST CREATININE 0.8 (08/17/23) Report Status: Verified Date Reported: OCT 19, 2023 Date Verified: OCT 19, 2023 Customer Service Technician E-Sig:/ES/MIRIAM CAIN MD Report: EXAMINATION: CHEST 1 VIEW 10/19/2023 1:36 PM INDICATION: chest pain Impression: Heart size is enlarged or at the upper limits of normal. Pulmonary vascularity within normal limits. No pulmonary infiltrate or pleural effusion. Calcification aorta. Old healed right rib fractures. Old healed clavicular fractures. Degenerative changes thoracic spine. Primary Interpreting Staff: MIRIAM CAIN MD, RADIOLOGIST (Customer Service Technician) /MIRIAM YATES [facility] Encounter Notes: All associated encounter notes This section contains the clinical notes associated to the Encounter. Date/Time Encounter Note(s) Provider Source Oct 21, 2023 09:36 AM ADDENDUM: LOCAL TITLE: Addendum STANDARD TITLE: ADDENDUM DATE OF NOTE: OCT 21, 2023@09:36:57 ENTRY DATE: OCT 21, 2023@09:36:59 AUTHOR: DIGNA DAVIDSON COSIGNER: URGENCY: STATUS: COMPLETED Called patient who is hoping to have another steroid injection stating he had one a year ago in the pain clinic and it was really helpful. It was given 09/28/22, see below: PM&R PAIN INTERVENTIONAL PROCEDURE NOTE Level: C7-T1 Procedure: Interlaminar Epidural Steroid Injection Approach: Left Paramedian Procedural diagnosis: Radiculopathy Vet states that the pain he has is similar describing it at the base of his left neck and in between in shoulder blades. Leathat shares being seen in the ED 10/19/23 for chest pain and had a CTA and is having an outpatient nuclear medicine stress test coming up. He feels that the pain he is experiencing is related to his neck and back and as mentioned previoulsy, is requesting another steroid shot. Plan: pain intervention consult dated 09/08/22. Told Vet that consult should still be open and active and provided him with the phone number to the pain clinic injection line to try and schedule another steroid shot. Advised to call signwriter back if any issues. Vet agreeable. /phoebe/ DIGNA DAVIDSON RN REGISTERED NURSE Signed: 10/21/2023 09:43 Receipt Acknowledged By: 10/22/2023 10:25 /es/ ELIZ MUNOZ MD PHYSICIAN, [facility] --- Original Document --- 10/20/23 CCC: SCHEDULING ADMINISTRATION: Primary Care Call Center Primary Care Call. Other: re: requesting a call from pact RN to discuss upper back and shoulder are pain (ongoing condition for a long time, PCP is aware) possible PAIN Clinic consult This note was created by a 3 [facility] Call Center RAY/RIVERA. Please do not alert this signwriter by adding as a signer for future communications. Alerts are not monitored by this user, please reach out to [facility] instead if indicated. please follow up Phone number verified as correct. #[phone] thank you /allen LAU LPN LICENSED PRACTICAL NURSE [facility] Signed: 10/20/2023 16:23 Receipt Acknowledged By: 10/21/2023 09:36 /phoebe/ DIGNA DAVIDSON RN REGISTERED NURSE DIGNA DAVIDSON [facility] Oct 20, 2023 04:18 PM ADMINISTRATIVE NOT E: LOCAL TITLE: CCC: SCHEDULING ADMINISTRATION STANDARD TITLE: ADMINISTRATIVE NOTE DATE OF NOTE: OCT 20, 2023@16:18 ENTRY DATE: OCT 20, 2023@16:18:57 AUTHOR: CATHY LAU EXP COSIGNER: URGENCY: STATUS: COMPLETED CCC: SCHEDULING ADMINISTRATION Has ADDENDA Primary Care Call Center Primary Care Call. Other: re: requesting a call from pact RN to discuss upper back and shoulder are pain (ongoing condition for a long time, PCP is aware) possible PAIN Clinic consult This note was created by a V23 [facility] RAY/RIVERA. Please do not alert this signwriter by adding as a signer for future communications. Alerts are not monitored by this user, please reach out to [facility] instead if indicated. please follow up Phone number verified as correct. #[phone] thank you /allen LAU LPN LICENSED PRACTICAL NURSE [facility] Signed: 10/20/2023 16:23 Receipt Acknowledged By: 10/21/2023 09:36 /phoebe/ DIGNA DAVIDSON RN REGISTERED NURSE 10/21/2023 ADDENDUM STATUS: COMPLETED Called patient who is hoping to have another steroid injection stating he had one a year ago in the pain clinic and it was really helpful. It was given 09/28/22, see below: PM&R PAIN INTERVENTIONAL PROCEDURE NOTE Level: C7-T1 Procedure: Interlaminar Epidural Steroid Injection Approach: Left Paramedian Procedural diagnosis: Radiculopathy Vet states that the pain he has is similar describing it at the base of his left neck and in between in shoulder blades. Vet shares being seen in the ED 10/19/23 for chest pain and had a CTA and is having an outpatient nuclear medicine stress test coming up. He feels that the pain he is experiencing is related to his neck and back and as mentioned previoulsy, is requesting another steroid shot. Plan: pain intervention consult dated 09/08/22. Told Vet that consult should still be open and active and provided him with the phone number to the pain clinic injection line to try and schedule another steroid shot. Advised to call signwriter back if any issues. Vet agreeable. /es/ DIGNA DAVIDSON RN REGISTERED NURSE Signed: 10/21/2023 09:43 Receipt Acknowledged By: * AWAITING SIGNATURE * ELIZ MUNOZ [facility]
--- OUTSIDE RECORDS SUMMARY | 2024-01-26 23:18 | XMS_ITS | Encounter Summary ---
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 of [facility] Organization [facility] of [facility] Address [address] [place] [id number] Care Team Providers Care Assembly Inspector Helper Name Role Phone ELIZ MUNOZ Primary Care [...] PART A Nov 01, 2011 PART A [id number] [phone] ANANTH HUANG PATIENT MEDICARE (WNR) MEDICARE (M) PART B Nov 01, 2011 PART B [id number] [id number] [phone] ANANTH HUANG PATIENT Selected Encounter This section includes the information on record at [place] for the Encounter. Date/Time Encounter Type Encounter Description Reason Pro vider Source Oct 27, 2023 09:34 AM Outpatient Encounter EVENT (HISTORICAL) IHE Encounter Template Text not used by [place] Plan of Treatment: Future Appointments (+ 6 months) and Future Tests (+/- 45 days) The Plan of Treatment section includes future care activities for the patient from all [place] treatmentfacilities. This section includes future appointments and future orders which are active, pending or scheduled. Future Appointments This section includes appointments that were scheduled to occur 6 months from the date of the Encounter, up to a maximum of 20 appointments. The data comes from all [place] treatment facilities. Appointment Date/Time Appointment Type Appointme nt Facility Name Nov 15, 2023 01:40 PM AMBULATORY - REHAB MEDICIN E [facility] Nov 16, 2023 10:30 AM AMBULATORY - MEDICINE [facility] Active, Pending, and Scheduled Orders This section includes a listing of several types of active, pending, and scheduled orders, including clinic medications orders, diagnostic test orders, procedure orders and consult orders; where the start date of the order is 45 days before the date of the Encounter or 45 days after the date of theEncounter. The data comes from all [place] treatment facilities. Test Date/Time Test Type Test Details Facility Name Oct 19, 2023 03:51 PM Laboratory - Chemi stry Order TROPONIN I, HS PLASMA STAT WC ONCE [facility] Lab Results: +/- 30 days of [...] Range Comment Oct 19, 2023 04:08 PM [facility] TROPONIN I, HS Specimen Type: PLASMA No comment entered. Ordering Provider: FIGUEROA RUFF Report Released Date/Time: Oct 19, 2023 03:51 PM Reporting Lab: [facility] [id number] Performing Lab: [facility] [id number] TROPONIN I, HS <3 <35 Oct 19, 2023 01:00 PM [facility] TROPONIN I, HS Specimen Type: PLASMA No comment entered. Ordering Provider: FIGUEROA RUFF Report Released Date/Time: Oct 19, 2023 01:29 PM Reporting Lab: [facility] [id number] Performing Lab: [facility] [address] TROPONIN I, HS <3 <35 Oct 19, 2023 01:00 PM [facility] PROTHROMBIN TIME/INR Specimen Type: PLASMA No comment entered. Ordering Provider: FIGUEROA RUFF Report Released Date/Time: Oct 19, 2023 01:29 PM Reporting Lab: [facility] [id number] Performing Lab: [facility] Oct 19, 2023 01:00 PM [facility] BNP Specimen Type: PLASMA No comment entered. Ordering Provider: FIGUEROA RUFF Report Released Date/Time: Oct 19, 2023 01:29 PM Reporting Lab: [facility] [address] Performing Lab: [facility] [address] BNP 30 pg/mL <99 Oct 19, 2023 01:00 PM [facility] ACT PART THROMBO TIME Specimen Type: PLASMA No comment entered. Ordering Provider: FIGUEROA RUFF Report Released Date/Time: Oct 19, 2023 01:29 PM Reporting Lab: [facility] [phone] Performing Lab: [facility] [address] APTT 35.2 s 25.1-36.5 Oct 19, 2023 01:00 PM [facility] EXTRA GOLD GEL TUBE Specimen Type: SERUM No comment entered. Ordering Provider: FIGUEROA RUFF Report Released Date/Time: Oct 19, 2023 01:35 PM Reporting Lab: [facility] [id number] Performing Lab: [facility] [phone] EXTRA GOLD GEL TUBE RECEIVED Oct 19, 2023 01:00 PM [facility] BASIC METABOLIC PANEL+MG Specimen Type: PLASMA No comment entered. Ordering Provider: FIGUEROA RUFF Report Released Date/Time: Oct 19, 2023 01:29 PM Reporting Lab: [facility] [address] Performing Lab: [facility] [address] CREATININE 0.8 mg/dL 0.7-1.2 UREA NITROGEN 18 mg/dL 8-26 GLUCOSE 98 mg/dL 70-100 SODIUM 142 mmol/L 136-145 POTASSIUM 4.2 mmol/L 3.5-5.1 CHLORIDE 107 mmol/L 98-107 CO2 25 mmol/L 22-29 CALCIUM 9.5 mg/dL 8.4-10.2 MAGNESIUM 1.9 mg/dL 1.6-2.6 ANION GAP 10 mmol/L 5-15 .CREAT EGFR(CKD-EPI) >90 >60 Oct 19, 2023 01:00 PM [facility] CBC & DIFF Specimen Type: BLOOD Comment: Automated Differential Performed Ordering Provider: FIGUEROA RUFF Report Released Date/Time: Oct 19, 2023 01:29 PM Reporting Lab: [facility] [phone] Performing Lab: [facility] [address] WBC 7.22 10*3/uL 4.0-11.0 RBC 5.12 10*6/uL [...] Height Weight Body Mass Index Source Oct 27, 2023 11:37 AM 97.9 67 118/71 18 94 [facility] Social History: Smoking Status (Most current) and [...] Jun 25, 2017 CLINICAL WARNING MADHAVI CASTILLO [facility] Jan 04, 2017 CLINICAL WARNING DIGNA CASTELLANOS [facility] Sep 26, 2014 CLINICAL WARNING SHEREEN LAUREANO [facility] Radiology Reports: +/- 30 days of [...] PAIN PATHWAY (ED ONLY) (P): HUANGANANTH COLTON [id number] -1945 M Exm Date: OCT 27, 2023@08:10 Req Phys: FIGUEROA RUFF Loc: [facility] EMERGENCY DEPT WALK-IN ([facility] Loc: [facility] Service: Unknown (Case [id number] COMPLETE) MYOCARDIAL PERFUSION (SPECT)-MULT(NM Detailed) CPT:24808 Reason for Study: Chest Pain Pathway (Case 1050 COMPLETE) TC-99M SESTAMIBI (CARDIOLITE), PE(NM Detailed) CPT:A9500 (Case 1051 COMPLETE) CARDIOVASCULAR STRESS TEST (NM Detailed) CPT:64581 Clinical History: Myocardial perfusion stress test for chest pain IS NOT under investigation for COVID-19 or is COVID-19 negative chest pain Responsible provider name and phone number to notify for critical findings if other than user placing the order and pager listed below: User placing orders pager: [phone] ER LAST CREATININE 0.8 (10/19/23) Report Status: Verified Date Reported: OCT 27, 2023 Date Verified: OCT 27, 2023 Meat Stock Clerk E-Sig:/ES/GOLD VEGA MD Report: Regadenoson myocardial perfusion [...] Staff: GOLD VEGA MD, RADIOLOGY STAFF PHYSICIAN (Meat Stock Clerk) /GOLD RUIZ [facility] Oct 19, 2023 02:14 PM CTA (CAP) DISSECTI ON (P): ANANTH HUANG [id number] -1945 M Exm Date: OCT 19, 2023@14:14 Req Phys: FIGUEROA RUFF Loc: [facility] EMERGENCY DEPT WALK-IN (Re Img Loc: CT IMAGING Service: Unknown (Case [id number] COMPLETE) CTA (CAP) CHEST W/ & W/O CONTRAST(CT Detailed) CPT:98435 Reason for Study: sharp chest pain (Case 1150 COMPLETE) CTA (CAP) ABDOMEN/PELVIS W/ & W/O(CT Detailed) CPT:61731 Clinical History: sharp chest pain, sudden onset, [...] PLASMA .CREAT EGFR(CKD-E >90 Ref: >=60 Allergies: ([place] only) Patient has answered NKA Defer to [...] 19, 2023 Date Verified: OCT 19, 2023 Meat Stock Clerk E-Sig:/ES/GURDEEP MORFIN MD Report: CHEST/ABDOMEN/PELVIS CTA AND [...] Primary Interpreting Staff: GURDEEP MORFIN MD, RADIOLOGIST (Meat Stock Clerk) Primary Interpreting Resident: SULMA BRADY MD, RELIEF DRILLER /GURDEEP DRAPER [facility] Oct 19, 2023 01:36 PM CHEST 1 VIEW: ANANTH HUANG [id number] -1945 M Exm Date: OCT 19, 2023@13:36 Req Phys: FIGUEROA RUFF Loc: [facility] EMERGENCY DEPT WALK-IN (Re Img Loc: MAIN X-RAY Service: Unknown (Case [id number] COMPLETE) CHEST 1 VIEW (RAD Detailed) CPT:00719 Proc Modifiers : PORTABLE EXAM Reason for Study: chest pain Clinical History: IS NOT under investigation for COVID-19 or is COVID-19 negative chest pain Responsible provider name and phone number to notify for critical findings if other than user placing the order and pager listed below: User placing orders pager: [phone] sindi ruff LAST CREATININE 0.8 (08/17/23) Report Status: Verified Date Reported: OCT 19, 2023 Date Verified: OCT 19, 2023 Meat Stock Clerk E-Sig:/ES/MIRIAM CAIN MD Report: EXAMINATION: CHEST 1 VIEW 10/19/2023 1:36 PM INDICATION: chest pain Impression: Heart size is enlarged or at the upper limits of normal. Pulmonary vascularity within normal limits. No pulmonary infiltrate or pleural effusion. Calcification aorta. Old healed right rib fractures. Old healed clavicular fractures. Degenerative changes thoracic spine. Primary Interpreting Staff: MIRIAM CAIN MD, RADIOLOGIST (Meat Stock Clerk) /MIRIAM YATES [facility]
--- OUTSIDE RECORDS SUMMARY | 2024-01-26 23:18 | XMS_ITS | Encounter Summary ---
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 of [facility] Organization Department of [facility] Address [address] [place] [id number] Care Team Providers Care Mrp Controller Name Role Phone ELIZ MUNOZ Primary Care Provider [facility] Insurance Providers: All historical and [...] PART B Nov 01, 2011 PART B [phone] ANANTH HUANG PATIENT MEDICARE (WNR) MEDICARE (M) PART A Nov 01, 2011 PART A [id number] ANANTH HUANG PATIENT Selected Encounter This section includes the information on record at ME for the Encounter. Date/Time Encounter Type Encounter Description Reason Provider Source Oct 27, 2023 11:29 AM EMERGENCY DEPT VISIT [facility] EMERGENCY DEPT ICD-10-CM R07.9 Chest pain, unspecified OBDULIO RODRIGUEZ E Encounter Template Text not used by ME Assessments - Encounter Diagnoses This section includes the primary and secondary diagnoses documented for the Encounter. Date/Time Primary/Secondary Diagnosis Diagnosis Name Provider Source Oct 27, 2023 12:23 PM PRIMARY Chest pain, unspecified OBDULIO RODRIGUEZ [facility] Plan of Treatment: Future Appointments [...] 20 appointments. The data comes from all [facility]. Appointment Date/Time Appointment Type Appointme nt Facility Name Nov 15, 2023 01:40 PM AMBULATORY - REHAB MEDICIN E [facility] Nov 16, 2023 10:30 AM [facility] - [facility]ICINE [facility] Active, Pending, and Scheduled Orders This section includes a listing of several types of active, pending, and scheduled orders, including clinic medications orders, diagnostic test orders, procedure orders and consult orders; where the start date of the order is 45 days before the date of the Encounter or 45 days after the date of theEncounter. The data comes from all [facility]. Test Date/Time Test Type Test Details Facility Name Oct 19, 2023 03:51 PM Laboratory - Chemi stry Order TROPONIN I, HS PLASMA STAT WC ONCE [facility] Lab Results: +/- 30 days [...] Range Comment Oct 19, 2023 04:08 PM [facility] TROPONIN I, HS Specimen Type: PLASMA No comment entered. Ordering Provider: FIGUEROA RUFF Report Released Date/Time: Oct 19, 2023 03:51 PM Reporting Lab: [facility] [phone] Performing Lab: [facility] [id number] TROPONIN I, HS <3 <35 Oct 19, 2023 01:00 PM [facility] TROPONIN I, HS Specimen Type: PLASMA No comment entered. Ordering Provider: FIGUEROA RUFF Report Released Date/Time: Oct 19, 2023 01:29 PM Reporting Lab: [facility] [id number] Performing Lab: [facility] [id number] TROPONIN I, HS <3 <35 Oct 19, 2023 01:00 PM [facility] PROTHROMBIN TIME/INR Specimen Type: PLASMA No comment entered. Ordering Provider: FIGUEROA RUFF Report Released Date/Time: Oct 19, 2023 01:29 PM Reporting Lab: [facility] [id number] Performing Lab: [facility] Oct 19, 2023 01:00 PM [facility] BNP Specimen Type: PLASMA No comment entered. Ordering Provider: FIGUEROA RUFF Report Released Date/Time: Oct 19, 2023 01:29 PM Reporting Lab: [facility] [id number] Performing Lab: [facility] [phone] BNP 30 pg/mL <99 Oct 19, 2023 01:00 PM [facility] ACT PART THROMBO TIME Specimen Type: PLASMA No comment entered. Ordering Provider: FIGUEROA RUFF Report Released Date/Time: Oct 19, 2023 01:29 PM Reporting Lab: [facility] [id number] Performing Lab: [facility] [phone] APTT 35.2 s 25.1-36.5 Oct 19, 2023 01:00 PM [facility] EXTRA GOLD GEL TUBE Specimen Type: SERUM No comment entered. Ordering Provider: FIGUEROA RUFF Report Released Date/Time: Oct 19, 2023 01:35 PM Reporting Lab: [facility] [id number] Performing Lab: [facility] [phone] EXTRA GOLD GEL TUBE RECEIVED Oct 19, 2023 01:00 PM [facility] BASIC METABOLIC PANEL+MG Specimen Type: PLASMA No comment entered. Ordering Provider: FIGUEROA RUFF Report Released Date/Time: Oct 19, 2023 01:29 PM Reporting Lab: [facility] [phone] Performing Lab: [facility] [phone] CREATININE 0.8 mg/dL 0.7-1.2 UREA NITROGEN 18 mg/dL 8-26 GLUCOSE 98 mg/dL 70-100 SODIUM 142 mmol/L 136-145 POTASSIUM 4.2 mmol/L 3.5-5.1 CHLORIDE 107 mmol/L 98-107 CO2 25 mmol/L 22-29 CALCIUM 9.5 mg/dL 8.4-10.2 MAGNESIUM 1.9 mg/dL 1.6-2.6 ANION GAP 10 mmol/L 5-15 .CREAT EGFR(CKD-EPI) >90 >60 Oct 19, 2023 01:00 PM [facility] CBC & DIFF Specimen Type: BLOOD Comment: Automated Differential Performed Ordering Provider: FIGUEROA RUFF Report Released Date/Time: Oct 19, 2023 01:29 PM Reporting Lab: [facility] [phone] Performing Lab: [facility] [phone] WBC 7.22 10*3/uL 4.0-11.0 RBC 5.12 10*6/uL [...] 11:37 AM 97.9 67 118/71 18 94 [place] [facility] Social History: Smoking Status (Most current) and [...] 17, 2023 09:45 AM VA-TOBACCO FORMER USER [facility] Tobacco Use History This section includes a history of the smoking, or tobacco-related health factors, that were collected on or before the date of the Encounter. The data comes from the [place] facility where the Encounter took place. Date/Time Smoking Status/Tobacco Use Comment F acility Aug 17, 2023 09:45 AM VA-TOBACCO QUIT 15 YRS OR MORE [facility] Jul 01, 2022 08:45 AM VA-TOBACCO FORMER USER [facility] Jul 01, 2022 08:45 AM VA-TOBACCO QUIT 15 YRS OR MORE [facility] May 22, 2021 09:00 AM VA-TOBACCO FORMER USER [facility] May 22, 2021 09:00 AM VA-TOBACCO QUIT 15 YRS OR MORE [facility] Mar 29, 2020 07:42 AM VA-TOBACCO FORMER USER [facility] Mar 29, 2020 07:42 AM VA-TOBACCO QUIT 15 YRS OR MORE [facility] Mar 06, 2019 12:00 PM VA-TOBACCO FORMER USER [facility] Mar 06, 2019 12:00 PM VA-TOBACCO QUIT 15 YRS OR MORE [facility] Oct 23, 2018 11:20 AM INPT NO TOBACCO USE IN LAST 30 D [facility] Jun 15, 2018 09:25 AM VA-TOBACCO FORMER USER [facility] Jun 15, 2018 09:25 AM VA-TOBACCO QUIT 15 YRS OR MORE [facility] Jun 25, 2017 04:05 PM INPT NO TOBACCO USE IN LAST 30 D [facility] Apr 26, 2017 08:03 AM FORMER TOBACCO USER 7Y OR GREATE R [facility] Jan 04, 2017 11:27 AM INPT NO TOBACCO USE IN LAST 30 D [facility] May 13, 2016 10:42 AM LIFETIME NON-TOBACCO USER [facility] Jun 04, 2015 06:17 AM INPT NO TOBACCO USE IN LAST 30 D [facility] Apr 23, 2015 09:14 AM FORMER TOBACCO USER 7Y OR GREATE R [facility] Jan 19, 2014 09:40 AM FORMER TOBACCO USER 7Y OR GREATE R [facility] December 09, 2010 12:08 PM FORMER TOBACCO USER 7Y OR GREATE R [facility] Advance Directives: All historical and [...] Jun 25, 2017 CLINICAL WARNING MADHAVI CASTILLO [facility] Jan 04, 2017 CLINICAL WARNING DIGNA CASTELLANOS [facility] Sep 26, 2014 CLINICAL WARNING JARAMILLO SHEREEN MILLAN [facility] Radiology Reports: +/- 30 days [...] the Encounter. The data comes from all [place] treatment facilities. Date/Time Radiology Report Provider Source Oct 27, 2023 08:10 AM CHEST PAIN PATHWAY (ED ONLY) (P): ANANTH HUANG [id number] -1945 M Exm Date: OCT 27, 2023@08:10 Req Phys: FIGUEROA RUFF Loc: [facility] EMERGENCY DEPT WALK-IN ( Img Loc: [facility] MED Service: Unknown (Case [id number] COMPLETE) MYOCARDIAL PERFUSION (SPECT)-MULT(NM Detailed) CPT:75513 Reason for Study: Chest Pain Pathway (Case 1050 COMPLETE) TC-99M SESTAMIBI (CARDIOLITE), PE(NM Detailed) CPT:A9500 (Case 1051 COMPLETE) CARDIOVASCULAR STRESS TEST (NM Detailed) CPT:07158 Clinical History: Myocardial perfusion stress test for chest pain [place] IS NOT under investigation for COVID-19 or is COVID-19 negative chest pain Responsible provider name and phone number to notify for critical findings if other than user placing the order and pager listed below: User placing orders pager: [phone] ER LAST CREATININE 0.8 (10/19/23) Report Status: Verified Date Reported: OCT 27, 2023 Date Verified: OCT 27, 2023 Scrap Metal Burner E-Sig:/ES/GOLD VEGA MD Report: Regadenoson myocardial perfusion [...] Staff: GOLD VEGA MD, RADIOLOGY STAFF PHYSICIAN (Scrap Metal Burner) /GOLD RUIZ [facility] Oct 19, 2023 02:14 PM CTA (CAP) DISSECTI ON (P): ANANTH HUANG [id number] -1945 M Exm Date: OCT 19, 2023@14:14 Req Phys: FIGUEROA RUFF Loc: [facility] EMERGENCY DEPT WALK-IN (Re Img Loc: CT IMAGING Service: Unknown (Case [id number] COMPLETE) CTA (CAP) CHEST W/ & W/O CONTRAST(CT Detailed) CPT:08736 Reason for Study: sharp chest pain (Case 1150 COMPLETE) CTA (CAP) ABDOMEN/PELVIS W/ & W/O(CT Detailed) CPT:59267 Clinical History: sharp chest pain, sudden onset, [...] PLASMA .CREAT EGFR(CKD-E >90 Ref: >=60 Allergies: ([place] only) Patient has answered NKA Defer to [...] 19, 2023 Date Verified: OCT 19, 2023 Scrap Metal Burner E-Sig:/ES/GURDEEP MORFIN MD Report: CHEST/ABDOMEN/PELVIS CTA AND [...] Primary Interpreting Staff: GURDEEP MORFIN MD, RADIOLOGIST (Scrap Metal Burner) Primary Interpreting Resident: SULMA BRADY MD, CONTENT WRITER /GURDEEP DRAPER [facility] Oct 19, 2023 01:36 PM CHEST 1 VIEW: ANANTH HUANG [id number] -1945 M Ex Date: OCT 19, 2023@13:36 Req Phys: FIGUEROA RUFF Loc: [facility] EMERGENCY DEPT WALK-IN (Re Img Loc: MAIN X-RAY Service: Unknown (Case [id number] COMPLETE) CHEST 1 VIEW (RAD Detailed) CPT:77869 Proc Modifiers : PORTABLE EXAM Reason for Study: chest pain Clinical History: IS NOT under investigation for COVID-19 or is COVID-19 negative chest pain Responsible provider name and phone number to notify for critical findings if other than user placing the order and pager listed below: User placing orders pager: [phone] sindi ruff LAST CREATININE 0.8 (08/17/23) Report Status: Verified Date Reported: OCT 19, 2023 Date Verified: OCT 19, 2023 Scrap Metal Burner E-Sig:/ES/MIRIAM CAIN MD Report: EXAMINATION: CHEST 1 VIEW 10/19/2023 1:36 PM INDICATION: chest pain Impression: Heart size is enlarged or at the upper limits of normal. Pulmonary vascularity within normal limits. No pulmonary infiltrate or pleural effusion. Calcification aorta. Old healed right rib fractures. Old healed clavicular fractures. Degenerative changes thoracic spine. Primary Interpreting Staff: MIRIAM CAIN MD, RADIOLOGIST (Scrap Metal Burner) /RTS MIRIAM CAIN [facility] Encounter Notes: All associated encounter notes This section contains the clinical notes associated to the Encounter. Date/Time Encounter Note(s) Provider Source Oct 27, 2023 12:22 PM NURSING EMERGENCY DEPT NOTE: LOCAL TITLE: EMERGENCY DEPT NURSING NOTE STANDARD TITLE: NURSING EMERGENCY DEPT NOTE DATE OF NOTE: OCT 27, 2023@12:22 ENTRY DATE: OCT 27, 2023@12:22:21 AUTHOR: KAITLYNN BOURGEOIS EXP COSIGNER: URGENCY: STATUS: COMPLETED Emergency Department Discharge Education Personal Protective Equipment (PPE): Patient was in mask on arrival, patient remained masked for entire visit, RN used PPE during every encounter with the patient, MD/PA/MACHINE CLOTH MEASURER used PPE during every encounter with the patient The patient was given education on the following: stress test results EDUCATION/TEACH BACK: [employer] discharge instructions have been reviewed with AND had an opportunity to ask questions, has verbalized understanding EDUCATIONAL LEVEL OF UNDERSTANDING: Patient was ready and receptive to education. BARRIERS TO LEARNING: No barriers identified Accompanied by: Self Mode of Transportation: Drive self EXIT ADDITIONAL EDUCATION GIVE: Wristband Removal:Patient wristband was removed and destroyed by being placed in the shred bin. Discharged to: Home // KAITLYNN BOURGEOIS RN NURSE BROADLOOM WEAVER Signed: 10/27/2023 12:23 KAITLYNN BOURGEOIS [facility] Oct 27, 2023 12:17 PM PHYSICIAN EMERGENC Y DEPT NOTE: LOCAL TITLE: EMERGENCY DEPT NOTE STANDARD TITLE: PHYSICIAN EMERGENCY DEPT NOTE DATE OF NOTE: OCT 27, 2023@12:17 ENTRY DATE: OCT 27, 2023@12:18:02 AUTHOR: OBDULIO RODRIGUEZ EXP COSIGNER: URGENCY: STATUS: COMPLETED Patient is a pleasant 77-year-old male presents to the emergency department to discuss recent stress test results, which do not indicate any focal wall abnormalities, diagnostic EKG changes on exam, reversible myocardial perfusion defects, and an ejection fraction within normal limits. This information was conveyed to the patient and the patient was advised to follow-up with primary care to discuss noncardiac causes of chest pain. Patient also strongly advised to immediately return to the emergency department should he develop any crushing chest pain, shortness of breath at rest. Patient verbalized understanding of all aspects of the plan and was in complete agreement. CPRS Notes/LABS Reviewed for Patient Encounter: Emergency department triage, emergency department nursing, recent emergency department visit note which precipitated the need for stress test. Impression 1. No ischemia demonstrated. 2. Left ventricular ejection fraction is 58 %. No focal wall motion abnormality. Report Regadenoson myocardial perfusion study History: Chest pain pathway Dose: 0.4 mg of Regadenoson IV followed by 16.2 mCi Tc-99 m Sestamibi. 5.0 mCi Tc-99 m Sestamibi IV for the resting study. No adverse effects. No diagnostic EKG changes. /phoebe/ OBDULIO RODRIGUEZ PA-C PHYSICIAN AIRLINE MANAGER Signed: 10/27/2023 12:18 Receipt Acknowledged By: 10/27/2023 12:54 /phoebe/ ELIZ MUNOZ MD PHYSICIAN, [facility] OBDULIO RODRIGUEZ [facility] Oct 27, 2023 12:03 PM NURSING EMERGENCY DEPT NOTE: LOCAL TITLE: EMERGENCY DEPT NURSING NOTE STANDARD TITLE: NURSING EMERGENCY DEPT NOTE DATE OF NOTE: OCT 27, 2023@12:03 ENTRY DATE: OCT 27, 2023@12:03:23 AUTHOR: KAITLYNN BOURGEOIS COSIGNER: URGENCY: STATUS: COMPLETED Nursing Focused Assessment: CHIEF COMPLAINT: 77 y/o male ambulatory to Room B for Stress Test results. Patient was seen in the ED on 10/19/23 for intermittent Chest Pain. Stress test ordered. Here for results. Allergies/ADR:Patient has answered NKA Additional allergies not listed: None Vital Signs * Blood Pressure: 118/71 (10/27/2023 11:37) Heart Rate: 67 (10/27/2023 11:37) Respirations: 18 (10/27/2023 11:37) Temperature: 97.9 F [36.6 C] (10/27/2023 11:37) Pain: 0 (08/17/2023 09:38) Weight: 240.5 lb [109.09 kg] (08/17/2023 09:38) O2 Sats: 94% (10/27/2023 11:37) Pain intensity: (Patient rates the pain. 0 = no pain; 10 = worst pain) Is your pain new with this visit? (acute or chronic) No Tobacco use: No Alcohol use: No Any drugs besides what is prescribed or over the counter: No ABUSE/NEGLECT: No evidence of abuse/neglect REVIEW OF SYSTEM-FOCUSED ASSESSMENT Cardiovascular: Additional comments/issues/intervent ions: Stress tests results recorded. INTERVENTIONS: Oriented to room and bed controls Call light within reach of patient or family/friend Bed in low position and locked /es/ KAITLYNN BOURGEOIS RN NURSE BROADLOOM WEAVER Signed: 10/27/2023 12:05 KAITLYNN BOURGEOIS [facility] Oct 27, 2023 11:38 AM NURSING EMERGENCY DEPT TRIAGE NOTE: LOCAL TITLE: EMERGENCY DEPARTMENT NURSING TRIAGE NOTE STANDARD TITLE: NURSING EMERGENCY DEPT TRIAGE NOTE DATE OF NOTE: OCT 27, 2023@11:38 ENTRY DATE: OCT 27, 2023@11:38:17 AUTHOR: GAYATRI ODOM COSIGNER: URGENCY: STATUS: COMPLETED Emergency Department/Urgent Care Center Triage Patient age:77 Sex: MALE On arrival patient was: AMBULATORY Patient phone number: Allergies: Patient has answered NKA Subjective/Chief Complaint: stress test results Objective: presents to ED with stress test results The patient is not a fall risk. Vital Signs * Blood Pressure: 118/71 (10/27/2023 11:37) Heart Rate: 67 (10/27/2023 11:37) Respirations: 18 (10/27/2023 11:37) Temperature: 97.9 F [36.6 C] (10/27/2023 11:37) Pain: 0 (08/17/2023 09:38) Weight: 240.5 lb [109.09 kg] (08/17/2023 09:38) O2 Sats: 94% (10/27/2023 11:37) Emergency Severity Index (JOSH) level Level 4 Current Medications: Active Outpatient Medications (including Supplies): Active Outpatient Medications Status 1) ACETAMINOPHEN 500MG TAB [...] (FROM SULFATE) CAP,ORAL ACTIVE 10 Total Medications Current Problems: Obstructive sleep apnea of adult (SCT 11Anticoagulation (ICD-9-CM V58.61) Hypothyroid (SCT 28444962) Paroxysmal atrial fibrillation (SCT 283156037) colonoscopy screening (ICD-10-CM R69.) Glaucoma (SCT 93064277) Exposure to potentially hazardous substaCAD - Coronary Artery Disease (SCT 17189112) Cervical Radiculopathy ([facility] [id number]) Identification of Seniors at Risk (ISAR):* Perform Screen Yes-ISAR More than 3 different medications daily Total Score: 1 Suicide Screen: [place] Suicide Severity Rating Scale (C-SSRS) screener 1. [...] due to responses to other questions. /phoebe/ GAYATRI ODOM RN ALODIZE MACHINE HELPER Signed: 10/27/2023 11:40 GAYATRI ODOM [facility]
== END 2024-01-26 23:23 | disposition home or self-care (01) ==
LOC: ED 23:07
PROVIDERS: Emergency Provider Family Medicine
DX: T16.2XXA Foreign body in left ear, initial encounter (principal)
CPT/HCPCS: 69200; 99282

== ENCOUNTER 2024-10-09 09:04 | Emergency (ER) | payer OTHER, SELFPAY ==
[2024-10-09 09:21] VITALS: BP 163/76; PULSE 60; RESP 18; TEMP 37.3; O2SAT 96; BMI 35.6
[2024-10-09 10:06] LABS: Appearance Urine Clear (Clear); Bilirubin Urine Negative (Negative); Blood Urine Negative (Negative); Color Urine Yellow (Yellow); Glucose Urine Negative (Negative); Ketones Urine Negative (Negative); Leukocyte Esterase Urine Negative (Negative); Nitrite Urine Negative (Negative); Protein Urine Negative (Negative); Urobilinogen Urine 0.2 (0.2-1.0); pH Urine 6.5 (5.0-8.5)
[2024-10-09] MEDS: LIDOCAINE/EPINEP/TETRACAINE 3 ML GEL..ML. TOPICAL (10:08)
--- NOTE | 2024-10-09 10:10 | ED.MALEGU ---
HPI - Male Genitourinary General Date Seen: 10/09/24 Chief complaint: Urogenital Problems, Male Stated complaint: Discharge from scrotum (bloody) Time Seen by Provider: 10/09/24 09:45 Source: patient Mode of arrival: ambulatory Limitations: no limitations History of Present Illness HPI Narrative: This very nice 78-year-old gentleman presents here with spot on the right side of his scrotum, he has had for couple months, he noticed the last couple days probably secondary to squeezing, he has had some fluid coming out of it. Reports no pain in his scrotum, no redness no fevers no chills, no dysuria frequency associated with this he had no previous problems that he scrotal problems, and otherwise describes himself as fairly healthy. MD Complaint: other Related Data Sexually active: Yes Home Medications ?Medication ?Instructions ?Recorded ?Confirmed atorvastatin 20 mg tablet 20 mg PO QDAY 12/04/22 10/09/24 dabigatran etexilate 110 mg 110 mg PO BID 12/04/22 10/09/24 capsule (Pradaxa) levothyroxine 75 mcg capsule 75 mcg PO QDAY 12/04/22 10/09/24 Previous Rx's ?Medication ?Instructions ?Recorded cephalexin 500 mg capsule 500 mg PO BID #14 caps 10/09/24 Allergies Allergy/AdvReac Type Severity Reaction Status Date / Time No Known Drug Allergies Allergy Verified 10/09/24 09:30 Review of Systems Status of ROS: Reports: 10 or more systems reviewed and unremarkable except as noted in History and below [facility] Medical History Need for prophylactic measure ?Z29.9 - Encounter for prophylactic measures, unspecified (ICD-10) Cat bite ?W55.01XA - Bitten by cat, initial encounter (ICD-10) Social History Smoking Status: Former smoker Non-prescribed substance use: denies use service: Yes Exam Narrative: Exam Narrative: On examination in stabilization room 2 patient is in no apparent distress. On examination of his right scrotum there is a small skin lesion on the right side, that is draining some so clears purulent solution the skin lesion is approximately 5-6 mm in diameter. Tethered to the skin, and not any to the deep structures no testicular pain swelling masses, no groin masses suggestive of a hernias. And he is otherwise has no abnormality of his penis. There is no discharge noted. I recommend that we put some let on this area, some numbing medicine. And then do a small incision and see we can excise this. Allow to drain, he may need some antibiotics with this. He was comfortable with this plan. Const: Vital Signs, click to edit/add: Vital Signs - 24 hr 10/09/24 09:21 Temperature 99.1 F Pulse Rate [Right Pulse Oximeter] 60 Respiratory Rate 18 Blood Pressure [Ri ght Upper Arm] 163/76 H Pulse Oximetry 96 Oxygen Delivery Me thod Room Air Course Course ED Course: let was applied to the area on the right side of the scrotum, this resulted in good anesthesia, small 15 scalpel blade was used common open up the wound approximately 2 mL a some purulence came out, but there was a deeper structure, likely epidermal inclusion cyst. This was left after we opened it up with approximately a 2-3 mm incision, estimated blood loss less than 2 mL. Bacitracin dry dressing applied. Tolerated well by the patient. Vital Signs Vital signs: Initial Vital Signs Temperature 99.1 F 10/09/24 09:21 Temperature Source Temporal Artery Scan 10/09/24 09:21 Pulse Rate 60 10/09/24 09:21 Respiratory Rate 18 10/09/24 09:21 Blood Pressure 163/76 H 10/09/24 09:21 Blood Pressure Mean 105 10/09/24 09:21 Blood Pressure Position Sitting 10/09/24 09:21 Pulse Oximetry 96 10/09/24 09:21 Oxygen Delivery Method Room Air 10/09/24 09:21 Vital Signs Temperature 99.1 F 10/09/24 09:21 Pulse Rate 60 10/09/24 09:21 Respiratory Rate 18 10/09/24 09:21 Blood Pressure 163/76 H 10/09/24 09:21 Pulse Oximetry 96 10/09/24 09:21 Oxygen Delivery Method Room Air 10/09/24 09:21 Temperature 99.1 F 10/09/24 09:21 Pulse Rate 60 10/09/24 09:21 Respiratory Rate 18 10/09/24 09:21 Blood Pressure 163/76 H 10/09/24 09:21 Pulse Oximetry 96 10/09/24 09:21 Oxygen Delivery Method Room Air 10/09/24 09:21 Medications Administered Medications: Discontinued Medications Generic Name Dose Route Start Last Admin Trade Name Philippe PRN Reason Stop Dose Admin Lidocaine/Epinephrine/Tetracaine 3 ml 10/09/24 10:07 10/09/24 10:08 Lidocaine/Epinep/Tetracaine 3 Ml Gel..Ml. TOPICAL 10/09/24 10:08 3 ml ONCE ONE Administration MDM - Male Genitourinary Lab Data Labs: Lab Results 10/09/24 Range/Units 10:00 Urine Color Yellow (Yellow) Urine Appearance Clear (Clear) Urine pH 6.5 (5.0-8.5) Ur Specific Brady 1.010 (1.000-1.030) Urine Protein Negative (Negative) Urine Glucose (UA) Negative (Negative) Urine Ketones Negative (Negative) Urine Blood Negative (Negative) Urine Nitrite Negative (Negative) Urine Bilirubin Negative (Negative) Urine Urobilinogen 0.2 (0.2-1.0) Ur Leukocyte Esterase Negative (Negative) Urine RBC 0-2 (0-2) Urine WBC 0-2 (0-5) Ur Squamous Epith Cells None (None-Few) Urine Bacteria None (None) Discharge Plan Discharge Clinical Impression: Epidermoid cyst of skin of scrotum, Scrotal cyst Patient Disposition: Home, Self-Care Condition: Improved Instructions: Epidermal Inclusion Cysts (ED), Cyst (ED) Additional Instructions: Home, rest, use of bacitracin on this twice daily, I would also favor using the Keflex antibiotic, [facility], for recheck, no swimming, no hot tubbing, showering is okay. Return back here if increasing redness swelling or other issues. There was a small amount of pus there, and there is a small inclusion cyst a little deeper. I would do recommend that if it comes back that you will have to see Urology or general surgery depending on who does that at the [place]. Keflex 500 mg po bid for 7 days. Activity Level: Light activity Prescriptions: New cephalexin 500 mg capsule 500 mg PO BID Qty: 14 0RF No Action atorvastatin 20 mg tablet 20 mg PO QDAY levothyroxine 75 mcg capsule 75 mcg PO QDAY Pradaxa 110 mg capsule 110 mg PO BID Follow Up/Referrals: Silvestre Goins MD [Primary Care Provider] - Stand Alone Forms: [employer] Info Instructions
[2024-10-09 10:28] LABS: RBC Urine 0-2 (0-2); WBC Urine 0-2 (0-5)
--- OUTSIDE RECORDS SUMMARY | 2024-10-09 11:25 | XMS_ITS | Encounter Summary ---
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 Organization [facility] Address [address] [place] [address] Care Team Providers Care Hearing Aid Specialist Name Role Phone ELIZ MUNOZ Primary Care Provider [facility] e Insurance Providers: All historical and [...] PART A Nov 01, 2011 PART A [id number] [phone] ANANTH HUANG PATIENT MEDICARE (WNR) MEDICARE (M) PART B Nov 01, 2011 PART B [id number] ANANTH HUANG PATIENT MEDICARE (WNR) MEDICARE (M) PART A Nov 01, 2011 PART A [id number] ANANTH HUANG PATIENT MEDICARE (WNR) MEDICARE (M) PART B Nov 01, 2011 PART B [id number] [phone] ANANTH HUANG PATIENT Selected Encounter This section includes the information on record at [place] for the Encounter. Date/Time Encounter Type Encounter Description Reason Pro vider Source Mar 07, 2024 09:18 AM Outpatient Encounter [facility] Encounter Template Text not used by [place] Plan of Treatment: Future Appointments (+ 6 months) and Future Tests (+/- 45 days) The Plan of Treatment section includes future care activities for the patient from all [facility]. This section includes future appointments and future orders which are active, pending or scheduled. Future Appointments This section includes appointments that were scheduled to occur 6 months from the date of the Encounter, up to a maximum of 20 appointments. The data comes from all [place] treatment facilities. Appointment Date/Time Appointment Type Appointme nt Facility Name Mar 08, 2024 10:45 AM AMBULATORY - SURGERY MEGHA LLOYD [facility] Jun 19, 2024 12:40 PM AMBULATORY - REHAB MEDICIN E BHARATI [facility] Jul 11, 2024 08:15 AM AMBULATORY - NONE JACKELIN GIPSON [facility] Aug 16, 2024 11:15 AM AMBULATORY - MEDICINE PHILLIP SUE [facility] Lab Results: +/- 30 days of the encounter This section includes the Chemistry and Hematology Lab Results on record with [place] for the patient. Radiology Reports and Pathology Reports are provided separately, in subsequent sections. Lab Results This section contains the Chemistry/Hematology Results that were resulted 30 days before or 30 daysafter the date of the Encounter. Date/Time Source Result Type Result - Unit Interpretation Reference Range Comment Feb 26, 2024 08:17 AM [facility] EXTRA BLUE TUBE Specimen Type: PLASMA No comment entered. Ordering Provider: TED GOODMAN Report Released Date/Time: Feb 26, 2024 08:25 AM Reporting Lab: [facility] [id number] Performing Lab: [facility] [id number] EXTRA BLUE TUBE RECEIVED Feb 26, 2024 08:17 AM [facility] TROPONIN I, HS Specimen Type: PLASMA No comment entered. Ordering Provider: TED GOODMAN Report Released Date/Time: Feb 26, 2024 07:57 AM Reporting Lab: [facility] [phone] Performing Lab: [facility] [phone] TROPONIN I, HS 7 <35 Feb 26, 2024 08:17 AM [facility] BNP Specimen Type: PLASMA No comment entered. Ordering Provider: TED GOODMAN Report Released Date/Time: Feb 26, 2024 07:57 AM Reporting Lab: [facility] [phone] Performing Lab: [facility] [phone] BNP 40 pg/mL <99 Feb 26, 2024 08:17 AM [facility] BASIC METABOLIC PANEL+MG Specimen Type: PLASMA No comment entered. Ordering Provider: TED GOODMAN Report Released Date/Time: Feb 26, 2024 07:57 AM Reporting Lab: [facility] [id number] Performing Lab: [facility] [id number] CREATININE 0.7 mg/dL 0.7-1.2 UREA NITROGEN 14 mg/dL 8-26 GLUCOSE 109 mg/dL H 70-100 SODIUM 142 mmol/L 136-145 POTASSIUM 4.4 mmol/L 3.5-5.1 CHLORIDE 110 mmol/L H 98-107 CO2 24 mmol/L 22-29 CALCIUM 9.5 mg/dL 8.4-10.2 MAGNESIUM 2.0 mg/dL 1.6-2.6 ANION GAP 8 mmol/L 5-15 .CREAT EGFR(CKD-EPI ) >90 >60 Feb 26, 2024 08:17 AM [facility] EXTRA GOLD GEL TUBE Specimen Type: SERUM No comment entered. Ordering Provider: TED GOODMAN Report Released Date/Time: Feb 26, 2024 08:25 AM Reporting Lab: [facility] [id number] Performing Lab: [facility] [id number] EXTRA GOLD GEL TUBE RECEIVED Feb 26, 2024 08:17 AM [facility] CBC & DIFF Specimen Type: BLOOD Comment: Automated Differential Performed Ordering Provider: TED GOODMAN Report Released Date/Time: Feb 26, 2024 07:57 AM Reporting Lab: [facility] [id number] Performing Lab: [facility] [phone] WBC 5.66 10*3/uL 4.0-11.0 RBC 5.04 10*6/uL 4.6-6.2 HGB 15.4 g/dL 13.5-17.9 HCT 46.0 41-54 MCV 91.3 fL 80-100 MCH 30.6 pg 27-33 MCHC 33.5 g/dL 32.0-37.5 PLT 211 10*3/uL 150-400 MPV 9.7 fL 7.4-10.4 NEUT 63.7 40.0-80.0 LYMPHS 15.5 15.0-45.0 MONO 14.1 H 2.0-12.0 EOSINO 5.1 0.0-6.0 BASO 1.2 0.0-2.0 RDW 13.1 11.5-14.5 ABS LYMPH 0.88 10*3/uL L 1.0-4.0 ABS MONO 0.80 10*3/uL 0.1-1.0 ABS NEUT 3.60 10*3/uL 2.0-7.7 ABS EOS 0.29 10*3/uL 0-0.5 ABS BASO 0.07 10*3/uL 0-0.2 IG(META,MYEL O,PRO) 0.4 ABS IMMATURE GRAN 0.02 10*3/uL 0-0.1 Social History: Smoking Status (Most current) and Tobacco Use (All prior to encounter date) This section includes the most current, and the historical, smoking and tobacco- related health factors from the [place] facility where the Encounter took place. Current Smoking Status This section includes the most current smoking, or tobacco-related health factor, from the [place] facility where the Encounter took place. Date/Time Current Smoking Status Comment Priya ity Aug 17, 2023 09:45 AM [facility]-TOBACCO FORMER USER [facility] Tobacco Use History This section includes a history of the smoking, or tobacco-related health factors, that were collected on or before the date of the Encounter. The data comes from the [place] facility where the Encounter took place. Date/Time [...] TOBACCO USE IN LAST 30 D AYS [facility] Jun 15, 2018 09:25 AM [place]-TOBACCO FORMER USER [facility] Jun 15, 2018 09:25 AM VA-TOBACCO QUIT 15 YRS OR MORE [facility] Jun 25, 2017 04:05 PM INPT NO TOBACCO USE IN LAST 30 D [facility] Apr 26, 2017 08:03 AM FORMER TOBACCO USER 7Y OR GREATE R [facility] Jan 04, 2017 11:27 AM INPT NO TOBACCO USE IN LAST 30 D [facility] May 13, 2016 10:42 AM LIFETIME NON-TOBACCO USER [facility] Jun 04, 2015 06:17 AM INPT NO TOBACCO USE IN LAST 30 D [facility] Apr 23, 2015 09:14 AM FORMER TOBACCO [...] ALL of a patient's completed or amended [place] Advance and Rescinded Directives. The entries below indicate that a directive exists for the patient, but an actual copy is not included with this document. The data comes from all [place] facilities. Date Advance Directives Provider Source Jun 25, 2017 CLINICAL WARNING MADHAVI CASTILLO [facility] Jan 04, 2017 CLINICAL WARNING DIGNA CASTELLANOS [facility] Sep 26, 2014 CLINICAL WARNING SHEREEN LAUREANO [facility] Encounter Notes: All associated encounter notes This section contains the clinical notes associated to the Encounter. Date/Time Encounter Note(s) Provider Source Mar 07, 2024 09:21 AM PHARMACY NOTE: LOCAL TITLE: PHARMACY NON [facility] MEDICATIONS STANDARD TITLE: PHARMACY NOTE DATE OF NOTE: MAR 07, 2024@09:21 ENTRY DATE: MAR 07, 2024@09:21:14 AUTHOR: RAYMOND BARAJAS COSIGNER: URGENCY: STATUS: COMPLETED [facility] RECEIVED electronic prescription(s) (eRX(s)) from NON-VA Provider: GUY DURAN Date eRX received: Mar Outside (NON-[facility]) provider not authorized to write for prescription(s) through [place] pharmacy. Prescription request REDIRECTED via FAX to one of the following for review: [ ][facility] (Dual) [facility] [X]Other: eRx Prescription Information: patient was given dorzolamide 8/5- no action needed at this time. eRx Reference #: [id number] eRx Drug: brinzolamide 1 % ophthalmic (eye) Drops, Suspension eRx Qty: 5 eRx Refills: 6 eRx Days Supply: eRx Written Date: MAR 07, 2024 eRx Issue Date: Prohibit Renewals: No eRx Sig: Instill 1 drop in affected eye(s) two times daily /es/ RAYMOND BARAJAS pharmacist Signed: 03/07/2024 09:22 RAYMOND BARAJAS [facility] Mar 07, 2024 09:18 AM PHARMACY NOTE: LOCAL TITLE: PHARMACY NON [facility] MEDICATIONS STANDARD TITLE: PHARMACY NOTE DATE OF NOTE: MAR 07, 2024@09:18 ENTRY DATE: MAR 07, 2024@09:18:20 AUTHOR: RAYMOND BARAJAS EXP COSIGNER: URGENCY: STATUS: COMPLETED Mar Provider: GUY DURAN Fax #: [phone] Regarding Patient: ANANTH HUANG Date of : Oct [facility] received a PRESCRIPTION written for: BRINZOLAMIDE 1% OPH SUSP This [place] [facility] cannot process this due to the following: [X] The medication is NON-FORMULARY The preferred formulary option is: dorzolamide- on backorder Please send a new prescription for the preferred product -OR- If requesting prior authorization for this medication/product, please provide the following information: a. Indication for use: b. Prior therapy tried: _ c. Rational for Use: d. Expected Duration: Other pertinent information: FAX RESPONSE to FAX # or call # if questions. Thank you /phoebe/ RAYMOND BARAJAS pharmacist Signed: 03/07/2024 09:19 RAYMOND BARAJAS [facility]
--- OUTSIDE RECORDS SUMMARY | 2024-10-09 11:25 | XMS_ITS | Encounter Summary ---
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 [place] [facility] [place] Organization [facility] [place] [facility] [place] Address [address] [place] [address] Care Team Providers Care Frog Catcher Name Role Phone ELIZ MUNOZ Primary [facility] Insurance Providers: All historical and current [...] PART A Nov 01, 2011 PART A [id number] [phone] ANANTH HUANG PATIENT MEDICARE (WNR) MEDICARE (M) PART B Nov 01, 2011 PART B [id number] [phone] ANANTH HUANG PATIENT MEDICARE (WNR) MEDICARE (M) PART A Nov 01, 2011 PART A [id number] [phone] ANANTH HUANG PATIENT MEDICARE (WNR) MEDICARE (M) PART B Nov 01, 2011 PART B [id number] [phone] ANANTH HUANG PATIENT Selected Encounter This section includes the information on record at [place] for the Encounter. Date/Time Encounter Type Encounter Description Reason Provider Source Oct 19, 2023 12:23 PM EMERGENCY DEPT VISIT [facility] EMERGENCY DEPT ICD-10-CM R07.9 Chest pain, unspecified FIGUEROA RUFF IHKris Encounter Template Text not used by [place] Assessments - Encounter Diagnoses This section includes the primary and secondary diagnoses documented for the Encounter. Date/Time Primary/Secondary Diagnosis Diagnosis Name Provider Source Oct 19, 2023 05:37 PM PRIMARY Chest pain, unspecified FIGUEROA RUFF [facility] Oct 19, 2023 05:37 PM SECONDARY Athscl heart disease of [place] coronary artery w/o ang pctrs FIGUEROA RUFF [facility] Plan of Treatment: Future Appointments (+ 6 months) and Future Tests (+/- 45 days) The Plan of Treatment section includes future care activities for the patient from all [place] treatmentfacilities. This section includes future appointments and future orders which are active, pending or scheduled. Future Appointments This section includes appointments that were scheduled to occur 6 months from the date of the Encounter, up to a maximum of 20 appointments. The data comes from all [facility]. Appointment Date/Time Appointment Type Appointme nt Facility Name Oct 27, 2023 08:30 AM AMBULATORY - NONE [facility] Oct 27, 2023 11:29 AM AMBULATORY - MEDICINE [facility] Nov 15, 2023 01:40 PM AMBULATORY - REHAB MEDICIN E [facility] Nov 16, 2023 10:30 AM AMBULATORY - MEDICINE [facility] Jan 27, 2024 09:05 AM AMBULATORY - NONE [facility] Feb 26, 2024 07:27 AM AMBULATORY - MEDICINE [facility] Mar 08, 2024 10:45 AM AMBULATORY - SURGERY [facility] Active, Pending, and Scheduled Orders This section includes a listing of several types of active, pending, and scheduled orders, including clinic medications orders, diagnostic test orders, procedure orders and consult orders; where thestart date of the order is 45 days before the date of the Encounter or 45 days after the date of the Encounter. The data comes from all [facility]. Test Date/Time Test Type Test Details Facility Name Oct 19, 2023 03:51 PM Laboratory - Chemi stry Order TROPONIN I, HS PLASMA STAT WC ONCE [facility] Lab Results: +/- 30 days of the encounter This section includes the Chemistry and Hematology Lab Results on record with [place] for the patient. Radiology Reports and Pathology Reports are provided separately, in subsequent sections. Lab Results This section contains the Chemistry/Hematology Results that were resulted 30 days before or 30 daysafter the date of the Encounter. Date/Time Source Result Type Result - Unit Interpretation Reference Range Comment Oct 19, 2023 04:08 PM [facility] TROPONIN I, HS Specimen Type: PLASMA No comment entered. Ordering Provider: FIGUEROA RUFF Report Released Date/Time: Oct 19, 2023 03:51 PM Reporting Lab: [facility] [id number] Performing Lab: [facility] [id number] TROPONIN I, HS <3 <35 Oct 19, 2023 01:00 PM [facility] TROPONIN I, HS Specimen Type: PLASMA No comment entered. Ordering Provider: FIGUEROA RUFF Report Released Date/Time: Oct 19, 2023 01:29 PM Reporting Lab: [facility] [id number] Performing Lab: [facility] [id number] TROPONIN I, HS <3 <35 Oct 19, 2023 01:00 PM [facility] PROTHROMBIN TIME/INR Specimen Type: PLASMA No comment entered. Ordering Provider: FIGUEROA RUFF Report Released Date/Time: Oct 19, 2023 01:29 PM Reporting Lab: [facility] [address] Performing Lab: [facility] Oct 19, 2023 01:00 PM [facility] BNP Specimen Type: PLASMA No comment entered. Ordering Provider: FIGUEROA RUFF Report Released Date/Time: Oct 19, 2023 01:29 PM Reporting Lab: [facility] [id number] Performing Lab: [facility] [address] BNP 30 pg/mL <99 Oct 19, 2023 01:00 PM [facility] ACT PART THROMBO TIME Specimen Type: PLASMA No comment entered. Ordering Provider: FIGUEROA RUFF Report Released Date/Time: Oct 19, 2023 01:29 PM Reporting Lab: [facility] [address] Performing Lab: [facility] [address] APTT 35.2 s 25.1-36.5 Oct 19, 2023 01:00 PM [facility] EXTRA GOLD GEL TUBE Specimen Type: SERUM No comment entered. Ordering Provider: FIGUEROA RUFF Report Released Date/Time: Oct 19, 2023 01:35 PM Reporting Lab: [facility] [address] Performing Lab: [facility] [address] EXTRA GOLD GEL TUBE RECEIVED Oct 19, 2023 01:00 PM [facility] BASIC METABOLIC PANEL+MG Specimen Type: PLASMA No comment entered. Ordering Provider: FIGUEROA RUFF Report Released Date/Time: Oct 19, 2023 01:29 PM Reporting Lab: [facility] [address] Performing Lab: [facility] [address] CREATININE 0.8 mg/dL 0.7-1.2 UREA NITROGEN 18 mg/dL 8-26 GLUCOSE 98 mg/dL 70-100 SODIUM 142 mmol/L 136-145 POTASSIUM 4.2 mmol/L 3.5-5.1 CHLORIDE 107 mmol/L 98-107 CO2 25 mmol/L 22-29 CALCIUM 9.5 mg/dL 8.4-10.2 MAGNESIUM 1.9 mg/dL 1.6-2.6 ANION GAP 10 mmol/L 5-15 .CREAT EGFR(CKD-EPI) >90 >60 Oct 19, 2023 01:00 PM [facility] CBC & DIFF Specimen Type: BLOOD Comment: Automated Differential Performed Ordering Provider: FIGUEROA RUFF Report Released Date/Time: Oct 19, 2023 01:29 PM Reporting Lab: [facility] [phone] Performing Lab: [facility] [address] WBC 7.22 10*3/uL 4.0-11.0 RBC 5.12 10*6/uL [...] PM 97.6 53 166/82 94 [place] [facility] Social History: Smoking Status (Most current) and Tobacco Use (All prior to encounter date) This section includes the most current, and the historical, smoking and tobacco- related health factors from the [place] facility where the Encounter took place. Current Smoking Status This section includes the most current smoking, or tobacco-related health factor, from the [place] facility where the Encounter took place. Date/Time Current Smoking Status Comment Priya bowers Aug 17, 2023 09:45 AM VA-TOBACCO QUIT 15 YRS OR MORE [facility] Tobacco Use History This section includes a history of the smoking, or tobacco-related health factors, that were collected on or before the date of the Encounter. The data comes from the [place] facility where the Encounter took place. Date/Time Smoking Status/Tobacco Use Comment F acuzair Aug 17, 2023 09:45 AM VA-TOBACCO QUIT 15 YRS OR MORE [facility] Jul 01, 2022 08:45 AM VA-TOBACCO FORMER USER [facility] Jul 01, 2022 08:45 AM VA-TOBACCO QUIT 15 YRS OR MORE [facility] May 22, 2021 09:00 AM VA-TOBACCO FORMER USER [facility] May 22, 2021 09:00 AM VA-TOBACCO QUIT 15 YRS OR MORE [facility] Mar 29, 2020 07:42 AM VA-TOBACCO FORMER USER [facility] Mar 29, 2020 07:42 AM VA-TOBACCO QUIT 15 YRS OR MORE [facility] Mar 06, 2019 12:00 PM VA-TOBACCO FORMER USER [facility] Mar 06, 2019 12:00 PM VA-TOBACCO QUIT 15 YRS OR MORE [facility] Oct 23, 2018 11:20 AM INPT NO TOBACCO USE IN LAST 30 D AYS [facility] Jun 15, 2018 09:25 AM VA-TOBACCO FORMER USER [facility] Jun 15, 2018 09:25 AM VA-TOBACCO QUIT 15 YRS OR MORE [facility] Jun 25, 2017 04:05 PM INPT NO TOBACCO USE IN LAST 30 D [facility] Apr 26, 2017 08:03 AM FORMER TOBACCO USER 7Y OR GREATE R [facility] Jan 04, 2017 11:27 AM INPT NO TOBACCO USE IN LAST 30 D [facility] May 13, 2016 10:42 AM LIFETIME NON-TOBACCO USER [facility] Jun 04, 2015 06:17 AM INPT NO TOBACCO USE IN LAST 30 D [facility] Apr 23, 2015 09:14 AM FORMER TOBACCO USER 7Y OR GREATE R [facility] Jan 19, 2014 09:40 AM FORMER TOBACCO USER 7Y OR GREATE R [facility] December 09, 2010 12:08 PM FORMER TOBACCO USER 7Y OR GREATE R [facility] Advance Directives: All historical and current Section Date Range: From patient's date of to the date document was created. This section includes ALL of a patient's completed or amended [place] Advance and Rescinded Directives. The entries below indicate that a directive exists for the patient, but an actual copy is not included with this document. The data comes from all [facility]. Date Advance Directives Provider Source Jun 25, 2017 CLINICAL WARNING MADHAVI CASTILLO [facility] Jan 04, 2017 CLINICAL WARNING DIGNA CASTELLANOS [facility] Sep 26, 2014 CLINICAL WARNING SHEREEN LAUREANO [facility] Radiology Reports: +/- 30 days [...] the Encounter. The data comes from all [place] treatment facilities. Date/Time Radiology Report Provider Source Oct 27, 2023 08:10 AM CHEST PAIN PATHWAY (ED ONLY) (P): ANANTH HUANG [id number] -1945 M Exm Date: OCT 27, 2023@08:10 Req Phys: FIGUEROA RUFF Loc: [facility] EMERGENCY DEPT WALK-IN (Re Img Loc: NUC MED Service: Unknown (Case [id number] COMPLETE) MYOCARDIAL PERFUSION (SPECT)-MULT(NM Detailed) CPT:27547 Reason for Study: Chest Pain Pathway (Case 1050 COMPLETE) TC-99M SESTAMIBI (CARDIOLITE), PE(NM Detailed) CPT:A9500 (Case 1051 COMPLETE) CARDIOVASCULAR STRESS TEST (NM Detailed) CPT:80901 Clinical History: Myocardial perfusion stress test for chest pain Wilber IS NOT under investigation for COVID-19 or is COVID-19 negative chest pain Responsible provider name and phone number to notify for critical findings if other than user placing the order and pager listed below: User placing orders pager: [phone] ER LAST CREATININE 0.8 (10/19/23) Report Status: Verified Date Reported: OCT 27, 2023 Date Verified: OCT 27, 2023 Closet Builder E-Sig:/ES/GOLD VEGA MD Report: Regadenoson myocardial perfusion [...] Staff: GOLD VEGA MD, RADIOLOGY STAFF PHYSICIAN (Closet Builder) /GOLD RUIZ [facility] Oct 19, 2023 02:14 PM CTA (CAP) DISSECTI ON (P): ANANTH HUANG [id number] -1945 M Ex Date: OCT 19, 2023@14:14 Req Phys: FIGUEROA RUFF Loc: [facility] EMERGENCY DEPT WALK-IN (Re Img Loc: CT IMAGING Service: Unknown (Case [id number] COMPLETE) CTA (CAP) CHEST W/ & W/O CONTRAST(CT Detailed) CPT:27727 Reason for Study: sharp chest pain (Case 1150 COMPLETE) CTA (CAP) ABDOMEN/PELVIS W/ & W/O(CT Detailed) CPT:00484 Clinical History: sharp chest pain, sudden onset, [...] PLASMA .CREAT EGFR(CKD-E >90 Ref: >=60 Allergies: ([place] only) Patient has answered NKA Defer to [...] 19, 2023 Date Verified: OCT 19, 2023 Closet Builder E-Sig:/ES/GURDEEP MORFIN MD Report: CHEST/ABDOMEN/PELVIS CTA AND [...] Primary Interpreting Staff: GURDEEP MORFIN MD, RADIOLOGIST (Closet Builder) Primary Interpreting Resident: SULMA BRADY MD, DIRECT CASTING OPERATOR /GURDEEP DRAPER [facility] Oct 19, 2023 01:36 PM CHEST 1 VIEW: ANANTH HUANG [id number] -1945 M Ex Date: OCT 19, 2023@13:36 Req Phys: FIGUEROA RUFF Loc: [facility] EMERGENCY DEPT WALK-IN (Re Img Loc: MAIN X-RAY Service: Unknown (Case [id number] COMPLETE) CHEST 1 VIEW (RAD Detailed) CPT:43139 Proc Modifiers : PORTABLE EXAM Reason for Study: chest pain Clinical History: Wilber IS NOT under investigation for COVID-19 or is COVID-19 negative chest pain Responsible provider name and phone number to notify for critical findings if other than user placing the order and pager listed below: User placing orders pager: [phone] er ruff LAST CREATININE 0.8 (08/17/23) Report Status: Verified Date Reported: OCT 19, 2023 Date Verified: OCT 19, 2023 Closet Builder E-Sig:/ES/MIRIAM CAIN MD Report: EXAMINATION: CHEST 1 VIEW 10/19/2023 1:36 PM INDICATION: chest pain Impression: Heart size is enlarged or at the upper limits of normal. Pulmonary vascularity within normal limits. No pulmonary infiltrate or pleural effusion. Calcification aorta. Old healed right rib fractures. Old healed clavicular fractures. Degenerative changes thoracic spine. Primary Interpreting Staff: MIRIAM CAIN MD, RADIOLOGIST (Closet Builder) /MIRIAM YATES [facility] Encounter Notes: All associated encounter notes This section contains the clinical notes associated to the Encounter. Date/Time Encounter Note(s) Provider Source Oct 19, 2023 05:22 PM EMERGENCY DEPT EDUCATION NOTE: LOCAL TITLE: EMERGENCY DEPT DISCHARGE INSTRUCTIONS STANDARD TITLE: EMERGENCY DEPT EDUCATION NOTE DATE OF NOTE: OCT 19, 2023@17:22:29 ENTRY DATE: OCT 19, 2023@17:22:29 AUTHOR: FIGUEROA RUFF EXP COSIGNER: URGENCY: STATUS: COMPLETED DISCHARGE INSTRUCTIONS IMPORTANT: [...] 3-4 days. Please call Nuclear Medicine at [phone] to schedule the appointment to be completed [...] during the next business day, please call [phone] to inquire about the appointment. On the [...] your health care provider before taking any dcbv-xjz-geibqzc medicines (including vitamins and herbal supplements) as [...] in a cool place. Take off the wrapper stemmer operator just before putting the medicine in your [...] EMERGENCY MEDICINE STAFF PHYSICIAN Signed: 10/19/2023 17:22 IFGUEROA RUFF [facility] Oct 19, 2023 02:46 PM RADIOLOGY NOTE: [...] with saline flush Omnipaque 350 120 ml /phoebe/ RT MAYITO(R)(CT) DIAGNOSTIC HOLISTIC SPECIALIST Signed: 10/19/2023 14:46 CATHI SALGUERO [facility] Oct 19, 2023 01:29 PM PHYSICIAN EMERGENCY [...] blurred vision. Denies CP on exam. (PPE): used PPE during every encounter with the [...] Obstructive sleep apnea of adult (SNOMED CT [id number]) - ON CPAP 2. Anticoagulation 3. Hypothyroid 4. Paroxysmal atrial fibrillation - s/p PVI x2, most recently 06/2019 5. colonoscopy screening - normal colonoscopy 09/2018, next 09/2028 6. Glaucoma 7. Exposure to potentially hazardous substance 8. CAD - Coronary Artery Disease (SCT 71119842) - Mild, nonobstructive CAD on coronary CTA 06/2022 9. Cervical Radiculopathy (SCT 52342868) - S/p JOSH 09/2022 Allergies: Patient has [...] Sinus bradycardia ventricular rate 47. No acute SC or pericarditis. ED Course/MDM/ASSESSMENT/PLAN: 77 yo MALE [...] Chest pain orders, CTA dissection protocoldiscussed with biological lab technician regarding radiation to neck and formatting. /es/ FIGUEROA RUFF MD, [facility] EMERGENCY MEDICINE STAFF PHYSICIAN Signed: 10/19/2023 13:48 Receipt Acknowledged By: 10/19/2023 15:58 /es/ ELIZ MUNOZ MD PHYSICIAN, [facility] 10/19/2023 ADDENDUM STATUS: COMPLETED NEW APTT: 35.2 [...] report. No dissection. No evidence of acute SC. We will repeat high-sensitivity troponin and EKG to confirm no ischemia, and if no delta or ischemia, plan for discharge with Chest pain evaluation pathway, treatment for musculoskeletal etiology with diclofenac topical, lidocaine patches, acetaminophen, physical therapy, follow-up with PCP /allen RUFF MD, [facility] EMERGENCY MEDICINE STAFF PHYSICIAN Signed: 10/19/2023 15:56 [...] understanding and agreement. Dispo: Home/Self-care Condition: Improved/Stable /allen RUFF MD, [facility] EMERGENCY MEDICINE STAFF PHYSICIAN Signed: 10/19/2023 17:29 FIGUEROA RUFF [facility] Oct 19, 2023 12:42 PM NURSING EMERGENCY [...] adult (SCT 11Anticoagulation (ICD-9-CM V58.61) Hypothyroid (SCT 37623416) Paroxysmal atrial fibrillation (SCT 438323847) colonoscopy screening (ICD-10-CM R69.) Glaucoma (SCT 51965029) Exposure to potentially hazardous substaCAD - Coronary Artery Disease (SCT 06462306) Cervical Radiculopathy ([facility] [id number]) Identification of Seniors at Risk (ISAR):* Perform Screen Yes-ISAR More than 3 different medications daily Total Score: 1 Suicide Screen: [place] Suicide Severity Rating Scale (C-SSRS) screener 1. [...] REGISTERED NURSE Signed: 10/19/2023 12:44 MADYSON MOORE [facility]
--- OUTSIDE RECORDS SUMMARY | 2024-10-09 11:25 | XMS_ITS | Encounter Summary ---
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 [place] Organization [place] Address [address] [place] [address] Care Team Providers Care Electronics Recycler Name Role Phone ELIZ MUNOZ Primary Care Provider [facility] Insurance Providers: All historical and [...] PART A Nov 01, 2011 PART A [id number] [phone] ANANTH HUANG PATIENT MEDICARE (WNR) MEDICARE (M) PART B Nov 01, 2011 PART B [id number] [phone] ANANTH HUANG PATIENT MEDICARE (WNR) MEDICARE (M) PART A Nov 01, 2011 PART A [id number] ANANTH HUANG PATIENT MEDICARE (WNR) MEDICARE (M) PART B Nov 01, 2011 PART B [id number] [phone] ANANTH HUANG PATIENT Selected Encounter This section includes the information on record at [place] for the Encounter. Date/Time Encounter Type Encounter Description Reason Provider Source Nov 16, 2023 10:30 AM UNLISTED SPEC DERM SVC/PX DERMATOLOGY ICD-10-CM D48.5 Neoplasm of uncertain behavior of skin KENN ROSARIO Encounter Template Text not used by [place] Assessments - Encounter Diagnoses This section includes the primary and secondary diagnoses documented for the Encounter. Date/Time Primary/Secondary Diagnosis Diagnosis Name Provider Source Nov 16, 2023 11:36 AM PRIMARY Neoplasm of uncertain behavior of skin KENN ROSARIO [facility] Plan of Treatment: Future Appointments (+ 6 months) and Future Tests (+/- 45 days) The Plan of Treatment section includes future care activities for the patient from all [place] [facility]. This section includes future appointments and future orders which are active, pending or scheduled. Future Appointments This section includes appointments that were scheduled to occur 6 months from the date of the Encounter, up to a maximum of 20 appointments. The data comes from all [facility]. Appointment Date/Time Appointment Type Appointme nt Facility Name Jan 27, 2024 09:05 AM AMBULATORY - NONE JACKELIN GIPSON [facility] Feb 26, 2024 07:27 AM AMBULATORY - MEDICINE PHILLIP SUE [facility] Mar 08, 2024 10:45 AM AMBULATORY - SURGERY [facility] Active, Pending, and Scheduled Orders This section includes a listing of several types of active, pending, and scheduled orders, including clinic medications orders, diagnostic test orders, procedure orders and consult orders; where the start date of the order is 45 days before the date of the Encounter or 45 days after the date of theEncounter. The data comes from all [facility]. Test Date/Time Test Type Test Details Facility Name Oct 19, 2023 03:51 PM Laboratory - Chemi stry Order TROPONIN I, HS PLASMA STAT WC ONCE [facility] Lab Results: +/- 30 days of [...] Range Comment Oct 19, 2023 04:08 PM [facility] TROPONIN I, HS Specimen Type: PLASMA No comment entered. Ordering Provider: FIGUEROA RUFF Report Released Date/Time: Oct 19, 2023 03:51 PM Reporting Lab: [facility] [id number] Performing Lab: [facility] [id number] TROPONIN I, HS <3 <35 Oct 19, 2023 01:00 PM [facility] TROPONIN I, HS Specimen Type: PLASMA No comment entered. Ordering Provider: FIGUEROA RUFF Report Released Date/Time: Oct 19, 2023 01:29 PM Reporting Lab: [facility] [id number] Performing Lab: [facility] [id number] TROPONIN I, HS <3 <35 Oct 19, 2023 01:00 PM [facility] PROTHROMBIN TIME/INR Specimen Type: PLASMA No comment entered. Ordering Provider: FIGUEROA RUFF Report Released Date/Time: Oct 19, 2023 01:29 PM Reporting Lab: [facility] [phone] Performing Lab: [facility] Oct 19, 2023 01:00 PM [facility] BNP Specimen Type: PLASMA No comment entered. Ordering Provider: FIGUEROA RUFF Report Released Date/Time: Oct 19, 2023 01:29 PM Reporting Lab: [facility] [phone] Performing Lab: [facility] [phone] BNP 30 pg/mL <99 Oct 19, 2023 01:00 PM [facility] ACT PART THROMBO TIME Specimen Type: PLASMA No comment entered. Ordering Provider: FIGUEROA RUFF Report Released Date/Time: Oct 19, 2023 01:29 PM Reporting Lab: [facility] [phone] Performing Lab: [facility] [address] APTT 35.2 s 25.1-36.5 Oct 19, 2023 01:00 PM [facility] EXTRA GOLD GEL TUBE Specimen Type: SERUM No comment entered. Ordering Provider: FIGUEROA RUFF Report Released Date/Time: Oct 19, 2023 01:35 PM Reporting Lab: [facility] [phone] Performing Lab: [facility] [phone] EXTRA GOLD GEL TUBE RECEIVED Oct 19, 2023 01:00 PM [facility] BASIC METABOLIC PANEL+MG Specimen Type: PLASMA No comment entered. Ordering Provider: FIGUEROA RUFF Report Released Date/Time: Oct 19, 2023 01:29 PM Reporting Lab: [facility] [phone] Performing Lab: [facility] [phone] CREATININE 0.8 mg/dL 0.7-1.2 UREA NITROGEN 18 mg/dL 8-26 GLUCOSE 98 mg/dL 70-100 SODIUM 142 mmol/L 136-145 POTASSIUM 4.2 mmol/L 3.5-5.1 CHLORIDE 107 mmol/L 98-107 CO2 25 mmol/L 22-29 CALCIUM 9.5 mg/dL 8.4-10.2 MAGNESIUM 1.9 mg/dL 1.6-2.6 ANION GAP 10 mmol/L 5-15 .CREAT EGFR(CKD-EPI) >90 >60 Oct 19, 2023 01:00 PM [facility] CBC & DIFF Specimen Type: BLOOD Comment: Automated Differential Performed Ordering Provider: FIGUEROA RUFF Report Released Date/Time: Oct 19, 2023 01:29 PM Reporting Lab: [facility] [phone] Performing Lab: [facility] [phone] WBC 7.22 10*3/uL 4.0-11.0 RBC 5.12 10*6/uL [...] AM VA-TOBACCO QUIT 15 YRS OR MORE [facility] Tobacco Use History This section includes a history of the smoking, or tobacco-related health factors, that were collected on or before the date of the Encounter. The data comes from the [place] facility where the Encounter took place. Date/Time Smoking Status/Tobacco Use Comment F acility Aug 17, 2023 09:45 AM VA-TOBACCO QUIT 15 YRS OR MORE [facility] Jul 01, 2022 08:45 AM VA-TOBACCO FORMER USER [facility] Jul 01, 2022 08:45 AM VA-TOBACCO QUIT 15 YRS OR MORE [facility] May 22, 2021 09:00 AM VA-TOBACCO FORMER USER [facility] May 22, 2021 09:00 AM VA-TOBACCO QUIT 15 YRS OR MORE [facility] Mar 29, 2020 07:42 AM VA-TOBACCO FORMER USER [facility] Mar 29, 2020 07:42 AM VA-TOBACCO QUIT 15 YRS OR MORE [facility] Mar 06, 2019 12:00 PM VA-TOBACCO FORMER USER [facility] Mar 06, 2019 12:00 PM VA-TOBACCO QUIT 15 YRS OR MORE [facility] Oct 23, 2018 11:20 AM INPT NO TOBACCO USE IN LAST 30 D [facility] Jun 15, 2018 09:25 AM VA-TOBACCO FORMER USER [facility] Jun 15, 2018 09:25 AM VA-TOBACCO QUIT 15 YRS OR MORE [facility] Jun 25, 2017 04:05 PM INPT NO TOBACCO USE IN LAST 30 D [facility] Apr 26, 2017 08:03 AM FORMER TOBACCO USER 7Y OR GREATE R [facility] Jan 04, 2017 11:27 AM INPT NO TOBACCO USE IN LAST 30 D [facility] May 13, 2016 10:42 AM LIFETIME NON-TOBACCO USER [facility] Jun 04, 2015 06:17 AM INPT NO TOBACCO USE IN LAST 30 D [facility] Apr 23, 2015 09:14 AM FORMER TOBACCO USER 7Y OR GREATE R [facility] Jan 19, 2014 09:40 AM FORMER TOBACCO USER 7Y OR GREATE R [facility] December 09, 2010 12:08 PM FORMER TOBACCO USER 7Y OR GREATE R [facility] Advance Directives: All historical and current [...] Jun 25, 2017 CLINICAL WARNING MADHAVI CASTILLO [facility] Jan 04, 2017 CLINICAL WARNING DIGNA CASTELLANOS Nelson SIMMONS [facility] Sep 26, 2014 CLINICAL WARNING SHEREEN LAUREANO [facility] Radiology Reports: +/- 30 days of [...] CHEST PAIN PATHWAY (ED ONLY) (P): HUANGANANTH [id number] -1945 M Ex Date: OCT 27, 2023@08:10 Req Phys: FIGUEROA RUFF Loc: [facility] EMERGENCY DEPT WALK-IN ([facility] Loc: [facility] Service: Unknown (Case [id number] COMPLETE) MYOCARDIAL PERFUSION (SPECT)-MULT(NM Detailed) CPT:12872 Reason for Study: Chest Pain Pathway (Case 1050 COMPLETE) TC-99M SESTAMIBI (CARDIOLITE), PE(NM Detailed) CPT:A9500 (Case 1051 COMPLETE) CARDIOVASCULAR STRESS TEST (NM Detailed) CPT:00341 Clinical History: Myocardial perfusion stress test for chest pain IS NOT under investigation for COVID-19 or is COVID-19 negative chest pain Responsible provider name and phone number to notify for critical findings if other than user placing the order and pager listed below: User placing orders pager: [phone] ER LAST CREATININE 0.8 (10/19/23) Report Status: Verified Date Reported: OCT 27, 2023 Date Verified: OCT 27, 2023 Director Of Promotions E-Sig:/ES/GOLD VEGA MD Report: Regadenoson myocardial perfusion [...] Staff: GOLD VEGA MD, RADIOLOGY STAFF PHYSICIAN (Director Of Promotions) /GOLD RUIZ [facility] Oct 19, 2023 02:14 PM CTA (CAP) DISSECTI ON (P): ANANTH HUANG [id number] -[id number] M Exm Date: OCT 19, 2023@14:14 Req Phys: FIGUEROA RUFF Loc: [facility] EMERGENCY DEPT WALK-IN (Re Img Loc: CT IMAGING Service: Unknown (Case [id number] COMPLETE) CTA (CAP) CHEST W/ & W/O CONTRAST(CT Detailed) CPT:59379 Reason for Study: sharp chest pain (Case 1150 COMPLETE) CTA (CAP) ABDOMEN/PELVIS W/ & W/O(CT Detailed) CPT:49655 Clinical History: sharp chest pain, sudden onset, [...] PLASMA .CREAT EGFR(CKD-E >90 Ref: >=60 Allergies: ([place] only) Patient has answered NKA Defer to [...] 19, 2023 Date Verified: OCT 19, 2023 Director Of Promotions E-Sig:/ES/GURDEEP MORFIN MD Report: CHEST/ABDOMEN/PELVIS CTA AND [...] Primary Interpreting Staff: GURDEEP MORFIN MD, RADIOLOGIST (Director Of Promotions) Primary Interpreting Resident: SULMA BRADY MD, SIZING MACHINE AND DRIER OPERATOR /GURDEEP DRAPER [facility] Oct 19, 2023 01:36 PM CHEST 1 VIEW: ANANTH HUANG [id number] -1945 M Exm Date: OCT 19, 2023@13:36 Req Phys: FIGUEROA RUFF Loc: [facility] EMERGENCY DEPT WALK-IN (Re Img Loc: MAIN X-RAY Service: Unknown (Case [id number] COMPLETE) CHEST 1 VIEW (RAD Detailed) CPT:27030 Proc Modifiers : PORTABLE EXAM Reason for Study: chest pain Clinical History: IS NOT under investigation for COVID-19 or is COVID-19 negative chest pain Responsible provider name and phone number to notify for critical findings if other than user placing the order and pager listed below: User placing orders pager: [phone] sindi ruff LAST CREATININE 0.8 (08/17/23) Report Status: Verified Date Reported: OCT 19, 2023 Date Verified: OCT 19, 2023 Director Of Promotions E-Sig:/ES/MIRIAM CAIN MD Report: EXAMINATION: CHEST 1 VIEW 10/19/2023 1:36 PM INDICATION: chest pain Impression: Heart size is enlarged or at the upper limits of normal. Pulmonary vascularity within normal limits. No pulmonary infiltrate or pleural effusion. Calcification aorta. Old healed right rib fractures. Old healed clavicular fractures. Degenerative changes thoracic spine. Primary Interpreting Staff: MIRIAM CAIN MD, RADIOLOGIST (Director Of Promotions) /RTS MIRIAM CAIN [facility] Encounter Notes: All associated encounter notes [...] it once was TREATMENT: No BIOPSY: No Loader Operator's comments: /phoebe/ YULIET ROSARIO RN REGISTERED NURSE Signed: 11/16/2023 11:36 YULIET ROSARIO [facility]
--- OUTSIDE RECORDS SUMMARY | 2024-10-09 11:27 | XMS_ITS | Encounter Summary ---
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 of Veter[facility] [place] Organization [facility] [place] Address [address] [place] [address] Care Team Providers Care Manager Of Training Name Role Phone ELIZ MUNOZ [facility] Insurance Providers: All historical [...] PART A Nov 01, 2011 PART A [id number] [phone] ANANTH HUANG PATIENT MEDICARE (WNR) MEDICARE (M) PART B Nov 01, 2011 PART B [id number] [phone] ANANTH HUANG PATIENT MEDICARE (WNR) MEDICARE (M) PART A Nov 01, 2011 PART A [id number] ANANTH HUANG PATIENT MEDICARE (WNR) MEDICARE (M) PART B Nov 01, 2011 PART B [id number] ANANTH HUANG PATIENT Selected Encounter This section includes the information on record at [place] for the Encounter. Date/Time Encounter Type Encounter Description Reason Provider Source Jun 07, 2024 02:38 PM QNHP OL DIG ASSMT&MGMT 11-20 CLINICAL PHARMACY ICD-10-CM Z51.81 Encounter for therapeutic drug level monitoring JANNY YE IHE Encounter Template Text not used by MD Assessments - Encounter Diagnoses This section includes the primary and secondary diagnoses documented for the Encounter. Date/Time Primary/Secondary Diagnosis Diagnosis Name Provider Source Jun 08, 2024 10:09 AM PRIMARY Encounter for therapeutic drug level monitoring JOVON YE [facility] Jun 08, 2024 10:09 AM SECONDARY care home (current) use of anticoagulants JOVON YE [facility] Jun 08, 2024 10:09 AM SECONDARY Unspecified atrial fibrillation JOVON YE [facility] Plan of Treatment: Future Appointments (+ 6 months) and Future Tests (+/- 45 days) The Plan of Treatment section includes future care activities for the patient from all [place] [facility] This section includes future appointments and future orders which are active, pending or scheduled. Future Appointments This section includes appointments that were scheduled to occur 6 months from the date of the Encounter, up to a maximum of 20 appointments. The data comes from all [facility] facilities. Appointment Date/Time Appointment Type Appointme nt Facility Name Jun 19, 2024 12:40 PM AMBULATORY - REHAB MEDICIN E [facility] Jul 11, 2024 08:15 AM AMBULATORY - NONE [facility] Aug 16, 2024 11:15 AM AMBULATORY - MEDICINE [facility] Nov 13, 2024 11:00 AM AMBULATORY - NONE [facility] Social History: Smoking Status (Most current) and Tobacco Use (All prior to encounter date) This section includes the most current, and the historical, smoking and tobacco- related health factors from the [place] facility where the Encounter took place. Current Smoking Status This section includes the most current smoking, or tobacco-related health factor, from the [place] facility where the Encounter took place. Date/Time Current Smoking Status Comment Priya ity Aug 17, 2023 09:45 AM VA-TOBACCO FORMER USER [facility] Tobacco Use History This section includes a history of the smoking, or tobacco-related health factors, that were collected on or before the date of the Encounter. The data comes from the [place] facility where the Encounter took place. Date/Time Smoking Status/Tobacco Use Comment F acility Aug 17, 2023 09:45 AM MD-TOBACCO QUIT 15 YRS OR MORE [facility] Jul 01, 2022 08:45 AM VA-TOBACCO FORMER USER [facility] Jul 01, 2022 08:45 AM VA-TOBACCO QUIT 15 YRS OR MORE [facility] May 22, 2021 09:00 AM VA-TOBACCO FORMER USER [facility] May 22, 2021 09:00 AM MD-TOBACCO QUIT 15 YRS OR MORE [facility] Mar 29, 2020 07:42 AM VA-TOBACCO FORMER USER [facility] Mar 29, 2020 07:42 AM VA-TOBACCO QUIT 15 YRS OR MORE [facility] Mar 06, 2019 12:00 PM VA-TOBACCO FORMER USER [facility] Mar 06, 2019 12:00 PM VA-TOBACCO QUIT 15 YRS OR MORE [facility] Oct 23, 2018 11:20 AM INPT NO TOBACCO USE IN LAST 30 D [facility] Jun 15, 2018 09:25 AM VA-TOBACCO FORMER USER [facility] Jun 15, 2018 09:25 AM VA-TOBACCO QUIT 15 YRS OR MORE [facility] Jun 25, 2017 04:05 PM INPT NO TOBACCO USE IN LAST 30 D [facility] Apr 26, 2017 08:03 AM FORMER TOBACCO USER 7Y OR GREATE R [facility] Jan 04, 2017 11:27 AM INPT NO TOBACCO USE IN LAST 30 D [facility] May 13, 2016 10:42 AM LIFETIME NON-TOBACCO USER [facility] Jun 04, 2015 06:17 AM INPT NO TOBACCO USE IN LAST 30 D [facility] Apr 23, 2015 09:14 AM FORMER TOBACCO USER 7Y OR GREATE R [facility] Jan 19, 2014 09:40 AM FORMER TOBACCO USER 7Y OR GREATE R [facility] December 09, 2010 12:08 PM FORMER TOBACCO USER 7Y OR GREATE R [facility] Advance Directives: All historical and current Section Date Range: From patient's date of to the date document was created. This section includes ALL of a patient's completed or amended MD Advance and Rescinded Directives. The entries below indicate that a directive exists for the patient, but an actual copy is not included with this document. The data comes from all MD facilities. Date Advance Directives Provider Source Jun 25, 2017 CLINICAL WARNING MADHAVI CASTILLO [facility] Jan 04, 2017 CLINICAL WARNING DIGNA CASTELLANOS [facility] Sep 26, 2014 CLINICAL WARNING SHEREEN LAUREANO [facility] Encounter Notes: All associated encounter notes This section contains the clinical notes associated to the Encounter. Date/Time Encounter Note(s) Provider Source Jun 07, 2024 02:38 PM MEDICATION MGT CON SULT: LOCAL TITLE: ANTICOAGULATION CLINIC CONSULT STANDARD TITLE: MEDICATION MGT CONSULT DATE OF NOTE: JUN 07, 2024@14:38 ENTRY DATE: JUN 07, 2024@14:38:23 AUTHOR: TATE YE COSIGNER: URGENCY: STATUS: COMPLETED DOAC PERIOP Anticoag [...] S/O: ---- Obtained by chart review. Procedure: Cervicothoracic ILESI Date: 06/19/2024 Surgical bleed risk: Special Precautions (interventional pain, neuraxial anesthesia) - LIZETH guidelines, requires interruption 4 day Pradaxa hold Thromboembolic/Bleed Risk: see above Dashboard flags: none LABS ---- Age: 78 Weight: 240.5 lb [109.09 kg] (08/17/2023 09:38) Height: 68 in [172.7 cm] (08/17/2023 09:38) CREATININE 0.7 PLASMA (02/26/24 08:17) 0.8 PLASMA (10/19/23 13:00) 0.8 PLASMA (08/17/23 08:24) Cockcroft & Gault (Actual body weight) = 136 mL/min Collection DT Spec WBC HGB HCT PLT MCV NEUT LYMPHS 02/26/2024 08:17 BLOOD 5.66 15.4 46.0 211 91.3 63.7 15.5 10/19/2023 13:00 BLOOD 7.22 15.4 46.9 215 91.6 67.4 17.0 08/17/2023 08:24 BLOOD 5.26 15.2 45.1 194 90.2 Collection DT Specimen Test Name Result Units [...] is cancelled. - Do not take for 4 days before procedure OR the day of procedure. The last dose taken preoperatively is 5 days before the procedure. - If there are no major bleeding complications, resume 24 hours later (the day after the procedure) at the usual dose unless otherwise instructed by the surgeon/proceduralist. - Educated pt on above plan Time:15min Patient education of treatment plan: Patient indicates readiness to learn, verbalizes understanding, agreement and satisfaction with the treatment plan. Denies further questions. /phoebe/ TATE YE CLINICAL PHARMACIST Signed: 06/08/2024 10:09 TATE YE [facility]
--- OUTSIDE RECORDS SUMMARY | 2024-10-09 11:27 | XMS_ITS | Continuity of Care Document ---
Author Name [facility] Organization [facility] Care Team Providers Care Vp Analytics Name Role Phone [facility] Unavailable Unavailable Problems Combined list of problems from Department of Defense and Veterans Affairs facilities. It does not include entries that were removed or entered in error. Problem Status Onset Date Problem Type Date of Resolution Comments Source Anticoagulation Active Condition [facility] CAD - Coronary Artery Disease (SCT [id number]) Active Condition Aug 16, 2023 Entered By: ELIZ MUNOZ Comment: Mild, nonobstructive CAD on coronary CTA 06/2022 [facility] Cervical Radiculopathy (SCT [id number]) Active Condition Aug 16, 2023 Entered By: ELIZ MUNOZ Comment: S/p JOSH 09/2022 [facility] colonoscopy screening Active Condition Sep 28, 2018 Entered By: DANIKA DE ANDA Comment: normal colonoscopy 09/2018, next 09/2028 [facility] Exposure to potentially hazardous substance Active Condition [facility] Glaucoma Active Condition [facility] Hypothyroid Active Condition [facility] Obstructive sleep apnea of adult (SNOMED CT [id number]) Active Condition December 09, 2010 Entered By: VIKTORIYA OCONNOR Comment: ON CPAP [facility] Paroxysmal atrial fibrillation Active Condition Aug 16, 2023 Entered By: ELIZ MUNOZ Comment: s/p PVI x2, most recently 06/2019 [facility] Actinic keratosis Inactive Condition 08/16/2023 [facility] Arthritis of right hip Inactive Condition 08/16/2023 [facility] Basal cell carcinoma of back Inactive Condition 08/16/2023 [facility] Cervical radiculitis Inactive Condition 08/16/2023 [facility] Chronic low back pain Inactive Condition 08/16/2023 [facility] Essential hypertension Inactive Condition 08/17/2023 [facility] Gastroesophageal reflux disease Inactive Condition 08/17/2023 [facility] Hyperlipidemia Inactive Condition 08/16/2023 [facility] Personal History of Colonic Polyps Inactive Condition 08/16/2023 Oct 21 Entered By: SALMA MORAN Comment: adenomatous and hyperplastic 08/10/07 [facility] Diagnosis: ICD-10-CM L57.0 Actinic keratosis Active Diagnosis SHANIQUE SIMMONS [facility] Diagnosis: ICD-10-CM Z13.89 Encounter for screening for other disorder [facility] Diagnosis: ICD-10-CM E03.9 Hypothyroidism, unspecified Active Diagnosis [facility] Diagnosis: ICD-10-CM M54.12 Radiculopathy, cervical region Active Diagnosis MODESTO FULLER [facility] Diagnosis: ICD-10-CM Z51.81 Encounter for therapeutic drug level monitoring Active Diagnosis [facility] Diagnosis: ICD-10-CM H90.3 Sensorineural hearing loss, bilateral Active Diagnosis [facility] Diagnosis: ICD-10-CM I48.91 Unspecified atrial fibrillation Active Diagnosis [facility] Diagnosis: ICD-10-CM D48.5 Neoplasm of uncertain behavior of skin Active Diagnosis [facility] Diagnosis: ICD-10-CM Z79.01 MCFP (current) use of anticoagulants Active Diagnosis [facility] Katherine [facility] Diagnosis: ICD-10-CM R07.9 Chest pain, unspecified Active Diagnosis [facility] Diagnosis: ICD-10-CM Z77.29 Contact with and exposure to other hazardous substances Active Diagnosis YULI DELGADILLO [facility] Diagnosis: ICD-10-CM Z48.89 Encounter for other specified surgical aftercare Active Diagnosis [facility] Diagnosis: ICD-10-CM Z71.89 Other specified counseling Active Diagnosis [facility] Diagnosis: ICD-10-CM Z71.81 Spiritual or mu-ism counseling Active Diagnosis [facility] Diagnosis: ICD-10-CM K40.91 Unilateral inguinal hernia, w/o obst or gangrene, recurrent Active Diagnosis [facility] Diagnosis: ICD-10-CM K40.90 Unil inguinal hernia, w/o obst or gangr, not spcf as recur Active Diagnosis [facility] Diagnosis: ICD-10-CM K40.21 Bilateral inguinal hernia, w/o obst or gangrene, recurrent Active Diagnosis [facility] Medications Combined list of outpatient medications from Department of Defense and Veterans Affairs facilities.Medications provided include 1) outpatient medications from the last 15 months, and 2) patient-reported medications. Medication Details Route Status Patient Instructions Prescription Expires Prescription Number Last Dispense Date Ordering Provider Order Date Order Qty Source ACETAMINOPH EN 500MG TAB TAKE TWO TABLETS BY MOUTH EVERY 8 HOURS NEEDED FOR PAIN ORAL 11/18/2023 [id number] ROBERT BERRY A 2023 42 [facility] CHOLECALCIF NII 25MCG (1,000UNIT) TAB TAKE TWO TABLETS BY MOUTH TWICE A DAY ORAL ACTIVE ANDREA COHEN [facility] DABIGATRAN ETEXILATE 150MG CAP,ORAL,UD TAKE ONE CAPSULE BY MOUTH EVERY 12 HOURS TO PREVENT STROKE DUE TO ATRIAL FIBRILLA TION ORAL 09/29/2024 [id number] ALLYSON ESTRADA [address] [facility] DICLOFENAC NA 1% GEL,TOP APPLY 4 GRAMS TOPICALL Y FOUR TIMES A DAY NEEDED TO AFFECTED AREA FOR PAIN TOPICA L 11/18/2023 [id number] 4 ROBERT BERRY A 2023 100 [facility] DORZOLAMIDE HCL 2% SOLN,OPH INSTILL 1 DROP IN BOTH EYES TWICE A DAY OPHTHA LMIC ACTIVE 08/08/2025 [id number] 5 JU DURAN 2024 10 [facility] DORZOLAMIDE HCL 2% SOLN,OPH INSTILL 1 DROP IN BOTH EYES TWICE A DAY OPHTHA LMIC DISCONT INUED 03/03/2025 [id number] JU DURAN 2023 10 [facility] DORZOLAMIDE HCL 2% SOLN,OPH INSTILL 1 DROP IN BOTH EYES TWICE A DAY OPHTHA LMIC DISCONT INUED 11/17/2024 [id number] JU DURAN 2023 20 [facility] DORZOLAM[facility] HCL 2% SOLN,OPH INSTILL 1 DROP IN OPTHALMI FAVIAN THREE TIMES A DAY FOR AFFECTED EYE(S) OPHTHA LMIC DISCONT INUED 09/20/2024 [id number] 4 JU DURAN 2023 10 [facility] FLUOROURACI L 5% CREAM,TOP APPLY DIRECTED TO FACE TOPICALL Y TWICE A DAY FOR PRECANCE RS FOR TWO WEEKS TO SUN DAMAGED AREAS OF FACE TOPICA L ACTIVE 11/17/2024 [id number] GIULIANA HUGO ES 2023 40 [facility] LATANOPROST 0.005% SOLN,OPH INSTILL 1 DROP IN BOTH EYES EVERY EVENING OPHTHA LMIC ACTIVE 08/08/2025 [id number] 5 JU DURAN 2024 7.5 [facility] LATANOPROST 0.005% SOLN,OPH INSTILL 1 DROP IN BOTH EYES EVERY EVENING OPHTHA LMIC DISCONT INUED 07/21/2025 [id number] 4 JU DURAN 2023 7.5 [facility] LATANOPROST 0.005% SOLN,OPH INSTILL 1 DROP IN BOTH EYES EVERY EVENING OPHTHA LMIC DISCONT INUED 03/03/2025 [id number] 4 JU DURAN 2023 7.5 [facility] LATANOPROST 0.005% SOLN,OPH INSTILL 1 DROP IN BOTH EYES AT BEDTIME OPHTHA LMIC DISCONT INUED 11/17/2024 [id number] 4 JU DURAN 2023 7.5 [facility] LATANOPROST 0.005% SOLN,OPH INSTILL 1 DROP EVERY DAY AT BEDTIME IN AFFECTED EYE(S) DISCONT INUED 07/20/2024 [id number] 3 FB-LINDSAY GARCIA OD 2022 7.5 [facility] LEVOTHYROXI NE NA 137MCG TAB (SYNTHROID) TAKE ONE TABLET BY MOUTH EVERY DAY ON AN EMPTY STOMACH ORAL ACTIVE 08/08/2025 [id number] ELIZ MUNOZ 2024 90 [facility] LEVOTHYROXI NE NA 137MCG TAB (SYNTHROID) TAKE ONE TABLET BY MOUTH EVERY DAY ON AN EMPTY STOMACH ORAL DISCONT INUED 08/17/2024 [id number] TAMMY,ELIZ B [address] [facility] LIDOCAINE 5% PATCH APPLY 1 PATCH TOPICALL Y EVERY DAY NEEDED FOR UP TO 12 HOURS FOR PAIN TOPICA L 11/18/2023 [id number] 4 ROBERT BERRY A [address] [facility] ROSUVASTATI N CA 20MG TAB TAKE ONE TABLET BY MOUTH AT BEDTIME FOR CHOLESTE ROL ORAL ACTIVE 08/08/2025 [id number] 5 TAMMY,ELIZ B [address] [facility] ROSUVASTATI N CA 20MG TAB TAKE ONE TABLET BY MOUTH AT BEDTIME FOR CHOLESTE ROL ORAL DISCONT INUED 08/17/2024 [id number] TAMMY,ELIZ B [address] [facility] ZINC (FROM SULFATE) CAP,ORAL TAKE ACTIVE SRINIVASA LIN [address] [facility] Immunizations Combined list of available immunizations from the Department of Defense and Veterans Affairs facilities. Immunization Series Date Given Administered By Site Reaction Lot Number CVX Code Drug Stable Attendant Status Comments Source INFLUENZA, HIGH-DOSE, TRIVALENT, PF [address] [facility] INFLUENZA, HIGH-DOSE, QUADRIVALENT [address] [facility] TDAP [address] [facility] INFLUENZA VACCINE, QUADRIVALENT, ADJUVANTED [address] [facility] TDAP 2021 115 complet ed [id number] 11/01/23 [facility] COVID-19 (PFIZER), MRNA, LNP-S, PF, 30 MCG/0.3 ML DOSE 3 2020 208 complet ed PFR; [id number]; 1 [facility] INFLUENZA, INJECTABLE, QUADRIVALENT, PRESERVATIVE FREE [address] [facility] COVID-19 (PFIZER), MRNA, LNP-S, PF, 30 MCG/0.3 ML DOSE 2 2020 208 complet ed PFR; [id number]; 1 [facility] COVID-19 (PFIZER), MRNA, LNP-S, PF, 30 MCG/0.3 ML DOSE 1 2020 208 complet ed PFR; [id number]; 1 [facility] INFLUENZA, INJECTABLE, QUADRIVALENT, PRESERVATIVE FREE [address] [facility] ZOSTER RECOMBINANT [address] [facility] ZOSTER RECOMBINANT 1 [address] [facility] INFLUENZA, HIGH DOSE SEASONAL 2018 [address] [facility] INFLUENZA, HIGH DOSE SEASONAL [address] [facility] INFLUENZA, SEASONAL, INJECTABLE, PRESERVATIVE FREE [address] [facility] INFLUENZA, HIGH DOSE SEASONAL [address] [facility] TD (ADULT), 2 LF TETANUS TOXOID, PRESERVATIVE FREE, ADSORBED 2016 09 complet ed Schedulizelo gi; [id number]; 8 [facility] INFLUENZA, HIGH DOSE SEASONAL [address] [facility] INFLUENZA, HIGH DOSE SEASONAL 2014 [address] [facility] INFLUENZA, HIGH DOSE SEASONAL [address] [facility] PNEUMOCOCCAL CONJUGATE PCV 13 2014 133 complet ed wyeth [id number] 09/2016 [facility] INFLUENZA, UNSPECIFIED FORMULATION [address] [facility] INFLUENZA, SEASONAL, INJECTABLE [address] [facility] INFLUENZA, LIVE, INTRANASAL [address] [facility] INFLUENZA, HIGH DOSE SEASONAL [address] [facility] INFLUENZA, UNSPECIFIED FORMULATION [address] [facility] PNEUMOCOCCAL, UNSPECIFIED FORMULATION 2011 109 complet ed [employer] [id number], 04/09/13 [facility] INFLUENZA, UNSPECIFIED FORMULATION [address] [facility] INFLUENZA, UNSPECIFIED FORMULATION [address] [facility] INFLUENZA, SEASONAL, INJECTABLE [address] [facility] ZOSTER LIVE [address] [facility] NOVEL INFLUENZA-H1N 1-09, ALL FORMULATIONS [address] [facility] ZOSTER LIVE [address] [facility] INFLUENZA, SEASONAL, INJECTABLE, PRESERVATIVE FREE [address] [facility] INFLUENZA, UNSPECIFIED FORMULATION [address] [facility] TDAP [address] [facility] TDAP [address] [facility] INFLUENZA, UNSPECIFIED FORMULATION [address] [facility] INFLUENZA, UNSPECIFIED FORMULATION [address] [facility] TD (ADULT), 2 LF TETANUS TOXOID, PRESERVATIVE FREE, ADSORBED [address] [facility] Results Combined list of recent chemistry, hematology and other laboratory results from Department of Defense and Veterans Affairs, ranging from 15 months to all on record, depending upon the facility. Order Name Results Value Reference Range Date Interpretation Specimen Comments Source TSH W/REFLEX TO FREE T4 THYROTROPI N [UNITS/VOL UME] IN SERUM OR PLASMA 0.93 u[IU]/mL 0.35 - 4.94 08/16 Specimen Type: PLASMA No comment entered. Ordering Provider: ELIZ MUNOZ Report Released Date/Time: Aug 17, 2023 10:25 AM Reporting Lab: [facility] [address] Performing Lab: [facility] [address] [facility] AST/SGOT ASPARTATE AMINOTRANS FERASE [ENZYMATIC ACTIVITY/V OLUME] IN SERUM OR PLASMA 39 U/L 11 - 34 08/16 H Specimen Type: PLASMA No comment entered. Ordering Provider: ELIZ MUNOZ Report Released Date/Time: Aug 17, 2023 10:25 AM Reporting Lab: [facility] [address] Performing Lab: [facility] [address] [place] [facility] ALT/SGPT ALANINE AMINOTRANS FERASE [ENZYMATIC ACTIVITY/V OLUME] IN SERUM OR PLASMA 25 U/L <44 - 44 08/16 Specimen Type: PLASMA No comment entered. Ordering Provider: ELIZ MUNOZ Report Released Date/Time: Aug 17, 2023 10:25 AM Reporting Lab: [facility] [address] Performing Lab: [facility] [address] [facility] CBC LEUKOCYTES [#/VOLUME] IN BLOOD BY AUTOMATED COUNT 6.0 4.0 - 11.0 08/16 Specimen Type: BLOOD No comment entered. Ordering Provider: ELIZ MUNOZ Report Released Date/Time: Aug 17, 2023 10:25 AM Reporting Lab: [facility] [address] Performing Lab: [facility] [address] [place] [facility] CBC ERYTHROCYT ES [#/VOLUME] IN BLOOD BY AUTOMATED COUNT 5.17 4.60 - 6.20 08/16 Specimen Type: BLOOD No comment entered. Ordering Provider: ELIZ MUNOZ Report Released Date/Time: Aug 17, 2023 10:25 AM Reporting Lab: [facility] [address] Performing Lab: [facility] [address] [facility] CBC HEMOGLOBIN [MASS/VOLU ME] IN BLOOD 15.2 g/dL 13.5 - 17.9 08/16 Specimen Type: BLOOD No comment entered. Ordering Provider: ELIZ MUNOZ Report Released Date/Time: Aug 17, 2023 10:25 AM Reporting Lab: [facility] [address] Performing Lab: [facility] [address] [facility] CBC HEMATOCRIT [VOLUME FRACTION] OF BLOOD BY AUTOMATED COUNT 47.6 41.0 - 54.0 08/16 Specimen Type: BLOOD No comment entered. Ordering Provider: ELIZ MUNOZ Report Released Date/Time: Aug 17, 2023 10:25 AM Reporting Lab: [facility] [address] Performing Lab: [facility] [address] [place] [facility] CBC MCV [ENTITIC VOLUME] BY AUTOMATED COUNT 92.1 fL 80.0 - 100.0 08/16 Specimen Type: BLOOD No comment entered. Ordering Provider: ELIZ MUNOZ Report Released Date/Time: Aug 17, 2023 10:25 AM Reporting Lab: [facility] [phone] Performing Lab: [facility] [address] [place] [facility] CBC MCH [ENTITIC MASS] BY AUTOMATED COUNT 29.4 pg 27.0 - 33.0 08/16 Specimen Type: BLOOD No comment entered. Ordering Provider: ELIZ MUNOZ Report Released Date/Time: Aug 17, 2023 10:25 AM Reporting Lab: [facility] [address] Performing Lab: [facility] [address] [place] [facility] CBC MCHC [MASS/VOLU ME] BY AUTOMATED COUNT 31.9 g/dL 32.0 - 37.5 08/16 L Specimen Type: BLOOD No comment entered. Ordering Provider: ELIZ MUNOZ Report Released Date/Time: Aug 17, 2023 10:25 AM Reporting Lab: [facility] [address] Performing Lab: [facility] [address] [place] [facility] CBC PLATELETS [#/VOLUME] IN BLOOD BY AUTOMATED COUNT 219 150 - 400 08/16 Specimen Type: BLOOD No comment entered. Ordering Provider: ELIZ MUNOZ Report Released Date/Time: Aug 17, 2023 10:25 AM Reporting Lab: [facility] [address] Performing Lab: [facility] [address] [place] [facility] CBC PLATELET MEAN VOLUME [ENTITIC VOLUME] IN BLOOD BY AUTOMATED COUNT 9.6 fL 9.1 - 13.0 08/16 Specimen Type: BLOOD No comment entered. Ordering Provider: ELIZ MUNOZ Report Released Date/Time: Aug 17, 2023 10:25 AM Reporting Lab: [facility] [address] Performing Lab: [facility] [address] [place] [facility] CBC ERYTHROCYT E DISTRIBUTI ON WIDTH [RATIO] BY AUTOMATED COUNT 12.8 11.5 - 14.5 08/16 Specimen Type: BLOOD No comment entered. Ordering Provider: ELIZ MUNOZ Report Released Date/Time: Aug 17, 2023 10:25 AM Reporting Lab: [facility] [address] Performing Lab: [facility] [phone] [place] [facility] BASIC METABOLI C PANEL+MG CREATININE [MASS/VOLU ME] IN SERUM OR PLASMA 0.8 mg/dL 0.7 - 1.2 08/16 Specimen Type: PLASMA No comment entered. Ordering Provider: ELIZ MUNOZ Report Released Date/Time: Aug 17, 2023 10:25 AM Reporting Lab: [facility] [address] Performing Lab: [facility] [address] [place] [facility] BASIC METABOLI C PANEL+MG UREA NITROGEN [MASS/VOLU ME] IN SERUM OR PLASMA 14 mg/dL 8 - 26 08/16 Specimen Type: PLASMA No comment entered. Ordering Provider: ELIZ MUNOZ Report Released Date/Time: Aug 17, 2023 10:25 AM Reporting Lab: [facility] [address] Performing Lab: [facility] [address] [place] [facility] BASIC METABOLI C PANEL+MG GLUCOSE [MASS/VOLU ME] IN SERUM OR PLASMA 91 mg/dL 70 - 100 08/16 Specimen Type: PLASMA No comment entered. Ordering Provider: ELIZ MUNOZ Report Released Date/Time: Aug 17, 2023 10:25 AM Reporting Lab: [facility] [address] Performing Lab: [facility] [phone] [place] [facility] BASIC METABOLI C PANEL+MG SODIUM [MOLES/VOL UME] IN SERUM OR PLASMA 145 mmol/L 136 - 145 08/16 Specimen Type: PLASMA No comment entered. Ordering Provider: ELIZ MUNOZ Report Released Date/Time: Aug 17, 2023 10:25 AM Reporting Lab: [facility] [address] Performing Lab: [facility] [address] [place] [facility] BASIC METABOLI C PANEL+MG POTASSIUM [MOLES/VOL UME] IN SERUM OR PLASMA 4.1 mmol/L 3.5 - 5.1 08/16 Specimen Type: PLASMA No comment entered. Ordering Provider: ELIZ MUNOZ Report Released Date/Time: Aug 17, 2023 10:25 AM Reporting Lab: [facility] [address] Performing Lab: [facility] [address] [place] [facility] BASIC METABOLI C PANEL+MG CHLORIDE [MOLES/VOL UME] IN SERUM OR PLASMA 110 mmol/L 98 - 107 08/16 H Specimen Type: PLASMA No comment entered. Ordering Provider: ELIZ MUNOZ Report Released Date/Time: Aug 17, 2023 10:25 AM Reporting Lab: [facility] [address] Performing Lab: [facility] [address] [place] [facility] BASIC METABOLI C PANEL+MG CARBON DIOXIDE, TOTAL [MOLES/VOL UME] IN SERUM OR PLASMA 27 mmol/L 22 - 29 08/16 Specimen Type: PLASMA No comment entered. Ordering Provider: ELIZ MUNOZ Report Released Date/Time: Aug 17, 2023 10:25 AM Reporting Lab: [facility] [address] Performing Lab: [facility] [address] [place] [facility] BASIC METABOLI C PANEL+MG CALCIUM [MASS/VOLU ME] IN SERUM OR PLASMA 9.5 mg/dL 8.4 - 10.2 08/16 Specimen Type: PLASMA No comment entered. Ordering Provider: ELIZ MUNOZ Report Released Date/Time: Aug 17, 2023 10:25 AM Reporting Lab: [facility] [address] Performing Lab: [facility] [address] [place] [facility] BASIC METABOLI C PANEL+MG MAGNESIUM [MASS/VOLU ME] IN SERUM OR PLASMA 2.0 mg/dL 1.6 - 2.6 08/16 Specimen Type: PLASMA No comment entered. Ordering Provider: ELIZ MUNOZ Report Released Date/Time: Aug 17, 2023 10:25 AM Reporting Lab: [facility] [address] Performing Lab: [facility] [address] [place] [facility] BASIC METABOLI C PANEL+MG ANION GAP IN SERUM OR PLASMA 8 mmol/L 5 - 15 08/16 Specimen Type: PLASMA No comment entered. Ordering Provider: ELIZ MUNOZ Report Released Date/Time: Aug 17, 2023 10:25 AM Reporting Lab: [facility] [address] Performing Lab: [facility] [address] [place] [facility] BASIC METABOLI C PANEL+MG GLOMERULAR FILTRATION RATE/1.73 SQ M.PREDICTE D [VOLUME RATE/AREA] IN SERUM, PLASMA OR BLOOD BY CREATININE -BASED FORMULA (CKD-EPI 2020) >90 60 08/16 Specimen Type: PLASMA No comment entered. Ordering Provider: ELIZ MUNOZ Report Released Date/Time: Aug 17, 2023 10:25 AM Reporting Lab: [facility] [address] Performing Lab: [facility] [address] [place] [facility] EXTRA BLUE TUBE EXTRA BLUE TUBE RECEIVED 02/25 Specimen Type: PLASMA No comment entered. Ordering Provider: STEPHANIE GOODMAN Report Released Date/Time: Feb 26, 2024 08:25 AM Reporting Lab: [facility] [address] Performing Lab: [facility] [address] [place] [facility] BNP NATRIURETI C PEPTIDE B [MASS/VOLU ME] IN SERUM OR PLASMA 40 pg/mL <99 - 99 02/25 Specimen Type: PLASMA No comment entered. Ordering Provider: STEPHANIE GOODMAN Report Released Date/Time: Feb 26, 2024 07:57 AM Reporting Lab: [facility] [address] Performing Lab: [facility] [address] [place] [facility] TROPONIN I, HS TROPONIN I.CARDIAC [MASS/VOLU ME] IN SERUM OR PLASMA 7 <35 - 35 02/25 Specimen Type: PLASMA No comment entered. Ordering Provider: STEPHANIE GOODMAN Report Released Date/Time: Feb 26, 2024 07:57 AM Reporting Lab: [facility] [address] Performing Lab: [facility] [address] [place] [facility] EXTRA GOLD GEL TUBE EXTRA GOLD GEL TUBE RECEIVED 02/25 Specimen Type: SERUM No comment entered. Ordering Provider: STEPHANIE GOODMAN Report Released Date/Time: Feb 26, 2024 08:25 AM Reporting Lab: [facility] [address] Performing Lab: [facility] [address] [place] [facility] BASIC METABOLI C PANEL+MG CREATININE [MASS/VOLU ME] IN SERUM OR PLASMA 0.7 mg/dL 0.7 - 1.2 02/25 Specimen Type: PLASMA No comment entered. Ordering Provider: STEPHANIE GOODMAN Report Released Date/Time: Feb 26, 2024 07:57 AM Reporting Lab: [facility] [address] Performing Lab: [facility] [address] [place] [facility] BASIC METABOLI C PANEL+MG UREA NITROGEN [MASS/VOLU ME] IN SERUM OR PLASMA 14 mg/dL 8 - 26 02/25 Specimen Type: PLASMA No comment entered. Ordering Provider: STEPHANIE GOODMAN Report Released Date/Time: Feb 26, 2024 07:57 AM Reporting Lab: [facility] [address] Performing Lab: [facility] [address] [place] [facility] BASIC METABOLI C PANEL+MG GLUCOSE [MASS/VOLU ME] IN SERUM OR PLASMA 109 mg/dL 70 - 100 02/25 H Specimen Type: PLASMA No comment entered. Ordering Provider: STEPHANIE GOODMAN Report Released Date/Time: Feb 26, 2024 07:57 AM Reporting Lab: [facility] [address] Performing Lab: [facility] [address] [place] [facility] BASIC METABOLI C PANEL+MG SODIUM [MOLES/VOL UME] IN SERUM OR PLASMA 142 mmol/L 136 - 145 02/25 Specimen Type: PLASMA No comment entered. Ordering Provider: STEPHANIE GOODMAN Report Released Date/Time: Feb 26, 2024 07:57 AM Reporting Lab: [facility] [id number] Performing Lab: [facility] [id number] [place] [facility] PANEL+MG POTASSIUM [MOLES/VOL UME] IN SERUM OR PLASMA 4.4 mmol/L 3.5 - 5.1 02/25 Specimen Type: PLASMA No comment entered. Ordering Provider: STEPHANIE GOODMAN Report Released Date/Time: Feb 26, 2024 07:57 AM Reporting Lab: [facility] [phone] Performing Lab: [facility] [phone] [place] [facility] PANEL+MG CHLORIDE [MOLES/VOL UME] IN SERUM OR PLASMA 110 mmol/L 98 - 107 02/25 H Specimen Type: PLASMA No comment entered. Ordering Provider: STEPHANIE GOODMAN Report Released Date/Time: Feb 26, 2024 07:57 AM Reporting Lab: [facility] [address] Performing Lab: [facility] [address] [place] [facility] BASIC METABOLI C PANEL+MG CARBON DIOXIDE, TOTAL [MOLES/VOL UME] IN SERUM OR PLASMA 24 mmol/L 22 - 29 02/25 Specimen Type: PLASMA No comment entered. Ordering Provider: STEPHANIE GOODMAN Report Released Date/Time: Feb 26, 2024 07:57 AM Reporting Lab: [facility] [id number] Performing Lab: [facility] [address] [place] [facility] BASIC METABOLI C PANEL+MG CALCIUM [MASS/VOLU ME] IN SERUM OR PLASMA 9.5 mg/dL 8.4 - 10.2 02/25 Specimen Type: PLASMA No comment entered. Ordering Provider: STEPHANIE GOODMAN Report Released Date/Time: Feb 26, 2024 07:57 AM Reporting Lab: [facility] [address] Performing Lab: [facility] [address] [place] [facility] BASIC METABOLI C PANEL+MG MAGNESIUM [MASS/VOLU ME] IN SERUM OR PLASMA 2.0 mg/dL 1.6 - 2.6 02/25 Specimen Type: PLASMA No comment entered. Ordering Provider: STEPHANIE GOODMAN Report Released Date/Time: Feb 26, 2024 07:57 AM Reporting Lab: [facility] [address] Performing Lab: [facility] [address] [place] [facility] BASIC METABOLI C PANEL+MG ANION GAP IN SERUM OR PLASMA 8 mmol/L 5 - 15 02/25 Specimen Type: PLASMA No comment entered. Ordering Provider: STEPHANIE GOODMAN Report Released Date/Time: Feb 26, 2024 07:57 AM Reporting Lab: [facility] [address] Performing Lab: [facility] [address] [place] [facility] BASIC METABOLI C PANEL+MG GLOMERULAR FILTRATION RATE/1.73 SQ M.PREDICTE D [VOLUME RATE/AREA] IN SERUM, PLASMA OR BLOOD BY CREATININE -BASED FORMULA (CKD-EPI 2020) >90 60 02/25 Specimen Type: PLASMA No comment entered. Ordering Provider: STEPHANIE GOODMAN Report Released Date/Time: Feb 26, 2024 07:57 AM Reporting Lab: [facility] [address] Performing Lab: [facility] [address] [place] [facility] Vital Signs Combined list of inpatient and outpatient Vital Signs from Department of Defense and Veterans Affairs, ranging from 12 months to all on record, depending upon the facility. Vital Sign Value Date Comments Source SYSTOLIC BLOOD PRESSURE 156 08/16/2024 11:25:49 [facility] DIASTOLIC BLOOD PRESSURE 75 08/16/2024 11:25:49 [facility] PULSE OXIMETRY 95 08/16/2024 11:25:49 [place] [facility] WEIGHT 239.8 08/16/2024 11:25:49 [facility] BMI 37 kg/m2 08/16/2024 11:25:49 [facility] PAIN 0 08/16/2024 11:25:49 [facility] HEIGHT 68 08/16/2024 11:25:49 [facility] TEMPERATURE 97.4 08/16/2024 11:25:49 [facility] PULSE 58 08/16/2024 11:25:49 [facility] RESPIRATION 16 08/16/2024 11:25:49 [facility] SYSTOLIC BLOOD PRESSURE 142 06/19/2024 12:17:17 [facility] DIASTOLIC BLOOD PRESSURE 68 06/19/2024 12:17:17 [facility] PULSE OXIMETRY 95 06/19/2024 12:17:17 [facility] PAIN 4 06/19/2024 12:17:17 [facility] TEMPERATURE 97.6 06/19/2024 12:17:17 [facility] PULSE 51 06/19/2024 12:17:17 [facility] RESPIRATION 16 06/19/2024 12:17:17 [facility] SYSTOLIC BLOOD PRESSURE 161 02/26/2024 07:31:00 [facility] DIASTOLIC BLOOD PRESSURE 90 02/26/2024 07:31:00 [facility] PAIN 0 02/26/2024 07:31:00 [facility] TEMPERATURE 97.4 02/26/2024 07:31:00 [facility] PULSE 83 02/26/2024 07:31:00 [facility] RESPIRATION 15 02/26/2024 07:31:00 [facility] SYSTOLIC BLOOD PRESSURE 150 11/15/2023 13:17:45 [facility] DIASTOLIC BLOOD PRESSURE 77 11/15/2023 13:17:45 [facility] PULSE OXIMETRY 95 11/15/2023 13:17:45 [facility] PAIN 5 11/15/2023 13:17:45 [facility] TEMPERATURE 98.1 11/15/2023 13:17:45 [facility] PULSE 48 11/15/2023 13:17:45 [facility] RESPIRATION 17 11/15/2023 13:17:45 [facility] SYSTOLIC BLOOD PRESSURE 118 10/27/2023 11:37:38 [facility] DIASTOLIC BLOOD PRESSURE 71 10/27/2023 11:37:38 [facility] PULSE OXIMETRY 94 10/27/2023 11:37:38 [facility] TEMPERATURE 97.9 10/27/2023 11:37:38 [facility] PULSE 67 10/27/2023 11:37:38 MEGHA LLOYD [facility] RESPIRATION 18 10/27/2023 11:37:38 [facility] Encounters Combined list of: 1) Encounters from Department of [facility] Affairs facilities going backup to the last 18 months, not all [place] inpatient encounters are included; 2) Encounters from the Department of [facility] facilities going backup to 280 months. Location Location Details Encounter Type Encounter Number Reason For Visit Attending Provider ADM Date DC Date Status Disposition Source [facility] Outpatient Encounter [id number] Diagnos is: ICD-10- CM K40.21 Bilater al inguina l hernia, w/o obst or gangren e, recurre nt SKYLER PATEL RA 04/21 [facility] Outpatient Encounter [id number] SYSTEM,CIS -ARK 04/30 [facility] [place] [facility] Outpatient Encounter [id number] SYSTEM,CIS -WAK 04/30 [facility] [place] [facility] Outpatient Encounter [id number] MARNI MYERS 04/30 [facility] [place] [facility] Outpatient Encounter [id number] 04/30 [facility] OFFICE O/P EST MOD 30-39 MIN [id number] Diagnos is: ICD-10- CM K40.90 Unil inguina l hernia, w/o obst or gangr, not spcf as recur GARCÍA MARQUEZ 04/30 [facility] [place] [facility] Outpatient Encounter [id number] GARCÍA MARQUEZ 04/[address] [facility] Outpatient Encounter [id number] Diagnos is: ICD-10- CM K40.91 Unilate ral inguina l hernia, w/o obst or gangren e, recurre nt Katherine FERRER 04/[address] 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 INDIVIDU [id number] Diagnos is: ICD-10- CM Z71.81 Spiritu al or religio us rehabilitation services counselor ing Meme LOMAS 04/30 [facility] Outpatient Encounter [id number] 04/30 [facility] PRO PHONE CALL 5-10 MIN [id number] Diagnos is: ICD-10- CM Z71.89 Other specifi ed rehabilitation services counselor ing YANG FITZGERALD 05/03 [facility] Outpatient Encounter [id number] 05/07 [facility] Outpatient Encounter [id number] 05/19 [facility] POSTOP FOLLOW-UP VISIT [id number] Diagnos is: ICD-10- CM Z48.89 Encount er for other specifi ed surgica l afterca re Katherine FERRER 05/25 [facility] Outpatient Encounter [id number] 05/28 [facility] Outpatient Encounter [id number] Diagnos is: ICD-10- CM Z77.29 Contact with and exposur e to other hazardo us substan marlene ROCHE,AM Y J 06/09 YULI SONI G [facility] OFFICE O/P EST LOW 20 MIN [id number] Diagnos is: ICD-10- CM 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 Outpatient Encounter [id number] SYSTEM,CIS -ARK 10/[address] [facility] EMERGENCY DEPT VISIT MOD MDM [id number] Diagnos is: ICD-10- CM R07.9 Chest pain, unspeci fied JEFFERSON BERRY Harish 10/18 [facility] Outpatient Encounter [id number] 10/19 [facility] HC PRO PHONE CALL 5-10 MIN [id number] Diagnos is: ICD-10- CM M54.12 Radicul opathy, cervica l region HADOMINGOERJhon,N ICOLE M 10/21 [facility] Outpatient Encounter [id number] 10/26 [facility] EMERGENCY DEPT VISIT MOD MDM [id number] Diagnos is: ICD-10- CM R07.9 Chest pain, unspeci fied MELLY RODRIGUEZSON 10/[address] 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 JUAN Sumner ISTIN Y 11/02 [facility] Outpatient Encounter [id number] 11/07 [facility] Outpatient Encounter [id number] 11/14 [facility] NJX INTERLAMIN AR CRV/THRC [id number] Diagnos is: ICD-10- CM M54.12 Radicul opathy, cervica l region JOSE ARMENTA A 11/14 [facility] UNLISTED SPEC DERM SVC/PX [id number] Diagnos is: ICD-10- CM D48.5 Neoplas m of uncerta in behavio r of skin KATIUSKA ROSARIO 11/15 [facility] Outpatient Encounter [id number] Diagnos is: ICD-10- CM L57.0 Actinic keratos is FABRICE HUGO 11/16 [facility] Outpatient Encounter [id number] MARCOS DORADO L 01/26 [facility] EMERGENCY DEPT VISIT MOD MDM [id number] Diagnos is: ICD-10- CM I48.91 Unspeci fied atrial fibrill ation REX,CON STANCE L 02/25 [facility] Outpatient Encounter [id number] 03/03 [facility] Outpatient Encounter [id number] 03/07 [facility] HEARING AID REPAIR/MOD IFYING [id number] Diagnos is: ICD-10- CM H90.3 Sensori neural hearing loss, bilater MOSHE Hilliard 03/08 [place] [facility] [place] [facility] Outpatient Encounter [id number] 06/05 [place] [facility] [place] [facility] HC PRO PHONE CALL 5-10 MIN [id number] Diagnos is: ICD-10- CM M54.12 Radicul opathy, cervica l region WILLIAM SOLIZ HLEY L 06/05 [facility] [facility] [place] [facility] QNHP OL DIG ASSMT&MGMT - [id number] Diagnos is: ICD-10- CM Z51.81 Encount er for therape utic drug level monitor scottie YE MA TTHEW S 06/07 [facility] [place] [facility] Outpatient Encounter [id number] KATHIAJUAN F IRENE NDA J 06/16 [facility] [place] [facility] NJX INTERLAMIN AR CRV/THRC [id number] Diagnos is: ICD-10- CM M54.12 Radicul opathy, cervica l region TAVOJOSE RUGGIERO 06/19 [place] [facility] [place] [facility] Outpatient Encounter [id number] 06/19 [place] [facility] [place] [facility] Outpatient Encounter [id number] 07/05 [place] [facility] [place] [facility] Outpatient Encounter [id number] 07/07 [place] [facility] [place] [facility] Outpatient Encounter [id number] 07/11 [place] [facility] [place] [facility] Outpatient Encounter [id number] 07/25 [place] [facility] [place] [facility] Outpatient Encounter [id number] 08/16 [facility] [facility] [place] [facility] OFFICE O/P EST MOD 30 MIN [id number] Diagnos is: ICD-10- CM 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 Outpatient Encounter [id number] LINDSAY GUERRERO 10/09 [facility] Procedures Combined list of: 1) Procedures from Department of Veterans Affairs facilities going back up to thelast 18 months, not all [place] non-surgical procedures are included; 2) All procedures from the Department of Defense facilities. Procedure Procedure Type Code Date Perfomer Comments Kamar e Laparoscopic recurrent Left inguinal hernia repair LAP ING HERNIA REPAIR RECUR [id number] CAROLA FERRER LT-LEFT SIDE [facility] Social History Combined list of available smoking, tobacco, and other social history from Department of Defense and Veterans Affairs facilities. Social History Type Response Date Comment Kamar e Tobacco smoking status NHIS VA-TOBACCO USE FORMER CIGARETTES 08/16/2024 [facility] History of tobacco use [place]-TO[place]ACCO NEVER USED OTHER TYPE 08/16/2024 [facility] History of tobacco use [place]-TOBACCO QUIT 1 5 YRS OR MORE 08/17/2023 [facility] History of tobacco use [place]-TOBACCO QUIT 1 5 YRS OR MORE 07/01/2022 [facility] History of tobacco use [place]-TOBACCO FORMER USER 05/22/2021 [facility] History of tobacco use [place]-TOBACCO QUIT 1 5 YRS OR MORE 03/29/2020 [facility] History of tobacco use [place]-TOBACCO FORMER USER 03/06/2019 [facility] History of tobacco use INPT NO TOBACCO U SE IN LAST 30 DAYS 10/23/2018 [facility] History of tobacco use VA-TOBACCO FORMER USER 06/15/2018 [facility] History of tobacco use INPT NO TOBACCO U SE IN LAST 30 DAYS 06/25/2017 [facility] History of tobacco use FORMER TOBACCO US ER 7Y OR GREATER 04/26/2017 [facility] History of tobacco use INPT NO TOBACCO U SE IN LAST 30 DAYS 01/04/2017 [facility] History of tobacco use LIFETIME NON-TOBACCO USER 6 [facility] History of tobacco use INPT NO TOBACCO U SE IN LAST 30 DAYS 06/04/2015 [facility] History of tobacco use FORMER TOBACCO US ER 7Y OR GREATER 04/23/2015 [facility] History of tobacco use FORMER TOBACCO US ER 7Y OR GREATER 01/19/2014 [facility] History of tobacco use FORMER TOBACCO US ER 7Y OR GREATER 12/09/2010 [facility] Plan of Care List of future care activities from [facility] facilities. Additional future care activities may be listed in the Assessment and Plan section. Date/Time Care Activity Care Activity Detail Facili ty 11/13/2024 AMBULATORY - NONE AMBULATORY - NONE [facility] 11/14/2024 Laboratory - Chemistry Order AST/SGOT JOSE MIGUEL SMA SP ONCE [facility] 11/14/2024 Laboratory - Chemistry Order ANT I-HEP C(EIA) SERUM SP ONCE [facility] Advance Directives List of completed, amended, or rescinded Advance Directives on record at [facility] facilities. An actual copy of the Directive is not included. Date Advance Directive Provider Source 06/25/2017 CLINICAL WARNING MADHAVI CASTILLO [facility] 01/04/2017 CLINICAL WARNING DIGNA CASTELLANOS [facility] 09/26/2014 CLINICAL WARNING SHEREEN LAUREANO [facility]
--- OUTSIDE RECORDS SUMMARY | 2024-10-09 11:27 | XMS_ITS | Encounter Summary ---
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 of Vetera Affairs ([place]) Organization Department of [facility] ([place]) Address [address] [place] [address] Care Team Providers Care Retail Service Lead Merchandiser Name Role Phone ELIZ MUNOZ Primary Care Provider [facility] e Insurance Providers: All historical [...] PART A Nov 01, 2011 PART A [id number] [phone] ANANTH HUANG PATIENT MEDICARE (WNR) MEDICARE (M) PART B Nov 01, 2011 PART B [id number] [phone] ANANTH HUANG PATIENT MEDICARE (WNR) MEDICARE (M) PART A Nov 01, 2011 PART A [id number] ANANTH HUANG PATIENT MEDICARE (WNR) MEDICARE (M) PART B Nov 01, 2011 PART B [id number] ANANTH HUANG PATIENT Selected Encounter This section includes the information on record at [place] for the Encounter. Date/Time Encounter Type Encounter Description Reason Provider Source Oct 09, 2024 08:31 AM Outpatient Encounter TELEPHONE TRIAGE LINDSAY GUERRERO Encounter Template Text not used by [place] [...] 20 appointments. The data comes from all [facility]. Appointment Date/Time Appointment Type Appointme nt Facility Name Nov 13, 2024 11:00 AM AMBULATORY - NONE [facility] Active, Pending, and Scheduled Orders This section includes a listing of several types of active, pending, and scheduled orders, including clinic medications orders, diagnostic test orders, procedure orders and consult orders; where the start date of the order is 45 days before the date of the Encounter or 45 days after the date of theEncounter. The data comes from all [facility]. Test Date/Time Test Type Test Details Facility Name Nov 14, 2024 12:00 AM Laboratory - Chemi stry Order ANTI-HEP C(EIA) SERUM SP ONCE [facility] Nov 14, 2024 12:00 AM Laboratory - Chemi stry Order AST/SGOT PLASMA SP ONCE [facility] Social History: Smoking Status (Most [...] place. Date/Time Current Smoking Status Comment Priya itjosh Aug 16, 2024 11:15 AM VA-TOBACCO NEVER USED OTHER TYPE [facility] Tobacco Use History This section includes a history of the smoking, or tobacco-related health factors, that were collected on or before the date of the Encounter. The data comes from the [place] facility where the Encounter took place. Date/Time Smoking Status/Tobacco Use Comment F acility Aug 16, 2024 11:15 AM VA-TOBACCO USE FORMER CIGARETTES [facility] Aug 17, 2023 09:45 AM VA-TOBACCO FORMER USER [facility] Aug 17, 2023 09:45 AM VA-TOBACCO QUIT 15 YRS OR MORE [facility] Jul 01, 2022 08:45 AM VA-TOBACCO FORMER USER [facility] Jul 01, 2022 08:45 AM VA-TOBACCO QUIT 15 YRS OR MORE [facility] May 22, 2021 09:00 AM VA-TOBACCO FORMER USER [facility] May 22, 2021 09:00 AM VA-TOBACCO QUIT 15 YRS OR MORE [facility] Mar 29, 2020 07:42 AM VA-TOBACCO FORMER USER [facility] Mar 29, 2020 07:42 AM VA-TOBACCO QUIT 15 YRS OR MORE [facility] Mar 06, 2019 12:00 PM VA-TOBACCO FORMER USER [facility] Mar 06, 2019 12:00 PM VA-TOBACCO QUIT 15 YRS OR MORE [facility] Oct 23, 2018 11:20 AM INPT NO TOBACCO USE IN LAST 30 D [facility] Jun 15, 2018 09:25 AM VA-TOBACCO FORMER USER [facility] Jun 15, 2018 09:25 AM VA-TOBACCO QUIT 15 YRS OR MORE [facility] Jun 25, 2017 04:05 PM INPT NO TOBACCO USE IN LAST 30 D [facility] Apr 26, 2017 08:03 AM FORMER TOBACCO USER 7Y OR GREATE R [facility] Jan 04, 2017 11:27 AM INPT NO TOBACCO USE IN LAST 30 D [facility] May 13, 2016 10:42 AM LIFETIME NON-TOBACCO USER [facility] Jun 04, 2015 06:17 AM INPT NO TOBACCO USE IN LAST 30 D [facility] Apr 23, 2015 09:14 AM FORMER TOBACCO USER 7Y OR GREATE R [facility] Jan 19, 2014 09:40 AM FORMER TOBACCO USER 7Y OR GREATE R [facility] December 09, 2010 12:08 PM FORMER TOBACCO USER 7Y OR GREATE R [facility] Advance Directives: All historical and [...] Jun 25, 2017 CLINICAL WARNING MADHAVI CASTILLO [facility] Jan 04, 2017 CLINICAL WARNING DIGNA CASTELLANOS [facility] Sep 26, 2014 CLINICAL WARNING SHEREEN LAUREANO [facility] Encounter Notes: All associated encounter notes This section contains the clinical notes associated to the Encounter. Date/Time Encounter Note(s) Provider Source Oct 09, 2024 08:31 AM RN PROGRESS NOTE: LOCAL TITLE: CCC: CLINICAL TRIAGE STANDARD TITLE: RN PROGRESS NOTE DATE OF NOTE: OCT 09, 2024@08:31:37 ENTRY DATE: OCT 09, 2024@08:31:37 AUTHOR: LINDSAY GUERRERO COSIGNER: URGENCY: STATUS: COMPLETED Caller Verification Caller/Recipient Relation to Patient: Self Caller Name: ANANTH HUANG Emergency Contact: TAHIR JUDD Triage Summary Conducted triage/discussed symptoms Pain Score: 3 Utilized the Triage Tool: Yes Chief Complaint: Scrotal Pain System WHEN: Now Nurse's Recommendation / WHEN: Now System WHERE: Emergency department Nurse's Recommendation / WHERE: ED Other WHEN/WHERE modifier reason: Distance from Hospital Patient Disposition Patient/Caregiver agrees to plan of care: Yes Patient is Urgent or Emergent Nursing Plan and Disposition Referred patient to higher level of care Instructed to go to Emergency Room (ER) Advised of Financial Disclaimer: Patient advised that recommendation for care provided during the call does not constitute an approval or authorization for payment by the [place] or its staff. Patient advised to report a community ED visit to the [facility] Office of Community Care at within 72 hours. Nurse Summary Nurse Summary: PATIENT CONCERN/DURATION/ONSET: [place] called with lump on his R scrotum that has been present for ''about two months'' and is now painful to touch with ''a little drainage'' Positive Responses HPI: pain or tenderness in bulge or knot HPI: scrotal bulge or knot, worsening, new HPI: scrotum bulge or knot, tender Negative Responses Denies: HPI: testicular or scrotal pain, severe WHAT HAS PATIENT TRIED TO TREAT THE SYMPTOMS: no home measures HISTORY/PREVIOUS TREATMENT: bilateral hernias WHAT IS PATIENT GOAL FOR THE CALL: to have his ''scrotal lump'' assessed and treated Was Virtual Care Visit considered (TELE or VVC): unable to obtain warm hand off to Tele EC DONOR SERVICES SPECIALIST DISPOSITION: Less than 24 hours for interaction with provider. Outside ER now due to distance from [facility] ER. [place] agrees to present to ER and was extended the phone number [phone] to call w/in 72 hours to notify the [place] emergent notification line; then consideration will be given for VA to cover ED visit. Best contact for is (Verified). This note was created by a [address] union contract representative. Please do not alert this nurse by adding as a signer for future communications. Alerts are not monitored by this user, please reach out to [facility] Leadership instead if indicated. Clinical Contact Center Codes Clinic/Location: [address] PHONE CCC RN Decision Support System Output: Triage Complete Triage Date: 10/09/2024, 08:27 AM Triage Note: Decision Support Tool Used: TXCC Phone Triage Mon, 09 Oct 2024 13:26:10 +0000 [facility] Demographics 78 y/o Male Results CC: Scrotal Pain Software suggested: Now Software suggested follow-up location: Emergency department Values and Measures Duration of CC: 2 Months Positive Responses HPI: pain or tenderness in bulge or knot HPI: scrotal bulge or knot, worsening, new HPI: scrotum bulge or knot, tender Negative Responses Denies: HPI: testicular or scrotal pain, severe IMPORTANT: This note was created by [facility] Clinical Contact Center staff. Please do not alert the staff member by adding them as a signer for future communications. Alerts are not monitored by this user. /phoebe/ LINDSAY GUERRERO RN VISN 23 Daytime steam finisher Signed: 10/09/2024 08:31 LINDSAY GUERRERO [facility]
--- OUTSIDE RECORDS SUMMARY | 2024-10-09 11:27 | XMS_ITS | Encounter Summary ---
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 of [place] [facility] ([place]) Address [address] [place] [id number] Care Team Providers Care Salesperson Art Objects Name Role Phone ELIZ MUNOZ Primary Care Provider [facility] e Insurance Providers: All historical and [...] PART A Nov 01, 2011 PART A [id number] [phone] ANANTH HUANG PATIENT MEDICARE (WNR) MEDICARE (M) PART B Nov 01, 2011 PART B [id number] ANANTH HUANG PATIENT MEDICARE (WNR) MEDICARE (M) PART A Nov 01, 2011 PART A [id number] ANANTH HUANG PATIENT MEDICARE (WNR) MEDICARE (M) PART B Nov 01, 2011 PART B [id number] NAANTH HUANG PATIENT Selected Encounter This section includes the information on record at [place] for the Encounter. Date/Time Encounter Type Encounter Description Reason Provider Source Nov 17, 2023 09:24 AM Outpatient Encounter DERMATOLOGY ICD-10-CM L57.0 Actinic keratosis SAURAV ARECHIGA Kris Encounter Template Text not used by [place] Assessments - Encounter Diagnoses This section includes the primary and secondary diagnoses documented for the Encounter. Date/Time Primary/Secondary Diagnosis Diagnosis Name Provider Source Nov 17, 2023 09:44 AM PRIMARY Actinic keratosis SAURAV ARECHIGA [facility] Nov 17, 2023 09:44 AM SECONDARY Other benign neoplasm of skin, unspecified SLIGH,SAURAV [facility] Plan of Treatment: Future Appointments (+ 6 months) and Future Tests (+/- 45 days) The Plan of Treatment section includes future care activities for the patient from all [place] [facility] This section includes future appointments and future orders which are active, pending or scheduled. Future Appointments This section includes appointments that were scheduled to occur 6 months from the date of the Encounter, up to a maximum of 20 appointments. The data comes from all [facility] facilities. Appointment Date/Time Appointment Type Appointme nt Facility Name Jan 27, 2024 09:05 AM AMBULATORY - NONE JACKELIN GIPSON [facility] Feb 26, 2024 07:27 AM AMBULATORY - MEDICINE PHILLIP SUE [facility] Mar 08, 2024 10:45 AM AMBULATORY - SURGERY [facility] G[facility] Active, Pending, and Scheduled Orders This section includes a listing of several types of active, pending, and scheduled orders, including clinic medications orders, diagnostic test orders, procedure orders and consult orders; where the start date of the order is 45 days before the date of the Encounter or 45 days after the date of theEncounter. The data comes from all [facility]. Test Date/Time Test Type Test Details Facility Name Oct 19, 2023 03:51 PM Laboratory - Chemi stry Order TROPONIN I, HS PLASMA STAT WC ONCE [facility] Lab Results: +/- 30 days of the encounter This section includes the Chemistry and Hematology Lab Results on record with [place] for the patient. Radiology Reports and Pathology Reports are provided separately, in subsequent sections. Lab Results This section contains the Chemistry/Hematology Results that were resulted 30 days before or 30 daysafter the date of the Encounter. Date/Time Source Result Type Result - Unit Interpretation Reference Range Comment Oct 19, 2023 04:08 PM [facility] TROPONIN I, HS Specimen Type: PLASMA No comment entered. Ordering Provider: FIGUEROA RUFF Report Released Date/Time: Oct 19, 2023 03:51 PM Reporting Lab: [facility] [id number] Performing Lab: [facility] [id number] TROPONIN I, HS <3 <35 Oct 19, 2023 01:00 PM [facility] TROPONIN I, HS Specimen Type: PLASMA No comment entered. Ordering Provider: FIGUEROA RUFF Report Released Date/Time: Oct 19, 2023 01:29 PM Reporting Lab: [facility] [id number] Performing Lab: [facility] [id number] TROPONIN I, HS <3 <35 Oct 19, 2023 01:00 PM [facility] BNP Specimen Type: PLASMA No comment entered. Ordering Provider: FIGUEROA RUFF Report Released Date/Time: Oct 19, 2023 01:29 PM Reporting Lab: [facility] [id number] Performing Lab: [facility] [id number] BNP 30 pg/mL <99 Oct 19, 2023 01:00 PM [facility] PROTHROMBIN TIME/INR Specimen Type: PLASMA No comment entered. Ordering Provider: FIGUEROA RUFF Report Released Date/Time: Oct 19, 2023 01:29 PM Reporting Lab: [facility] [id number] Performing Lab: [facility] Oct 19, 2023 01:00 PM [facility] ACT PART THROMBO TIME Specimen Type: PLASMA No comment entered. Ordering Provider: FIGUEROA RUFF Report Released Date/Time: Oct 19, 2023 01:29 PM Reporting Lab: [facility] [id number] Performing Lab: [facility] [phone] APTT 35.2 s 25.1-36.5 Oct 19, 2023 01:00 PM [facility] BASIC METABOLIC PANEL+MG Specimen Type: PLASMA No comment entered. Ordering Provider: FIGUEROA RUFF Report Released Date/Time: Oct 19, 2023 01:29 PM Reporting Lab: [facility] [id number] Performing Lab: [facility] [phone] CREATININE 0.8 mg/dL 0.7-1.2 UREA NITROGEN 18 mg/dL 8-26 GLUCOSE 98 mg/dL 70-100 SODIUM 142 mmol/L 136-145 POTASSIUM 4.2 mmol/L 3.5-5.1 CHLORIDE 107 mmol/L 98-107 CO2 25 mmol/L 22-29 CALCIUM 9.5 mg/dL 8.4-10.2 MAGNESIUM 1.9 mg/dL 1.6-2.6 ANION GAP 10 mmol/L 5-15 .CREAT EGFR(CKD-EPI) >90 >60 Oct 19, 2023 01:00 PM [facility] EXTRA GOLD GEL TUBE Specimen Type: SERUM No comment entered. Ordering Provider: FIGUEROA RUFF Report Released Date/Time: Oct 19, 2023 01:35 PM Reporting Lab: [facility] [id number] Performing Lab: [facility] [phone] EXTRA GOLD GEL TUBE RECEIVED Oct 19, 2023 01:00 PM [facility] CBC & DIFF Specimen Type: BLOOD Comment: Automated Differential Performed Ordering Provider: FIGUEROA RUFF Report Released Date/Time: Oct 19, 2023 01:29 PM Reporting Lab: [facility] [id number] Performing Lab: [facility] [phone] WBC 7.22 10*3/uL 4.0-11.0 RBC 5.12 10*6/uL [...] and tobacco- related health factors from the [place] facility where the Encounter took place. Current Smoking Status This section includes the most current smoking, or tobacco-related health factor, from the [place] facility where the Encounter took place. Date/Time Current Smoking Status Comment Facil ity Aug 17, 2023 09:45 AM VA-TOBACCO QUIT 15 YRS OR MORE [facility] Tobacco Use History This section includes a history of the smoking, or tobacco-related health factors, that were collected on or before the date of the Encounter. The data comes from the [place] facility where the Encounter took place. Date/Time Smoking Status/Tobacco Use Comment F acility Aug 17, 2023 09:45 AM VA-TOBACCO QUIT 15 YRS OR MORE [facility] Jul 01, 2022 08:45 AM VA-TOBACCO FORMER USER [facility] Jul 01, 2022 08:45 AM VA-TOBACCO QUIT 15 YRS OR MORE [facility] May 22, 2021 09:00 AM VA-TOBACCO FORMER USER [facility] May 22, 2021 09:00 AM VA-TOBACCO QUIT 15 YRS OR MORE [facility] Mar 29, 2020 07:42 AM VA-TOBACCO FORMER USER [facility] Mar 29, 2020 07:42 AM VA-TOBACCO QUIT 15 YRS OR MORE [facility] Mar 06, 2019 12:00 PM VA-TOBACCO FORMER USER [facility] Mar 06, 2019 12:00 PM VA-TOBACCO QUIT 15 YRS OR MORE [facility] Oct 23, 2018 11:20 AM INPT NO TOBACCO USE IN LAST 30 D [facility] Jun 15, 2018 09:25 AM VA-TOBACCO FORMER USER [facility] Jun 15, 2018 09:25 AM VA-TOBACCO QUIT 15 YRS OR MORE [facility] Jun 25, 2017 04:05 PM INPT NO TOBACCO USE IN LAST 30 D [facility] Apr 26, 2017 08:03 AM FORMER TOBACCO USER 7Y OR GREATE R [facility] Jan 04, 2017 11:27 AM INPT NO TOBACCO USE IN LAST 30 D [facility] May 13, 2016 10:42 AM LIFETIME NON-TOBACCO USER [facility] Jun 04, 2015 06:17 AM INPT NO TOBACCO USE IN LAST 30 D [facility] Apr 23, 2015 09:14 AM FORMER TOBACCO USER 7Y OR GREATE R [facility] Jan 19, 2014 09:40 AM FORMER TOBACCO USER 7Y OR GREATE R [facility] December 09, 2010 12:08 PM FORMER TOBACCO USER 7Y OR GREATE R [facility] Advance Directives: All historical and current Section Date Range: From patient's date of to the date document was created. This section includes ALL of a patient's completed or amended [place] Advance and Rescinded Directives. The entries below indicate that a directive exists for the patient, but an actual copy is not included with this document. The data comes from all [place] facilities. Date Advance Directives Provider Source Jun 25, 2017 CLINICAL WARNING MADHAVI CASTILLO [facility] Jan 04, 2017 CLINICAL WARNING DIGNA CASTELLANOS Nelson SIMMONS [facility] Sep 26, 2014 CLINICAL WARNING SHEREEN LAUREANO [facility] Radiology Reports: +/- 30 days of [...] the Encounter. The data comes from all [place] treatment facilities. Date/Time Radiology Report Provider Source Oct 27, 2023 08:10 AM CHEST PAIN PATHWAY (ED ONLY) (P): HUANGANANTH [id number] -1945 M Ex Date: OCT 27, 2023@08:10 Req Phys: FIGUEROA RUFF Loc: [facility] EMERGENCY DEPT WALK-IN ([facility] Loc: [facility] MED Service: Unknown (Case [id number] COMPLETE) MYOCARDIAL PERFUSION (SPECT)-MULT(NM Detailed) CPT:10449 Reason for Study: Chest Pain Pathway (Case 1050 COMPLETE) TC-99M SESTAMIBI (CARDIOLITE), PE(NM Detailed) CPT:A9500 (Case 1051 COMPLETE) CARDIOVASCULAR STRESS TEST (NM Detailed) CPT:37764 Clinical History: Myocardial perfusion stress test for chest pain IS NOT under investigation for COVID-19 or is COVID-19 negative chest pain Responsible provider name and phone number to notify for critical findings if other than user placing the order and pager listed below: User placing orders pager: [phone] ER LAST CREATININE 0.8 (10/19/23) Report Status: Verified Date Reported: OCT 27, 2023 Date Verified: OCT 27, 2023 Sales Service Rep E-Sig:/ES/GOLD VEGA MD Report: Regadenoson myocardial perfusion [...] Staff: GOLD VEGA MD, RADIOLOGY STAFF PHYSICIAN (Sales Service Rep) /GOLD RUIZ [facility] Oct 19, 2023 02:14 PM CTA (CAP) DISSECTI ON (P): ANANTH HUANG [id number] -1945 M Exm Date: OCT 19, 2023@14:14 Req Phys: FIGUEROA RUFF Loc: [facility] EMERGENCY DEPT WALK-IN (Re Img Loc: CT IMAGING Service: Unknown (Case [id number] COMPLETE) CTA (CAP) CHEST W/ & W/O CONTRAST(CT Detailed) CPT:36116 Reason for Study: sharp chest pain (Case 1150 COMPLETE) CTA (CAP) ABDOMEN/PELVIS W/ & W/O(CT Detailed) CPT:93170 Clinical History: sharp chest pain, sudden onset, [...] PLASMA .CREAT EGFR(CKD-E >90 Ref: >=60 Allergies: ([place] only) Patient has answered NKA Defer to [...] 19, 2023 Date Verified: OCT 19, 2023 Sales Service Rep E-Sig:/ES/GURDEEP MORFIN MD Report: CHEST/ABDOMEN/PELVIS CTA AND [...] Primary Interpreting Staff: GURDEEP MORFIN MD, RADIOLOGIST (Sales Service Rep) Primary Interpreting Resident: SULMA BRADY MD, RESPOOLER /GURDEEP DRAPER [facility] Oct 19, 2023 01:36 PM CHEST 1 VIEW: ANANTH HUANG [id number] -1945 M Exm Date: OCT 19, 2023@13:36 Req Phys: FIGUEROA RUFF Loc: [facility] EMERGENCY DEPT WALK-IN (Re Img Loc: MAIN X-RAY Service: Unknown (Case 1020 COMPLETE) CHEST 1 VIEW (RAD Detailed) CPT:47889 Proc Modifiers : PORTABLE EXAM Reason for Study: chest pain Clinical History: [place] IS NOT under investigation for COVID-19 or is COVID-19 negative chest pain Responsible provider name and phone number to notify for critical findings if other than user placing the order and pager listed below: User placing orders pager: [phone] sindi ruff LAST CREATININE 0.8 (08/17/23) Report Status: Verified Date Reported: OCT 19, 2023 Date Verified: OCT 19, 2023 Sales Service Rep E-Sig:/ES/MIRIAM CAIN MD Report: EXAMINATION: CHEST 1 VIEW 10/19/2023 1:36 PM INDICATION: chest pain Impression: Heart size is enlarged or at the upper limits of normal. Pulmonary vascularity within normal limits. No pulmonary infiltrate or pleural effusion. Calcification aorta. Old healed right rib fractures. Old healed clavicular fractures. Degenerative changes thoracic spine. Primary Interpreting Staff: MIRIAM CAIN MD, RADIOLOGIST (Sales Service Rep) /MIRIAM YATES [facility] Encounter Notes: All associated encounter notes This section contains the clinical notes associated to the Encounter. Date/Time Encounter Note(s) Provider Source Nov 17, 2023 09:25 AM TELEIMAGING REPORT : LOCAL TITLE: TELEDERMATOLOGY IMAGING REPORT CONSULT STANDARD TITLE: TELEIMAGING REPORT DATE OF NOTE: NOV 17, 2023@09:25 ENTRY DATE: NOV 17, 2023@09:29:34 AUTHOR: SAURAV ARECHIGA EXP COSIGNER: URGENCY: STATUS: COMPLETED TELEDERMATOLOGY IMAGING REPORT [...] primary care /phoebe/ Saurav Arechiga MD, PhD Visn 23 [facility] Enrober Signed: 11/17/2023 09:44 Receipt Acknowledged By: 11/17/2023 15:35 /phoebe/ SAMREEN HUBBARD RN REGISTERED NURSE 11/17/2023 ADDENDUM STATUS: COMPLETED Per Dr. Arechiga underwriter informed patient teledermatology imaging showed: PROBLEM A: Diagnosis: Actinic Keratosis on face, and porokeratosis on leg Recommendation is to apply topical fluorouracil twice daily to the rough areas on face for 2 weeks, and twice daily for 3 weeks for the spot on the leg. Destination Coordinator discussed application, side effects, including irritation, gentle skin care, and sun protection. Patient reports understanding and denies additional questions at this time. Destination Coordinator provided phone extension if questions do arise. /phoebe/ SAMREEN HUBBARD RN REGISTERED NURSE Signed: 11/17/2023 15:34 12/07/2023 ADDENDUM STATUS: COMPLETED Destination Coordinator contacted patient to discuss use of topical [...] REGISTERED NURSE Signed: 12/07/2023 12:27 SAURAV ARECHIGA [facility]
--- OUTSIDE RECORDS SUMMARY | 2024-10-09 11:27 | XMS_ITS | Encounter Summary ---
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 [place] Organization [facility] [place] Address [address] [place] [address] Care Team Providers Care Wire Stretcher Name Role Phone ELIZ MUNOZ Primary Care [...] PART A Nov 01, 2011 PART A [id number] [phone] ANANTH HUANG PATIENT MEDICARE (WNR) MEDICARE (M) PART B Nov 01, 2011 PART B [id number] [phone] ANANTH HUANG PATIENT MEDICARE (WNR) MEDICARE (M) PART A Nov 01, 2011 PART A [id number] ANANTH HUANG PATIENT MEDICARE (WNR) MEDICARE (M) PART B Nov 01, 2011 PART B [id number] [phone] ANANTH HUANG PATIENT Selected Encounter This section includes the information on record at [place] for the Encounter. Date/Time Encounter Type Encounter Description Reason Provider Source Oct 27, 2023 11:29 AM EMERGENCY DEPT VISIT [facility] EMERGENCY DEPT ICD-10-CM R07.9 Chest pain, unspecified OBDULIO RODRIGUEZ Kris Encounter Template Text not used by [place] Assessments - Encounter Diagnoses This section includes the primary and secondary diagnoses documented for the Encounter. Date/Time Primary/Secondary Diagnosis Diagnosis Name Provider Source Oct 27, 2023 12:23 PM PRIMARY Chest pain, unspecified OBDULIO RODRIGUEZ [facility] Plan of Treatment: Future Appointments (+ 6 months) and Future Tests (+/- 45 days) The Plan of Treatment section includes future care activities for the patient [facility] [place] [facility] This section includes future appointments and future orders which are active, pending or scheduled. Future Appointments This section includes appointments that were scheduled to occur 6 months from the date of the Encounter, up to a maximum of 20 appointments. The data comes from all [facility]. Appointment Date/Time Appointment Type Appointme nt Facility Name Nov 15, 2023 01:40 PM AMBULATORY - REHAB MEDICIN E [facility] Nov 16, 2023 10:30 AM AMBULATORY - MEDICINE [facility] Jan 27, 2024 09:05 AM AMBULATORY - NONE [facility] Feb 26, 2024 07:27 AM AMBULATORY - MEDICINE [facility] Mar 08, 2024 10:45 AM AMBULATORY - SURGERY [facility] Active, Pending, and Scheduled Orders This section includes a listing of several types of active, pending, and scheduled orders, including clinic medications orders, diagnostic test orders, procedure orders and consult orders; where the start date of the order is 45 days before the date of the Encounter or 45 days after the date of theEncounter. The data comes from all [facility]. Test Date/Time Test Type Test Details Facility Name Oct 19, 2023 03:51 PM Laboratory - Chemi julieny Order TROPONIN I, HS PLASMA STAT WC ONCE [facility] Lab Results: +/- 30 days of the encounter This section includes the Chemistry and Hematology Lab Results on record with [place] for the patient. Radiology Reports and Pathology Reports are provided separately, in subsequent sections. Lab Results This section contains the Chemistry/Hematology Results that were resulted 30 days before or 30 daysafter the date of the Encounter. Date/Time Source Result Type Result - Unit Interpretation Reference Range Comment Oct 19, 2023 04:08 PM [facility] TROPONIN I, HS Specimen Type: PLASMA No comment entered. Ordering Provider: FIGUEROA RUFF Report Released Date/Time: Oct 19, 2023 03:51 PM Reporting Lab: [facility] [id number] Performing Lab: [facility] [id number] TROPONIN I, HS <3 <35 Oct 19, 2023 01:00 PM [facility] TROPONIN I, HS Specimen Type: PLASMA No comment entered. Ordering Provider: FIGUEROA RUFF Report Released Date/Time: Oct 19, 2023 01:29 PM Reporting Lab: [facility] [id number] Performing Lab: [facility] [address] TROPONIN I, HS <3 <35 Oct 19, 2023 01:00 PM [facility] BNP Specimen Type: PLASMA No comment entered. Ordering Provider: FIGUEROA RUFF Report Released Date/Time: Oct 19, 2023 01:29 PM Reporting Lab: [facility] [id number] Performing Lab: [facility] [phone] BNP 30 pg/mL <99 Oct 19, 2023 01:00 PM [facility] PROTHROMBIN TIME/INR Specimen Type: PLASMA No comment entered. Ordering Provider: FIGUEROA RUFF Report Released Date/Time: Oct 19, 2023 01:29 PM Reporting Lab: [facility] [address] Performing Lab: [facility] Oct 19, 2023 01:00 PM [facility] ACT PART THROMBO TIME Specimen Type: PLASMA No comment entered. Ordering Provider: FIGUEROA RUFF Report Released Date/Time: Oct 19, 2023 01:29 PM Reporting Lab: [facility] [id number] Performing Lab: [facility] [address] APTT 35.2 s 25.1-36.5 Oct 19, 2023 01:00 PM [facility] BASIC METABOLIC PANEL+MG Specimen Type: PLASMA No comment entered. Ordering Provider: FIGUEROA RUFF Report Released Date/Time: Oct 19, 2023 01:29 PM Reporting Lab: [facility] [address] Performing Lab: [facility] [address] CREATININE 0.8 mg/dL 0.7-1.2 UREA NITROGEN 18 mg/dL 8-26 GLUCOSE 98 mg/dL 70-100 SODIUM 142 mmol/L 136-145 POTASSIUM 4.2 mmol/L 3.5-5.1 CHLORIDE 107 mmol/L 98-107 CO2 25 mmol/L 22-29 CALCIUM 9.5 mg/dL 8.4-10.2 MAGNESIUM 1.9 mg/dL 1.6-2.6 ANION GAP 10 mmol/L 5-15 .CREAT EGFR(CKD-EPI) >90 >60 Oct 19, 2023 01:00 PM [facility] EXTRA GOLD GEL TUBE Specimen Type: SERUM No comment entered. Ordering Provider: FIGUEROA RUFF Report Released Date/Time: Oct 19, 2023 01:35 PM Reporting Lab: [facility] [address] Performing Lab: [facility] [address] EXTRA GOLD GEL TUBE RECEIVED Oct 19, 2023 01:00 PM [facility] CBC & DIFF Specimen Type: BLOOD Comment: Automated Differential Performed Ordering Provider: FIGUEROA RUFF Report Released Date/Time: Oct 19, 2023 01:29 PM Reporting Lab: [facility] [address] Performing Lab: [facility] [address] WBC 7.22 10*3/uL 4.0-11.0 RBC 5.12 10*6/uL [...] 11:37 AM 97.9 67 118/71 18 94 SHANIQUE SIMMONS [facility] Social History: Smoking Status (Most current) and Tobacco Use (All prior to encounter date) This section includes the most current, and the historical, smoking and tobacco- related health factors from the [place] facility where the Encounter took place. Current Smoking Status This section includes the most current smoking, or tobacco-related health factor, from the [place] facility where the Encounter took place. Date/Time Current Smoking Status Comment Facil ity Aug 17, 2023 09:45 AM VA-TOBACCO QUIT 15 YRS OR MORE [facility] Tobacco Use History This section includes a history of the smoking, or tobacco-related health factors, that were collected on or before the date of the Encounter. The data comes from the [place] facility where the Encounter took place. Date/Time Smoking Status/Tobacco Use Comment F acility Aug 17, 2023 09:45 AM VA-TOBACCO QUIT 15 YRS OR MORE [facility] Jul 01, 2022 08:45 AM VA-TOBACCO FORMER USER [facility] Jul 01, 2022 08:45 AM VA-TOBACCO QUIT 15 YRS OR MORE [facility] May 22, 2021 09:00 AM VA-TOBACCO FORMER USER [facility] May 22, 2021 09:00 AM VA-TOBACCO QUIT 15 YRS OR MORE [facility] Mar 29, 2020 07:42 AM VA-TOBACCO FORMER USER [facility] Mar 29, 2020 07:42 AM VA-TOBACCO QUIT 15 YRS OR MORE [facility] Mar 06, 2019 12:00 PM VA-TOBACCO FORMER USER [facility] Mar 06, 2019 12:00 PM VA-TOBACCO QUIT 15 YRS OR MORE [facility] Oct 23, 2018 11:20 AM INPT NO TOBACCO USE IN LAST 30 D [facility] Jun 15, 2018 09:25 AM VA-TOBACCO FORMER USER [facility] Jun 15, 2018 09:25 AM VA-TOBACCO QUIT 15 YRS OR MORE [facility] Jun 25, 2017 04:05 PM INPT NO TOBACCO USE IN LAST 30 D [facility] Apr 26, 2017 08:03 AM FORMER TOBACCO USER 7Y OR GREATE R [facility] Jan 04, 2017 11:27 AM INPT NO TOBACCO USE IN LAST 30 D [facility] May 13, 2016 10:42 AM LIFETIME NON-TOBACCO USER [facility] Jun 04, 2015 06:17 AM INPT NO TOBACCO USE IN LAST 30 D [facility] Apr 23, 2015 09:14 AM FORMER TOBACCO USER 7Y OR DELROYE R [facility] Jan 19, 2014 09:40 AM FORMER TOBACCO USER 7Y OR GREATE R [facility] December 09, 2010 12:08 PM FORMER TOBACCO USER 7Y OR DELROYE R [facility] Advance Directives: All historical and current Section Date Range: From patient's date of to the date document was created. This section includes ALL of a patient's completed or amended [place] Advance and Rescinded Directives. The entries below indicate that a directive exists for the patient, but an actual copy is not included with this document. The data comes from all [place] facilities. Date Advance Directives Provider Source Jun 25, 2017 CLINICAL WARNING MADHAVI CASTILLO [facility] Jan 04, 2017 CLINICAL WARNING DIGNA CASTELLANOS [facility] Sep 26, 2014 CLINICAL WARNING SHEREEN LAUREANO [facility] Radiology Reports: +/- 30 days of the [...] the Encounter. The data comes from all [place] treatment facilities. Date/Time Radiology Report Provider Source Oct 27, 2023 08:10 AM CHEST PAIN PATHWAY (ED ONLY) (P): ANANTH HUANG [id number] -1945 M Ex Date: OCT 27, 2023@08:10 Req Phys: FIGUEROA RUFF Loc: [facility] EMERGENCY DEPT WALK-IN (Re Img Loc: [facility] Service: Unknown (Case [id number] COMPLETE) MYOCARDIAL PERFUSION (SPECT)-MULT(NM Detailed) CPT:85375 Reason for Study: Chest Pain Pathway (Case 1050 COMPLETE) TC-99M SESTAMIBI (CARDIOLITE), PE(NM Detailed) CPT:A9500 (Case 1051 COMPLETE) CARDIOVASCULAR STRESS TEST (NM Detailed) CPT:20488 Clinical History: Myocardial perfusion stress test for chest pain [place] IS NOT under investigation for COVID-19 or is COVID-19 negative chest pain Responsible provider name and phone number to notify for critical findings if other than user placing the order and pager listed below: User placing orders pager: [phone] ER LAST CREATININE 0.8 (10/19/23) Report Status: Verified Date Reported: OCT 27, 2023 Date Verified: OCT 27, 2023 Tissue Specialist E-Sig:/ES/GOLD VEGA MD Report: Regadenoson myocardial perfusion [...] MD, RADIOLOGY STAFF PHYSICIAN (Maxine) /GOLD RUIZ [facility] Oct 19, 2023 02:14 PM CTA (CAP) DISSECTI ON (P): ANANTH HUANG [id number] -1945 M Ex Date: OCT 19, 2023@14:14 Req Phys: FIGUEROA RUFF Loc: [facility] EMERGENCY DEPT WALK-IN (Re Img Loc: CT IMAGING Service: Unknown (Case [id number] COMPLETE) CTA (CAP) CHEST W/ & W/O CONTRAST(CT Detailed) CPT:85028 Reason for Study: sharp chest pain (Case 1150 COMPLETE) CTA (CAP) ABDOMEN/PELVIS W/ & W/O(CT Detailed) CPT:29633 Clinical History: sharp chest pain, sudden onset, [...] PLASMA .CREAT EGFR(CKD-E >90 Ref: >=60 Allergies: ([place] only) Patient has answered NKA Defer to [...] 19, 2023 Date Verified: OCT 19, 2023 Tissue Specialist E-Sig:/ES/GURDEEP MORFIN MD Report: CHEST/ABDOMEN/PELVIS CTA AND [...] Primary Interpreting Staff: GURDEEP MORFIN MD, RADIOLOGIST (Tissue Specialist) Primary Interpreting Resident: SULMA BRADY MD, SOLAR THERMAL INSTALLER /GURDEEP DRAPER [facility] Oct 19, 2023 01:36 PM CHEST 1 VIEW: ANANTH HUANG [id number] -1945 M Ex Date: OCT 19, 2023@13:36 Req Phys: FIGUEROA RUFF Loc: [facility] EMERGENCY DEPT WALK-IN (Re Img Loc: MAIN X-RAY Service: Unknown (Case [id number] COMPLETE) CHEST 1 VIEW (RAD Detailed) CPT:12548 Proc Modifiers : PORTABLE EXAM Reason for Study: chest pain Clinical History: IS NOT under investigation for COVID-19 or is COVID-19 negative chest pain Responsible provider name and phone number to notify for critical findings if other than user placing the order and pager listed below: User placing orders pager: [phone] er ruff LAST CREATININE 0.8 (08/17/23) Report Status: Verified Date Reported: OCT 19, 2023 Date Verified: OCT 19, 2023 Tissue Specialist E-Sig:/ES/MIRIAM CAIN MD Report: EXAMINATION: CHEST 1 VIEW 10/19/2023 1:36 PM INDICATION: chest pain Impression: Heart size is enlarged or at the upper limits of normal. Pulmonary vascularity within normal limits. No pulmonary infiltrate or pleural effusion. Calcification aorta. Old healed right rib fractures. Old healed clavicular fractures. Degenerative changes thoracic spine. Primary Interpreting Staff: MIRIAM CAIN MD, RADIOLOGIST (Tissue Specialist) /MIRIAM YATES [facility] Encounter Notes: All associated encounter notes This [...] PPE during every encounter with the patient, MD/PA/BANQUET SERVER used PPE during every encounter with the [...] in the shred bin. Discharged to: Home /phoebe/ KAITLYNN BOURGEOIS RN NURSE OUTREACH REP Signed: 10/27/2023 12:23 KAITLYNN BOURGEOIS [facility] Oct 27, 2023 12:17 PM PHYSICIAN EMERGENC [...] EKG changes. /phoebe/ OBDULIO RODRIGUEZ PA-C PHYSICIAN PATTERN FINISHER Signed: 10/27/2023 12:18 Receipt Acknowledged By: 10/27/2023 12:54 /phoebe/ ELIZ MUNOZ MD PHYSICIAN, [facility] OBDULIO RODRIGUEZ [facility] Oct 27, 2023 12:03 PM NURSING EMERGENCY DEPT NOTE: LOCAL TITLE: EMERGENCY DEPT NURSING NOTE STANDARD TITLE: NURSING EMERGENCY DEPT NOTE DATE OF NOTE: OCT 27, 2023@12:03 ENTRY DATE: OCT 27, 2023@12:03:23 AUTHOR: KAITLYNN BOURGEOIS EXP COSIGNER: URGENCY: STATUS: COMPLETED Nursing Focused Assessment: [...] and locked /es/ KAITLYNN BOURGEOIS RN NURSE OUTREACH REP Signed: 10/27/2023 12:05 KAITLYNN BOURGEOIS [facility] Oct 27, 2023 11:38 AM NURSING EMERGENCY [...] NKA Subjective/Chief Complaint: stress test results Objective: [place] presents to ED with stress test results [...] adult (SCT 11Anticoagulation (ICD-9-CM V58.61) Hypothyroid (SCT 03240970) Paroxysmal atrial fibrillation ([facility] [id number]) colonoscopy screening (ICD-10-CM R69.) Glaucoma ([facility] [id number]) Exposure to potentially hazardous substaCAD - Coronary Artery Disease ([facility] [id number]) Cervical Radiculopathy ([facility] [id number]) Identification of Seniors at Risk (ISAR):* Perform Screen Yes-ISAR More than 3 different medications daily Total Score: 1 Suicide Screen: [place] Suicide Severity Rating Scale (C-SSRS) screener 1. [...] to other questions. /phoebe/ GAYATRI ODOM RN ROOF DESIGNER Signed: 10/27/2023 11:40 GAYATRI ODOM [facility]
--- OUTSIDE RECORDS SUMMARY | 2024-10-09 11:28 | XMS_ITS | Encounter Summary ---
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 [place] [facility] [place] [facility] [place] Address [address] [place] [address] Care Team Providers Care Activity Manager Name Role Phone TAMMY ELIZ Primary Care Provider [facility] e Insurance Providers: All historical and [...] PART A Nov 01, 2011 PART A [id number] ANANTH HUANG PATIENT MEDICARE (WNR) MEDICARE (M) PART B Nov 01, 2011 PART B [id number] [phone] ANANTH HUANG PATIENT MEDICARE (WNR) MEDICARE (M) PART A Nov 01, 2011 PART A [id number] [phone] ANANTH HUANG PATIENT MEDICARE (WNR) MEDICARE (M) PART B Nov 01, 2011 PART B [id number] [phone] ANANTH HUANG PATIENT Selected Encounter This section includes the information on record at [place] for the Encounter. Date/Time Encounter Type Encounter Description Reason Provider Source Feb 26, 2024 07:27 AM EMERGENCY DEPT VISIT [facility] EMERGENCY DEPT ICD-10-CM I48.91 Unspecified atrial fibrillation AUGUSTA GOODMAN [facility] Encounter Template Text not used by [place] Assessments - Encounter Diagnoses This section includes the primary and secondary diagnoses documented for the Encounter. Date/Time Primary/Secondary Diagnosis Diagnosis Name Provider Source Feb 26, 2024 09:32 AM PRIMARY Unspecified atrial fibrillation AUGUSTA GOODMAN [facility] Plan of Treatment: Future Appointments (+ 6 months) and Future Tests (+/- 45 days) The Plan of Treatment section includes future care activities for the patient from [facility] [place] [facility]. This section includes future appointments and future orders which are active, pending or scheduled. Future Appointments This section includes appointments that were scheduled to occur 6 months from the date of the Encounter, up to a maximum of 20 appointments. The data comes from all [place] treatment facilities. Appointment Date/Time Appointment Type Appointme nt Facility Name Mar 08, 2024 10:45 AM AMBULATORY - SURGERY [facility] Jun 19, 2024 12:40 PM AMBULATORY - REHAB MEDICIN E [facility] Jul 11, 2024 08:15 AM [facility] Aug 16, 2024 11:15 AM AMBULATORY - [facility]ICINE [facility] Lab Results: +/- 30 days of [...] Range Comment Feb 26, 2024 08:17 AM [facility] EXTRA BLUE TUBE Specimen Type: PLASMA No comment entered. Ordering Provider: TED GOODMAN Report Released Date/Time: Feb 26, 2024 08:25 AM Reporting Lab: [facility] [id number] Performing Lab: [facility] [id number] EXTRA BLUE TUBE RECEIVED Feb 26, 2024 08:17 AM [facility] TROPONIN I, HS Specimen Type: PLASMA No comment entered. Ordering Provider: TED GOODMAN Report Released Date/Time: Feb 26, 2024 07:57 AM Reporting Lab: [facility] [id number] Performing Lab: [facility] [id number] TROPONIN I, HS 7 <35 Feb 26, 2024 08:17 AM [facility] BNP Specimen Type: PLASMA No comment entered. Ordering Provider: TED GOODMAN Report Released Date/Time: Feb 26, 2024 07:57 AM Reporting Lab: [facility] [id number] Performing Lab: [facility] [id number] BNP 40 pg/mL <99 Feb 26, 2024 08:17 AM [facility] EXTRA GOLD GEL TUBE Specimen Type: SERUM No comment entered. Ordering Provider: TED GOODMAN Report Released Date/Time: Feb 26, 2024 08:25 AM Reporting Lab: [facility] [id number] Performing Lab: [facility] [phone] EXTRA GOLD GEL TUBE RECEIVED Feb 26, 2024 08:17 AM [facility] BASIC METABOLIC PANEL+MG Specimen Type: PLASMA No comment entered. Ordering Provider: TED GOODMAN Report Released Date/Time: Feb 26, 2024 07:57 AM Reporting Lab: [facility] [phone] Performing Lab: [facility] [phone] CREATININE 0.7 mg/dL 0.7-1.2 UREA NITROGEN 14 mg/dL 8-26 GLUCOSE 109 mg/dL H 70-100 SODIUM 142 mmol/L 136-145 POTASSIUM 4.4 mmol/L 3.5-5.1 CHLORIDE 110 mmol/L H 98-107 CO2 24 mmol/L 22-29 CALCIUM 9.5 mg/dL 8.4-10.2 MAGNESIUM 2.0 mg/dL 1.6-2.6 ANION GAP 8 mmol/L 5-15 .CREAT EGFR(CKD-EPI ) >90 >60 Feb 26, 2024 08:17 AM [facility] CBC & DIFF Specimen Type: BLOOD Comment: Automated Differential Performed Ordering Provider: TED GOODMAN Report Released Date/Time: Feb 26, 2024 07:57 AM Reporting Lab: [facility] [id number] Performing Lab: [facility] [phone] WBC 5.66 10*3/uL 4.0-11.0 RBC 5.04 10*6/uL [...] 0.4 ABS IMMATURE GRAN 0.02 10*3/uL 0-0.1 Vital Signs: All taken on the encounter date This section contains inpatient and outpatient Vital Signs collected on the date of the Encounter. Date/Time Temperature Pulse Blood Pressure Respiratory Rate SP02 Pain Height Weight Body Mass Index Source Feb 26, 2024 07:31 AM 97.4 83 161/90 15 0 [place] [facility] Social History: Smoking Status (Most current) [...] 17, 2023 09:45 AM VA-TOBACCO FORMER USER [facility] Tobacco Use History This section includes a history of the smoking, or tobacco-related health factors, that were collected on or before the date of the Encounter. The data comes from the [place] facility where the Encounter took place. Date/Time Smoking Status/Tobacco Use Comment Angelito florian Aug 17, 2023 09:45 AM [place] 15 YRS OR MORE [facility] Jul 01, 2022 08:45 AM VA-TOBACCO FORMER USER [facility] Jul 01, 2022 08:45 AM [place] QU[place] 15 YRS OR MORE [facility] May 22, 2021 09:00 AM VA-TOBACCO FORMER USER [facility] May 22, 2021 09:00 AM VA-TOBACCO QUIT 15 YRS OR MORE [facility] Mar 29, 2020 07:42 AM VA-TOBACCO FORMER USER [facility] Mar 29, 2020 07:42 AM VA-TOBACCO QUIT 15 YRS OR MORE [facility] Mar 06, 2019 12:00 PM VA-TOBACCO FORMER USER [facility] Mar 06, 2019 12:00 PM VA-TOBACCO QUIT 15 YRS OR MORE [facility] Oct 23, 2018 11:20 AM INPT NO TOBACCO USE IN LAST [address] [facility] Jun 15, 2018 09:25 AM VA-TOBACCO FORMER USER [facility] Jun 15, 2018 09:25 AM VA-TOBACCO QUIT 15 YRS OR MORE [facility] Jun 25, 2017 04:05 PM INPT NO TOBACCO USE IN LAST [address] [facility] Apr 26, 2017 08:03 AM FORMER TOBACCO USER 7Y OR GREATE R [facility] Jan 04, 2017 11:27 AM INPT NO TOBACCO USE IN LAST [address] [facility] May 13, 2016 10:42 AM LIFETIME NON-TOBACCO USER [facility] Jun 04, 2015 06:17 AM INPT NO TOBACCO USE IN LAST [address] [facility] Apr 23, 2015 09:14 AM FORMER TOBACCO USER 7Y OR GREATE R [facility] Jan 19, 2014 09:40 AM FORMER TOBACCO USER 7Y OR GREATE R [facility] December 09, 2010 12:08 PM FORMER TOBACCO USER 7Y OR GREATE R [facility] Advance Directives: All historical and current Section Date Range: From patient's date of to the date document was created. This section includes ALL of a patient's completed or amended [place] Advance and Rescinded Directives. The entries below indicate that a directive exists for the patient, but an actual copy is not included with this document. The data comes from all [facility]. Date Advance Directives Provider Source Jun 25, 2017 CLINICAL WARNING MADHAVI CASTILLO [facility] Jan 04, 2017 CLINICAL WARNING DIGNA CASTELLANOS [facility] Sep 26, 2014 CLINICAL WARNING SHEREEN LAUREANO [facility] Encounter Notes: All associated encounter notes This section contains the clinical notes associated to the Encounter. Date/Time Encounter Note(s) Provider Source Feb 26, 2024 09:16 AM NURSING EMERGENCY DEPT NOTE: LOCAL TITLE: EMERGENCY DEPT NURSING NOTE STANDARD TITLE: NURSING EMERGENCY DEPT NOTE DATE OF NOTE: FEB 26, 2024@09:16 ENTRY DATE: FEB 26, 2024@09:16:08 AUTHOR: SOFI ABRAHAM EXP COSIGNER: URGENCY: STATUS: COMPLETED Emergency Department Discharge Education Personal Protective Equipment (PPE): None The patient was given education on the following: AFib EDUCATION/TEACH BACK: [facility] discharge instructions have been reviewed with Patient AND had an opportunity to ask questions, has verbalized understanding, have received a copy of the [facility] instructions EDUCATIONAL LEVEL OF UNDERSTANDING: Patient was ready and receptive to education. BARRIERS TO LEARNING: No barriers identified Accompanied by: Self Mode of Transportation: Drive self EXIT ADDITIONAL EDUCATION GIVE: Wristband Removal:Patient wristband was removed and destroyed by being placed in the shred bin. Discharged to: Home // SOFI ABRAHAM WARD SECRETARY NURSE Signed: 02/26/2024 09:16 SOFI ABRAHAM [facility] Feb 26, 2024 09:13 AM EMERGENCY DEPT EDUCATION NOTE: LOCAL TITLE: EMERGENCY DEPT DISCHARGE INSTRUCTIONS STANDARD TITLE: EMERGENCY DEPT EDUCATION NOTE DATE OF NOTE: FEB 26, 2024@09:13:44 ENTRY DATE: FEB 26, 2024@09:13:44 AUTHOR: ARMANDO GOODMAN EXP COSIGNER: URGENCY: STATUS: COMPLETED DISCHARGE INSTRUCTIONS [...] instructions below. You were treated today by Armando Goodman MD. Special Information This Information Is About Your Follow Up Care You will need a follow-up appointment at the Cardiac EP in Call to schedule. You can reach the Cardiac EP at to make an appointment. If you are not feeling better and improving over the next few days, or if you have any questions please call your Primary Care Provider. Future Appointments 03/08/2024 at 10:45am WANDER AUD TECH 2S This Information Is About Your Illness and Diagnosis ATRIAL FIBRILLATION (AF) The heart is a muscle that contracts and relaxes. This action pumps blood that contains oxygen and other nutrients to the rest of the body. The steady rhythm of the contractions is controlled by electrical impulses. The impulses travel through the heart, first through the upper chambers (called the atria) then through the lower chambers (the ventricles). In order to reach the ventricles, the electrical impulses must pass through the atrioventricular node (the AV node). With atrial fibrillation, a storm of electrical impulses spread through the atria in a chaotic and disorganized pattern. The atria quiver (fibrillate) instead of beat. This can cause the ventricles to contract faster. When the heart is in atrial fibrillation, the body isn't able to receive the blood and oxygen it needs. The exact cause of atrial fibrillation is unknown. Contributing factors may include: -high blood pressure -heart disease or congestive heart failure -damage to the heart from a previous heart attack or heart surgery -heavy alcohol use -certain drugs, such as tobacco, cocaine, stimulants, and caffeine How does my health care provider know that I have atrial fibrillation? Signs and symptoms: Some people do not have any signs or symptoms of atrial fibrillation. Others may develop symptoms, such as: -tiredness -having a feeling or awareness of a fast heartbeat -shortness of breath -weakness, dizziness, or fainting -swelling of the feet What tests may be done? -blood tests: tests done to examine your electrolytes, oxygen level, certain drug levels, or heart enzymes -electrocardiogram (EKG): an electrical recording of your heart rhythm. You may need several EKGs before a diagnosis can be made. -holter monitor or loop recorder: an electrical recording of your heart rhythm for an extended period of time. This may be done at home using a portable recorder you carry with you. -echocardiogram: a procedure in which sound waves are used to create an image of your heart as it pumps. -electrophysiologic studies (EP studies): a test that monitors the electrical activity of the heart and can locate the exact area of the heart that is causing the arrhythmia. EP studies can also monitor if your medicines are working to control the arrhythmia. How can atrial fibrillation affect my health? For some people, atrial fibrillation may only last a short time, but continue to reappear. In other people, atrial fibrillation is permanent. This is called persistent atrial fibrillation. Possible risks and complications: Left untreated, -atrial fibrillation can cause blood clots that can lead to a stroke -a rapid heart rate can weaken the lower chambers of the heart Regardless of how you feel, your atrial fibrillation needs to be treated right away. What is the usual treatment? For some people with atrial fibrillation, restoring the heart's natural regular rhythm is the goal of treatment. For others, just controlling or slowing the heart rate is a safer and more effective goal. For most patients with atrial fibrillation, preventing blood clots that could lead to a stroke is very important. Several treatment options may be recommended. -One option may be to take medicines, of which there are several types that may be prescribed. -Antiarrhythmic medicines may be prescribed to restore the heart's natural rhythm. These may include Propafenone, Dofetilide, Flecainide, Sotalol, or Amiodarone. -Rate-control medicines help slow down the heart rate. Some examples of these medicines include beta blockers, calcium channel blockers, and Digoxin. -Blood thinning medicines called anticoagulants may be prescribed to help reduce the risk of a stroke. Anticoagulants include Warfarin (Coumadin), Aspirin, Dabigatran, Rivaroxaban, and Apixaban. -You may need an electrical shock to stimulate the heart to convert it to a regular rhythm. This is called cardioversion. This is a procedure that can restore the heart's natural rhythm. Before having this procedure, you'll be given a sedative to put you to sleep. An electrical shock is then given through electrode pads, or paddles. This single shock wipes out the disorganized electrical activity in your heart, restoring the natural rhythm. Following electrical cardioversion, you may have a little chest discomfort or some redness on the chest temporarily. -A catheter ablation may be recommended. One or more catheters will be inserted into a vein, and guided into your heart. To restore the heart's natural rhythm, the tissue conducting the abnormal impulses will be located. A catheter is placed against it, and radiofrequency energy will be sent through the catheter, ablating or destroying the tissue and restoring the heart's natural rhythm. In some cases, the best treatment may be to ablate the AV node. This does not cure atrial fibrillation, but it does slow down the heart's rate, which reduces symptoms. -A pacemaker helps speed up the heart when it beats too slowly. When the AV node is ablated, this device is implanted to help the heart maintain an effective rate. A pacemaker may also be recommended for some patients taking medicines that slow down the heart rate. -Another option, the MAZE Procedure, is an open-heart surgical procedure that can also help restore the heart's natural rhythm. However, this procedure is usually only recommended for patients already undergoing open-heart surgery for another reason. Please follow these instructions: -General: -In many cases, making changes to your lifestyle can help you manage your atrial fibrillation. Avoid things that can trigger or make your condition worse, especially alcohol, caffeine, and tobacco. -Stay active. Exercise according to your treatment plan. -It is very important to keep all follow-up appointments with your health care provider or lab. -Talk to your health care provider or pharmacist before taking any tyub-mri-aiattjf medicines. Many cold, sinus, and allergy medicines can causes arrhythmias. -Diet: -Eat heart-healthy foods: fresh fruits and vegetables, beans, whole grains, and lean protein (chicken, fish). Limit or avoid processed foods, fried foods, high-fat baked pastries, saturated fats, and partially-hydrogenated and hydrogenated fats. Check food labels and select foods without Trans fats. -If you are overweight, ask your health care provider about a weight loss plan. Extra body weight puts more strain on your heart. -If you are taking the medicine warfarin (Coumadin), be aware that foods high in vitamin K can interfere with warfarin's action. Examples of foods high in vitamin K include broccoli and many leafy green vegetables. So, don't suddenly increase the amount of these foods that you eat. Keep your diet steady. Contact your health care provider immediately or call 911 if: -you have chest pain or shortness of breath. -you get a sudden, severe headache. -you have signs of a stroke: -weakness, numbness, or tingling of your arms, legs, or face -you have trouble speaking -you have changes in your vision -you suddenly feel confused or disoriented Contact your health care provider as soon as possible if: -you feel unusually tired, dizzy, or lightheaded. -you have heart palpitations or swelling in your feet. -you have any new or bothersome symptoms. For more information, contact: [place] [employer] (AHA) www.heart.org National Heart, Lung & Blood [place] www.nhlbi.nih.gov IMPORTANT MEDICATION INFORMATION -Your medication list includes [...] have your Medication List reviewed. Pending Medications [none] Active Medications CHOLECALCIFEROL TAB 2000UNIT MOUTH TWICE A DAY (Non-VA Medication) DABIGATRAN ETEXILATE 150MG ORAL CAP UD TAKE ONE CAPSULE BY MOUTH EVERY 12 HOURS TO PREVENT STROKE DUE TO ATRIAL FIBRILLATION DORZOLAMIDE HCL 2% OPH SOLN INSTILL 1 DROP IN BOTH EYES TWICE A DAY FLUOROURACIL 5% CREAM APPLY DIRECTED TO FACE TOPICALLY TWICE A DAY FOR PRECANCERS FOR TWO WEEKS TO SUN DAMAGED AREAS OF FACE LATANOPROST 0.005% OPH SOLN INSTILL 1 DROP IN BOTH EYES AT BEDTIME LEVOTHYROXINE NA (SYNTHROID) 137MCG TAB TAKE ONE [...] GO TO THE NEAREST EMERGENCY ROOM // ARMANDO GOODMAN MD STAFF PHYSICIAN Signed: 02/26/2024 09:13 ARMANDO GOODMAN [facility] Feb 26, 2024 08:31 AM PHYSICIAN EMERGENCY DEPT NOTE: LOCAL TITLE: EMERGENCY DEPT NOTE STANDARD TITLE: PHYSICIAN EMERGENCY DEPT NOTE DATE OF NOTE: FEB 26, 2024@08:31 ENTRY DATE: FEB 26, 2024@08:31:26 AUTHOR: ARMANDO GOODMAN COSIGNER: URGENCY: STATUS: COMPLETED EMERGENCY DEPT NOTE Has ADDENDA Personal Protective Equipment (PPE): MD/PA/MARKETING PROGRAMS SPECIALIST used PPE during every encounter with the patient Nurse's note reviewed. Chief Complaint: The patient is a 78 y/o MALE complaining of: A.fib TDAP/TD Immunizations ADMINISTERED Immunization Series Date Facility Reaction Info TDAP 12/04/2022 [facility]:[place] [facility] TDAP 12/10/2021 [place]* <C> CONTRAINDICATED No data available REFUSED ======= No data available <C> See the Detailed Immunizations Health Summary Component[DIM] for Comments * Value is truncated; see the Detailed Immunizations Health Summary Component[DIM] for complete text Covid-19 Immunizations ADMINISTERED Immunization Series Date Facility Reaction Info COVID-19 (PFIZER), MRNA, LNP-S, * 1 10/01/2020 [place]* <C> COVID-19 (PFIZER), MRNA, LNP-S, * 2 10/22/2020 [place] <C> COVID-19 (PFIZER), MRNA, LNP-S, * 3 05/22/2021 [place] <C> CONTRAINDICATED No data available REFUSED ======= Immunization Date Facility Info COVID-19 (PFIZER), MRNA, LNP-S, * 08/17/2023 [place]* <I> <C> See the Detailed Immunizations Health Summary Component[DIM] for Comments <I> See the Detailed Immunizations Health Summary Component[DIM] for Additional Information * Value is truncated; see the Detailed Immunizations Health Summary Component[DIM] for complete text History of present illness: Patient with a history of paroxysmal a.fib has had two ablations. Most recent was in 2019. He has been asymptomatic since that time. Reports that he is symptomatic with his a.fib episodes, experiencing palpitations and lightheadedness. When he woke up this morning, felt that he was in a.fib. Pulse check confirmed irregular pulse, though rate was controlled 60's- 80's, as has been usual for him. No chest pain. No dyspnea. Symptoms resolved after about two hours, and he feels that he's in sinus rhythm now. Hasn't been ill recently. Nothing new/unusual with meds, diet, activity. On DOAC. Allergies: Patient has answered NKA Past Medical History: Active problems - Computerized Problem List is the source for the followin. Obstructive sleep apnea of adult (SNOMED CT [id number]) - ON CPAP 2. Anticoagulation 3. Hypothyroid 4. Paroxysmal atrial fibrillation - s/p PVI x2, most recently 06/2019 5. colonoscopy screening - normal colonoscopy 09/2018, next 09/2028 6. Glaucoma 7. Exposure to potentially hazardous substance 8. CAD - Coronary Artery Disease ([facility] [id number]) - Mild, nonobstructive CAD on coronary CTA 06/2022 9. Cervical Radiculopathy ([facility] [id number]) - S/p JOSH 09/2022 Medications: Active Outpatient Medications (excluding Supplies): Outpatient Medications Status 1) DABIGATRAN ETEXILATE 150MG ORAL CAP UD TAKE ONE ACTIVE CAPSULE BY MOUTH EVERY 12 HOURS TO PREVENT STROKE DUE TO ATRIAL FIBRILLATION 2) DORZOLAMIDE HCL 2% OPH SOLN INSTILL 1 DROP IN BOTH ACTIVE EYES TWICE A DAY 3) FLUOROURACIL 5% CREAM APPLY DIRECTED TO FACE ACTIVE TOPICALLY TWICE A DAY FOR PRECANCERS FOR TWO WEEKS TO SUN DAMAGED AREAS OF FACE 4) LATANOPROST 0.005% OPH SOLN INSTILL 1 DROP IN BOTH ACTIVE EYES AT BEDTIME 5) LEVOTHYROXINE NA (SYNTHROID) 137MCG TAB TAKE ONE ACTIVE TABLET BY MOUTH EVERY DAY ON AN EMPTY STOMACH 6) ROSUVASTATIN CA 20MG TAB TAKE ONE TABLET BY MOUTH AT ACTIVE BEDTIME FOR CHOLESTEROL Non-VA Medications Status 1) Non-VA CHOLECALCIF 25MCG (D3-1,000UNIT) TAB 2000UNIT ACTIVE MOUTH TWICE A DAY 2) Non-VA ZINC (FROM SULFATE) CAP,ORAL ACTIVE 8 Total Medications Physical Exam: BP: 161/90 (02/26/2024 07:31) P: 83 (02/26/2024 07:31) R: 15 (02/26/2024 07:31) T: 97.4 F [36.3 C] (02/26/2024 07:31) O2 Sats: 95% (11/15/2023 13:52) General: well developed, well nourished, NAD Skin: Warm, dry. Neck: supple Cardiovascular: RRR, S1/S2 Respiratory: Lungs - clear to auscultation bilaterally Abdominal: normal bowel sounds, soft,NT,ND Labs: Additional lab pending. PT/INR Done: WBC: 5.66 RBC: 5.04 HGB: 15.4 HCT: 46.0 MCV: 91.3 MCH: 30.6 MCHC: 33.5 RDW: 13.1 PLT: 211 MPV: 9.7 SEGS: 63.7 LYMPHS: 15.5 MONOCYTES: 14.1 H EOSINO: 5.1 BASO: 1.2 NEUTROPHIL, ABSOLUTE: 3.60 EOSINO, ABSOLUTE: 0.29 BASO, ABSOLUTE: 0.07 MONOCYTE, ALTERNATE ABS: 0.80 LYMPHS, ALTERNATE ABS: 0.88 L I.4 IG,ABSOLUTE: 0.02 ED Course/Medical Decision Making/Assessment: CPRS Notes/Labs Reviewed for Patient Encounter: Emergency department triage, emergency department nursing note, Diagnosis and Plan: NSR 72/min. Normal tracing. A/P: Paroxysmal a.fib, now in NSR. Anticipate outpatient EP follow up pending lab results. /phoebe/ ARMANDO GOODMAN MD STAFF PHYSICIAN Signed: 02/26/2024 08:36 Receipt Acknowledged By: 02/28/2024 12:47 /phoebe/ ELIZ MUNOZ MD PHYSICIAN, [facility] 02/26/2024 ADDENDUM STATUS: COMPLETED Today's Labs: B-TYPE NATRIURETIC PEPTIDE: 40 TROPONIN, HIGH SENSITIVITY: 7 GLUCOSE: 109 H UREA NITROGEN: 14 CREATININE: 0.7 SODIUM: 142 POTASSIUM: 4.4 CHLORIDE: 110 H CO2: 24 CALCIUM: 9.5 MAGNESIUM: 2.0 ANION GAP: 8 CREATININE EGFR (CKD-EPI): >90 WBC: 5.66 RBC: 5.04 HGB: 15.4 HCT: 46.0 MCV: 91.3 MCH: 30.6 MCHC: 33.5 RDW: 13.1 PLT: 211 MPV: 9.7 SEGS: 63.7 LYMPHS: 15.5 MONOCYTES: 14.1 H EOSINO: 5.1 BASO: 1.2 NEUTROPHIL, ABSOLUTE: 3.60 EOSINO, ABSOLUTE: 0.29 BASO, ABSOLUTE: 0.07 MONOCYTE, ALTERNATE ABS: 0.80 LYMPHS, ALTERNATE ABS: 0.88 L I.4 IG,ABSOLUTE: 0.02 A/P: PAF. F/U EP prn. Continue present meds. /es/ ARMANDO GOODMAN MD STAFF PHYSICIAN Signed: 02/26/2024 09:14 ARMANDO GOODMAN [facility] Feb 26, 2024 07:44 AM NURSING EMERGENCY DEPT NOTE: LOCAL TITLE: EMERGENCY DEPT NURSING NOTE STANDARD TITLE: NURSING EMERGENCY DEPT NOTE DATE OF NOTE: FEB 26, 2024@07:44 ENTRY DATE: FEB 26, 2024@07:44:23 AUTHOR: VIKASH EVANS EXP COSIGNER: URGENCY: STATUS: COMPLETED EMERGENCY DEPT NURSING NOTE Has ADDENDA Nursing Focused Assessment: CHIEF COMPLAINT: Pt reports checking pulse this am to realize he is in a-fib. States some weakness. Denies other negativesw. Pt currently in normal sinus rhythm. Allergies/ADR:Patient has answered NKA Additional allergies not listed: Vital Signs * Blood Pressure: 161/90 (02/26/2024 07:31) Heart Rate: 83 (02/26/2024 07:31) Respirations: 15 (02/26/2024 07:31) Temperature: 97.4 F [36.3 C] (02/26/2024 07:31) Pain: 0 (02/26/2024 07:31) Weight: 240.5 lb [109.09 kg] (08/17/2023 09:38) O2 Sats: 95% (11/15/2023 13:52) Pain intensity: (Patient rates the pain. 0 = no pain; 10 = worst pain) Is your pain new with this visit? (acute or chronic) No Tobacco use: No Alcohol use: No Any drugs besides what is prescribed or over the counter: No ABUSE/NEGLECT: No evidence of abuse/neglect REVIEW OF SYSTEM-FOCUSED ASSESSMENT Cardiovascular: EKG: Completed and reviewed by Dr. MUNIZ Palpitations: Woke with palpatations. /es/ VIKASH EVANS RN EMERGENCY DEPARTMENT Signed: 02/26/2024 07:46 02/26/2024 ADDENDUM STATUS: COMPLETED Assumed care of the pt. Pt awaiting provider evaluation. No acute distress noted. The pt is currently in NSR. /phoebe/ ANNEMARIE RIVERA RN REGISTERED NURSE Signed: 02/26/2024 07:53 VIKASH EVANS [facility] Feb 26, 2024 07:30 AM NURSING EMERGENCY DEPT TRIAGE NOTE: LOCAL TITLE: EMERGENCY DEPARTMENT NURSING TRIAGE NOTE STANDARD TITLE: NURSING EMERGENCY DEPT TRIAGE NOTE DATE OF NOTE: FEB 26, 2024@07:30 ENTRY DATE: FEB 26, 2024@07:30:34 AUTHOR: SOHAM DAN COSIGNER: URGENCY: STATUS: COMPLETED Emergency Department/Urgent Care Center Triage Patient age:78 Sex: MALE On arrival patient was: AMBULATORY Patient phone number: Allergies: Patient has answered NKA Subjective/Chief Complaint: A fib Objective: Pt. presents to ED stating that he fells like he is in a-fib. Pt. has unlabored breathing and is in NAD. The patient is not a fall risk. Vital Signs * Temperature 97.4 F (36.3 C) Pulse 83 Respirations 15 Blood Pressure 161/90 Pain scale recorded: 0 Pulse Oximetry 97 Emergency Severity Index (JOSH) level Level 3 Current Medications: Active Outpatient Medications (including Supplies): Active Outpatient Medications Status 1) DABIGATRAN ETEXILATE 150MG ORAL CAP UD TAKE ONE ACTIVE CAPSULE BY MOUTH EVERY 12 HOURS TO PREVENT STROKE DUE TO ATRIAL FIBRILLATION 2) DORZOLAMIDE HCL 2% OPH SOLN INSTILL 1 DROP IN BOTH ACTIVE EYES TWICE A DAY 3) FLUOROURACIL 5% CREAM APPLY DIRECTED TO FACE ACTIVE TOPICALLY TWICE A DAY FOR PRECANCERS FOR TWO WEEKS TO SUN DAMAGED AREAS OF FACE 4) LATANOPROST 0.005% OPH SOLN INSTILL 1 DROP IN BOTH ACTIVE EYES AT BEDTIME 5) LEVOTHYROXINE NA (SYNTHROID) 137MCG TAB TAKE ONE ACTIVE TABLET BY MOUTH EVERY DAY ON AN EMPTY STOMACH 6) ROSUVASTATIN CA 20MG TAB TAKE ONE TABLET BY MOUTH AT ACTIVE BEDTIME FOR CHOLESTEROL Active Non-VA Medications Status 1) Non-VA CHOLECALCIF 25MCG (D3-1,000UNIT) TAB 2000UNIT ACTIVE MOUTH TWICE A DAY 2) Non-VA ZINC (FROM SULFATE) CAP,ORAL ACTIVE 8 Total Medications Current Problems: Obstructive sleep apnea of adult (SCT 11Anticoagulation (ICD-9-CM V58.61) Hypothyroid ([facility] 24533431) Paroxysmal atrial fibrillation (SCT [id number]) colonoscopy screening (ICD-10-CM R69.) Glaucoma ([facility] [id number]) Exposure to potentially hazardous substaCAD - Coronary Artery Disease ([facility] [id number]) Cervical Radiculopathy ([facility] [id number]) Identification of Seniors at Risk (ISAR):* Perform Screen Yes-ISAR More than 3 different medications daily Total Score: 1 Suicide Screen: [place] Suicide Severity Rating Scale (C-SSRS) screener 1. [...] due to responses to other questions. /phoebe/ SOHAM DAN RN REGISTERED NURSE Signed: 02/26/2024 07:33 SOHAM DAN [facility]
== END 2024-10-09 11:29 | disposition home or self-care (01) ==
LOC: ED 11:20
PROVIDERS: Emergency Provider Family Medicine
DX: L72.0 Epidermal cyst (principal); N50.89 Other specified disorders of the male genital organs
CPT/HCPCS: 10060; 81001; 99283